=== PATIENT | male | born 1935 | race Caucasian/White ===

== ENCOUNTER → 2017-05-26 08:44 | Outpatient (CLI) | payer MEDICARE, SELFPAY ==
[2017-05-26 09:29] LABS: AST(SGOT) 32 U/L (15-37); Alanine Aminotransfer ALT/SGPT 23 U/L (16-61); Albumin, Serum 3.6 g/dL (3.2-5.0); Alkaline Phosphatase 82 U/L (45-117); Bilirubin, Direct 0.22 mg/dL (0.00-0.30); Cholesterol 148 mg/dL (200); Globulin 3.5 g/dL (2.2-4.2); High Density Lipoprotein 58 mg/dL; Protein, Total 7.1 g/dL (6.4-8.2); Triglycerides 100 mg/dL; Very Low Density Lipoprotein 20 mg/dL (5-40)
== END ==
PROVIDERS: Family Provider Internal Medicine; PCP Internal Medicine; Visit Provider Internal Medicine Cardiovascular Disease
DX: E78.5 Hyperlipidemia, unspecified (principal); Z79.899 Other long term (current) drug therapy
CPT/HCPCS: 36415; 80061; 80076

== ENCOUNTER 2017-05-31 08:30 | Outpatient (RCR) | payer MEDICARE, SELFPAY ==
--- NOTE | 2017-05-14 10:49 | HP.OTEVAL_ITS ---
Patient's Visit Information AILYN SEGOVIA is a 81 year old M, referred to Occupational Therapy by JADYN Gay.REYNA, with a diagnosis of other specific disorder of tendon R wrist, OA R hand and wrist. Date of Evaluation: 05/14/17 Occupational Therapist: Indu Forbes - Subjective Subjective: Pt., ailyn, arrived and noted that that R wrist hurting with intended movement for a couple months. He is R hand dominant. He notes that he has OA already in hands but new pain started more recently. 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 And has increased pain while working and completing most other daily tasks. - Pain Right Wrist 2 Pain Intensity Range: 4, 5 - Objective Objective/Observation: Potential of very minimal edema over back of CMC. Pt. increased pain with wrist flex/ext to 3/10. Pain indicated over ECU tendon and flexor pollicus longus tendon. Limited ROM noted and decreased retort or condenser press operator of R dominant hand at this time. Negative finkelsteins. Negative phalens. - ROM Wrist: flex R 0-61, L 0-70; ext R 0-35, L 0-60 ROM Comments: increased pain to 3/10 with movement of R wrist with flex and extension. - Strength Apartment Leasing Agent: R 68, L 82 Lateral Pinch: R 17, L 17 Tripod Pinch: R 16, L 13 Tip-to-Tip Pinch: R 10, L 10 - Edema Other: potential over base of CMC but very minimal - Sensation Sensation Comments: denies numbness and tingling. Notes he has CTS releas eand trigger finger release a few years ago and has had been pretty good since. - Special Tests Phalen's (Carpal Tunnel): negative at this time WHAT Test: negative at this time - DASH-Disabilities of Arm, Shoulder& Hand DASH Sum: 66 - Hand/Wrist Evaluation Total Score of Pain & Functional Sections: 36 - Goals Goal:: Ailyn to increase R retort or condenser press operator by 20 lbs to promote increase stability of wrist 4/5 trials 80% of the time to promote completion og ADl/IADls by d/c. Goal:: Ailyn to have no more than 1/10 pain with all ADl/IADls 4/5 trials 80% of the time to promote (I) in ADL/IADLs by d/c. Goal:: Ailyn to be mod I to complete jt protection and correct body mechanics for R wrist and hand 4/5 trials 80% of the time to decreased risk of further injury by d/c. Goal:: Ailyn to be (I) return to all ADL/IADls with minimal pain (0-1/10 pain) 4/ 5 trials 80% of the time to promote ability to complete meaningful tasks by d/c. - Rehabilitation General Assessment: Pt.Ailyn, arrived and noted that wrist pain started about a two months ago. He exhibits decreasedgrip strength and ROM of R dominant compared to L nonaffected hand. He has increased pain with resistive tasks. Rehabilitation Potential: Good - Anticipated Interventions Anticipated Interventions: A/AAROM/PROM, Strengthening, Edema Control, Triggerpoint Release, Modalities, Orthoses, Joint Protection/Energy Conservation , Ergonomic Education, Fine Motor Coord/Juan Carlos, ADL Training, Caregiver Training , Home Program - Visit Plan Frequency: 2x /Week Duration: 4-6 Weeks General Plan: Pt.Ailyn, to recieve OT services 2x for 4-6 weeks to address ROM , strength, stability and body mechanics to promote increased participation in ADLs/IADls. Modalities and potential for wrist splint to be used to help decreased pain if needed. TEXT: Thank you for the opportunity to evaluate your patient. For Medicare and Medicare HMO plans, please review the plan of care and approve it. It will need to be FAXED BACK to us at [phone] for Medicare purposes. Please let me know if there are questions or concerns regarding this plan of care. Physician Signature: Date:
--- NOTE | 2017-06-20 11:47 | HP.OT.NRP ---
HP - Discharge Summary - Patient Information JAROD SEGOVIA was seen in my office for initial evaluation on 05/14/17. The following Plan of Care was established for this patient: Initial Frequency: 2x /Week Initial Duration: 4-6 Weeks Plan: continue POC. Promote increasing ergonomics of R wrist. He is to schedule 2x more follow up appointments. Granddaughter coming next week so noted he may need to follow up in 2 weeks. - Anticipated Interventions Anticipated Interventions: A/AAROM/PROM, Strengthening, Edema Control, Triggerpoint Release, Modalities, Orthoses, Joint Protection/Energy Conservation, Ergonomic Education, Fine Motor Coord/Juan Carlos, ADL Training, Caregiver Training, Home Program This patient was last seen in our office . Pertinent comments regarding their Occupational therapy will appear below: At this point I will be discontinuing this patient from occupational therapy. called and determined he will no longer need OT services. Last seen 05/31/17 he was to return after granddaughter completed week visit. Paint Dipper measurements taken were following: R 70 lbs , some increased pain through wrist, L 79 lbs. HE was further educated on ergonomic gardening tools. I would be happy to see this patient again in the future if found appropriate by the physician. Thank you! Indu Forbes
== END 2017-05-31 19:00 | disposition home or self-care (01) ==
LOC: OT 08:30
PROVIDERS: Family Provider Internal Medicine; PCP Internal Medicine; Visit Provider Physician Assistant
DX: M67.833 Other specified disorders of tendon, right wrist (principal); M19.031 Primary osteoarthritis, right wrist
CPT/HCPCS: 97035; 97110; 97166; 97530

== ENCOUNTER → 2017-06-11 10:54 | Outpatient (CLI) | payer MEDICARE, SELFPAY ==
--- NOTE | 2017-06-11 11:06 | EKG12_ITS ---
Test Reason : PRE-OP Blood Pressure : / mmHG Vent. Rate : 059 BPM Atrial Rate : 059 BPM P-R Int : 144 ms QRS Dur : 096 ms QT Int : 418 ms P-R-T Axes : 016 -13 050 degrees QTc Int : 413 ms Sinus bradycardia Otherwise normal ECG Confirmed by DAHIANA ESCOBAR, KYLER ([id number]), editor managing director MARVIN AJ ([id number]) on 06/12/2017 3:34:45 PM Referred By: Jorge Matthew Confirmed By:KYLER TALBOT MD
[2017-06-11 11:56] LABS: Hematocrit 38.2 % (40-54); Hemoglobin 12.8 g/dl (13.0-16.5); Mean Corp Hgb Conc 33.5 g/gl (32-36); Mean Corpuscular Hgb 32.4 pg (27.0-32.0); Mean Corpuscular Volume 96.7 fL (80-94); Mean Platelet Vol. 10.4 fl (6.2-12.0); Platelet Count 179 K/mm3 (150-450); RBC Distribution Width CV 14.5 % (11.6-14.6); RBC Distribution Width SD 49.5 fl (35.1-43.9); Red Blood Count 3.95 M/mm3 (4.6-6.2); White Blood Count 6.4 K/mm3 (4.4-11.0)
[2017-06-11 11:58] LABS: Scan Indicated on CBC? Y/N NO
[2017-06-11 12:21] LABS: Anion Gap 3 (5-15); BUN 38 mg/dL (7-18); BUN/Creat Ratio 28.6 RATIO (10-20); Calcium,Total 9.3 mg/dL (8.5-10.1); Chloride 104 mmol/L (98-107); Creatinine, Serum 1.33 mg/dL (0.70-1.30); EST Glomerular Filtration Rate 55 mL/min (>60); Est Glom Filt Rate - Afr Amer 66 mL/min (>60); Glucose 79 mg/dL (74-106); Potassium 4.6 mmol/L (3.5-5.1); Sodium Level 137 mmol/L (136-145)
== END ==
PROVIDERS: Family Provider Internal Medicine; PCP Internal Medicine; Visit Provider Urology
DX: Z01.812 Encounter for preprocedural laboratory examination (principal); Z01.818 Encounter for other preprocedural examination
CPT/HCPCS: 36415; 80048; 85027; 93005

== ENCOUNTER → 2018-09-12 | Outpatient (CLI) | payer MEDICARE, SELFPAY ==
[2018-07-09 08:55] VITALS: BMI 25.8
[2018-09-12 07:39] LABS: Absolute Lymphocyte Count 1.04 X10^3/uL (0.83-4.51); Basophil# 0.02 X10^3/uL; Basophil% 0.5 % (0-1); Eosinophil# 0.27 X10^3/uL; Hemoglobin 13.1 g/dL (13.0-16.5); Lymphocyte # 1.04 X10^3/ul (4.0); Lymphocyte % 27.2 % (19-41); Mean Corp Hgb Conc 33.6 g/dL (32-36); Mean Corpuscular Hgb 32.3 pg (27.0-32.0); Mean Corpuscular Volume 96.3 fL (80-94); Mean Platelet Vol. 10.3 fl (6.2-12.0); Monocyte% 13.1 % (0-10); NRBC Flagged by Analyzer 0 % (0-5); Neutrophil # 1.99 X10^3/uL (2.7-7.7); Neutrophil % 51.9 % (47-70); Platelet Count 135 K/mm3 (150-450); RBC Distribution Width CV 14.6 % (11.6-14.6); RBC Distribution Width SD 51.3 fl (35.1-43.9); Red Blood Count 4.05 M/mm3 (4.6-6.2); White Blood Count 3.8 K/mm3 (4.4-11.0)
[2018-09-12 07:45] LABS: ALB/GLOB Ratio 1.1 RATIO (0.9-2.4); AST(SGOT) 31 U/L (15-37); Alanine Aminotransfer ALT/SGPT 24 U/L (16-61); Albumin, Serum 3.7 g/dL (3.2-5.0); Alkaline Phosphatase 89 U/L (45-117); Anion Gap 4 (5-15); BUN 23 mg/dL (7-18); BUN/Creat Ratio 22.1 RATIO (10-20); Calcium,Total 9.1 mg/dL (8.5-10.1); Chloride 104 mmol/L (98-107); Cholesterol 143 mg/dL (200); Creatinine, Serum 1.04 mg/dL (0.70-1.30); EST Glomerular Filtration Rate 72 mL/min (>60); Est Glom Filt Rate - Afr Amer 87 mL/min (>60); Globulin 3.3 g/dL (2.2-4.2); Glucose 89 mg/dL (74-106); High Density Lipoprotein 64 mg/dL; Sodium Level 136 mmol/L (136-145); Triglycerides 76 mg/dL; Very Low Density Lipoprotein 15 mg/dL (5-40)
== END | disposition home or self-care (01) ==
PROVIDERS: Family Provider Family Medicine; PCP Family Medicine; Referring Provider Family Medicine; Visit Provider Family Medicine
DX: I25.10 Atherosclerotic heart disease of native coronary artery without angina pectoris (principal); I10 Essential (primary) hypertension
CPT/HCPCS: 36415; 80053; 80061; 85025

== ENCOUNTER → 2018-12-03 07:24 | Outpatient (CLI) | payer MEDICARE, SELFPAY ==
[2018-11-28 09:12] VITALS: BMI 23.9
--- NOTE | 2018-12-03 10:17 | NEURO ---
NCS and/or EMG Patient Report Ordering Doctor: Makayla Wells DATE OF SERVICE: 12/03/18 This is a left upper extremity EMG and nerve conduction study performed on this 83-year-old male who approximately 6 months ago experienced a popping sensation in his left upper arm over the biceps area while performing heavy exertion. Since that time he has experienced pain underneath his left scapula radiating into his neck as well as abnormal sensations into digits 4 and 5. He is healthy otherwise. Left upper extremity sensory and motor nerve conduction studies are performed. The median motor and sensory distal latencies are prolonged with mild reduction of amplitude and conduction velocity. The ulnar motor distal latency is mildly prolonged across the elbow with mild reduction in amplitude across the elbow but conduction velocity across the elbow is preserved. The ulnar sensory response is intact and the radial sensory responses intact. The median F wave latency is prolonged compared to the ulnar F-wave latency. Left upper extremity needle electromyography is performed. Muscles evaluated included the first dorsal osseous, abductor pollicis brevis, brachioradialis, biceps, triceps and deltoid muscles. The muscles in the median nerve distribution including the abductor pollicis brevis muscle demonstrated large motor units with early recruitment and 1+ fibrillation potentials. All other muscles tested including other C8 muscles demonstrated normal insertional activity with absence of pathologic spontaneous activity, and normal motor unit recruitment pattern as well as amplitude. 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 Dictated using [employer] software, not proofread
== END ==
PROVIDERS: Family Provider Family Medicine; PCP Family Medicine; Referring Provider Orthopaedic Surgery; Visit Provider Orthopaedic Surgery
DX: M50.30 Other cervical disc degeneration, unspecified cervical region (principal); M54.2 Cervicalgia
CPT/HCPCS: 95886; 95910

== ENCOUNTER 2019-01-24 07:24 | Day surgery (SDC) | payer MEDICARE, SELFPAY ==
[2019-01-07 09:46] VITALS: BMI 23.9
--- NOTE | 2019-01-07 12:44 | HP_ITS ---
I have re-examined the patient. There are no clinical changes since date of exam. Intake Vital Signs 01/07/19 Body Mass Index (BMI) 23.9 Intake Visit Reasons: Left arm Chief Complaint: CP Allergies codeine Adverse Reaction (Verified 11/05/18 08:53) Nausea/Vom/Diarrhea PFSH Medical History (Updated 11/05/18 @ 09:00 by Jarod Ureña, QUALITY OFFICER-C) Pure hypercholesterolemia (Chronic) Essential hypertension (Chronic) Pericardial effusion (noninflammatory) (Resolved) Atherosclerotic heart disease of [place] coronary artery without angina pectoris (Chronic) Paroxysmal atrial fibrillation (Chronic) Hydrocele (Resolved) HTN (hypertension) (Inactive) Hyperlipidemia (Inactive) Surgical History (Updated 04/26/18 @ 13:14 by Nancie Max) Presence of aortocoronary bypass graft (Resolved ~01/31/16) History of arthroplasty of left knee (Resolved) History of arthroplasty of right shoulder (Resolved) History of arthroscopy of left knee (Resolved) History of carpal tunnel repair (Resolved) History of kyphoplasty (Resolved) History of repair of rotator cuff (Resolved) hx trigger finger release (Resolved) renal calculi excision (Resolved) Family History (Updated 05/28/17 @ 10:49 by Castillo Wilson) Father CVA (cerebral vascular accident) Mother Bright's disease Sister Diabetes Social History (Updated 01/07/19 @ 12:44 by Makayla Wells DO) Smoking Status: Former smoker how long ago did patient quit smokin alcohol intake: never substance use type: does not use caffeine: Yes Type: coffee what type of physical activity do you participate in: none seatbelt use: always do you feel safe at home: Yes HPI Left arm: Surgical H&P: Yes Details: Parts of this documentation were recorded by a scribe, this documentation accurately reflects the service provided and the decisions made by me, Makayla Wells DO 01/07/19 0991. JAROD SEGOVIA is a 83 year old M here today for F/U after EMG of left upper extremity. Patient denies any changes in medications or health history. Patient continues to have numbness of his 1rd through 5th digits. He also continues to have pain of his left posterior shoulder down his left arm but worst pain is 1-3 and weakness is getting worse and constantly shaking out hand. ROS Musc Reports joint pain, Denies joint swelling, Denies muscle weakness, Reports numbness, Reports radiating pain into limb, Reports stiffness, Reports tingling Skin/Breast Denies redness, Denies lesions, Denies itching, Denies rash Neuro Yes numbness, Yes tingling Ortho Exam Left Wrist/Hand Motor: EPL: 5, FDP-2: 4, 1st Dorsal Interosseous: 5, APB: 4 Sensation: Radial: I, Ulnar: D, Median: D No rales rhonchi wheezing, no abdominal pain, no audible bruits Office Procedures Kenalog 40 mg/mL suspension for injection (triamcinolone acetonide) 80 mg intra- articular ONCE Injections Yes Subacromial Injection Left Details: Obtained consent for injection. Under sterile conditions, injected the patients left subacromial injection with a 10cc cocktail of 8cc bupivacaine and 2cc kenalog. The patient tolerated the injection well without any noted complication. Patient should call our office if redness develops, pain worsens or if they have any concerns. Office Meds Kenjonas Performing Provider: Makayla Wells DO Administered by: Makayla Wells DO on 01/07/19 10:03 Dose Route Admin Location Lot Number Expiration Date NDC Rags Laborer 80 mg intra-articular left subacromial jt [id number] 04/20/19 4247-7843-44 [employer] [place] Assessment & Plan Problems 1. Left carpal tunnel syndrome G56.02 2. 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 Reviewed the goal of surgery is to stop the progression and that he longer he waits the less strength he may get back. Reviewed the surgical procedure and post op restrictions and patient elects to proceed We can also inject the shoulder today for the OA. Reviewed the risks and benefits of steroid injection and patient elects to proceed. Risks, benefits and alternatives of surgery reviewed including but no limited to risk of incisional hypersensitivity, pillar pain and continued symptomology, nerve or artery damage, finger and wrist stiffness. Post op restrictions reviewed. Follow up post op or sooner if pain, swelling, numbness or associated symptoms, or concerns develop. All questions answered. Patient in agreement of plan. 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
[2019-01-24 07:43] VITALS: BP 163/65; PULSE 66; RESP 12; TEMP 36.6; O2SAT 98; BMI 24.7
[2019-01-24] MEDS: Lactated Ringers 1,000 ML 100 ML IV (08:06)
[2019-01-24] MEDS: Cefazolin 2 GM in 0.9% Normal Saline 100 ML IV (09:12)
[2019-01-24] MEDS: Mupirocin Ointment 22gm Tube 1 APPLIC (09:45)
--- NOTE | 2019-01-24 09:55 | DCINST_ITS ---
Discharge Diet: No Restrictions - leave dressing in place, call with concerns, follow up in 10-14 days for removal of dressings and suture removal Discharge Activity: May Not Drive May shower in (days): 1 Ice area for (Minutes): 20 - Every hour while awake. Weight Bearing Status: Weight bearing as tolerated Keep extremity elevated above heart level: Operative Extremity Call your doctor if your incision/area has: Continuous Slow Oozing, Sudden Increased Bleeding, Increased Pain/ Swelling, Increased Redness, Foul Smelling Discharge Call your doctor if you observe: Fever of 101 or Higher, Coldness, Increased Pain, Numbness or Tingling, Change in Color, Calf discomfort Allergies/Adverse Reactions: Allergies codeine Adverse Reaction (Verified 01/24/19 07:39) Nausea/Vom/Diarrhea Medications to take at Discharge Amlodipine [Norvasc] 2.5 mg PO BID 03/13/14 Calcium Carb/Vitamin D [Caltrate-600 With Vit D Tab] 1 tab PO DAILY 03/13/14 Multivitamins,Therapeutic [Multivitamin] 1 tab PO DAILY 03/13/14 Aspirin [Adult Low Dose Aspirin EC] 81 mg PO DAILY 05/12/15 Fish Oil/Dha/Epa [Fish Oil 1,200 mg Fish Oil] 1 ea PO DAILY 10/22/16 acetaminophen 500 mg capsule 500 mg PO Q6H PRN 04/29/18 metoprolol tartrate 25 mg tablet 25 mg PO BID #180 tab 10/01/18 atorvastatin 10 mg tablet 10 mg PO QHS #90 tab 11/05/18 Ranitidine HCl [Zantac] 150 mg PO PRN PRN 01/23/19 Vit C/E/Zn/Coppr/Lutein/Zeaxan [Preservision Areds 2 Softgel] 2 ea PO DAILY 01/23/19 Primary Care Physician: Stacy Carson MD [Primary Care Provider] - Test Results: Test results from this visit will be discussed in further detail at your follow- up appointment, if applicable. Please Follow Up With: Makayla Wells, DO - [phone]
--- NOTE | 2019-01-24 09:56 | OP.PCM_ITS ---
Report of Operation Date of Procedure: 01/24/19 Pre-Operative Diagnosis: left carpal tunnel syndrome Post-Operative Diagnosis: same Surgery/Procedure Performed:: left carpal tunnel release customs compliance director: Dominick Banks Type of Anesthesia:: General Anesthesiologist: Marques Griggs Estimated Blood Loss (mL): min Description of Procedure: Preoperative note Patient is a { } patient with nerve conduction study confirming carpal tunnel syndrome. Patient failed conservative treatment for her carpal tunnel elected proceed with left carpal tunnel release. Risks benefits and alternatives surgery discussed with patient. Risks including but not limited to blood loss, blood clot, infection, neurovascular injury, failure procedure, loss of life and loss of limb. Patient is aware like proceed with left carpal tunnel release. Operative note Patient seen and examined preoperative holding area. Left hand was marked. History and physical and consent reviewed. Patient was brought to the operating room placed supine on the operating table. Sign in, anesthesia, antibiotics were administered. Left upper extremity was prepped and draped after [place] block was initiated. All bony prominences well-padded SCDs placed on bilateral lower extremities. We marked out our incisions for our carpal tunnel release at the intersection of Kenan's line in the fourth ray flexed. We extended about a centimeter and a half. Timeout was performed. We then checked ensure that the [place] block was working with pickups which it was. We then used a 15 blade to make a skin incision. We then dissected down tenotomy syllable of the transverse carpal ligament. We then used a new 15 blade cut through the transverse carpal ligament down to the level of the median nerve. We then further released the median nerve the combination of the 15 blade and tenotomies. The nerve was grayish in color and adherent to the transverse carpal ligament volarly. We released the transverse carpal ligament distally to the fat pad and then proximally under standard technique. We then palpated to ensure that we released all of the transverse carpal ligament which we did. We irrigated the incision with copious amounts of sterile saline. All bleeders were coagulated. The incision was closed with interrupted 4-0 nylon stitches. Tourniquet was deflated for total working time of 8 minutes. Patient tolerated procedure well there were no complications. Patient transferred to recovery room in stable condition. Postoperative note no pain medication per patient, will take otc ibuprofen and tylenol Leave dressing clean dry and intact Follow-up in 2 weeks Call with concerns This note was generated with [employer] dictation software. It may contain incorrect words, spelling, and punctuation that were not noted in checking the note before signing.
[2019-01-24 10:03] VITALS: BP 134/68; BP 163/65; PULSE 65; RESP 16; TEMP 37.1; O2SAT 95
[2019-01-24 10:10] VITALS: BP 131/70; BP 163/65; PULSE 62; RESP 16; O2SAT 94
[2019-01-24 10:15] VITALS: BP 141/69; BP 163/65; PULSE 62; RESP 16; O2SAT 96
[2019-01-24 10:20] VITALS: BP 136/67; BP 163/65; PULSE 62; RESP 16; TEMP 36.8; O2SAT 96
[2019-01-24 11:25] VITALS: BP 163/65
== END 2019-01-24 11:25 | disposition home or self-care (01) ==
LOC: SDC 07:24 → AC 07:25
PROVIDERS: Family Provider Family Medicine; PCP Family Medicine; Referring Provider Orthopaedic Surgery; Visit Provider Orthopaedic Surgery
PROC: (CPT 64721; principal; 2019-01-24 08:45)
DX: G56.02 Carpal tunnel syndrome, left upper limb (principal); M19.012 Primary osteoarthritis, left shoulder; E78.00 Pure hypercholesterolemia, unspecified; I10 Essential (primary) hypertension; I25.10 Atherosclerotic heart disease of native coronary artery without angina pectoris; I48.0 Paroxysmal atrial fibrillation; K21.9 Gastro-esophageal reflux disease without esophagitis; Z95.1 Presence of aortocoronary bypass graft; Z79.82 Long term (current) use of aspirin; Z79.899 Other long term (current) drug therapy; Z87.891 Personal history of nicotine dependence
CPT/HCPCS: 64721; J7120; A4216

== ENCOUNTER → 2019-03-11 10:55 | Outpatient (CLI) | payer MEDICARE, SELFPAY ==
[2019-03-04 09:41] VITALS: BMI 24.7
[2019-03-11 12:12] LABS: Absolute Lymphocyte Count 0.67 X10^3/uL (0.83-4.51); Absolute Neutrophil Count 3.4 X10^3/uL (2.0-7.7); Basophil# 0.03 X10^3/uL; Basophil% 0.6 % (0-1); Eosinophil# 0.06 X10^3/uL; Eosinophils% 1.3 % (0-5); Hematocrit 39.2 % (40-54); Hemoglobin 12.8 g/dL (13.0-16.5); Lymphocyte # 0.67 X10^3/ul (4.0); Lymphocyte % 14.3 % (19-41); Mean Corp Hgb Conc 32.7 g/dL (32-36); Mean Corpuscular Hgb 32.7 pg (27.0-32.0); Mean Corpuscular Volume 100.3 fL (80-94); Mean Platelet Vol. 10.1 fl (6.2-12.0); Monocyte# 0.46 X10^3/uL; Monocyte% 9.9 % (0-10); NRBC Flagged by Analyzer 0 % (0-5); Neutrophil # 3.43 X10^3/uL (2.7-7.7); Neutrophil % 73.5 % (47-70); Platelet Count 140 K/mm3 (150-450); RBC Distribution Width CV 14.4 % (11.6-14.6); RBC Distribution Width SD 53.2 fl (35.1-43.9); Red Blood Count 3.91 M/mm3 (4.6-6.2); White Blood Count 4.7 K/mm3 (4.4-11.0)
[2019-03-11 12:18] LABS: Color, Urine Yellow (Yellow); Glucose, Dipstick Normal (Normal); Ketone-Dipstick Negative (Negative); Leukocyte Esterase-Dipstick 25 /ul (Negative); Nitrite-Dipstick Negative (Negative); Occult Blood-Urine Negative /ul (Negative); Protein-Dipstick Negative (Negative); Urine Bilirubin Dipstick Negative (Negative); Urine Clarity Clear (Clear); Urine Urobilinogen Normal (Normal)
[2019-03-11 12:43] LABS: AST(SGOT) 32 U/L (15-37); Alanine Aminotransfer ALT/SGPT 30 U/L (16-61); Albumin, Serum 3.6 g/dL (3.2-5.0); Alkaline Phosphatase 87 U/L (45-117); Anion Gap 2 (5-15); BUN 31 mg/dL (7-18); BUN/Creat Ratio 23.8 RATIO (10-20); Calcium,Total 9.2 mg/dL (8.5-10.1); Chloride 102 mmol/L (98-107); EST Glomerular Filtration Rate 56 mL/min (>60); Est Glom Filt Rate - Afr Amer 67 mL/min (>60); Globulin 3.5 g/dL (2.2-4.2); Glucose 85 mg/dL (74-106); Potassium 4.4 mmol/L (3.5-5.1); Protein, Total 7.1 g/dL (6.4-8.2); Sodium Level 136 mmol/L (136-145)
== END ==
PROVIDERS: PCP Family Medicine; Visit Provider Family Medicine
DX: I10 Essential (primary) hypertension (principal)
CPT/HCPCS: 36415; 80053; 81002; 85025

== ENCOUNTER → 2019-03-18 09:57 | Outpatient (CLI) | payer MEDICARE, SELFPAY ==
[2019-03-18 09:52] VITALS: BMI 24.7
--- NOTE | 2019-03-18 09:58 | RAD_ITS ---
STUDY: X-RAY - RIGHT ELBOW REASON FOR EXAM: Male, 83 years old. Atraumatic anterior elbow pain for 2 weeks. TECHNIQUE: 3 view(s) of the elbow. COMPARISON: None. FINDINGS: Normal visualized humerus, radius and ulna. Osteoarthrosis of the elbow joint. Chondrocalcinosis. RAD/Elbow min 3 Views IMPRESSION: Osteoarthrosis with chondrocalcinosis. No acute finding. Electronically Signed: Govind Clark MD at 18:30 EST , Service support ,
== END ==
PROVIDERS: PCP Family Medicine; Referring Provider Orthopaedic Surgery; Visit Provider Orthopaedic Surgery
DX: M25.521 Pain in right elbow (principal)
CPT/HCPCS: 73080

== ENCOUNTER 2019-03-23 10:21 | Emergency (ER) | payer MEDICARE, SELFPAY ==
[2019-03-18 09:52] VITALS: BMI 24.7
[2019-03-23 10:22] VITALS: BP 155/93; PULSE 72; RESP 17; TEMP 36.9; O2SAT 95; BMI 24.1
--- NOTE | 2019-03-23 10:41 | ED.VISSUMM ---
- ER Visit Summary Date of Service: 03/23/19 Chief Complaint: Fall with midthoracic back pain History of Present Illness: The patient is a 83 M history of hypertension, spinal stenosis, A. fib not on any blood thinners, anemia. Patient had a prior kyphoplasty after a fall. Basically Sunday he was in his health and he fell landing on his buttock. No LOC. Did not hit his head. No neck pain. No weakness or numbness to his upper or lower extremities. States he is having basically midthoracic back pain. Physical Examination: Older male accompanied by his . Vital signs are stable and afebrile. H EENT exam atraumatic. C-spine nontender. Lungs clear to auscultation. Heart regular rhythm. Chest wall nontender. Abdomen soft nontender. Normal bowel sounds no peritoneal signs. Pelvic girdle intact. Remedies moves all 4. Neurovascular intact. 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 Normal sensation both upper and lower extremities. Back is cervical thoracic and lumbar spine are not reproducibly tender. There is no signs of trauma such as bruising or abrasions. He describes the pain in the midthoracic region but is not reproducible. Neurologically is awake and alert with no focal motor or sensory deficits. No cauda equina. Test Results: Thoracic spine x-rays 2 views read by myself shows compression fractures of the lowest lactic spine 1 week prior to kyphoplasty and to above that he has compression fractures which are worse from the most recent film I can find around 2015. I did go over the films with the patient. Emergency Department Course and Treatment: Patient given 1 [place] for pain. His exam is consistent with musculoskeletal pain. When he goes from a lying to a seated up position it makes the pain worse. Treatment Plan: Repeat exam he is feeling somewhat better after the [place]. Disposition: Discharge Impression: Fall Thoracic back pain secondary to thoracic compression fractures This note was generated with [employer] dictation software. It may contain incorrect words, spelling, and punctuation that were not noted in review of the chart prior to signing ED Disposition - Plan for ED Patient: Referrals: Stacy Carson MD [Primary Care Provider] -
[2019-03-23] MEDS: HYDROcodone Bitartrate/Apap 5/325 Tablet PO (10:57)
--- NOTE | 2019-03-23 11:00 | RAD_ITS ---
STUDY: X-RAY - THORACIC SPINE REASON FOR EXAM: Male, 83 years old. INCREASED BACK PAIN AFTER FALLING SUNDAY TECHNIQUE: 3 view(s) of the thoracic spine were obtained. COMPARISON: None. FINDINGS: Normal kyphosis of the thoracic spine. There is no substantial scoliosis. There is multilevel endplate spondylosis of the thoracic vertebrae. There is multilevel disc space narrowing of the thoracic spine. Lower thoracic spine vertebroplasty with cement. The soft tissue structures are unremarkable. RAD/Thoracic Spine 2 Views IMPRESSION: Degenerative changes without acute findings Electronically Signed: Sergey Nunez DO at 11:31 EST Tel , Service support ,
--- NOTE | 2019-03-23 11:41 | DCINST.ED_ITS ---
ED Disposition - Plan for ED Patient: Disposition: Home or Assisted Living Instructions: FRACTURE, Vertebral Compression Prescriptions: Hydrocodone/Acetaminophen [[place] 5-325 Tablet] 1 ea PO Q6H PRN PRN 5 Days #20 tab PRN Reason: Pain Or Fever Prescription Printed Referrals: Stacy Carson MD [Primary Care Provider] - As Needed Makayla Wells DO [STAFF PHYSICIAN] - As Needed Additional Instructions: Updated daughter as needed. [place] for pain. 1 every 4-6 he can take up to 2 if needed. Plenty of fluids and fiber and stool softener as needed to prevent constipation. No driving while using the pain medication.
== END 2019-03-23 11:53 | disposition home or self-care (01) ==
PROVIDERS: Emergency Provider Emergency Medicine; PCP Family Medicine; Referring Provider Family Medicine
DX: S22.009A Unspecified fracture of unspecified thoracic vertebra, initial encounter for closed fracture (principal); M54.6 Pain in thoracic spine; W19.XXXA Unspecified fall, initial encounter; Y93.9 Activity, unspecified; Y92.9 Unspecified place or not applicable; Y99.9 Unspecified external cause status; I10 Essential (primary) hypertension; I48.91 Unspecified atrial fibrillation; N40.0 Benign prostatic hyperplasia without lower urinary tract symptoms; K21.9 Gastro-esophageal reflux disease without esophagitis; Z79.82 Long term (current) use of aspirin; Z79.899 Other long term (current) drug therapy
CPT/HCPCS: 72070; 99283

== ENCOUNTER 2019-04-11 09:00 | Outpatient (RCR) | payer MEDICARE, SELFPAY ==
[2019-03-18 09:52] VITALS: BMI 24.7
--- NOTE | 2019-03-20 18:03 | HP.OTEVAL_ITS ---
Patient's Visit Information JAROD SEGOVIA is a 83 year old M, referred to Occupational Therapy by Dr. Makayla Wells DO, with a diagnosis of R Biceps Tendonitis. Date of Evaluation: 03/20/19 Occupational Therapist: Indu Forbes, OTR/L - Subjective Subjective: Arrived and noted that symptoms started a couple of weeks ago while driving in which he was getting some increased pain around right elbow. He went to see Dr. Wells due to pain and was referred to OT. He noted he has CTS release completed 6 weeks ago and was doing well but when returning to work additional pain was noted through biceps. He presents today with dark purple bruise around medial epicondyle which is new and occured at work yesterday. - ADLs Dressing: Button shirt, Pants, Socks, Shoes Fasteners: Snaps Eating: Use silverware, Cut food Bathing: Handle washcloth & soap, Squeeze shampoo bottle Toileting: Manage clothing Miscellaneous: Unlock front door, Start car, Open doors/Including car door, Operate spray bottle, Function in drive through window Comments: He noted that any resistance tasks often increase pain in right elbow. - Pain elbow/ biceps 5 Pain Intensity Range: 9 - Objective Objective/Observation: bruise and discoloration over medial epicondyle with increased tenderness with attempts to palpate biceps tendon. - ROM Elbow: WFL Forearm: WFL - Strength Quality Assurance Engineer: flexed R 61, L 66; ext R 58, L 70 Lateral Pinch: R 16, L 12 Tripod Pinch: R 15, L 7 - Special Tests Biceps Squeeze - Rupture Biceps: Able to palpate but concern noted. Drops Sign - IS Test: negative- tested due to Pt. noting rotator cuff tear RUE Empty Can - SS: negative- tested due to Pt. noting rotator cuff tear RUE Biceps Load Test: positive- winces in pain on RUE - Quick DASH-Disab of Arm,Shoulder& Hand Quick DASH Score: 43.3325 - Goals Goal:: Jarod to increased RUE by 15-20 lbs to promoite strength and enduranceof RUE with increased integrity of biceps and decreased symptoms of tendonitis 4/5 trials 80% of the time by d/c. Goal:: Jarod to complete active pain management provision through icing protocol with awarenss of skin integrity 4/5 trials 80% of the time to promote decreased pain and promote management of symptoms by d/c. Goal:: Jarod to be (I) to complete correct ergonomic and body positioning to decreased strain and stress on RUE with lifting tasks to decreased symptoms of tendonitis 4/5 trials 80% of the time by d/c. 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 Goal:: Jarod to be mod I to complete daily HEP for strength, stability, and pain management 4/5 trials 80% of the time by d/c. - Rehabilitation General Assessment: Jarod is 83 y/o male who was referred to OT due to increased biceps tendonitis. He is s/p carpal tunnel release 6 weeks ago and noted increased symptoms s/p CTS release. 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 He noted yesterday when helping unload a FWW he felt a 'pop' and has a bruise over medial epicondyle. He has significant pain with loaded tasks to RUE and increased tenderness over biceps. Skilled OT warranted to promote increased stability of RUE, pain management provisions, and ability to return to PLOF for all ADL/IADLs with R dominant UE by d/c. Rehabilitation Potential: Good - Anticipated Interventions Anticipated Interventions: A/AAROM/PROM, Strengthening, Edema Control, Massage, Modalities, Orthoses, Joint Protection/Energy Conservation, Ergonomic Education, Dynamic Sitting Balance, Fine Motor Coord/Juan Carlos, ADL Training, Education re assistive Equipment, Caregiver Training, Home Program - Visit Plan Frequency: 2x /Week Duration: 4 Weeks General Plan: Jarod to complete skilled OT to promote strength, stability, and return to all ADl/IADls with use of pain provision of RUE by d/c. TEXT: Thank you for the opportunity to evaluate your patient. For Medicare and Medicare HMO plans, please review the plan of care and approve it. It will need to be FAXED BACK to us at [phone] for Medicare purposes. Please let me know if there are questions or concerns regarding this plan of care. Physician Signature: Date:
--- NOTE | 2019-04-11 09:29 | HP.OTDCSUM_ITS ---
HP - OT D/C Summary It has been my pleasure to treat TRELL SEGOVIA under orders from Dr. Makayla Wells DO, for the diagnosis of R Biceps Tendonitis for a total of 2 visit(s). Please see the following information for a summary of their discharge status. 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 right staking engineer strength is 70# no pain. Left is 70#. pt demo MMT of bi/triceps 4+/5. based on pt report and objective measurments pt is appopriate for D/C - Goals Patient Goals: Regain Strength, Decrease Pain, Decrease Swelling/Stiffness, Improve Fine Motor Skills, Use Hand/Wrist/Arm Normally Again, Increase ROM, Be More Independent in ADLS, Resume Former Household Responsibilities (Cooking,Cleaning,Yard, etc.), Resume Hobbies Goal:: Trell to increased RUE by 15-20 lbs to promoite strength and enduranceof RUE with increased integrity of biceps and decreased symptoms of tendonitis 4/5 trials 80% of the time by d/c. Goal:: Trell to complete active pain management provision through icing protocol with awarenss of skin integrity 4/5 trials 80% of the time to promote decreased pain and promote management of symptoms by d/c. Goal:: Trell to be (I) to complete correct ergonomic and body positioning to decreased strain and stress on RUE with lifting tasks to decreased symptoms of tendonitis 4/5 trials 80% of the time by d/c. 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 Goal:: Trell to be mod I to complete daily HEP for strength, stability, and pain management 4/5 trials 80% of the time by d/c. - D/C Information Discharge Comments: This 83 year old male as seen for OT eval 3 weeks ago. He was unable attend his 2nd scheduled apt. due to fall and suffering fx vertebra. Pt stated since he was resting from this injury his elbow has recoved fully. pts demo right staking engineer strength elbow flex at 90*pt at 65# no pain, left is 66# with elbow ext. right staking engineer strength is 70# no pain. Left is 70#. pt demo MMT of bi/triceps 4+/5. based on pt report and objective measurments pt is appopriate for D/C If there are questions or concerns regarding this patient's occupational therapy, please fell free to call me at [phone]. Thank you for the referral of this patient. Sincerely, Nancie Marquez, OTR/L, CHT
== END 2019-04-11 10:50 | disposition home or self-care (01) ==
LOC: OT 09:00
PROVIDERS: PCP Family Medicine; Referring Provider Orthopaedic Surgery; Visit Provider Orthopaedic Surgery
DX: M75.21 Bicipital tendinitis, right shoulder (principal)
CPT/HCPCS: 97166; 97530

== ENCOUNTER 2019-04-22 09:01 | Outpatient (RCR) | payer MEDICARE, SELFPAY ==
--- NOTE | 2019-04-22 09:58 | HP.PTEVAL_ITS ---
Patient's Visit Information JAROD SEGOVIA is a 83 year old M referred to Physical Therapy by Dr. Jean-Pierre Lacey MD with a diagnosis of T/S pain. Date of Evaluation: 04/22/19 Physical Therapist: Deacon Sheppard, PT, ATC - Visit Plan Frequency: 2-3x /Week Duration: 4-6 Weeks Plan: Postural edu, scap stab ex's, UBE, and HEP. - Subjective Findings: Pt reports he fell about one month ago while going to the bathroom in the middle of the night. Pt reports when he woke the next morning, he had severe pain between his shoulder blades. Pt reports he has had an epidural which helped to take away his severe pain, however he still remains in pain. Pt reports he had xrays at the ER to rule out a fracture. Pt notes he is really sore today because something popped under his shoulder blade this morning. Pt denies ting ling or numbness in spine this date. Pt reports no sleep difficulty at this time. Pt reports he really only has pain when he stands for a long period of time, like when he is washing dishes. Pt also notes he cant walk very far secondary to pain. 8/10 pain this morning, 10/10 when he sneezed prior to injection - Pain Interscapular region Pain Intensity (Out of 10): 8 Pain Intensity Range: 10 - Objective flex= Neuro: B UE and LE sensation is WNL to light touch. B icepital reflex= 2/3. Palpation: Pt is very sore throughout the mid to lower thoracic spine. No obvious deformity. ROM: Pt is minimally limited with flex and SB activity. Extension is severely limited and causes pain. MMT: B UE's 4+/5 throughout - Goals Goal 1:: Decrease T/S pain x 50% to aid with increased tee for ambulation Goal Time Frame: 4-6 Weeks Goal 2:: Pt will be able to stand and ambulate long enough to perform IADL's with 50% greater ease Goal Time Frame: 4-6 Weeks Goal 3:: I with HEP Goal Time Frame: 4-6 Weeks - Rehabilitation Potential Physical Therapy Diagnosis: Pt has difficulty with IADL's and T/S pain secondary to deg changes in T/S Rehabilitation Potential: Good - Anticipated Interventions Patient/Client Instruction: Educate patient on: Condition, Plan of Care For the Purpose of:: To improve self management Therapeutic Exercise to Include: Strength training, Endurance training, Postural training, Scapular Strength/Stabilization For the Purpose of:: To decrease pain, To improve muscle performance and motor function Thank you for the opportunity to evaluate your patient. For Medicare and Medicare HMO plans, please review the plan of care and approve it. It will need to be FAXED BACK to us at [phone] for Medicare purposes. For Medicare only, by signing this I certify the plan of care. Please let me know if there are questions or concerns regarding this plan of care. Physician Signature:_ Date:
--- NOTE | 2019-10-22 14:00 | HP.PT.NRP ---
JAROD SEGOVIA was seen in my office for initial evaluation on 04/22/19. The following Plan of Care was established for this patient: Initial Frequency: 2-3x /Week Initial Duration: 4-6 Weeks Patient/Client Instruction: Educate patient on: Condition, Plan of Care For the Purpose of:: To improve self management Therapeutic Exercise to Include: Strength training, Endurance training, Postural training, Scapular Strength/Stabilization For the Purpose of:: To decrease pain, To improve muscle performance and motor function This patient was last seen in our office . Pertinent comments regarding their Physical therapy will appear below: Pt was evaluated on 04/22/19. Pt has not returned through todays date and is discontinued at this time. At this point I will be discontinuing this patient from physical therapy. I would be happy to see this patient again in the future if found appropriate by the physician. Thank you! Deacon Sheppard, PT, ATC
== END 2019-04-22 19:00 | disposition home or self-care (01) ==
LOC: PT 09:01
PROVIDERS: PCP Family Medicine; Referring Provider Anesthesiology Pain Medicine; Visit Provider Anesthesiology Pain Medicine
DX: M54.9 Dorsalgia, unspecified (principal)
CPT/HCPCS: 97161

== ENCOUNTER → 2019-08-05 10:45 | Outpatient (CLI) | payer MEDICARE, SELFPAY ==
[2019-03-04 09:41] VITALS: BMI 24.7
--- NOTE | 2019-08-05 10:58 | BD_ITS ---
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 COMPARISON: Comparison is made with prior examination dated June 23, 2015. FINDINGS: Lumbar Spine (L1-L4): g/cm2 (1.144) / T-score (-0.8) / Z-score (0.0) Findings are suggestive of normal bone density with a low fracture risk. Increased kyphosis. Loss of height of mid and lower dorsal vertebrae with prior vertebroplasty of a lower dorsal vertebrae. Left Femur Total: g/cm2 (0.841) / T-score (-1.8) / Z-score (-0.4) Left Femoral Neck: g/cm2 (0.821) / T-score (-1.9) / Z-score (-0.2) Right Femur Total: g/cm2 (0.837) / T-score (-1.8) / Z-score (-0.4) Right Femoral Neck: g/cm2 (0.836) / T-score (-1.8) / Z-score (-0.1) The T-Scores on the most recent prior examination were: Lumbar Spine (L1-L4): There has been worsening of bone density since the previous examination. Left Femur Total: which represents a worsening of 5.8%. Right Femur Total: which represents a worsening of 5.8%. BD/Dexa Bone Density Study IMPRESSION: The patient is considered osteopenic as outlined below according to World Raghav Organization (WHO) criteria with a moderate fracture risk. There has been worsening of bone density since the previous examination. Reference Information: The T-score is the number of standard deviations above or below the standard which is normal for young adults at their peak bone mineral density. The World Health Organization (WHO) interprets the T-scores as follows: Above -1 Normal bone density Between -1 and -2.5 Osteopenia Equal to / or below -2.5 Osteoporosis As a practical clinical guideline, osteopenia may be graded as follows: Mild -1 through -1.5 Moderate -1.6 through -2.0 Severe -2.1 through -2.4 The Z-score is the number of standard deviations above or below age-matched controls. A Z-score of less than -1.5 would be considered abnormal. References: 1. NIH Osteoporosis and Related Bone Diseases http://www.osteo.org 2. International Society for Clinical Densitometry http://www.iscd.org 3. National Osteoporosis Foundation http://www.nof.org Electronically Signed: Shon Lanza, at 14:53 EDT , Service support ,
== END ==
PROVIDERS: PCP Family Medicine; Referring Provider Family Medicine; Visit Provider Family Medicine
DX: M81.0 Age-related osteoporosis without current pathological fracture (principal); Z87.891 Personal history of nicotine dependence
CPT/HCPCS: 77080

== ENCOUNTER → 2019-08-11 09:12 | Outpatient (CLI) | payer MEDICARE, SELFPAY ==
[2019-08-11 10:49] LABS: AST(SGOT) 32 U/L (15-37); Alanine Aminotransfer ALT/SGPT 24 U/L (16-61); Albumin, Serum 3.6 g/dL (3.2-5.0); Alkaline Phosphatase 75 U/L (45-117); Bilirubin, Direct 0.27 mg/dL (0.00-0.30); Cholesterol 146 mg/dL (200); Globulin 3.4 g/dL (2.2-4.2); High Density Lipoprotein 63 mg/dL; Triglycerides 83 mg/dL; Very Low Density Lipoprotein 17 mg/dL (5-40)
== END ==
PROVIDERS: PCP Family Medicine; Referring Provider Nurse Practitioner Family; Visit Provider Nurse Practitioner Family
DX: E78.5 Hyperlipidemia, unspecified (principal)
CPT/HCPCS: 36415; 80061; 80076

== ENCOUNTER → 2019-09-12 14:03 | Outpatient (CLI) | payer MEDICARE, SELFPAY ==
[2019-08-18 09:32] VITALS: BMI 22.2
[2019-09-12 17:04] LABS: Absolute Lymphocyte Count 0.91 X10^3/uL (0.83-4.51); Absolute Neutrophil Count 3.5 X10^3/uL (2.0-7.7); Basophil# 0.02 X10^3/uL; Basophil% 0.4 % (0-1); Eosinophil# 0.14 X10^3/uL; Eosinophils% 2.7 % (0-5); Hematocrit 39.1 % (40-54); Hemoglobin 12.5 g/dL (13.0-16.5); Lymphocyte # 0.91 X10^3/ul (4.0); Lymphocyte % 17.8 % (19-41); Mean Corpuscular Hgb 31.9 pg (27.0-32.0); Mean Corpuscular Volume 99.7 fL (80-94); Mean Platelet Vol. 10.5 fl (6.2-12.0); Monocyte# 0.51 X10^3/uL; NRBC Flagged by Analyzer 0 % (0-5); Neutrophil # 3.51 X10^3/uL (2.7-7.7); Neutrophil % 68.9 % (47-70); Platelet Count 127 K/mm3 (150-450); RBC Distribution Width CV 14.7 % (11.6-14.6); RBC Distribution Width SD 53.9 fl (35.1-43.9); Red Blood Count 3.92 M/mm3 (4.6-6.2); White Blood Count 5.1 K/mm3 (4.4-11.0)
[2019-09-12 17:08] LABS: Vitamin B12 572 pg/mL (211-911)
[2019-09-12 17:16] LABS: PSA,Total- Diagnostic 0.89 ng/mL (0.0-4.0); Thyroid Stim Hormone (TSH) 2.21 uIU/mL (0.358-3.74)
== END ==
PROVIDERS: PCP Family Medicine; Visit Provider Family Medicine
DX: R63.4 Abnormal weight loss (principal); M89.8X9 Other specified disorders of bone, unspecified site
CPT/HCPCS: 36415; 82607; 84153; 84443; 85025

== ENCOUNTER → 2019-09-23 10:08 | Outpatient (CLI) | payer MEDICARE, SELFPAY ==
[2019-08-18 09:32] VITALS: BMI 22.2
--- NOTE | 2019-09-23 10:45 | MRI_ITS ---
STUDY: MRI THORACIC SPINE WITHOUT CONTRAST REASON FOR EXAM: Male, 83 years old. back pain, compression fx, abnormal xrays of thoracic spine. History of kyphoplasty TECHNIQUE: Standardized fat and water weighted pulse sequences were obtained in the sagittal and axial planes. COMPARISON: None. FINDINGS: Normal kyphosis of the thoracic spine. There is no substantial scoliosis. There is compression fracture of T8 with intramedullary bone marrow edema and approximately 50% loss of vertebral body height with mild retropulsion of the posterior inferior endplate mildly narrowing the central canal. There is no compression fracture of T11 status post kyphoplasty. The intervertebral disc space heights are well-maintained although there is mild multilevel endplate spurring.. There is diffuse desiccation of the discs consistent with degeneration but no evidence for focal disc protrusion spinal stenosis or cord compression. Normal visualized thoracic cord. Normal conus medullaris that terminates at T12 The soft tissue structures are unremarkable. Multiple bilateral renal cysts are present MRI/Spine Thoracic (Routine) IMPRESSION: Acute compression fracture of T8 with approximately 50% loss of vertebral body height and mild retropulsion of posterior inferior endplate creating mild spinal stenosis. Old compression fracture of T11 status post kyphoplasty Electronically Signed: Vince Pearson MD at 18:40 EDT , Service support ,
== END ==
PROVIDERS: PCP Family Medicine; Referring Provider Physician Assistant Surgical; Visit Provider Physician Assistant Surgical
DX: M54.6 Pain in thoracic spine (principal); S22.060A Wedge compression fracture of T7-T8 vertebra, initial encounter for closed fracture; X58.XXXA Exposure to other specified factors, initial encounter; Y93.9 Activity, unspecified; Y92.9 Unspecified place or not applicable; Y99.9 Unspecified external cause status
CPT/HCPCS: 72146

== ENCOUNTER 2022-12-07 14:30 | Outpatient (RCR) | payer MEDICARE, SELFPAY ==
--- NOTE | 2022-10-30 12:48 | HP.PTEVAL_ITS ---
Patient's Visit Information Visit Information Visit Information: JAROD SEGOVIA is a 86 year old M referred to Physical Therapy by Dr. Stacy Carson MD with a diagnosis of Pelvic fracture, general debility. Date of Evaluation: 10/25/22 Physical Therapist: Farooq Hemphill DPT Visit Plan Frequency: 2x /Week Duration: 6 Weeks Plan: Start with BLE and core strengthening. Add in gait, functional strengthening and balance re education. Progress as tolerated. Subjective Subjective: Pt. is here today for his initial evaluation with diagnosis of pe lvic fracture. Pt. reports falling off his steps at home and having a pelvic frature. Pain Lumbar spine: Pain Intensity (Out of 10): 1 Pain Intensity Range: 4 R hip: Pain Intensity (Out of 10): 0 Pain Intensity Range: 0 and 1 Objective Objective: POSTURE: Pt. has flexed posture, increased thoracic kyphosis, uses walker to stabilize, but is able to stand without AD. PALPATION: No pain throughout B hips. pt. has some mild pain throughout B upper lumbar and lower thoracic region. NEURO: normal sensation and normal DTR of BLEs. MMT: RLE: ankle 5-/5 throughout; knee: 4+/5 throughout; hip: 4/5 flexion and ext, 4-/5 hip abd. LLE: ankle 5-/5 throughout; knee: ext 4/5, flexion 4/5; hip: flexion 4/5, abd 4-/5, ext 4/5. Core strength poor. GAIT: Pt. ambulates well with FWW RUBÉN. [place] at times without AD. Guarded with out use of AD. Balance/Special Test Scores Lower Extremity Functional Score: 19 TUG Test Time Seconds: 29.1 30 Second Chair Rise Test Seconds: 8 6 Minute Walk Test: 1108 feet with FWW. Goals Goal 1:: LTG: Pt. to be I with HEP for LE strengthening and balance exercises. Goal Time Frame: 4-6 Weeks Goal 2:: STG: Pt. to have improved TUG time to less than 20seconds. Goal Time Frame: 2-4 Weeks Goal 3:: LTG: pt. to have increased BLE and core strength increased by 1/2 grade throughout. Goal Time Frame: 4-6 Weeks Goal 4:: LTG: Pt. to have increased 6 MWT distance to greater than 1300 feet. Goal Time Frame: 4-6 Weeks Goal 5:: LTG: Pt. to have increased sit to stand rep test total to above 14reps without use of UEs. Goal Time Frame: 4-6 Weeks Goal 6:: LTG: pt. to ambulate RUBÉN with use of cane. Goal Time Frame: 4-6 Weeks Rehabilitation Potential Physical Therapy Diagnosis: Pt. has signs and symptoms consistent with pelvic fracture and general debility. Pt. would benefit from PT to address his BLE weakness, difficulty with walking his general decrease in functional mobility and his back pain. Due to falling has his cause of his injury further balance training is warranted as well. Rehabilitation Potential: Good Anticipated Interventions Patient/Client Instruction: Educate patient on: Condition, Plan of Care, Risk Factors and Benefits of Fitness Program For the Purpose of:: To foster healthy habits, To improve decision making, To facilitate caregiver knowledge, To improve self management, To prevent re-injury and To improve ability to perform tasks related to life management Therapeutic Exercise to Include: Strength training, Power training, Endurance training, Balance training, Postural training and Dynamic Lumbar Stabilization For the Purpose of:: To decrease pain, To increase ROM, To improve nutrient delivery to tissue, To increase oxygenation perfusion, To improve muscle performance and motor function, To improve ability to perform ADL's, To increase tolerance to activity/condition/position and To improve gait and locomotor functions Text: Thank you for the opportunity to evaluate your patient. For Medicare and Medicare HMO plans, please review the plan of care and approve it. It will need to be FAXED BACK to us at [phone] for Medicare purposes. For Medicare only, by signing this I certify the plan of care. Please let me know if there are questions or concerns regarding this plan of ca re. Physician Signature: Date:
--- NOTE | 2022-11-23 14:19 | HP.PTREVAL ---
Re-Evaluation Intro: Dr. Stacy Carson MD, It has been my pleasure to treat AILYN SEGOVIA over the last 9 visits for Pelvic fracture, general debility. Please see the progress note below for an update on the physical therapy plan of care! Subjective Subjective: Pt. reports being 75% better overall. He did some vacuuming the other day and did have some L sided SI region. He is still having some pain with initially getting up in AMs. Still using walker outside, no AD in home. He has been using cane to get his mail. Objective Objective/Function: 6 MWT: 1006 with SPC LE fatigue 30 sec sit to stand rep test 15 without use of UEs. TU.36 without cane, 12.97sec with cane gait: Pt. is RUBÉN with FWW, CHASIDY close to RUBÉN with SPC. Pt. has increased lateral sway and decreased step length bilaterally with gait without AD. Pt. has pretty good gait pattern with SPC. MMT: ankle and knee 5/5 throughout; hip: R side: flexion 21#, abd 18#, ext 16#; L side: flexion 18# mild increase NW, abd 16#, ext 14#. Plan Plan Plan: I am recerting ailyn for another 3 weeks x2 per week. Focus on progressing to cane with all mobility, pt. would like to get to no AD if safe. Cont. to work on core strength to reduce strain on his lumbar spine. Add in stairs with SPC as he has stairs in community without HR. Balance/Gait/Functional tests Balance/Special Test Scores Lower Extremity Functional Score: 35 TUG Test Time Seconds: 12.97 Tug Test: <20 sec.=mostly independent 30 Second Chair Rise Test Seconds: 15 6 Minute Walk Test: 1006 with SPC Goals Goals Goal 1:: LTG: Pt. to be I with HEP for LE strengthening and balance exercises. Goal Time Frame: 4-6 Weeks Goal Progress: Progressing Goal 2:: STG: Pt. to have improved TUG time to less than 20seconds. Goal Time Frame: 2-4 Weeks Goal Progress: Goal Met Goal 3:: LTG: pt. to have increased BLE and core strength increased by 1/2 grade throughout. Goal Time Frame: 4-6 Weeks Goal Progress: Goal Met Goal 4:: LTG: Pt. to have increased 6 MWT distance to greater than 1300 feet. Goal Time Frame: 4-6 Weeks Goal Progress: Progressing Goal 5:: LTG: Pt. to have increased sit to stand rep test total to above 14reps without use of UEs. Goal Time Frame: 4-6 Weeks Goal Progress: Goal Met Goal 6:: LTG: pt. to ambulate RUBÉN with use of cane. Goal Time Frame: 4-6 Weeks Goal Progress: Progressing Anticipated Interventions Anticipated Interventions Patient/Client Instruction: Educate patient on: Condition, Plan of Care, Risk Factors and Benefits of Fitness Program For the Purpose of:: To foster healthy habits, To improve decision making, To facilitate caregiver knowledge, To improve self management, To prevent re-injury and To improve ability to perform tasks related to life management Therapeutic Exercise to Include: Strength training, Power training, Endurance training, Balance training, Postural training and Dynamic Lumbar Stabilization For the Purpose of:: To decrease pain, To increase ROM, To improve nutrient delivery to tissue, To increase oxygenation perfusion, To improve muscle performance and motor function, To improve ability to perform ADL's, To increase tolerance to activity/condition/position and To improve gait and locomotor functions Re-Evaluation Ending Re-evaluation ending: Please do not hesitate to contact me at [phone] by phone or if you have questions or concerns regarding this new plan of care! Sincerely, Farooq Hemphill DPT
== END 2022-12-07 19:00 | disposition home or self-care (01) ==
LOC: PT 14:30
PROVIDERS: PCP Family Medicine; Referring Provider Family Medicine; Visit Provider Family Medicine
DX: S32.509D Unspecified fracture of unspecified pubis, subsequent encounter for fracture with routine healing (principal)
CPT/HCPCS: 97110; 97161; 97164

== ENCOUNTER → 2023-04-04 | Outpatient (CLI) | payer MEDICARE, SELFPAY ==
--- OUTSIDE RECORDS SUMMARY | 2023-04-04 09:16 | XMS RPT_ITS | CCD ---
Author Name Unknown Address [id number] [place] [address] Organization [facility] Care Team Providers Care Mirror Framer Name Role Phone Denise Vizcaino Unavailable Unavailable Margret HUI, Jaz Dia Unavailable Unavailable Denise Vizcaino Unavailable Unavailable DR HAFSA LEE DO Attending Unavailable NAREN CARSON Primary Care Unavailable Allergies Allergy Classification Reported Allergen(s) Allergy Type Date of Onset Reaction(s) Facility (3 sources) codeine drug allergy 05-19-2015 [facility] Work Phone: Medications Completed/Discontinued Medications Medication Drug Class(es) Dates Sig (Normalized) Sig (Original) acetaminophen 500 mg oral tablet (3 sources) Start: 05-19-2015 ACETAMINOPHEN 500 MG TABS as needed ACETAMINOPHEN [id number] Isis Berkowitz RN amiodarone hydrochloride 200 mg oral tablet (9 sources) Antiarrhythmic Start: 05-19-2015 End: 10-18-2015 take 1 tablet by mouth once daily AMIODARONE HCL 200 MG TABS One tablet by mouth daily AMIODARONE HCL [id number] Isis Berkowitz RN amLODIPine 5 mg oral tablet (6 sources) Dihydropyridine Calcium Channel Maty Start: 05-24-2015 take 1 tablet by mouth twice daily AMLODIPINE BESYLATE 5 MG TABS One half tablet tablet by mouth twice daily AMLODIPINE BESYLATE [id number] Nancie Negron PA-C Problems Active Problems Problem Classification Problem Date Documented Da te Episodic/Chronic Cardiac dysrhythmias (3 sources) Paroxysmal atrial fibrillation; Translations: [Paroxysmal atrial fibrillation] Onset: 05-19-2015 05-19-2015 Chronic Coronary atherosclerosis and other heart disease (3 sources) Coronary atherosclerosis; Translations: [Atherosclerotic heart disease of [place] coronary artery without angina pectoris] Onset: 05-19-2015 05-19-2015 Chronic Disorders of lipid metabolism (3 sources) Hyperlipidemia; Translations: [Hyperlipidemia, unspecified] Onset: 05-19-2015 05-19-2015 Chronic Essential hypertension (5 sources) Hypertensive disorder; Translations: [Essential (primary) hypertension] Onset: 05-19-2015 Resolved: 09-14-2016 10-18-2015 Chronic Hypertension with complications and secondary hypertension (4 sources) Essential (primary) hypertension; Translations: [Essential (primary) hypertension] Onset: 05-19-2015 Resolved: 09-14-2016 09-14-2016 Chronic Unclassified (1 source) Long-term drug therapy; Translations: [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] Onset: 05-19-2015 05-19-2015 Unclassified (1 source) Saphenous vein graft replacement of two coronary arteries; Translations: [Presence of aortocoronary bypass graft] Onset: 05-19-2015 09-14-2016 Past or Other Problems Problem Classification Problem Date Documented Da te Episodic/Chronic Coronary atherosclerosis and other heart disease (5 sources) Presence of aortocoronary bypass graft; Translations: [History of coronary artery bypass grafting] Onset: 05-19-2015 09-14-2016 Episodic Other aftercare (2 sources) Other snf (current) drug therapy; Translations: [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] Onset: 05-19-2015 05-19-2015 Episodic Justina-; endo-; and myocarditis; cardiomyopathy (3 sources) Pericardial effusion; Translations: [Pericardial effusion (noninflammatory)] Onset: 05-26-2015 05-26-2015 Episodic Unclassified (3 sources) Family history of stroke; Translations: [Family history of stroke] 05-26-2015 Episodic Results Test Name Value Interpretation Reference Range Facil ity Vital Signs Date Time Vital Sign Value Performing Clinician Peyton giordano 09-18-2016 09:26-0400 BMI (Body Mass Index) 24.56 kg/m2 Denise Vizcaino [facility] Work Phone: 09-18-2016 09:26-0400 BP Diastolic 80 mm[Hg] Denise Vizcaino [facility] Work Phone: 09-18-2016 09:26-0400 BP Systolic 142 mm[Hg] Denise Vizcaino [facility] Work Phone: 09-18-2016 09:26-0400 Height 177.8 cm [facility] Work Phone: 09-18-2016 09:26-0400 Pulse (Heart Rate) 56 /min Denise Vizcaino [facility] Work Phone: 09-18-2016 09:26-0400 Respiratory Rate 20 /min [facility] Work Phone: 09-18-2016 09:26-0400 Weight 77.66 kg Denise [facility] Work Phone: 03-20-2016 11:10-0500 BMI (Body Mass Index) 25.54 kg/m2 [facility] Work Phone: 03-20-2016 11:10-0500 BP Diastolic 74 mm[Hg] Jaz Oswald RN [facility] Work Phone: 03-20-2016 11:10-0500 BP Systolic 154 mm[Hg] Jaz Oswald RN [facility] Work Phone: 03-20-2016 11:10-0500 BSA (Body Surface Area) 1.99 m2 Jaz Oswald RN [facility] Work Phone: 03-20-2016 11:10-0500 Pulse (Heart Rate) 60 /min Jaz Oswald RN [facility] Work Phone: 03-20-2016 11:10-0500 Respiratory Rate 16 /min Jaz Oswald RN [facility] Work Phone: 03-20-2016 11:10-0500 Weight 80.74 kg Jaz Oswald RN [facility] Work Phone: 07-08-2015 09:57-0400 BP Diastolic 80 mm[Hg] Jaz Oswald RN [facility] Work Phone: 07-08-2015 09:57-0400 BP Systolic 130 mm[Hg] Jaz Oswald RN [facility] Work Phone: 07-08-2015 09:57-0400 BP Systolic 150 mm[Hg] Jaz Oswald RN [facility] Work Phone: 05-26-2015 11:11-0400 Heart rate 55 /min [facility] Work Phone: 05-26-2015 10:33-0400 Body Temperature 97.3 [degF] Jaz Oswald RN [facility] Work Phone: 05-26-2015 10:33-0400 Height 177.8 cm Jaz Oswald RN [facility] Work Phone: Encounters Encounter Date Encounter Type Care Provider Facility Start: 08-22-2022 End: 08-22-2022 Emergency department patient visit DR HAFSA Loera ity:B Procedures Date Procedure Procedure Detail Performing Clinician Start: 09-18-2016 End: 09-18-2016 Follow Up Appt 6 months Nancie duenas PA-C Work Phone: Start: 09-18-2016 End: 09-18-2016 PFM Nancie Negron PA-C Work Phone: Start: 05-29-2016 End: 05-29-2016 *Hepatic Function Panel Raffi Pérez MD Start: 05-29-2016 End: 05-29-2016 Lipid panel [AGGREGATE] Raffi Pérez MD Start: 03-20-2016 End: 03-20-2016 Dietary management education, guidance, and counseling Denise Vizcaino Start: 03-20-2016 End: 03-20-2016 Follow Up Appt 6 months Raffi Pérez MD Start: 03-20-2016 End: 03-20-2016 MMM Raffi Pérez MD Start: 10-27-2015 End: 03-20-2016 Follow Up BP Check Nancie Negron PA-C Work Phone: Start: 10-18-2015 End: 10-18-2015 Follow Up Appt 6 months Nancie duenas PA-C Work Phone: Start: 10-18-2015 End: 10-18-2015 Follow Up BP Check Nancie Negron PA-C Work Phone: Start: 10-18-2015 End: 10-18-2015 PFM Nancie Negron PA-C Work Phone: Start: 07-08-2015 End: 07-08-2015 Follow Up Appt 3 months Nancie duenas PA-C Work Phone: Start: 07-08-2015 End: 07-08-2015 Follow Up Appt 6 months Nancie duenas PA-C Work Phone: Start: 07-08-2015 End: 07-08-2015 MMM Nancie Negron PA-C Work Phone: Start: 07-08-2015 End: 07-08-2015 PF Nancie Negron PA-C Work Phone: Start: 05-26-2015 End: 06-23-2015 Echocardiography Raffi Pérez MD Start: 05-26-2015 End: 05-26-2015 Electrocardiogram, complete Raffi oneill MD Start: 05-26-2015 End: 05-26-2015 Follow Up Appt 1 month Raffi Pérez MD Start: 05-26-2015 End: 05-26-2015 MMM Raffi Pérez MD Start: 05-19-2015 End: 05-20-2015 *BMP Raffi Pérez MD Start: 05-19-2015 End: 06-23-2015 24 hour holter monitor Raffi Pérez MD Start: 05-19-2015 End: 05-20-2015 CBC W Auto Differential panel - Blood Raffi Pérez MD Start: 05-19-2015 End: 05-19-2015 Electrocardiogram, complete Raffi oneill MD Start: 05-19-2015 End: 05-20-2015 Thyrotropin [Units/volume] in Serum or Plasma Raffi Pérez MD Start: 05-19-2015 End: 05-20-2015 Thyroxine (T4) Raffi Pérez MD Plan of Treatment Date Care Activity Detail Author Start: 05-28-2017 End: 05-28-2017 Appointment Appointment [facility] Work Phone: Start: 11-29-2016 End: 06-09-2016 *Hepatic Function Panel *Hepatic Function Panel [facility] Work Phone: Start: 11-29-2016 End: 06-09-2016 Lipid panel [AGGREGATE] *Lipid Profile CC PCP [facility] Work Phone: Start: 09-18-2016 End: 09-18-2016 Appointment Appointment [facility] Work Phone: Start: 09-18-2016 End: 09-18-2016 Follow Up Appt 6 months Follow Up Appt 6 months [facility] Work Phone: Start: 09-18-2016 End: 09-18-2016 PFM PFM [facility] Work Phone: Start: 05-31-2016 End: 05-29-2016 *Hepatic Function Panel *Hepatic Function Panel [facility] Work Phone: Start: 05-31-2016 End: 05-29-2016 Lipid panel [AGGREGATE] *Lipid Profile CC PCP [facility] Work Phone: Start: 03-20-2016 End: 03-20-2016 Follow Up Appt 6 months Follow Up Appt 6 months [facility] Work Phone: Start: 03-20-2016 End: 03-20-2016 MMM MMM [facility] Work Phone: Start: 10-27-2015 End: 03-20-2016 Follow Up BP Check Follow Up BP Check [facility] Work Phone: Start: 10-18-2015 End: 10-18-2015 Follow Up Appt 6 months Follow Up Appt 6 months [facility] Work Phone: Start: 10-18-2015 End: 10-18-2015 Follow Up BP Check Follow Up BP Check [facility] Work Phone: Start: 10-18-2015 End: 10-18-2015 PFM PFM [facility] Work Phone: Start: 07-08-2015 End: 07-08-2015 Follow Up Appt 3 months Follow Up Appt 3 months [facility] Work Phone: Start: 07-08-2015 End: 07-08-2015 Follow Up Appt 6 months Follow Up Appt 6 months [facility] Work Phone: Start: 07-08-2015 End: 07-08-2015 MMM MMM [facility] Work Phone: Start: 07-08-2015 End: 07-08-2015 PFM PFM [facility] Work Phone: Start: 05-26-2015 End: 05-26-2015 Echocardiography Echocardiogram (limited) [facility] Work Phone: Start: 05-26-2015 End: 05-26-2015 Electrocardiogram, complete EKG (In office) [facility] Work Phone: Start: 05-26-2015 End: 05-26-2015 Follow Up Appt 1 month Follow Up Appt 1 month [facility] Work Phone: Start: 05-26-2015 End: 05-26-2015 MMM MMM [facility] Work Phone: Start: 05-19-2015 End: 05-20-2015 *BMP *BMP [facility] Work Phone: Start: 05-19-2015 End: 05-19-2015 24 hour holter monitor 24 hour holter monitor [facility] Work Phone: Start: 05-19-2015 End: 05-20-2015 CBC W Auto Differential panel - Blood *CBC without Diff [facility] Work Phone: Start: 05-19-2015 End: 05-19-2015 Electrocardiogram, complete EKG (In office) [facility] Work Phone: Start: 05-19-2015 End: 05-20-2015 Thyroid stimulating hormone (TSH) *TSH [facility] Work Phone: Start: 05-19-2015 End: 05-20-2015 Thyroxine (T4) *T4 (Total) [facility] Work Phone: Patient Education HYPERLIPIDEMIA [facility] Work Phone: Payers Date Payer Category Payer Private Health Insurance [facility] [id number] 1935 Unknown [id number] Progress note 07-07-2020 Note Date & Type Note Facility 07-07-2020 Note HNO ID: [id number] Author: Karmen Vázquez LPN Service: ? Author Type: ? Type: Progress Notes Filed: 07/07/2020 12:50 PM Note Text: POPULATION HEALTH NAVIGATION OUTREACH Action/FYI Spoke to , Patient has changed PCP to Dr. [place] PCP updated in [facility] Contact made with patient or family member? YES Pt identified by name and : YES Outreach Outcome/Action Spoke to patient or caregiver: Patient declined navigation services Reason for Outreach Care Gap or Scheduling/Wellness visits Payer: Payor: [employer] MED[employer]ARE / Plan: [employer] MED[employer]ARE PPO / Product Type: PPO / Care Gap Reviewed:: Annual Wellness visit Follow-up appointment Reminder: Reminder note to check Health Maintenance for items below Karmen Vázquez LPN July 07, 2020 12:43 PM [facility] Clinical Note 07-07-2020 Note Date & Type Note Facility 07-07-2020 Note Patient Outreach ([facility]) LIAJAROD THOMPSON ([id number]) 1935 M Date Time Provider Department 07/07/20 KARMEN VÁZQUEZ (JULIO) [facility] During your visit today, we recorded the following information about you: Karmen Vázquez LPN 07/07/2020 12:50 PM Signed POPULATION HEALTH NAVIGATION OUTREACH Action/FYI Spoke to , Patient has changed PCP to Dr. Carson/[place]' PCP updated in [facility] Contact made with patient or family member? YES Pt identified by name and : YES Outreach Outcome/Action Spoke to patient or caregiver: Patient declined navigation services Reason for Outreach Care Gap or Scheduling/Wellness visits Payer: Payor: [employer] MEDICARE / Plan: [employer] MEDICARE PPO / Product Type: PPO / Care Gap Reviewed:: Annual Wellness visit Follow-up appointment Reminder: Reminder note to check Health Maintenance for items below Karmen Vázquez LPN July 07, 2020 12:43 PM Allergies As of Date: 07/07/2020 Noted Allergy Reaction CODEINE 11/18/2004 Comments: Nausea,Headache Date Reviewed: 03/04/2018 Reviewed by: Karmen Vázquez LPN - Fully Assessed Prescriptions as of 07/07/2020 Sig: ATORVASTATIN 10 MG TABLET TAKE ONE TABLET BY MOUTH YAZMIN* AMLODIPINE 2.5 MG TABLET Take 1 tablet by mouth twice * METOPROLOL TARTRATE 50 MG TAB* Take 1 tablet by mouth twice * ASPIRIN 81 MG TABLET,DELAYED * Take 1 tablet by mouth once d* * VIT C-VIT [id number]* Take 1 capsule by mouth once * * FISH [id number] C-VIT E 2* Take 1 capsule by mouth twice* * MULTIVITAMIN TABLET Take one(1) tablet daily. * CALCIUM+D 500 MG (1,250 MG)-2* Take one(1) tablet two(2) homar* Problem List As Of Date 07/07/2020 Noted Resolved Osteoporosis [M81.0] ESOPHAGEAL REFLUX [K21.9] Thrombocytopenia (HCC) [D69.6] 11/18/2004 Hyperlipidemia [E78.5] 03/28/2005 BPH w/o urinary obs/LUTS [N40.0] 03/28/2005 04/29/2010 Nocturia [R35.1] 01/01/2006 04/29/2010 PLANTAR FASCIITIS [M72.2] 01/30/2006 04/29/2010 Other decreased white blood cell count [D72.818]06/27/2006 01/11/2015 Hereditary and idiopathic peripheral neuropathy*06/27/2006 Unspecified disorder of prostate [N42.9] 01/09/2007 04/29/2010 Acute prostatitis [N41.0] 04/18/2007 04/29/2010 Calculus of kidney [N20.0] 04/18/2007 04/03/2011 CYST OF KIDNEY, ACQUIRED [N28.1] 04/18/2007 01/11/2015 Benign prostatic hyperplasia with urinary obstr*04/18/2007 Bladder neck obstruction [N32.0] 04/18/2007 04/29/2010 Hydrocele [N43.3] 04/18/2007 08/28/2017 Generalized osteoarthritis [M15.9] 01/08/2008 Essential hypertension [I10] 01/15/2008 Intervertebral lumbar disc disorder with myelop*11/02/2009 04/29/2010 Spinal stenosis, lumbar region, without neuroge*11/02/2009 07/12/2015 Bilateral hydrocele [N43.3] 02/08/2010 04/29/2010 Anemia [D64.9] 03/27/2012 Right knee meniscal tear [S83.206A] 02/26/2013 07/12/2015 CKD (chronic kidney disease) stage 2, GFR 60-89*09/26/2013 Actinic keratosis of right cheek [L57.0] 10/03/2013 H/O active rheumatic fever [Z86.79] 10/24/2013 07/12/2015 Paroxysmal atrial fibrillation (HCC) [I48.0] 03/22/2015 08/28/2017 Atherosclerosis of [place] coronary artery of na*07/12/2015 S/P CABG x 2 [Z95.1] 04/02/2015 Encounter Status:Closed by KARMEN VÁZQUEZ LPN on 07/07/20 [facility] Summary Purpose Family History No Family History Records FoundNo Family History Records Found Advance Directives No Advanced Directives Records FoundNo Advanced Directives Records Found Additional Source Comments (unrecognized sect ion and content) No Status Records FoundNo Status Records Found INFORMATION SOURCE (unrecogn ized section and content) DATE CREATED AUTHOR AUTHOR'S ORGANIZ ATION 09/01/2022 [facility] FOR RECORDS PERTAINING TO PATIENTS WHO ARE OR HAVE BEEN ENROLLED IN A CHEMICAL DEPENDENCY/SUBSTANCEABUSE PROGRAM, SOME INFORMATION MAY BE OMITTED. This clinical summary was aggregated from multiple sources. Caution should be exercised in using it in the provision of clinical care. This summary normalizes information from multiple sources, and as a consequence, information in this document may materially change the coding, format and clinical context of patient data. In addition, data may be omitted in some cases. CLINICAL DECISIONS SHOULD BE BASED ON THE PRIMARY CLINICAL RECORDS. [facility]. provides no warranty or guarantee of the accuracy or completeness of information in this document.
[2023-04-04 09:55] LABS: Absolute Lymphocyte Count 0.99 X10^3/uL (0.83-4.51); Absolute Neutrophil Count 3.6 X10^3/uL (2.0-7.7); Basophil# 0.02 X10^3/uL; Basophil% 0.4 % (0-1); Eosinophil# 0.17 X10^3/uL; Hematocrit 32.5 % (40-54); Hemoglobin 10.3 g/dL (13.0-16.5); Lymphocyte # 0.99 X10^3/ul (0.83-4.51); Lymphocyte % 17.5 % (19-41); Mean Corp Hgb Conc 31.7 g/dL (32-36); Mean Corpuscular Hgb 29.9 pg (27.0-32.0); Mean Corpuscular Volume 94.5 fL (80-94); Mean Platelet Vol. 10.7 fl (6.2-12.0); Monocyte# 0.84 X10^3/uL; Monocyte% 14.9 % (0-10); NRBC Flagged by Analyzer 0 % (0-5); Neutrophil # 3.61 X10^3/uL (2.7-7.7); Neutrophil % 63.8 % (47-70); Platelet Count 171 K/mm3 (150-450); RBC Distribution Width CV 17.7 % (11.6-14.6); RBC Distribution Width SD 61.3 fl (35.1-43.9); Red Blood Count 3.44 M/mm3 (4.6-6.2); White Blood Count 5.7 K/mm3 (4.4-11.0)
[2023-04-04 10:50] LABS: AST(SGOT) 27 U/L (15-37); Alanine Aminotransfer ALT/SGPT 22 U/L (16-61); Albumin, Serum 3.6 g/dL (3.2-5.0); Alkaline Phosphatase 110 U/L (45-117); Anion Gap 6 (5-15); BUN 50 mg/dL (7-18); BUN/Creat Ratio 33.3 RATIO (10-20); Calcium,Total 9.3 mg/dL (8.5-10.1); Chloride 109 mmol/L (98-107); Cholesterol 154 mg/dL (200); EST Glomerular Filtration Rate 47 mL/min (>60); Est Glom Filt Rate - Afr Amer 57 mL/min (>60); Globulin 3.6 g/dL (2.2-4.2); Glucose 87 mg/dL (74-106); High Density Lipoprotein 70 mg/dL; Protein, Total 7.2 g/dL (6.4-8.2); Sodium Level 139 mmol/L (136-145); T4 Free Direct 1.34 ng/dL (0.76-1.46); Triglycerides 68 mg/dL; Very Low Density Lipoprotein 14 mg/dL (5-40)
== END | disposition home or self-care (01) ==
LOC: LAB 08:54
PROVIDERS: PCP Family Medicine; Referring Provider Family Medicine; Visit Provider Family Medicine
DX: Z00.00 Encounter for general adult medical examination without abnormal findings (principal); I25.10 Atherosclerotic heart disease of native coronary artery without angina pectoris; E78.5 Hyperlipidemia, unspecified; I10 Essential (primary) hypertension; T46.2X1A Poisoning by other antidysrhythmic drugs, accidental (unintentional), initial encounter; E03.2 Hypothyroidism due to medicaments and other exogenous substances
CPT/HCPCS: 36415; 80053; 80061; 84439; 84443; 85025

== ENCOUNTER → 2023-04-12 | Outpatient (CLI) | payer MEDICARE, SELFPAY ==
[2023-04-12 18:22] LABS: Vitamin B12 491 pg/mL (211-911)
[2023-04-12 19:02] LABS: Anion Gap 6 (5-15); BUN 42 mg/dL (7-18); BUN/Creat Ratio 26.8 RATIO (10-20); Calcium,Total 9.2 mg/dL (8.5-10.1); Chloride 105 mmol/L (98-107); Creatinine, Serum 1.57 mg/dL (0.70-1.30); EST Glomerular Filtration Rate 44 mL/min (>60); Est Glom Filt Rate - Afr Amer 54 mL/min (>60); Ferritin 48 ng/mL (26-388); Glucose 143 mg/dL (74-106); Iron 47 ug/dL (65-175); Iron Binding Capacity,Total 374 ug/dL (250-450); PERCENT IRON SATURATION 12.6 % (15.0-55.0); Potassium 4.8 mmol/L (3.5-5.1); Sodium Level 136 mmol/L (136-145)
== END | disposition home or self-care (01) ==
LOC: BFHLAB 13:57
PROVIDERS: PCP Family Medicine; Visit Provider Family Medicine
DX: R53.83 Other fatigue (principal); N18.30 Chronic kidney disease, stage 3 unspecified; D64.9 Anemia, unspecified
CPT/HCPCS: 36415; 80048; 82607; 82728; 82746; 83540; 83550

== ENCOUNTER → 2023-04-17 | Outpatient (CLI) | payer MEDICARE, SELFPAY ==
[2023-04-17 10:48] LABS: AST(SGOT) 26 U/L (15-37); Alanine Aminotransfer ALT/SGPT 20 U/L (16-61); Albumin, Serum 3.6 g/dL (3.2-5.0); Alkaline Phosphatase 118 U/L (45-117); Bilirubin, Direct 0.25 mg/dL (0.00-0.30); Cholesterol 147 mg/dL (200); Globulin 3.6 g/dL (2.2-4.2); High Density Lipoprotein 68 mg/dL; Protein, Total 7.2 g/dL (6.4-8.2); Triglycerides 71 mg/dL; Very Low Density Lipoprotein 14 mg/dL (5-40)
== END | disposition home or self-care (01) ==
LOC: LAB 09:19
PROVIDERS: PCP Family Medicine; Referring Provider Nurse Practitioner Family; Visit Provider Nurse Practitioner Family
DX: E78.00 Pure hypercholesterolemia, unspecified (principal)
CPT/HCPCS: 36415; 80061; 80076

== ENCOUNTER 2023-05-14 14:38 | Inpatient (IN) | payer MEDICARE, SELFPAY ==
[2023-05-14 15:05] VITALS: BP 156/72; PULSE 78; PULSE 80; RESP 18; TEMP 36.6; O2SAT 91; O2SAT 93; BMI 24.2
[2023-05-14 15:34] VITALS: O2SAT 91
--- NOTE | 2023-05-14 19:47 | HP.PCM_ITS ---
HPI - General General Date of Admission: 05/14/23 Date of Service: 05/14/23 Chief Complaint: Here for rehabilitation. HPI Narrative JAROD SEGOVIA, is a 87 Male who presents with followin05/06/2023 Admit to [facility]. Generalized pain after fall, fell in garage. Does not remember fall or anything after fall. Right distal radius fracture, multiple left rib fractures. Chronic T8, T11, L1 compression fracture. Left sided groin pain, right hand wrist pain. Consult Orthopedics, Consult Neurosurgery for fractures. PT/OT for debility. 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 Chest X-ray negative, CT chest negative, CT abdomen later showed pleural fluid, left base infiltrate. ATB's IV for Klebsiella pneumonia. 05/11/2023 Ortho reduced right distal radius fracture, applied splint. Neurosurgery recommended TLSO brace for 4 months. MRI lumbar spine L1 acute to subacute fracture with mild stenosis L2-L3, and L4-L5, remove T8 compression fracture 05/11/2023 Wean oxygen as tolerated. Change Zosyn to Cefazolin IV, Stop date 05/14/2023. Pain control. 05/12/2023 High flow oxygen. Chest X-ray shows improved aeration. 05/13/2023 Oxygen per nasal cannula. 05/14/2023 Admit to TCU with debility, here for rehabilitation, strengthening, prior to discharge home with . [facility] Medical History (Updated 05/14/23 @ 20:[address] Bryson Garzon MD) Abnormal cardiac enzyme level Anemia Atherosclerotic heart disease of [place] coronary artery without angina pectoris Bilateral carpal tunnel syndrome BPH (benign prostatic hyperplasia) Chest pain CHF (congestive heart failure), NYHA class II Debility Essential hypertension GERD (gastroesophageal reflux disease) History of atrial fibrillation HTN (hypertension) Hydrocele Hypercoagulable state due to atrial fibrillation Hyperlipidemia Imbalance Inferior pubic ramus fracture Orthostatic hypotension Paroxysmal atrial fibrillation Patellar fracture Pericardial effusion (noninflammatory) Primary osteoarthritis, right wrist Pure hypercholesterolemia Right shoulder pain Home Medications calcium carbonate 600 mg-vitamin D3 20 mcg (800 unit) tablet 1 tab PO DAILY BONE HEALTH 03/13/14 [History Last Taken 09/11/22] multivitamin 1 ea PO DAILY GENERAL HEALTH 12/23/19 [History Last Taken 09/11/22] vit C 250 mg-vit E 90 mg-zinc 40 mg-copper 1 [id number] capsule 2 ea PO DAILY eye health 12/23/19 [History Last Taken 09/11/22] levothyroxine 75 mcg tablet 75 mcg PO DAILY thyroid 04/22/21 [History Last Taken 09/11/22] amiodarone 200 mg tablet 100 mg (1/2 x 200 mg) PO DAILY heart #90 tabs 08/08/22 [Rx Last Taken 09/11/22] atorvastatin 10 mg tablet 5 mg (1/2 x 10 mg) PO QHS cholesterol #45 tabs 08/08/22 [Rx Last Taken 09/10/22] losartan 100 mg tablet 100 mg PO DAILY blood pressure #90 tabs 10/04/22 [Rx Last Taken Unknown] amlodipine 5 mg tablet 5 mg PO DAILY this is a dose increase #90 tabs 12/11/22 [Rx Last Taken Unknown] apixaban 5 mg tablet (Eliquis) See Rx Instructions .Route .COMPLEX blood thinner #180 TABLETS 03/06/23 [Rx Last Taken Unknown] Depo-Medrol 40 mg/mL suspension for injection (methylprednisolone acetate) 40 mg intra-articular ONCE #1 mL 03/30/23 [Clinic Last Taken Unknown] acetaminophen 500 mg tablet 500 mg PO ONCE PRN 04/23/23 [History Last Taken Unknown] docusate sodium 100 mg capsule (Colace) 100 mg PO BID PRN constipation 05/14/23 [History Last Taken Unknown] lidocaine 4 % topical patch 1 patch topical DAILY pain 05/14/23 [History Last Taken Unknown] magnesium hydroxide 2,400 mg/10 mL oral suspension (Milk Of Magnesia Concentrated) 30 ml PO DAILY PRN constipation 05/14/23 [History Last Taken Unknown] metoprolol tartrate 25 mg tablet 25 mg PO BID blood pressure/pulse 05/14/23 [History Last Taken Unknown] nitroglycerin 0.4 mg sublingual tablet 0.4 mg sublingual Q5M chest pain 05/14/23 [History Last Taken Unknown] tramadol 50 mg tablet 50 mg PO Q6H PRN PRN pain 05/14/23 [History Last Taken Unknown] Allergy/AdvReac Type Severity Reaction Status Date / Time codeine AdvReac Nausea/Vom/ Verified 04/23/23 14:47 Diarrhea hydrocodone [From [place]] AdvReac hallucinati Verified 04/23/23 14:47 ons Family History Father CVA (cerebral vascular accident) Mother Bright's disease Sister Diabetes Surgical History History of arthroplasty of right shoulder History of arthroscopy of left knee History of carpal tunnel repair History of kyphoplasty History of repair of rotator cuff hx trigger finger release Presence of aortocoronary bypass graft (~01/31/16) renal calculi excision Social History household members: spouse Smoking Status: Former smoker alcohol intake: never substance use type: does not use caffeine: Yes Type: coffee what type of physical activity do you participate in: none seatbelt use: always do you feel safe at home: Yes ROS Constitutional Constitutional: Reports weakness; Denies chills, fever(s) or weight gain ENT HEENT: Denies headache(s), nasal congestion or nasal discharge Cardiovascular Cardiovascular: Denies chest pain or palpitations Respiratory/Chest Respiratory/Chest: Denies cough, excessive phlegm production or shortness of breath with exertion Gastrointestinal Gastrointestinal: Denies abdominal pain, nausea or vomiting Genitourinary Genitourinary: Denies dysuria Musculoskeletal Musculoskeletal: Denies joint pain or joint swelling Integumentary Integumentary: Denies rash or wounds Neurologic Neurologic: Denies focal weakness, numbness or tingling Psychiatric Psychiatric: Denies anxiety, auditory hallucinations, depression, homicidal ideation or suicidal ideation Vital Signs Vital Signs Vital Signs: 05/14/23 15:05 05/14/23 15:34 05/14/23 15:05 Temperature 97.8 F Temperature Source Temporal Pulse Rate 80 78 Pulse Rhythm Regular Pulse Strength Normal (2+) Respiratory Rate 18 18 Respiratory Effort Normal Non-Labored Respiratory Depth Normal Respiratory Pattern Normal Blood Pressure 156/72 H Blood Pressure Mean 100 Blood Pressure Source Monitor Blood Pressure Position Semi-Fowlers Blood Pressure Location Left Arm Pulse Ox 91 91 93 Oxygen Delivery Method Nasal Cannula Nasal Cannula Nasal Cannula Oxygen Flow Rate (L/min) 2 2 2 Weight Weight: 76.657 kg Body Mass Index (BMI) 24.2 Physical Exam Const alert General Appearance: cooperative HEENT normocephalic HEENT Narrative: Left forehead bump, sutures intact, purpura. Eyes PERRL and EOMs intact bilaterally Neck supple, no JVD and no carotid bruits Chest Chest Narrative: TLSO brace. Resp normal respiratory effort, normal air movement and clear to auscultation bilaterally Cardio regular rate and regular rhythm GI normal to inspection, nondistended, normoactive bowel sounds, non-tender and non-distended Extremity normal capillary refill General Extremity: Negative for edema Skin no rashes or lesions noted General Skin Exam: no breakdown Psych affect normal Appearance: appropriate Assessment & Plan Assessment/Plan (1) Fracture of right distal radius: (2) Multiple rib fractures: (3) Compression fracture of L1 lumbar vertebra: (4) Acute respiratory failure with hypoxia: (5) Klebsiella pneumonia: (6) Hypertension: (7) Coronary artery disease: (8) Hyperlipidemia: (9) Hypothyroidism: (10) Macular degeneration: PLAN: Plan 87 year old male with below past medical history hospitalized after fall, L1 compression fracture, right distal radius fracture splinted, complicated by acute respiratory failure with hypoxia 2/2 Klebsiella pneumonia, admitted to TCU with debility, here for rehabilitation, strengthening, prior to discharge home with . * Debility - PT/OT. * Pain - Tramadol 50mg q6 prn pain (1-10), Lidoderm patch 1 patch td daily. * Bowel - Senna/colace 1 tablet bid, Magnesium citrate 300ml daily prn. * Adult immunization - Administer pneumonia vaccine, covid vaccine, flu vaccine as appropriate. * DVT prophylaxis - on Eliquis. * Atrial fibrillation - Metoprolol 25mg bid, Amiodarone 100mg daily, Eliquis 5mg bid. * Hypertension - Metoprolol 25mg bid, Losartan 100mg daily, Amlodipine 5mg daily. * Coronary artery disease - Metoprolol 25mg bid, Losartan 100mg daily, Eliquis 5mg bid, NTG 0.4mg sl q5m prn. * Hyperlipidemia - Atorvastatin 5mg qhs. * Calcium deficiency - Calcium D 1 tablet daily. * Hypothyroidism - Levothyroxine 75mcg daily. * Macular degeneration - Healthy Eyes 2 capsules daily.
[2023-05-14] MEDS: traMADol 50 MG Tablet PO (21:52)
[2023-05-14 21:53] VITALS: BP 144/69; PULSE 75
[2023-05-14] MEDS: Metoprolol Tartrate 25 MG Tablet PO (21:53)
[2023-05-14] MEDS: APIXABAN 5 MG TABLET PO (21:53)
[2023-05-14] MEDS: Atorvastatin Calcium 10 MG Tablet 5 MG PO (21:54)
[2023-05-14] MEDS: Senna/Docusate Sodium 1 Tablet PO (21:57)
[2023-05-15] VITALS (7 sets, daily range): BP systolic 106–144; BP diastolic 53–73; PULSE 72–76; RESP 17–18; TEMP 36.4; O2SAT 93–96; BMI 24.2
[2023-05-15 05:49] LABS: Absolute Lymphocyte Count 0.63 X10^3/uL (0.83-4.51); Absolute Neutrophil Count 4.8 X10^3/uL (2.0-7.7); Basophil# 0.03 X10^3/uL; Basophil% 0.5 % (0-1); Eosinophil# 0.25 X10^3/uL; Eosinophils% 3.8 % (0-5); Hemoglobin 8.1 g/dL (13.0-16.5); Lymphocyte # 0.63 X10^3/ul (0.83-4.51); Lymphocyte % 9.5 % (19-41); Mean Corp Hgb Conc 31.2 g/dL (32-36); Mean Corpuscular Hgb 29.3 pg (27.0-32.0); Mean Corpuscular Volume 94.2 fL (80-94); Mean Platelet Vol. 9.6 fl (6.2-12.0); Monocyte# 0.81 X10^3/uL; Monocyte% 12.2 % (0-10); NRBC Flagged by Analyzer 0 % (0-5); Platelet Count 268 K/mm3 (150-450); RBC Distribution Width CV 17.8 % (11.6-14.6); RBC Distribution Width SD 60.4 fl (35.1-43.9); Red Blood Count 2.76 M/mm3 (4.6-6.2); White Blood Count 6.7 K/mm3 (4.4-11.0)
[2023-05-15 06:23] LABS: Anion Gap 3 (5-15); BUN 23 mg/dL (7-18); BUN/Creat Ratio 22.5 RATIO (10-20); Calcium,Total 8.6 mg/dL (8.5-10.1); Chloride 104 mmol/L (98-107); Creatinine, Serum 1.02 mg/dL (0.70-1.30); EST Glomerular Filtration Rate 73 mL/min (>60); Est Glom Filt Rate - Afr Amer 88 mL/min (>60); Estimated Creatinine Clearance 50.69 ml/min; Glucose 91 mg/dL (74-106); Potassium 4.2 mmol/L (3.5-5.1); Sodium Level 136 mmol/L (136-145)
[2023-05-15] MEDS: Levothyroxine 75 MCG Tablet PO (06:43)
[2023-05-15] MEDS: traMADol 50 MG Tablet PO ×2 (06:44→20:29)
[2023-05-15] MEDS: Senna/Docusate Sodium 1 Tablet PO ×2 (09:53→20:31)
[2023-05-15] MEDS: amLODIPine 5 MG Tablet PO (09:53)
[2023-05-15] MEDS: Metoprolol Tartrate 25 MG Tablet PO ×2 (09:53→20:31)
[2023-05-15] MEDS: Amiodarone 200 MG Tablet 100 MG PO (09:53)
[2023-05-15] MEDS: Losartan Potassium 100 MG Tablet PO (09:53)
[2023-05-15] MEDS: Iron Polysaccharide Complex 150 MG CAPSULE PO (09:55)
[2023-05-15] MEDS: Tuberculin,Purif.prot.deriv. 50 TU/ML Vial 0.1 ML ID (09:56)
[2023-05-15] MEDS: APIXABAN 5 MG TABLET PO ×2 (11:28→20:31)
--- NOTE | 2023-05-15 11:41 | CASEMGMT ---
Social Work Met with pt to complete initial assessment. Introduced self and role. Verified pt's contacts. Patient confirmed code status as full code. Pt stated he does have DPOAHC and that is POA. He stated he thought hospital should have these records. This worker encouraged him to have bring in copy. Educated to [facility] benefits and next review date of 05/24/23. Educated that continued stay is not guaranteed. Pt did express concern about going home if he is not able to use his arm yet. Encouraged patient to continue work in therapy and that adaptive equipment can be identified. Pt's goal is to return home with . SW will contine to follow for DC planning.
[2023-05-15] MEDS: Calcium Carb/Vitamin D 1 TABLET Tablet PO (13:13)
[2023-05-15] MEDS: Multivitamin (Healthy Eyes) Capsule 2 CAP PO (13:13)
--- NOTE | 2023-05-15 13:17 | NURSING ---
brought in fixed eye glasses.
--- NOTE | 2023-05-15 14:31 | PHA.CONS_ITS ---
Documented by User: Jennifer Agrawal 05/15/23 14:45 TCU RX Drug Regimen Review Subjective/Objective Subjective/Objective: Subjective: TCU Admission. 87 YOM presented to outside ER with a fall. Hospitalized after fall, L1 compression fracture, right distal radius fracture splinted, complicated by acute respiratory failure with hypoxia 2/2 Klebsiella pneumonia. Admitted to TCU with debility for strengthening and rehabilitation. Objective: Allergies codeine Adverse Reaction (Verified 04/23/23 14:47) Nausea/Vom/Diarrhea hydrocodone [From [place]] Adverse Reaction (Verified 04/23/23 14:47) hallucinations Current Medications Generic Name Dose Route Start Last Admin Trade Name Freq PRN Reason Stop Dose Admin Amiodarone HCl 100 mg 05/15/23 08:00 05/15/23 09:53 Amiodarone 200 Mg Tablet PO 100 mg BREAKFAST WILLIAM Administration Amlodipine Besylate 5 mg 05/15/23 10:00 05/15/23 09:53 Amlodipine 5 Mg Tablet PO 5 mg DAILY WILLIAM Administration Protocol Apixaban 5 mg 05/14/23 22:00 05/15/23 11:28 Apixaban 5 Mg Tablet PO 5 mg BID WILLIAM Administration Atorvastatin Calcium 5 mg 05/14/23 22:00 05/14/23 21:54 Atorvastatin Calcium 10 Mg Tablet PO 5 mg QHS WILLIAM Administration Calcium/Vitamin D 1 tablet 05/15/23 12:00 05/15/23 13:13 Calcium Carb/Vitamin D 1 Tablet Tablet PO 1 tablet LUNCH WILLIAM Administration Levothyroxine Sodium 75 mcg 05/15/23 06:00 05/15/23 06:43 Levothyroxine 75 Mcg Tablet PO 75 mcg DAILY@0600 WILLIAM Administration Lidocaine 1 patch 05/15/23 10:00 05/15/23 09:52 Lidocaine 5% Patch TOPICAL Not Given DAILY WILLIAM Losartan Potassium 100 mg 05/15/23 10:00 05/15/23 09:53 Losartan Potassium 100 Mg Tablet PO 100 mg DAILY WILLIAM Administration Protocol Magnesium Citrate 300 ml 05/14/23 20:17 Magnesium Citrate 300 Ml PO DAILY PRN Constipation Metoprolol Tartrate 25 mg 05/14/23 22:00 05/15/23 09:53 Metoprolol Tartrate 25 Mg Tablet PO 25 mg BID WILLIAM Administration Protocol Multivitamins/Minerals 2 cap 05/15/23 12:00 05/15/23 13:13 Multivitamin (Healthy Eyes) Capsule PO 2 cap LUNCH WILLIAM Administration Nitroglycerin 0.4 mg 05/14/23 15:50 Nitroglycerin (Inpatient Use) 0.4 Mg Tab.Subl SL Q5M PRN CARDIAC/CHEST PAIN Polysaccharide Iron Complex 150 mg 05/15/23 10:00 05/15/23 09:55 Iron Polysaccharide Complex 150 Mg Capsule PO 150 mg DAILY WILLIAM Administration Senna/Docusate Sodium 1 tablet 05/14/23 22:00 05/15/23 09:53 Senna/Docusate Sodium 1 Tablet PO 1 tablet BID WILLIAM Administration Tramadol HCl 50 mg 05/14/23 15:09 05/15/23 06:44 Tramadol 50 Mg Tablet PO 50 mg Q6H PRN PRN Administration Pain Score 1-10 Tuberculin PPD 0.1 ml 05/22/23 10:00 Tuberculin,Purif.Prot.Deriv. 50 Tu/Ml Vial ID 05/22/23 10:01 X1 ONE Problem List Macular degeneration (Acute) Coronary artery disease (Acute) Klebsiella pneumonia (Acute) Acute respiratory failure with hypoxia (Acute) Compression fracture of L1 lumbar vertebra (Acute) Multiple rib fractures (Acute) Fracture of right distal radius (Acute) Hyperlipidemia (Acute) Hypothyroidism (Acute) Hypertension (Chronic) Vital Signs Temp Pulse Resp BP Pulse Ox O2 Del Method O2 Flow Rate 97.5 F L 72 18 106/53 L 96 Nasal Cannula 2 05/15/23 09:47 05/15/23 09:53 05/15/23 09:47 05/15/23 09:47 05/15/23 09:56 05/15/23 09:56 05/15/23 13:20 Oxygen Flow Rate (L/min) 2 Oxygen Delivery Method Nasal Cannula Weight: 76.657 kg Body Mass Index (BMI) 24.2 Sodium 136 mmol/L (136-145) 05/15/23 05:11 Potassium 4.2 mmol/L (3.5-5.1) 05/15/23 05:11 Chloride 104 mmol/L (98-107) 05/15/23 05:11 Carbon Dioxide 29.0 mmol/L (21.0-32.0) 05/15/23 05:11 Anion Gap 3 (5-15) L 05/15/23 05:11 BUN 23 mg/dL (7-18) H 05/15/23 05:11 Creatinine 1.02 mg/dL (0.70-1.30) 05/15/23 05:11 Est GFR (MDRD) Af Amer 88 mL/min (>60) 05/15/23 05:11 Est GFR (MDRD) Non-Af 73 mL/min (>60) 05/15/23 05:11 BUN/Creatinine Ratio 22.5 RATIO (10-20) H 05/15/23 05:11 Glucose 91 mg/dL (74-106) 05/15/23 05:11 Assessment/Plan: 1. Pain: tramadol 50mg PO Q6H PRN pain 1-10 and lidocaine 5% patch topically daily. Resident has had 2 doses of tramadol for generalized pain scores of 6 and 7. Please continue to monitor for increased pain, PRN usage, renal function, rash, constipation and respiratory depression. 2. Bowel: senna/docusate 1T PO BID and magnesium citrate 300 mL PO daily PRN constipation. Resident has not used any PRN doses. Please continue to monitor for constipation, diarrhea and PRN usage. No documented bowel movements so far. 3. Atrial fibrillation/hypertension/CAD: metoprolol tartrate 25mg PO BID, amiodarone 100mg PO daily, losartan 100mg PO daily, apixaban 5mg PO BID, amlodipine 5mg PO daily and nitroglycerin 0.4mg SL Q5M PRN chest pain. Please continue to monitor BP (last 106/53), HR (last 72), respiratory distress, potassium (last 4.2mmol/L), sodium (last 136mmol/L), SCr (last 1.02mg/dL), swelling, S/S of bleeding, hemoglobin (last 8.1g/dL), chest pain and PRN usage. 4. Hyperlipidemia: atorvastatin 5mg PO QHS. Please continue to monitor lipid panel (last 04/17/23), LFTs (last 04/17/23) and muscle pain. 5. Hypothyroidism: levothyroxine 75mcg PO daily. Please continue to monitor TSH (last 04/04/23), free T4 (last 04/04/23) and S/S of hypo/hyperthyroidism. 6. Iron deficiency (based on hemoglobin of 8.1 g/dL): Ferrex 150mg PO daily. Please continue to monitor hemoglobin, constipation, dark stools and iron studies (last 04/12/23). 7. Calcium deficiency: calcium/vitamin D 1T PO daily. Please continue to monitor calcium (last 8.6mg/dL) and vitamin D (last 09/10/22). 8. Macular degeneration: healthy eyes 2C PO lunch. Please continue to monitor. Assessment/Plan for indications treated with psychotropic medications: None Medical chart and medication regimen reviewed. The following medication irregularities or issues were identified: None Date Date of Note:: 05/15/23 Documented by User: Dr. Bryson Garzon MD 05/15/23 15:31 TCU RX Drug Regimen Review Provider Comments Provider responsibility Provider Comments to Recommendations by Pharmacy: Agree
--- NOTE | 2023-05-15 15:17 | CHAPLAIN ---
Type of Pastoral Visit _x__ Initial Visit ___ Follow-up Visit ___ On-call Visit ___ General Patient Visit ___ Spiritual Assessment ___ Family Conference ___ Bereavement ___ Rapid Response ___ Code Blue ___ Other (describe below) Pastoral Care Referral From _x__ Patient ___ Family ___ Nurse ___ Physician ___ Recordist Chief ___ School Bus Monitor ___ Other (describe below) Sacrament/Intervention _x__ Active listening ___ Anointing ___ Mandaeism ___ Bereavement ___ Communion _x__ Juany exploration ___ _x__ Life review _x__ Prayer ___ Reconciliation ___ Sacrament of Sick ___ Supportive presence ___ Wedding ___ Other (describe below) Pastoral Comments 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
--- NOTE | 2023-05-15 18:00 | RAD_ITS ---
STUDY: X-RAY - LEFT SHOULDER REASON FOR EXAM: Male, 87 years old. Pain, decreased ROM. TECHNIQUE: 2 view(s) of the shoulder. COMPARISON: None. FINDINGS: Normal glenohumeral articulation. There is degenerative arthrosis of the acromioclavicular joint without inferior osseous spur formation. Normal acromion. Normal humeral head and visualized proximal humerus. There is periarticular soft tissue calcification consistent with a calcific tendinitis. Moderate left pleural effusion. RAD/Shoulder min 2 Views IMPRESSION: 1. No acute fracture or dislocation. 2. Mild acromioclavicular joint arthrosis. 3. Hydroxyapatite deposition disease (calcific tendinitis). 4. Moderate left pleural effusion. Electronically Signed: Amandeep Linares MD at 0:06 EDT ,
--- NOTE | 2023-05-15 19:54 | NURSING ---
pt c/o LT shoulder pain and decreased ROM. and pt concerned it may have a tear from fall. dr garzon updated, new order for xray.
[2023-05-15] MEDS: Atorvastatin Calcium 10 MG Tablet 5 MG PO (20:31)
[2023-05-16 05:52] LABS: Hematocrit 24.1 % (40-54); Hemoglobin 7.4 g/dL (13.0-16.5)
[2023-05-16] MEDS: Levothyroxine 75 MCG Tablet PO (05:52)
[2023-05-16] MEDS: Amiodarone 200 MG Tablet 100 MG PO (07:59)
[2023-05-16 08:00] VITALS: BP 153/80; PULSE 83
[2023-05-16] MEDS: Metoprolol Tartrate 25 MG Tablet PO ×2 (08:00→22:24)
[2023-05-16] MEDS: Iron Polysaccharide Complex 150 MG CAPSULE PO (08:00)
[2023-05-16] MEDS: Losartan Potassium 100 MG Tablet PO (08:00)
[2023-05-16] MEDS: amLODIPine 5 MG Tablet PO (08:01)
[2023-05-16] MEDS: Senna/Docusate Sodium 1 Tablet PO ×2 (08:02→22:23)
--- NOTE | 2023-05-16 09:23 | NURSING ---
Animal Cruelty Investigation Supervisor Note; Activity Asset: Ondina Cai is independent in his choice of daily activities. He has returned to TCU for more therapy. Prior to admission he was very active at home with gardening, mowing, cooking and spending time w/family friends and gnosticism. He will read, work on word search, watch tv, talk and visit w/family, friends, and his credit control clerk visits. 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 Trell welcomes visit from the director of program management and therapy dog when available. Staff will remind him of weekly activities and respect his right to say no.
[2023-05-16] MEDS: traMADol 50 MG Tablet PO (09:37)
[2023-05-16] MEDS: Multivitamin (Healthy Eyes) Capsule 2 CAP PO (12:18)
[2023-05-16] MEDS: Calcium Carb/Vitamin D 1 TABLET Tablet PO (12:18)
--- NOTE | 2023-05-16 14:37 | NURSING ---
HGB 7.4. To receive blood transfusion on 05/17/23 at 0815. To collect occult stool.
[2023-05-16 14:53] VITALS: BP 125/57; PULSE 73; RESP 16; TEMP 36.7; O2SAT 94
[2023-05-16 22:20] VITALS: PULSE 75; RESP 17; O2SAT 93
[2023-05-16] MEDS: Atorvastatin Calcium 10 MG Tablet 5 MG PO (22:23)
[2023-05-16 22:24] VITALS: BP 114/54; PULSE 75
[2023-05-17] MEDS: traMADol 50 MG Tablet PO (05:51)
[2023-05-17] MEDS: Levothyroxine 75 MCG Tablet PO (05:52)
[2023-05-17 06:00] VITALS: RESP 17
[2023-05-17 07:15] VITALS: O2SAT 94
--- NOTE | 2023-05-17 08:00 | NURSING ---
dr garzon aware of + occult stool, new order consult Dr Moran, pt going to transfusion center for 2 units blood
[2023-05-17] MEDS: Ondansetron ODT 4 MG Tablet 8 MG PO (08:08)
--- NOTE | 2023-05-17 08:08 | NURSING ---
pt dry heaving, lots of phlegm. PRN Zofran given per order this AM. pt going down via bed to transfusion unit at this time. unable to take meds at this time.
--- NOTE | 2023-05-17 08:12 | NURSING ---
report called to Rc @ transfusion center.
--- NOTE | 2023-05-17 10:22 | NURSING ---
infusion center[facility] called reporting pt still miserable, dry heaving, nauseaous still. dr garzon notified, IV zofran ordered. will administer.
[2023-05-17] MEDS: Ondansetron 4 MG/2 ML Vial IV (10:41)
--- NOTE | 2023-05-17 13:46 | NURSING ---
pt returned back from infusion, pt with loose stools, continues to vomit yellow liquid emesis after receiving zofran ODT & IV w/out effectiveness. Dr Duran summers, new order for labs, abdomen xray, cdiff. pt placed in precautions and her and updated on all orders. Echocardiography Tech here as well from his place of mormonism.
[2023-05-17 13:55] VITALS: BP 151/72; PULSE 91; RESP 18; TEMP 37.7; O2SAT 91
[2023-05-17] MEDS: 0.9% Normal Saline (1000mL) 1,000 ML 75 ML IV (14:07)
[2023-05-17 14:11] LABS: Absolute Lymphocyte Count 0.18 X10^3/uL (0.83-4.51); Absolute Neutrophil Count 10.3 X10^3/uL (2.0-7.7); Basophil# 0.03 X10^3/uL; Basophil% 0.3 % (0-1); Hematocrit 34.1 % (40-54); Lymphocyte # 0.18 X10^3/ul (0.83-4.51); Lymphocyte % 1.6 % (19-41); Mean Corp Hgb Conc 32.3 g/dL (32-36); Mean Corpuscular Hgb 29.3 pg (27.0-32.0); Mean Corpuscular Volume 90.9 fL (80-94); Mean Platelet Vol. 9.4 fl (6.2-12.0); Monocyte# 0.51 X10^3/uL; Monocyte% 4.6 % (0-10); NRBC Flagged by Analyzer 0 % (0-5); Neutrophil # 10.27 X10^3/uL (2.7-7.7); Neutrophil % 92.7 % (47-70); POSITIVE DIFFERENTIAL YES; Platelet Count 296 K/mm3 (150-450); RBC Distribution Width SD 55.3 fl (35.1-43.9); Red Blood Count 3.75 M/mm3 (4.6-6.2); White Blood Count 11.1 K/mm3 (4.4-11.0)
--- NOTE | 2023-05-17 14:15 | RAD_ITS ---
STUDY: X-RAY - ABDOMEN/PELVIS REASON FOR EXAM: Male, 87 years old. N/V, diarrhea TECHNIQUE: Single AP view of the abdomen / pelvis. COMPARISON: None. FINDINGS: There is a moderate amount of colonic fecal material. Large hiatal hernia. The visualized liver, spleen and kidneys are grossly normal in size and morphology. Normal soft tissue structures. There are diffuse degenerative changes of the visualized lumbar spine. Mild dextroscoliosis. Prior vertebral plasty of the T11 vertebrae. Findings suggestive of a calcified left intrarenal calculus. Calcification of the prostate gland. RAD/Abdomen Single View IMPRESSION: Moderate amount of fecal material is seen throughout the colon. Electronically Signed: Shon Lanza MD at 14:37 EDT ,
--- NOTE | 2023-05-17 14:19 | NURSING ---
dr Moran notified of pt symptoms today, will be up to see pt. remains at bedside. xray here in room
[2023-05-17 14:24] VITALS: PULSE 91
[2023-05-17 14:24] LABS: Anion Gap 6 (5-15); BUN 26 mg/dL (7-18); BUN/Creat Ratio 21.1 RATIO (10-20); Calcium,Total 9.3 mg/dL (8.5-10.1); Chloride 101 mmol/L (98-107); Creatinine, Serum 1.23 mg/dL (0.70-1.30); EST Glomerular Filtration Rate 59 mL/min (>60); Est Glom Filt Rate - Afr Amer 71 mL/min (>60); Estimated Creatinine Clearance 42.04 ml/min; Glucose 126 mg/dL (74-106); Potassium 4.3 mmol/L (3.5-5.1); Sodium Level 133 mmol/L (136-145)
--- NOTE | 2023-05-17 14:56 | NURSING ---
Addendum entered by Millie Perez 05/17/23 15:40: new order for CT scan of abdomen & pelvis with contrast- kidney stone Original Note: paged Dr Garzon via vacuum forming machine operator, awaiting return call. results from abd xray back.
--- NOTE | 2023-05-17 15:50 | NURSING ---
friend here at this time
--- NOTE | 2023-05-17 16:01 | NURSING ---
dr friend here and wants pt down to ER possible sepsis. vitals stable. Report called to EZ COWAN.
--- NOTE | 2023-05-17 16:08 | NURSING ---
pt off unit via bed at this time. at side
--- NOTE | 2023-05-18 07:54 | DS.PCM_ITS ---
Providers Date of Admission: 05/14/23 Primary Care Physician: Dr. Stacy Carson MD Consultations 05/17/23 07:22 Consult: Gastroenterology Routine Consulting Provider: [facility] Reason for Consult: Anemia, +stool guaiac. EMERGENT Consult: No MD Notified: Yes Date Notified: 05/17/23 Time Notified: 07:22 Method of Notification: Text Reason For Visit: GENERALIZED PAIN, POST FALL Diagnosis Discharge Diagnosis (1) Fracture of right distal radius: Status: Acute Code(s): S52.501A - Unspecified fracture of the lower end of right radius, initial encounter for closed fracture (2) Multiple rib fractures: Status: Acute Code(s): S22.49XA - Multiple fractures of ribs, unspecified side, initial encounter for closed fracture (3) Compression fracture of L1 lumbar vertebra: Status: Acute Code(s): S32.010A - Wedge compression fracture of first lumbar vertebra, initial encounter for closed fracture (4) Acute respiratory failure with hypoxia: Status: Acute Code(s): J96.01 - Acute respiratory failure with hypoxia (5) Klebsiella pneumonia: Status: Acute Code(s): J15.0 - Pneumonia due to Klebsiella pneumoniae (6) Hypertension: Status: Chronic Code(s): I10 - Essential (primary) hypertension (7) Coronary artery disease: Status: Acute Code(s): I25.10 - Atherosclerotic heart disease of [place] coronary artery without angina pectoris (8) Hyperlipidemia: Status: Acute Code(s): E78.5 - Hyperlipidemia, unspecified (9) Hypothyroidism: Status: Acute Code(s): E03.9 - Hypothyroidism, unspecified (10) Macular degeneration: Status: Acute Code(s): H35.30 - Unspecified macular degeneration Plan 87 year old male with below past medical history hospitalized after fall, L1 compression fracture, right distal radius fracture splinted, complicated by acute respiratory failure with hypoxia 2/2 Klebsiella pneumonia, admitted to TCU with debility, here for rehabilitation, strengthening, prior to discharge home with . * Debility - PT/OT. * Pain - Tramadol 50mg q6 prn pain (1-10), Lidoderm patch 1 patch td daily. * Bowel - Senna/colace 1 tablet bid, Magnesium citrate 300ml daily prn. * Adult immunization - Administer pneumonia vaccine, covid vaccine, flu vaccine as appropriate. * DVT prophylaxis - on Eliquis. * Atrial fibrillation - Metoprolol 25mg bid, Amiodarone 100mg daily, Eliquis 5mg bid. * Hypertension - Metoprolol 25mg bid, Losartan 100mg daily, Amlodipine 5mg daily. * Coronary artery disease - Metoprolol 25mg bid, Losartan 100mg daily, Eliquis 5mg bid, NTG 0.4mg sl q5m prn. * Hyperlipidemia - Atorvastatin 5mg qhs. * Calcium deficiency - Calcium D 1 tablet daily. * Hypothyroidism - Levothyroxine 75mcg daily. * Macular degeneration - Healthy Eyes 2 capsules daily. Medications at Discharge Home Medications calcium carbonate 600 mg-vitamin D3 20 mcg (800 unit) tablet 1 tab PO DAILY BONE HEALTH 03/13/14 multivitamin 1 ea PO DAILY GENERAL HEALTH 12/23/19 vit C 250 mg-vit E 90 mg-zinc 40 mg-copper 1 io-dhagcr-hoerbe capsule 2 ea PO DAILY eye health 12/23/19 levothyroxine 75 mcg tablet 75 mcg PO DAILY thyroid 04/22/21 amiodarone 200 mg tablet 100 mg (1/2 x 200 mg) PO DAILY heart #90 tabs 08/08/22 atorvastatin 10 mg tablet 5 mg (1/2 x 10 mg) PO QHS cholesterol #45 tabs 08/08/22 losartan 100 mg tablet 100 mg PO DAILY blood pressure #90 tabs 10/04/22 amlodipine 5 mg tablet 5 mg PO DAILY this is a dose increase #90 tabs 12/11/22 apixaban 5 mg tablet (Eliquis) See Rx Instructions .Route .COMPLEX blood thinner #180 TABLETS 03/06/23 Depo-Medrol 40 mg/mL suspension for injection (methylprednisolone acetate) 40 mg intra-articular ONCE #1 mL 03/30/23 docusate sodium 100 mg capsule (Colace) 100 mg PO BID PRN constipation 05/14/23 lidocaine 4 % topical patch 1 patch topical DAILY pain 05/14/23 magnesium hydroxide 2,400 mg/10 mL oral suspension (Milk Of Magnesia Concentrated) 30 ml PO DAILY PRN constipation 05/14/23 metoprolol tartrate 25 mg tablet 25 mg PO BID blood pressure 05/14/23 nitroglycerin 0.4 mg sublingual tablet 0.4 mg sublingual Q5M chest pain 05/14/23 tramadol 50 mg tablet 50 mg PO Q6H PRN pain 05/14/23 Hospital Course Operations None Procedures None Summary of Care Provided Minutes Spent on Discharge: 15 Hospital Course: 87 year old male with below past medical history hospitalized after fall, L1 compression fracture, right distal radius fracture splinted, complicated by acute respiratory failure with hypoxia 2/2 Klebsiella pneumonia, admitted to TCU with debility, here for rehabilitation, strengthening, prior to discharge home with . 05/17/2023 Resident with nausea/vomiting. Transfused 2 units PRBC, stool guaiac positive, CT A/P done. Dr. Moran saw resident, concern for sepsis. Discharge to [facility] ED 05/17/23 for evaluation, possible admission to [facility]. Weight / BMI Weight Weight: 76.657 kg Body Mass Index (BMI) 24.2 ABG / Lab / Microbiology Data 05/17/23 14:03 05/17/23 14:03 Laboratory: Laboratory Results - last 24 hr 05/16/23 08:10: Blood Type Cancelled, Antibody Screen Cancelled, Crossmatch See Detail 05/17/23 14:03: WBC 11.1 H, RBC 3.75 L, Hgb 11.0 L, Hct 34.1 L, MCV 90.9, MCH 29.3, MCHC 32.3, RDW Std Deviation 55.3 H, RDW Coeff of Azael 17.0 H, Plt Count 296, MPV 9.4, Immature Gran % (Auto) 0.800, Neut % (Auto) 92.7 H, Lymph % (Auto) 1.6 L, [place] % (Auto) 4.6, Eos % (Auto) 0.0, Baso % (Auto) 0.3, Absolute Neuts (auto) 10.3 H, Absolute Lymphs (auto) 0.18 L, Nucleated RBC % 0, Sodium 133 L, Potassium 4.3, Chloride 101, Carbon Dioxide 26.0, Anion Gap 6, BUN 26 H, Creatinine 1.23, Estim Creat Clear Calc 42.04, Est GFR (MDRD) Af Amer 71, Est GFR (MDRD) Non-Af 59 L, BUN/Creatinine Ratio 21.1 H, Glucose 126 H, Calcium 9.3 Microbiology: Microbiology 05/16/23 15:21 Stool Stool Occult Blood (JULIA) - Final Occult Blood Positive Radiography Diagnostic Testing: Radiology Impression KUB X-Ray 05/17/23 14:15 IMPRESSION: Moderate amount of fecal material is seen throughout the colon. Electronically Signed: Shon Lanza MD at 14:37 EDT , D/C Instructions Discharge Diet: No restrictions Discharge Activity: Return to Normal Activity, May Shower and Use Walker Weight Bearing Status: Weight bearing as tolerated Call your doctor if you observe: Fever of 101 or Higher, Inability to urinate, Inability to have a bowel movement, Shortness of breath, Dizziness, Fainting spells, Swelling in the ankles, Chest pain and Uncontrolled pain Additional Instructions: Discharge to [facility] 05/17/23 for evaluation, possible admission to [facility]. Please Follow Up With: Desirae Olvera Meaningful Use Info Meaningful Use Diagnoses (Choose all that apply): None applicable Discharge Plan Admission Admit Date/Time: 05/14/23 14:38 Primary Reason for Your Visit: Debility. Attending Provider: Bryson Garzon Chi Primary Care Provider: Stacy Carson Instructions Additional Instructions / Restrictions: Discharge to [facility] 05/17/23 for evaluation, possible admission to [facility]. Discharge Orders/Prescriptions Prescriptions: No Action levothyroxine 75 mcg tablet 75 mcg PO DAILY Patient Comments: TAKE 1 TABLET BY MOUTH EVERY DAY IN THE MORNING ON AN EMPTY STOMACH amiodarone 200 mg tablet 100 mg PO DAILY Qty: 90 4RF atorvastatin 10 mg tablet 5 mg PO QHS Qty: 45 3RF methylprednisolone acetate [Depo-Medrol] 40 mg/mL suspension 40 mg intra-articular ONCE Qty: 1 0RF calcium carbonate-vitamin D3 1 TAB tablet 1 tab PO DAILY multivitamin 1 EACH tablet 1 ea PO DAILY vit C,R-Lk-yoscx-lutein-zeaxan 1 EACH capsule 2 ea PO DAILY tramadol 50 mg tablet 50 mg PO Q6H PRN (Reason: pain) magnesium hydroxide [Milk Of Magnesia Concentrated] 2,400 mg/10 mL suspension 30 ml PO DAILY PRN (Reason: constipation) docusate sodium [Colace] 100 mg capsule 100 mg PO BID PRN (Reason: constipation) lidocaine 4 % adhesive patch,medicated 1 patch topical DAILY Rx Instructions: may leave on for up to 12 hrs nitroglycerin 0.4 mg tablet, sublingual 0.4 mg sublingual Q5M Rx Instructions: do not exceed 3 doses per episode metoprolol tartrate 25 mg tablet 25 mg PO BID losartan 100 mg tablet 100 mg PO DAILY Qty: 90 3RF amlodipine 5 mg tablet 5 mg PO DAILY Qty: 90 3RF Eliquis 5 mg tablet See Rx Instructions .ROUTE .COMPLEX Qty: 180 3RF Dose Instruction: TAKE 1 TABLET TWICE A DAY Rx Instructions: TAKE 1 TABLET TWICE A DAY Referrals / Follow Up: Stacy Carson MD [Primary Care Provider] - Disposition Disposition (needs filled in before D/C Order can be placed): Acute Care Hospital [facility]
--- NOTE | 2023-05-24 10:58 | MDS.RN ---
Information for the mds was obtained from review of the clinical record, interview of resident, staff, and direct observation of resident's care.
== END 2023-05-17 16:15 | disposition short-term general hospital (02) | DRG 559 ==
PROVIDERS: Admitting Provider Family Medicine Geriatric Medicine; PCP Family Medicine; Visit Provider Family Medicine Geriatric Medicine
DX: S22.42XD Multiple fractures of ribs, left side, subsequent encounter for fracture with routine healing (principal); J15.0 Pneumonia due to Klebsiella pneumoniae; I11.0 Hypertensive heart disease with heart failure; I50.9 Heart failure, unspecified; I48.0 Paroxysmal atrial fibrillation; E03.9 Hypothyroidism, unspecified; E78.00 Pure hypercholesterolemia, unspecified; I25.10 Atherosclerotic heart disease of native coronary artery without angina pectoris; H35.30 Unspecified macular degeneration; W19.XXXD Unspecified fall, subsequent encounter; M19.019 Primary osteoarthritis, unspecified shoulder; R11.2 Nausea with vomiting, unspecified; S52.501D Unspecified fracture of the lower end of right radius, subsequent encounter for closed fracture with routine healing; Z87.891 Personal history of nicotine dependence; S22.069D Unspecified fracture of T7-T8 vertebra, subsequent encounter for fracture with routine healing; S22.089D Unspecified fracture of T11-T12 vertebra, subsequent encounter for fracture with routine healing; S32.019D Unspecified fracture of first lumbar vertebra, subsequent encounter for fracture with routine healing; N40.0 Benign prostatic hyperplasia without lower urinary tract symptoms; Z79.899 Other long term (current) drug therapy; Z79.890 Hormone replacement therapy; Z79.01 Long term (current) use of anticoagulants
CPT/HCPCS: 36415; 73030; 74018; 80048; 82274; 85014; 85018; 85025; 86850; 86900; 86901; 86920; 86922; 97110; 97162; 97166; 97530; 97535; 97802; J7030; J2405

== ENCOUNTER 2023-05-17 08:18 | Outpatient (CLI) | payer MEDICARE, SELFPAY ==
[2023-05-17 08:27] VITALS: BP 132/68; PULSE 79; RESP 16; TEMP 36.8; O2SAT 93; BMI 24.2
[2023-05-17 08:58] VITALS: BP 122/57; PULSE 76; RESP 16; TEMP 36.4
[2023-05-17 10:00] VITALS: BP 128/69; PULSE 80; RESP 18; TEMP 37.2
[2023-05-17] MEDS: 0.9% NaCl Peripheral Flush Adult/Peds IV (10:15)
[2023-05-17] MEDS: 0.9% Normal Saline (500mL Bag) 500 ML 15 ML IV (10:15)
[2023-05-17] MEDS: Furosemide 20 MG/2 ML VIAL IV (10:43)
[2023-05-17 11:14] VITALS: BP 157/72; PULSE 88; RESP 18; TEMP 36.6; O2SAT 88
[2023-05-17 12:14] VITALS: BP 151/70; PULSE 87; RESP 16; TEMP 37.2; O2SAT 93
[2023-05-17 13:00] VITALS: BP 145/69; PULSE 84; RESP 16; TEMP 37.2
== END 2023-05-17 08:19 | disposition home or self-care (01) ==
PROVIDERS: PCP Family Medicine; Referring Provider Family Medicine Geriatric Medicine; Visit Provider Family Medicine Geriatric Medicine
DX: D64.9 Anemia, unspecified (principal)
CPT/HCPCS: 36430; 86850; 86900; 86901; 86920; 86922; J7040; P9016; A4216; J1940

== ENCOUNTER 2023-05-17 16:17 | Inpatient (IN) | payer MEDICARE, SELFPAY ==
[2023-05-17] VITALS (14 sets, daily range): BP systolic 117–168; BP diastolic 53–92; PULSE 64–103; RESP 16–20; TEMP 36–36.9; O2SAT 92–98; BMI 25.2; BMI 23.1
--- NOTE | 2023-05-17 16:28 | EKG12_ITS ---
Test Reason : Blood Pressure : / mmHG Vent. Rate : 099 BPM Atrial Rate : 099 BPM P-R Int : 160 ms QRS Dur : 134 ms QT Int : 392 ms P-R-T Axes : 045 -39 079 degrees QTc Int : 503 ms Normal sinus rhythm Left axis deviation Left ventricular hypertrophy with QRS widening ( [place] product , Romhilt-Leary ) Abnormal ECG Confirmed by DAHIANA ESCOBAR, KYLER ([id number]), senior technical editor ARIELLE CONDE ([id number]) on 05/21/2023 11:00:24 AM Referred By: Mumtaz Mason Confirmed By:KYLER TALBOT MD
--- NOTE | 2023-05-17 16:36 | EDS_ITS ---
HPI History of Present Illness Chief Complaint: Nausea/Vomiting/Diarrhea Detail of Chief Complaint: Nausea, vomiting and diarrhea starting at 06 100 Informant: patient, spouse/S.O., SNF and other (Patient was seen by Dr. Moran who recommended transfer to ER for evaluation for sepsis) Limited: other (Patient is awake but not alert. supplemented some of his answers.) Onset/Context/Timing Onset: Today Context: Sudden Onset Timing: Intermittent Quality: Nausea, vomiting diarrhea Location: Transfer from TCU Current Severity: Moderate Maximum Severity: Moderate Worsened by: Nothing Relieved by: Nothing Associated Symptoms Associated Symptoms: Hypoxia, recent admission for pneumonia Narrative Narrative: Patient is a 87-year-old male. He was seen at [facility]. He had a wrist fracture. He also had pneumonia. When he was discharged according to he was discharged on oxygen. Uncertain how much oxygen. Attempt to assess Hospital course and discharge summary from [facility] were unsuccessful through [facility]. There is no documentation at this point. There is no documentation by the hospitalist available for admission to TCU. I was told by his nurse that Dr. Moran saw him. Because of the amount of nausea vomit diarrhea he was sent to the emergency room and concern for sepsis and specifically Pseudomonas under colitis. He is presently on 5 L of oxygen by nasal cannula and is hypoxic. According to patient and he has no history of lung disease. He was recent diagnosed with pneumonia. He was discharged from [facility] to the TCU on oxygen. He does have a history of atrial fibrillation. He is on apixaban. He has had no recent trauma. He denies headache, visual, ocular auditory symptoms. He denies rhinorrhea, congestion postnasal drainage. He denies sore throat. He does endorse shortness of breath. He denies cough. He denies abdominal pain. He states he had significant mount of vomiting diarrhea that started at 0600. There is a history of rib fractures. Uncertain if the rib fractures occurred at the same time he had a wrist fracture. states at the time of discharge he was on 1 L and at times was off oxygen. Patient states he was placed on oxygen after he arrived at the TCU. He says he was on 3 L at most. He is presently on 8 L. Prior similar symptoms: No Recent Illness/Hospitalization: Yes [facility] Medical History Abnormal cardiac enzyme level Anemia Atherosclerotic heart disease of [place] coronary artery without angina pectoris Bilateral carpal tunnel syndrome BPH (benign prostatic hyperplasia) Chest pain CHF (congestive heart failure), NYHA class II Debility Essential hypertension GERD (gastroesophageal reflux disease) History of atrial fibrillation HTN (hypertension) Hydrocele Hypercoagulable state due to atrial fibrillation Hyperlipidemia Imbalance Inferior pubic ramus fracture Orthostatic hypotension Paroxysmal atrial fibrillation Patellar fracture Pericardial effusion (noninflammatory) Primary osteoarthritis, right wrist Pure hypercholesterolemia Right shoulder pain Home Medications calcium carbonate 600 mg-vitamin D3 20 mcg (800 unit) tablet 1 tab PO DAILY BONE HEALTH 03/13/14 [History Last Taken 09/11/22] multivitamin 1 ea PO DAILY GENERAL HEALTH 12/23/19 [History Last Taken 09/11/22] vit C 250 mg-vit E 90 mg-zinc 40 mg-copper 1 [id number] capsule 2 ea PO DAILY eye health 12/23/19 [History Last Taken 09/11/22] levothyroxine 75 mcg tablet 75 mcg PO DAILY thyroid 04/22/21 [History Last Taken 09/11/22] amiodarone 200 mg tablet 100 mg (1/2 x 200 mg) PO DAILY heart #90 tabs 08/08/22 [Rx Last Taken 09/11/22] atorvastatin 10 mg tablet 5 mg (1/2 x 10 mg) PO QHS cholesterol #45 tabs 08/08/22 [Rx Last Taken 09/10/22] losartan 100 mg tablet 100 mg PO DAILY blood pressure #90 tabs 10/04/22 [Rx Last Taken Unknown] amlodipine 5 mg tablet 5 mg PO DAILY this is a dose increase #90 tabs 12/11/22 [Rx Last Taken Unknown] apixaban 5 mg tablet (Eliquis) See Rx Instructions .Route .COMPLEX blood thinner #180 TABLETS 03/06/23 [Rx Last Taken Unknown] Depo-Medrol 40 mg/mL suspension for injection (methylprednisolone acetate) 40 mg intra-articular ONCE #1 mL 03/30/23 [Clinic Last Taken Unknown] docusate sodium 100 mg capsule (Colace) 100 mg PO BID PRN constipation 05/14/23 [History Last Taken Unknown] lidocaine 4 % topical patch 1 patch topical DAILY pain 05/14/23 [History Last Taken Unknown] magnesium hydroxide 2,400 mg/10 mL oral suspension (Milk Of Magnesia Concentrated) 30 ml PO DAILY PRN constipation 05/14/23 [History Last Taken Unknown] metoprolol tartrate 25 mg tablet 25 mg PO BID blood pressure 05/14/23 [History Last Taken Unknown] nitroglycerin 0.4 mg sublingual tablet 0.4 mg sublingual Q5M chest pain 05/14/23 [History Last Taken Unknown] tramadol 50 mg tablet 50 mg PO Q6H PRN pain 05/14/23 [History Last Taken Unknown] Allergy/AdvReac Type Severity Reaction Status Date / Time codeine AdvReac Nausea/Vom/ Verified 05/17/23 16:19 Diarrhea hydrocodone [From [place]] AdvReac hallucinati Verified 05/17/23 16:19 ons Family History Father CVA (cerebral vascular accident) Mother Bright's disease Sister Diabetes Surgical History History of arthroplasty of right shoulder History of arthroscopy of left knee History of carpal tunnel repair History of kyphoplasty History of repair of rotator cuff hx trigger finger release Presence of aortocoronary bypass graft (~01/31/16) renal calculi excision Social History household members: spouse Smoking Status: Former smoker alcohol intake: never substance use type: does not use caffeine: Yes Type: coffee what type of physical activity do you participate in: none seatbelt use: always do you feel safe at home: Yes ROS ROS ED Review of Systems ROS Unobtainable: due to mental status Constitutional Constitutional ED: Reports chills; Denies fever(s) or sweats Eyes Eyes: Denies blurry vision, change in vision or diplopia ENT ENT ED: Denies ear pain, rhinorrhea or sore throat Cardiovascular Cardiovascular: Denies chest pain, orthopnea, palpitations, paroxysmal nocturnal dyspnea or racing heartbeat Respiratory/Chest Respiratory/Chest: Reports dyspnea; Denies cough, orthopnea, paroxysmal nocturnal dyspnea or sputum Gastrointestinal Gastrointestinal: Reports abdominal pain, diarrhea, nausea and vomiting; Denies constipation or melena Genitourinary Genitourinary ED: Denies dysuria, hematuria or urinary frequency Musculoskeletal Musculoskeletal: Denies arthralgias or myalgias Integumentary Denies rash Neurologic Neurologic: Reports weakness; Denies headache(s) or paresthesias Hematologic/Lymphatic Hematologic/Lymphatic: Reports easy bruising Allergic/Immunologic Allergic/Immunologic ED: Denies mouth swelling or tongue swelling EXAM Physical Exam Const Vital Signs: 05/17/23 16:20 05/17/23 16:23 05/17/23 16:28 Temperature 97.6 F L 97.6 F L Temperature Source Temporal Temporal Pulse Rate 103 H 102 H Respiratory Rate 20 H 18 Blood Pressure 159/92 H Blood Pressure Mean 114 Pulse Ox 92 92 Oxygen Delivery Method Nasal Cannula Nasal Cannula Nasal Cannula Oxygen Flow Rate (L/min) 5 5 5 05/17/23 17:23 05/17/23 16:55 05/17/23 17:53 Temperature 97.8 F Temperature Source Temporal Pulse Rate 94 Respiratory Rate 18 Blood Pressure 168/84 H Blood Pressure Mean 112 Pulse Ox 94 92 94 Oxygen Delivery Method Nasal Cannula High Flow High Flow Oxygen Flow Rate (L/min) 10 8 8 05/17/23 18:00 Temperature 98.4 F Temperature Source Oral Pulse Rate 93 Respiratory Rate 16 Blood Pressure 163/72 H Blood Pressure Mean 102 Pulse Ox 95 Oxygen Delivery Method Nasal Cannula Oxygen Flow Rate (L/min) Positive well nourished and well developed General Appearance ED: well developed and NAD; Negative for cyanotic, diaphoretic or pallor HEENT Reports dry mucous membranes HEENT Narrative: Patient has what appears to be old bruises face. There is no septal deviation hematoma. There is no hemotympanum. Posterior pharynx is normal. Mouth ED: Yes dry mucous membranes Mouth: dry mucous membranes Eyes PERRL and EOMs intact bilaterally General Eye ED: Negative for pale conjunctiva or scleral icterus Neck no lymphadenopathy, supple and no JVD Chest Wall inspection of chest normal and palpation of chest normal Resp normal respiratory effort and No clear to auscultation bilaterally Auscultation: rales bilateral base Cardio regular rate, regular rhythm, S1 normal heart sound, S2 normal heart sound and no murmurs GI non-tender, non-distended and no masses; Negative for normal to inspection, nondistended, normoactive bowel sounds or hepatosplenomegaly Auscultation: hyperactive bowel sounds Palpation: soft Back/Spine no CVA tenderness Extremity Negative for normal to inspection Extremity Narrative: Patient is in a sugar-tong splint right upper extremity. Median radial ulnar function intact. Capillary refill is intact. He does have slight edema of his fingers. There is no edema of his lower extremities. Neuro No oriented x3, CN's II-XII intact bilaterally and no sensory deficits noted Sensorium / Orientation: Negative for alert Motor Exam: strength 5/5 throughout Psych Mood & Affect: depressed Skin no rashes or lesions noted, no wounds and No skin turgor normal General Skin Exam: Negative for elasticity normal, jaundice or pallor MDM MDM MDM Narrative Medical decision making narrative: Since patient is hypoxic on oxygen with rales at the bases will obtain x-ray to determine if he has new infiltrate. Sepsis workup was not undertaken. Need to rule out anemia. Nurse informing that he received 2 units of blood because he was anemic. His most recent hemoglobin is 11. Stool was sent for C. difficile since he was recently hospitalized on antibiotics. Patient will receive a fluid bolus since clinically is dehydrated. He is tachycardic and tachypneic. Because he is hypoxic on 5 L ABG was obtained to assess acid-base status and specifically CO2. According to his nurse he received a report from the TCU nurse. He has not had any diarrhea in the past hour. History & Record Review Discussion w/independent historian: Patient and Family Additional record(s) reviewed:: Prior inpatient record and Prior labs Lab Data Attestation: I reviewed the patient's lab results. Lab results narrative: White count is elevated at 12.1. H&H is 10.7 and 32.8. Indices are normal. There is a shift with 92% segs. PT and PTT are slightly elevated. Patient is on apixaban which is probably the cause for this. BUN is 26 with a creatinine of 1.17 with an estimated GFR 62. BUN/creatinine ratio is 22:1. Total bili slightly elevated. Urinalysis macro is positive for protein, ketones, occult blood and leukoesterase. Negative for nitrites. Microscopic reveals 0-5 RBCs and WC BCs without evidence of bacteria. Labs: Laboratory Results - last 24 hr 05/17/23 05/17/23 16:40 16:50 WBC 12.1 H RBC 3.62 L Hgb 10.7 L Hct 32.8 L MCV 90.6 MCH 29.6 MCHC 32.6 RDW Std Deviation 55.5 H RDW Coeff of Azael 16.9 H Plt Count 335 MPV 10.1 Immature Gran % (Auto) 1.200 H Neut % (Auto) 92.4 H Lymph % (Auto) 1.9 L [place] % (Auto) 4.3 Eos % (Auto) 0.0 Baso % (Auto) 0.2 Absolute Neuts (auto) 11.2 H Absolute Lymphs (auto) 0.23 L Nucleated RBC % 0 Differential Comment SEE COMMENT Platelet Estimate ADEQUATE RBC Morphology N CHROM Anisocytosis RARE Macrocytosis RARE Ovalocytes RARE PT 17.1 H INR 1.4 APTT 40.1 H Sodium 134 L Potassium 4.2 Chloride 101 Carbon Dioxide 26.0 Anion Gap 7 BUN 26 H Creatinine 1.17 Estim Creat Clear Calc 44.20 Est GFR (MDRD) Af Amer 75 Est GFR (MDRD) Non-Af 62 BUN/Creatinine Ratio 22.2 H Glucose 121 H Lactic Acid 1.0 Calcium 8.8 Total Bilirubin 1.10 H AST 38 H ALT 8 L Alkaline Phosphatase 89 Total Protein 6.7 Albumin 2.9 L Globulin 3.8 Albumin/Globulin Ratio 0.8 L Urine Color Yellow Urine Clarity Clear Urine pH 6.0 Ur Specific [place] 1.015 Urine Protein 15 H Urine Glucose (UA) Normal Urine Ketones 5 H Urine Occult Blood 50 H Urine Nitrite Negative Urine Bilirubin Negative Urine Urobilinogen Normal Ur Leukocyte Esterase 100 H Urine RBC 0-5 SEEN Urine WBC 0-5 SEEN Ur Squamous Epith Cells 0 SEEN Urine Bacteria 0 SEEN Urine Mucus 0 SEEN ABG Data ABG results: ABG 05/17/23 16:51 Specimen Type ART Sample Site L Radial pH 7.44 Bicarbonate Actual 24.9 Total CO2 26 Base Excess 1 O2 Saturation 90 L O2 % 6.0 ABG pCO2 36.5 ABG pO2 56 L O2 Delivery Device Cannula Vent Mode Not entered Radiography Chest X-Ray - ED: 1 View and Read by ED Physician (Independently reviewed interpreted by me at 1745 for large left-sided pneumonia. Patient was sent to the ER because of concern for C. difficile. Because he was hypoxic on 5 L ABG was obtained.) Diagnostic Testing: Clinical Impression(s) from Imaging Studies Chest X-Ray 05/17/23 17:18 IMPRESSION: Bilateral infiltrates, left more than right. Mild left effusion. Electronically Signed: Jason Shoemaker DO at 18:03 EDT , Rhythm Strip Rhythm Strip: Sinus Tach Rate: 101 Ectopy: None EKG Initial EKG: Attestation: I personally reviewed and interpreted this EKG as follows: Interpretation: Sinus Rhythm (Rate is 99. There is a left axis deviation. Parables 160 ms. Cures duration 134 ms. QT duration 292 ms. There is evidence of LVH.) Management Discussion w/another healthcare provider: Hospitalist (Case was discussed with Dr. Mumtaz Castaneda. He believes x-ray reveals heart failure. Patient does have history of congestive heart failure class II.) Treatment and Re-Evaluation :: Patient is had no vomiting or diarrhea during his ER stay. Since he has a significant pneumonia requiring 8 L of oxygen via nasal cannula will contact hospitalist for admission. He will receive antibiotics for pneumonia. Patient was started on Zosyn. Vancomycin was not given since there is no prior history of MRSA. Discharge Plan Dx/Rx/DC Orders Clinical Impression: Acute and chronic respiratory failure with hypoxia, Essential hypertension, Pure hypercholesterolemia, CHF (congestive heart failure), NYHA class II, jail current use of amiodarone, Pneumonia involving left lung, Acute dehydration, Sinus tachycardia seen on teletypesetter monitor, SIRS (systemic inflammatory response syndrome), History of coronary artery disease Disposition Disposition: Acute Care Hospital [facility]
[2023-05-17] MEDS: 0.9% Normal Saline (1000mL) 1,000 ML 999 ML IV (16:50)
[2023-05-17] MEDS: Ondansetron 4 MG/2 ML Vial IV (16:50)
[2023-05-17 16:55] LABS: Base Excess 1 mmol/L (-2 to +2); Bicarbonate 24.9 mmol/L (22-26); Blood Gas Specimen Type ART; Mode Not entered; O2 Delivery Device Cannula; PO2 56 mmHG (75-100); SITE L Radial; SO2 90 % (95-99); Total Carbon Dioxide 26 mmol/L; pCO2 36.5 mmHg (35-45); pH 7.44 (7.35-7.45)
[2023-05-17 17:04] LABS: Bacteria 0 SEEN /hpf (None Seen); Mucous, Urine 0 SEEN /hpf (<or=2+); Squamous Epithelial Cells - UA 0 SEEN /hpf (0-5)
[2023-05-17 17:06] LABS: Color, Urine Yellow (Yellow); Glucose, Dipstick Normal (Normal); Ketone-Dipstick 5 mg/dl (Negative); Leukocyte Esterase-Dipstick 100 /ul (Negative); Nitrite-Dipstick Negative (Negative); Occult Blood-Urine 50 /ul (Negative); Protein-Dipstick 15 mg/dl (Negative); Specific Gravity, Urine 1.015 (1.002-1.030); Urine Bilirubin Dipstick Negative (Negative); Urine Clarity Clear (Clear); Urine Urobilinogen Normal (Normal)
[2023-05-17 17:09] LABS: Absolute Lymphocyte Count 0.23 X10^3/uL (0.83-4.51); Absolute Neutrophil Count 11.2 X10^3/uL (2.0-7.7); Basophil# 0.02 X10^3/uL; Basophil% 0.2 % (0-1); Hematocrit 32.8 % (40-54); Hemoglobin 10.7 g/dL (13.0-16.5); Lymphocyte # 0.23 X10^3/ul (0.83-4.51); Lymphocyte % 1.9 % (19-41); Mean Corp Hgb Conc 32.6 g/dL (32-36); Mean Corpuscular Hgb 29.6 pg (27.0-32.0); Mean Corpuscular Volume 90.6 fL (80-94); Mean Platelet Vol. 10.1 fl (6.2-12.0); Monocyte# 0.52 X10^3/uL; Monocyte% 4.3 % (0-10); NRBC Flagged by Analyzer 0 % (0-5); Neutrophil % 92.4 % (47-70); POSITIVE DIFFERENTIAL YES; Platelet Count 335 K/mm3 (150-450); RBC Distribution Width CV 16.9 % (11.6-14.6); RBC Distribution Width SD 55.5 fl (35.1-43.9); Red Blood Count 3.62 M/mm3 (4.6-6.2); White Blood Count 12.1 K/mm3 (4.4-11.0)
[2023-05-17 17:13] LABS: Red Blood Cells-Urine 0-5 SEEN /hpf (0-5); White Blood Cells 0-5 SEEN /hpf (0-5)
--- NOTE | 2023-05-17 17:18 | RAD_ITS ---
INDICATION: Hypoxia EXAMINATION/TECHNIQUE: X-RAY - XR Chest 1 View COMPARISON: November 28, 2020 FINDINGS: LINES/DEVICES: Sternotomy wires are noted.. LUNGS: Bilateral infiltrates, left more than right. Mild left effusion. No pneumothorax. MEDIASTINUM AND CARDIOVASCULAR STRUCTURES: Cardiac silhouette not enlarged. Calcified aortic arch. Central airways and mediastinal contour are unremarkable. BONES AND SOFT TISSUES: Degenerative vertebral changes. Compression and vertebroplasty of the lower thoracic segment. RAD/Chest 1 View (Portable) IMPRESSION: Bilateral infiltrates, left more than right. Mild left effusion. Electronically Signed: Jason Shoemaker DO at 18:03 EDT Reading Location ID and State: [facility] / [place] Tel [phone], Service support ,
[2023-05-17 17:20] LABS: International Normalized Ratio 1.4; Prothrombin Time (Protime)PT. 17.1 SECONDS (11.7-14.9)
[2023-05-17 17:21] LABS: Partial Thromboplast Time 40.1 Seconds (24.1-36.2)
[2023-05-17 17:30] LABS: ALB/GLOB Ratio 0.8 RATIO (0.9-2.4); AST(SGOT) 38 U/L (15-37); Alanine Aminotransfer ALT/SGPT 8 U/L (16-61); Albumin, Serum 2.9 g/dL (3.2-5.0); Alkaline Phosphatase 89 U/L (45-117); Anion Gap 7 (5-15); BUN 26 mg/dL (7-18); BUN/Creat Ratio 22.2 RATIO (10-20); Calcium,Total 8.8 mg/dL (8.5-10.1); Chloride 101 mmol/L (98-107); Creatinine, Serum 1.17 mg/dL (0.70-1.30); EST Glomerular Filtration Rate 62 mL/min (>60); Est Glom Filt Rate - Afr Amer 75 mL/min (>60); Globulin 3.8 g/dL (2.2-4.2); Glucose 121 mg/dL (74-106); Potassium 4.2 mmol/L (3.5-5.1); Protein, Total 6.7 g/dL (6.4-8.2); Sodium Level 134 mmol/L (136-145)
[2023-05-17 17:36] LABS: Differential Indicated SCAN CRITERIA MET
[2023-05-17 17:37] LABS: Anisocytosis RARE; Macrocytosis RARE; Ovalocyte RARE; Platelet Estimate ADEQUATE (ADEQ); Red Cell Morphology N CHROM NORMAL (NORM C&C)
[2023-05-17] MEDS: Piperacil/Tazobactam 4.5 GM in 0.9% Normal Saline (100mL MB+) 100 ML IV (18:32)
--- NOTE | 2023-05-17 18:53 | HP.PCM.HOS_ITS ---
HPI - General General Date of Admission: 05/17/23 Date of Service: 05/17/23 Chief Complaint: rigors. increased oxygen demands. HPI Narrative JAROD SEGOVIA, is a 87 M who presents from TCU with rigors and shortness of breath. Patient had a prolonged hospitalization from 2 days ago up until this past Sunday where he had fallen, broke his right wrist, injured his left shoulder and had a hematoma to his scalp that required a suture. His course was complicated by pneumonia and may be CHF. He was on antibiotics for period of time and at 1 point received Lasix. Patient was transferred over to the transitional care unit and was noted that his blood was going down and on the of 7.4. Patient went to the infusion center to receive 2 units of packed red blood cells. Patient had been seen by gastroenterology and was concern for sepsis and sent the patient to the emergency room. Patient had a chest x-ray that showed bilateral infiltrates. Patient received pip-tazo in the emergency room and the hospital service was contacted for admission. The oxygen requirements did go up and patient required 8 L at some point. It is unclear as to when the patient started feeling ill if it was before the transfusions or during and after. There is conflicting information. Currently, the patient does feel better. [facility] Medical History Abnormal cardiac enzyme level Anemia Atherosclerotic heart disease of [place] coronary artery without angina pectoris Bilateral carpal tunnel syndrome BPH (benign prostatic hyperplasia) Chest pain CHF (congestive heart failure), NYHA class II Debility Essential hypertension GERD (gastroesophageal reflux disease) History of atrial fibrillation HTN (hypertension) Hydrocele Hypercoagulable state due to atrial fibrillation Hyperlipidemia Imbalance Inferior pubic ramus fracture Orthostatic hypotension Paroxysmal atrial fibrillation Patellar fracture Pericardial effusion (noninflammatory) Primary osteoarthritis, right wrist Pure hypercholesterolemia Right shoulder pain Home Medications calcium carbonate 600 mg-vitamin D3 20 mcg (800 unit) tablet 1 tab PO DAILY BONE HEALTH 03/13/14 [History Last Taken 09/11/22] multivitamin 1 ea PO DAILY GENERAL HEALTH 12/23/19 [History Last Taken 09/11/22] vit C 250 mg-vit E 90 mg-zinc 40 mg-copper 1 qp-gibnam-sgfawu capsule 2 ea PO DAILY eye health 12/23/19 [History Last Taken 09/11/22] levothyroxine 75 mcg tablet 75 mcg PO DAILY thyroid 04/22/21 [History Last Taken 09/11/22] amiodarone 200 mg tablet 100 mg (1/2 x 200 mg) PO DAILY heart #90 tabs 08/08/22 [Rx Last Taken 09/11/22] atorvastatin 10 mg tablet 5 mg (1/2 x 10 mg) PO QHS cholesterol #45 tabs 08/08/22 [Rx Last Taken 09/10/22] losartan 100 mg tablet 100 mg PO DAILY blood pressure #90 tabs 10/04/22 [Rx Last Taken Unknown] amlodipine 5 mg tablet 5 mg PO DAILY this is a dose increase #90 tabs 12/11/22 [Rx Last Taken Unknown] apixaban 5 mg tablet (Eliquis) See Rx Instructions .Route .COMPLEX blood thinner #180 TABLETS 03/06/23 [Rx Last Taken Unknown] Depo-Medrol 40 mg/mL suspension for injection (methylprednisolone acetate) 40 mg intra-articular ONCE #1 mL 03/30/23 [Clinic Last Taken Unknown] docusate sodium 100 mg capsule (Colace) 100 mg PO BID PRN constipation 05/14/23 [History Last Taken Unknown] lidocaine 4 % topical patch 1 patch topical DAILY pain 05/14/23 [History Last Taken Unknown] magnesium hydroxide 2,400 mg/10 mL oral suspension (Milk Of Magnesia Concentrated) 30 ml PO DAILY PRN constipation 05/14/23 [History Last Taken Unknown] metoprolol tartrate 25 mg tablet 25 mg PO BID blood pressure 05/14/23 [History Last Taken Unknown] nitroglycerin 0.4 mg sublingual tablet 0.4 mg sublingual Q5M chest pain 05/14/23 [History Last Taken Unknown] tramadol 50 mg tablet 50 mg PO Q6H PRN pain 05/14/23 [History Last Taken Unknown] Allergy/AdvReac Type Severity Reaction Status Date / Time codeine AdvReac Nausea/Vom/ Verified 05/17/23 16:19 Diarrhea hydrocodone [From [place]] AdvReac hallucinati Verified 05/17/23 16:19 ons Family History Father CVA (cerebral vascular accident) Mother Bright's disease Sister Diabetes Surgical History History of arthroplasty of right shoulder History of arthroscopy of left knee History of carpal tunnel repair History of kyphoplasty History of repair of rotator cuff hx trigger finger release Presence of aortocoronary bypass graft (~01/31/16) renal calculi excision Social History household members: spouse Smoking Status: Former smoker alcohol intake: never substance use type: does not use caffeine: Yes Type: coffee what type of physical activity do you participate in: none seatbelt use: always do you feel safe at home: Yes ROS ROS Narrative States he has lower extremity edema. Has been constipated but has been receiving battery medications which has likely led to some diarrhea. All review of systems were negative except as mentioned above in the history of present illness and the other review of systems. Vital Signs Vital Signs Vital Signs: 05/17/23 16:20 05/17/23 16:23 05/17/23 16:28 Temperature 36.4 C L 36.4 C L Temperature Source Temporal Temporal Pulse Rate 103 H 102 H Respiratory Rate 20 H 18 Blood Pressure 159/92 H Blood Pressure Mean 114 Pulse Ox 92 92 Oxygen Delivery Method Nasal Cannula Nasal Cannula Nasal Cannula Oxygen Flow Rate (L/min) 5 5 5 05/17/23 17:23 05/17/23 16:55 05/17/23 17:53 Temperature 36.6 C Temperature Source Temporal Pulse Rate 94 Respiratory Rate 18 Blood Pressure 168/84 H Blood Pressure Mean 112 Pulse Ox 94 92 94 Oxygen Delivery Method Nasal Cannula High Flow High Flow Oxygen Flow Rate (L/min) 10 8 8 05/17/23 18:00 Temperature 36.9 C Temperature Source Oral Pulse Rate 93 Respiratory Rate 16 Blood Pressure 163/72 H Blood Pressure Mean 102 Pulse Ox 95 Oxygen Delivery Method Nasal Cannula Oxygen Flow Rate (L/min) Weight Weight: 79.651 kg Body Mass Index (BMI) 25.2 Physical Exam Const alert and no apparent distress Constitutional Narrative: Listless. Afebrile. Cooperative. Weak. HEENT normocephalic, hearing grossly normal bilaterally and moist oral mucous membranes HEENT Narrative: Patient had a hematoma on his left scalp with several sutures in place. Eyes EOMs intact bilaterally Neck no lymphadenopathy and supple Resp Resp Narrative: Coarse breath sounds bilaterally. Cardio regular rate, regular rhythm, S1 normal heart sound and S2 normal heart sound GI normal to inspection, nondistended, normoactive bowel sounds, soft to palpation, non-tender and non-distended Extremity normal to inspection and no clubbing, cyanosis or edema Extremity Narrative: No appreciable lower extremity edema. No calf tenderness. No palpable cords. Right arm is in a cast. Ecchymosis around the left shoulder that is old and feeding. Skin Skin Narrative: Hematoma on left scalp. Neuro moves all extremities Sensorium / Orientation: awake and alert Psych Psych Narrative: Flat affect Results Lab / Micro Data 05/17/23 16:40 05/17/23 16:40 Labs: Laboratory Results - last 24 hr 05/17/23 16:40: WBC 12.1 H, RBC 3.62 L, Hgb 10.7 L, Hct 32.8 L, MCV 90.6, MCH 29 .6, MCHC 32.6, RDW Std Deviation 55.5 H, RDW Coeff of Azael 16.9 H, Plt Count 335, MPV 10.1, Immature Gran % (Auto) 1.200 H, Neut % (Auto) 92.4 H, Lymph % (Auto) 1.9 L, Lee % (Auto) 4.3, Eos % (Auto) 0.0, Baso % (Auto) 0.2, Absolute Neuts (auto) 11.2 H, Absolute Lymphs (auto) 0.23 L, Nucleated RBC % 0, Differential Comment SEE COMMENT, Platelet Estimate ADEQUATE, RBC Morphology N CHROM, Anisocytosis RARE, Macrocytosis RARE, Ovalocytes RARE, PT 17.1 H, INR 1.4, APTT 40.1 H, Sodium 134 L, Potassium 4.2, Chloride 101, Carbon Dioxide 26.0, Anion Gap 7, BUN 26 H, Creatinine 1.17, Estim Creat Clear Calc 44.20, Est GFR (MDRD) Af Amer 75, Est GFR (MDRD) Non-Af 62, BUN/Creatinine Ratio 22.2 H, Glucose 121 H , Lactic Acid 1.0, Calcium 8.8, Total Bilirubin 1.10 H, AST 38 H, ALT 8 L, Alkaline Phosphatase 89, Total Protein 6.7, Albumin 2.9 L, Globulin 3.8, Albumin/Globulin Ratio 0.8 L 05/17/23 16:50: Urine Color Yellow, Urine Clarity Clear, Urine pH 6.0, Ur Specif ic [place] 1.015, Urine Protein 15 H, Urine Glucose (UA) Normal, Urine Ketones 5 H, Urine Occult Blood 50 H, Urine Nitrite Negative, Urine Bilirubin Negative, Urine Urobilinogen Normal, Ur Leukocyte Esterase 100 H, Urine RBC 0-5 SEEN, Urine WBC 0-5 SEEN, Ur Squamous Epith Cells 0 SEEN, Urine Bacteria 0 SEEN, Urine Mucus 0 SEEN ABG Data ABG results: ABG 05/17/23 16:51 Specimen Type ART Sample Site L Radial pH 7.44 Bicarbonate Actual 24.9 Total CO2 26 Base Excess 1 O2 Saturation 90 L O2 % 6.0 ABG pCO2 36.5 ABG pO2 56 L O2 Delivery Device Cannula Vent Mode Not entered Rhythm Strip Rhythm Strip: Sinus Tach Rate: 101 Ectopy: None Imaging Radiology Impression Chest X-Ray 05/17/23 17:18 IMPRESSION: Bilateral infiltrates, left more than right. Mild left effusion. Electronically Signed: Jason Shoemaker DO at 18:03 EDT Reading Location ID and State: [facility] / [place] Tel [phone], Service support , Assessment & Plan Assessment/Plan (1) Pneumonia: PLAN: Plan Suspected pneumonia, gram-negative * Chest x-ray shows bilateral infiltrates. Is unclear if this is a bacterial pneumonia. Timing of his breathing difficulties are unclear as if it was occurring before during or after his transfusions. Therefore concern for TRALI (transfusion associated lung injury).. Clinically not in CHF but will check an echocardiogram. * Antibiotics with vancomycin and pip-tazo * Check sputum culture, urinary antigens for Streptococcus and Legionella. Check CTA of the chest * qSOFA was 1 therefore patient was not septic. * Bronchodilators * Pulmonary toilet Anemia * Patient was transfused 2 units of packed blood cells. And hemoglobin is currently stable. Monitor. * Hold apixaban Heme positive stools * On * Patient was seen by Dr. Moran over the TCU sent the patient to the emergency room. I discussed with Dr. Torres and plan is for the patient to have an EGD on the depending on his respiratory status. He does not any plans for do ing any colonoscopy at this point time given his advanced age. * Hold apixaban Recent trauma * Patient broke his right wrist, injured his left shoulder and had a hematoma on his scalp. * Patient had sutures placed in his scalp and that was replaced approximately 12 days ago. The wound appeared to be intact and I removed for sutures from scalp today. * Will request records from [place]. Chronic conditions * Hypothyroidism * Atrial fibrillation: Apixaban on hold. Continue with amiodarone and metopro lol titrate * Hypertension: Stable. Continue with losartan and amlodipine * Hyperlipidemia: Continue atorvastatin * CAD: Status post bypass VTE prophylaxis: Holding off on chemical prophylaxis given the anemia. SCDs CODE STATUS: Addressed with the patient and family. Patient is to be full code. Charges/Coding Visit Charges Inpatient E&M: 90060 Init Hosp L3
--- NOTE | 2023-05-17 19:59 | ECHOD_ITS ---
Reason For Study: CHF Procedure This was a 2D Doppler, Color Flow transthoracic echocardiogram. Exam performed portable in patient room. Left Ventricle Normal LV size. Severe concentric left ventricular hypertrophy. The estimated ejection fraction is 65 %. Left ventricular systolic function is normal. No regional wall motion abnormalities noted. Right Ventricle Normal RV size. Normal systolic function. Atria The left atrium is moderately enlarged. Normal right atrium. Prominent eustachian valve. Mitral Valve There is Mild focal posterior mitral annular calcification. Mild-Moderate (1-2+) mitral valve insufficiency. Tricuspid Valve Normal tricuspid valve. Mild (1+) tricuspid valve insufficiency. Unable to estimate RV systolic pressure due to insufficient tricuspid regurgitant envelope. Aortic Valve Trisinus/trileaflet aortic valve. Mild focal aortic valve calcification. Mild (1+) aortic valve insufficiency. Pulmonic Valve Normal pulmonic valve. Mild (1+) pulmonic valve insufficiency. Great Vessels Normal aortic root. Pericardium/Pleural No pericardial effusion. MMode/2D Measurements & Calculations LVIDd: 3.9 cm IVSd: 2.1 cm Ao root diam: 3.3 cm LVIDs: 2.9 cm LVPWd: 1.9 cm RVDd: 3.6 cm FS: 25.5 % LAV(MOD-bp): 135.1 ml LVAd ap4: 35.4 cm2 SV(MOD-sp4): 74.1 ml LAV(MOD-bp) Indexed: 71.0 ml/m2 LVLd ap4: 8.1 cm LAV(MOD-sp2): 115.0 ml EDV(MOD-sp4): 129.1 ml LAV(MOD-sp4): 141.7 ml EDV(sp4-el): 131.7 ml LVAs ap4: 20.6 cm2 LVLs ap4: 7.3 cm ESV(MOD-sp4): 55.0 ml ESV(sp4-el): 49.5 ml EF(MOD-sp4): 57.4 % EF(sp4-el): 62.4 % SV(sp4-el): 82.2 ml LA A4 area: 35.5 cm2 LA dimension(2D): 4.5 cm RA A4 area: 14.2 cm2 TAPSE: 1.3 cm Time Measurements MV dec time: 0.21 sec Doppler Measurements & Calculations MV E max moise: 89.2 cm/sec Lat Peak E' Moise: 12.1 cm/sec Med Peak E' Moise: 6.1 cm/sec MV A max moise: 63.1 cm/sec E/E' lat: 7.3 E/E' med: 14.6 MV E/A: 1.4 MV V2 max: 87.9 cm/sec Ao V2 max: 177.4 cm/sec MV max P.1 mmHg MV dec slope: 434.4 cm/sec2 Ao max P.6 mmHg MV V2 mean: 50.8 cm/sec Ao V2 mean: 116.6 cm/sec MV mean P.2 mmHg Ao mean P.4 mmHg MV V2 VTI: 23.8 cm Ao V2 VTI: 39.6 cm AV (velocity ratio): 0.83 LV V1 max: 162.5 cm/sec PA V2 max: 81.8 cm/sec LV V1 max P.6 mmHg PA V2 mean: 61.1 cm/sec LV V1 mean P.6 mmHg LV V1 mean: 108.9 cm/sec LV V1 VTI: 33.0 cm ECHO/Echo Complete Interpretation Summary The estimated ejection fraction is 65 %. Severe concentric left ventricular hypertrophy. The left atrium is moderately enlarged. Mild-Moderate (1-2+) mitral valve insufficiency. There is Mild focal posterior mitral annular calcification. Mild (1+) tricuspid valve insufficiency. Mild focal aortic valve calcification. Mild (1+) aortic valve insufficiency. Ordering Physician: Mumtaz Mason Referring Physician: Mumtaz Mason Performed By: Tiara Renteria RCS
--- NOTE | 2023-05-17 20:20 | CT_ITS ---
STUDY: CTA CHEST REASON FOR EXAM: Male, 87 years old. Respiratory failure RADIATION DOSAGE (If Supplied By Facility): CTDIvol = ( 16.22 ) mGy, DLP = ( 468.61 ) mGycm TECHNIQUE: The examination was performed with the intravenous administration of IV 100mL Isovue-370. Post-processing of the angiographic images was performed, with multiplanar reformation and 3D reconstruction. Individualized dose optimization techniques were used for this CT. COMPARISON: FINDINGS: Normal enhancement of the main pulmonary artery and right and left pulmonary arteries. Normal enhancement of the bilateral peripheral pulmonary arteries. There is no demonstrated pulmonary embolism. Normal thoracic aorta and visualized great vessels. There is no demonstrated aortic dissection. Normal heart and pericardium. Normal mediastinum. Right hilar granulomatous calcifications. Normal visualized trachea and bronchi. Bilateral pleural effusions with basilar consolidations, left more than right. Right upper lobe infiltrate. Normal chest wall structures. Generalized osteopenia. Exaggerated thoracic kyphosis. Old compression of mid and lower thoracic segments and previous vertebroplasty. Bilateral renal cysts. CT/CTA Chest W/WO Contrast IMPRESSION: No demonstrated pulmonary embolism or arterial dissection. Bilateral pleural effusions with basilar consolidations, left more than right. Right upper lobe infiltrate. Bilateral renal cysts. Electronically Signed: Jason Shoemaker DO at 20:59 EDT ,
[2023-05-17 20:44] LABS: Troponin-I HS 37 pg/mL (3.0-78.0)
[2023-05-17 20:45] LABS: Vitamin D,25 Hydroxy 32.4 ng/mL
[2023-05-17] MEDS: Atorvastatin Calcium 10 MG Tablet 5 MG PO (21:14)
[2023-05-17] MEDS: guaiFENesin 1,200 MG Tablet 1200 MG PO (21:14)
[2023-05-17] MEDS: Metoprolol Tartrate 25 MG Tablet PO (21:14)
[2023-05-17] MEDS: Vancomycin IV 1,000 MG/200 ML BAG 200 MG IV (21:14)
[2023-05-17] MEDS: 0.9% Saline Lock 10 ML Syringe IV (21:14)
[2023-05-17] MEDS: Acetaminophen 500 MG Tablet 1000 MG PO (21:15)
[2023-05-17] MEDS: Piperacil/Tazobactam 3.375 GM in 0.9% Normal Saline (50mL MB+) 50 ML IV (22:31)
--- NOTE | 2023-05-17 22:40 | PCM.RX.CS ---
Consult Antibiotic Management Pharmacy has been consulted to manage selected antibiotic: Vancomycin Type of Intervention Type of Consult: New start Suspected Infection Suspected Infection: Sepsis and Pneumonia Labs Labs: Sodium 134 mmol/L (136-145) L 05/17/23 16:40 Potassium 4.2 mmol/L (3.5-5.1) 05/17/23 16:40 Chloride 101 mmol/L (98-107) 05/17/23 16:40 Carbon Dioxide 26.0 mmol/L (21.0-32.0) 05/17/23 16:40 Anion Gap 7 (5-15) 05/17/23 16:40 BUN 26 mg/dL (7-18) H 05/17/23 16:40 Creatinine 1.17 mg/dL (0.70-1.30) 05/17/23 16:40 Est GFR (MDRD) Af Amer 75 mL/min (>60) 05/17/23 16:40 Est GFR (MDRD) Non-Af 62 mL/min (>60) 05/17/23 16:40 BUN/Creatinine Ratio 22.2 RATIO (10-20) H 05/17/23 16:40 Glucose 121 mg/dL (74-106) H 05/17/23 16:40 Microbiology Microbiology: Microbiology 05/17/23 18:34 Mucosa - Nose SARS-CoV-2, Influenza & RSV (PCR) - Final Dosing Weight Weight used for dosin kg Estimated Creatinine Clearance Estimated Creatinine Clearance: 44 Goal Trough Goal Trough: 15-20 mcg/mL Pharmacy Plan for Drug Dosing Pharmacy Plan for Drug Dosing: Pharmacy Service will continue to monitor and adjust dosing as required. Follow-Up Labs Follow-Up Labs: Trough: Vancomycin Date/Time Labs Ordered Labs to be done on [date and time ordered]: 05/19/23 @[id number]
[2023-05-17] MEDS: Ipratropium/Albuterol Sulfate 3 ML AMPUL.NEB INHALATION (23:30)
[2023-05-18] VITALS (14 sets, daily range): BP systolic 91–131; BP diastolic 44–60; PULSE 60–80; RESP 14–20; TEMP 36–36.9; O2SAT 92–98
[2023-05-18] MEDS: Ipratropium/Albuterol Sulfate 3 ML AMPUL.NEB INHALATION ×4 (03:38→20:23)
[2023-05-18 05:09] LABS: Absolute Lymphocyte Count 0.38 X10^3/uL (0.83-4.51); Absolute Neutrophil Count 10.5 X10^3/uL (2.0-7.7); Basophil# 0.04 X10^3/uL; Basophil% 0.3 % (0-1); Hematocrit 29.7 % (40-54); Hemoglobin 9.5 g/dL (13.0-16.5); Lymphocyte # 0.38 X10^3/ul (0.83-4.51); Lymphocyte % 3.1 % (19-41); Mean Corpuscular Hgb 29.4 pg (27.0-32.0); Mean Platelet Vol. 9.3 fl (6.2-12.0); Monocyte# 1.06 X10^3/uL; Monocyte% 8.7 % (0-10); NRBC Flagged by Analyzer 0 % (0-5); Neutrophil # 10.54 X10^3/uL (2.7-7.7); Neutrophil % 86.9 % (47-70); POSITIVE DIFFERENTIAL YES; Platelet Count 284 K/mm3 (150-450); RBC Distribution Width CV 16.9 % (11.6-14.6); RBC Distribution Width SD 56.1 fl (35.1-43.9); Red Blood Count 3.23 M/mm3 (4.6-6.2); White Blood Count 12.1 K/mm3 (4.4-11.0)
[2023-05-18 05:20] LABS: International Normalized Ratio 1.6; Prothrombin Time (Protime)PT. 18.9 SECONDS (11.7-14.9)
[2023-05-18] MEDS: Piperacil/Tazobactam 3.375 GM in 0.9% Normal Saline (50mL MB+) 50 ML IV ×3 (05:28→22:34)
[2023-05-18 05:31] LABS: Anion Gap 5 (5-15); BUN 28 mg/dL (7-18); BUN/Creat Ratio 21.4 RATIO (10-20); Calcium,Total 8.2 mg/dL (8.5-10.1); Chloride 105 mmol/L (98-107); Creatinine, Serum 1.31 mg/dL (0.70-1.30); EST Glomerular Filtration Rate 55 mL/min (>60); Est Glom Filt Rate - Afr Amer 66 mL/min (>60); Estimated Creatinine Clearance 39.47 ml/min; Glucose 112 mg/dL (74-106); Potassium 3.8 mmol/L (3.5-5.1); Sodium Level 135 mmol/L (136-145)
--- NOTE | 2023-05-18 05:55 | EKG12_ITS ---
Test Reason : am ekg Blood Pressure : / mmHG Vent. Rate : 070 BPM Atrial Rate : 070 BPM P-R Int : 188 ms QRS Dur : 132 ms QT Int : 476 ms P-R-T Axes : 069 -34 033 degrees QTc Int : 514 ms Normal sinus rhythm Left axis deviation Non-specific intra-ventricular conduction block Minimal voltage criteria for LVH, may be normal variant ( [place] product ) Abnormal ECG When compared with ECG of 17-MAY-2023 16:41, MANUAL COMPARISON REQUIRED, DATA IS UNCONFIRMED Confirmed by DAHIANA ESCOBAR, KYLER ([id number]), subeditor ARIELLE CONDE ([id number]) on 05/18/2023 8:17:29 AM Referred By: Mumtaz Mason Confirmed By:KYLER TALBOT MD
[2023-05-18 07:12] LABS: Partial Thromboplast Time 46.5 Seconds (24.1-36.2)
[2023-05-18] MEDS: Vancomycin IV 500 MG/100 ML BAG 100 MG IV ×2 (09:35→20:57)
--- NOTE | 2023-05-18 13:28 | CASEMGMT ---
Patient came from [facility] TCU. SW spoke with patient and he plans on returning to TCU at discharge. Patient will need a pre-cert prior to return. Plan: d/c back to TCU pending patient being medically ready and insurance approval. Malika JACKSON
--- NOTE | 2023-05-18 13:44 | PCM.PN.HOSP ---
Subjective Subjective Feels better than he did on admission, no issues overnight Objective Data Objective Data Vital Signs: Vital Signs Temp Pulse Resp BP Pulse Ox O2 Del Method O2 Flow Rate 97.0 F L 71 16 131/60 H 95 High Flow 2 05/18/23 11:30 05/18/23 11:30 05/18/23 11:30 05/18/23 11:30 05/18/23 11:30 05/18/23 11:30 05/18/23 11:30 Oxygen Flow Rate (L/min) 2 Oxygen Delivery Method High Flow Weight: 161 lb 9.581 oz Body Mass Index (BMI) 23.1 Intake & Output: Intake and Output for Last 24 Hours 05/17/23 05/18/23 05/19/23 03:59 03:59 03:59 Intake Total 1530 / 1530 150 / 150 Output Total 200 / 200 410 / 410 Balance 1330 / 1330 -260 / -260 Lab / Micro Data 05/18/23 04:45 05/18/23 04:45 Labs: Laboratory Results - last 24 hr 05/17/23 16:40: WBC 12.1 H, RBC 3.62 L, Hgb 10.7 L, Hct 32.8 L, MCV 90.6, MCH 29.6, MCHC 32.6, RDW Std Deviation 55.5 H, RDW Coeff of Azael 16.9 H, Plt Count 335, MPV 10.1, Immature Gran % (Auto) 1.200 H, Neut % (Auto) 92.4 H, Lymph % (Auto) 1.9 L, [place] % (Auto) 4.3, Eos % (Auto) 0.0, Baso % (Auto) 0.2, Absolute Neuts (auto) 11.2 H, Absolute Lymphs (auto) 0.23 L, Nucleated RBC % 0, Differential Comment SEE COMMENT, Platelet Estimate ADEQUATE, RBC Morphology N CHROM, Anisocytosis RARE, Macrocytosis RARE, Ovalocytes RARE, PT 17.1 H, INR 1.4, APTT 40.1 H, Sodium 134 L, Potassium 4.2, Chloride 101, Carbon Dioxide 26.0, Anion Gap 7, BUN 26 H, Creatinine 1.17, Estim Creat Clear Calc 44.20, Est GFR (MDRD) Af Amer 75, Est GFR (MDRD) Non-Af 62, BUN/Creatinine Ratio 22.2 H, Glucose 121 H, Lactic Acid 1.0, Calcium 8.8, Total Bilirubin 1.10 H, AST 38 H, ALT 8 L, Alkaline Phosphatase 89, Troponin I High Sens 37, Total Protein 6.7, Albumin 2.9 L, Globulin 3.8, Albumin/Globulin Ratio 0.8 L, Vitamin D 25-Hydroxy 32.4 05/17/23 16:50: Urine Color Yellow, Urine Clarity Clear, Urine pH 6.0, Ur Specific [place] 1.015, Urine Protein 15 H, Urine Glucose (UA) Normal, Urine Ketones 5 H, Urine Occult Blood 50 H, Urine Nitrite Negative, Urine Bilirubin Negative, Urine Urobilinogen Normal, Ur Leukocyte Esterase 100 H, Urine RBC 0-5 SEEN, Urine WBC 0-5 SEEN, Ur Squamous Epith Cells 0 SEEN, Urine Bacteria 0 SEEN, Urine Mucus 0 SEEN 05/18/23 04:45: WBC 12.1 H, RBC 3.23 L, Hgb 9.5 L, Hct 29.7 L, MCV 92.0, MCH 29.4, MCHC 32.0, RDW Std Deviation 56.1 H, RDW Coeff of Azael 16.9 H, Plt Count 284, MPV 9.3, Immature Gran % (Auto) 1.000 H, Neut % (Auto) 86.9 H, Lymph % (Auto) 3.1 L, [place] % (Auto) 8.7, Eos % (Auto) 0.0, Baso % (Auto) 0.3, Absolute Neuts (auto) 10.5 H, Absolute Lymphs (auto) 0.38 L, Nucleated RBC % 0, PT 18.9 H, INR 1.6, APTT 46.5 H, Sodium 135 L, Potassium 3.8, Chloride 105, Carbon Dioxide 25.0, Anion Gap 5, BUN 28 H, Creatinine 1.31 H, Estim Creat Clear Calc 39.47, Est GFR (MDRD) Af Amer 66, Est GFR (MDRD) Non-Af 55 L, BUN/Creatinine Ratio 21.4 H, Glucose 112 H, Calcium 8.2 L Micro: Microbiology 05/17/23 16:50 Urine, Clean Catch 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 Mild left effusion. Electronically Signed: Jason DO Navid at 18:03 EDT , Chest CTA 05/17/23 20:20 IMPRESSION: No demonstrated pulmonary embolism or arterial dissection. Bilateral pleural effusions with basilar consolidations, left more than right. Right upper lobe infiltrate. Bilateral renal cysts. Electronically Signed: Jason Shoemaker DO at 20:59 EDT , Rhythm Strip Rhythm Strip: Sinus Tach Rate: 101 Ectopy: None Physical Exam Narrative General: Alert, Oriented x3, Cooperative, No apparent distress HEENT: Atraumatic, PERRLA, EOMI, Normocephalic, hematoma on his left forehead Oral: Moist Mucosa Neck: Supple, No JVD Lungs: Diminished, Normal air movement, No rhonchi, No wheeze, No rales Cardiovascular: Regular rate, Regular Rhythm, Normal S1, Normal S2, No murmurs Abdomen: Soft, Non Tender, Non-Distended, No Hepato-splenomegaly Extremities: No edema, Capillary Refill Less than 3 Seconds, left upper extremity with significant ecchymosis right upper extremity currently dressed Skin: No rashes, No breakdown Musculoskeletal: No Tenderness to Palpation of Joints or Extremities Neurological: No focal neurological deficits, Motor Exam 5/5 strength throughout, Sensory exam intact to light touch and pain Psych/Mental Status: Normal Affect, Appropriate Assessment & Plan Assessment/Plan (1) Pneumonia: PLAN: Plan 1. Pneumonia with UTI ? Urine culture growing gram-negative jared ? Sputum cultures pending ? Continue with broad-spectrum antibiotics pending finalization of cultures ? Echo was obtained secondary to concern for trolley as well as possible CHF after blood transfusions 2. Anemia in the setting of heme positive stools ? Appreciate gastroenterology assistance ? Plan for an EGD, if normal may need to proceed with colonoscopy ? Continue to hold Eliquis 3. Recent trauma ? Fell in his garage and broke his right wrist as well as injuring his left shoulder ? Awaiting records from all. ? Well otherwise 4. Essential HTN/HLD/CAD status post CABG/A-fib ? Continue with blood pressure medications ? We will monitor make adjustments as necessary ? Continue to hold Eliquis 5. Hypothyroidism ? Stable ? Continue with thyroid DVT: SCDs Charges/Coding Visit Charges Inpatient E&M: 00300 Subs Hosp L2
--- NOTE | 2023-05-18 13:52 | WOUNDNOTE ---
wound photo: left forehead
--- NOTE | 2023-05-18 13:53 | WOUNDNOTE ---
wound photo: left shoulder
[2023-05-18] MEDS: 0.9% Normal Saline (1000mL) 1,000 ML 15 ML IV (14:18)
--- NOTE | 2023-05-18 14:30 | EGD_PTH ---
PATIENT: JAROD SEGOVIA LOC: PCU U#:[id number] AGE/SX: 87/M ROOM: [facility] RE05/17/[address]: Dr. Stefano López MD : 1935 BED: 1 DIS: 05/24/2023 SPEC #: [id number] RECD: 05/18/23 19:13 STATUS: GONZÁLEZ REJimi #: [id number] EDWIGE: 05/18/23 14:[address]: Joss Moran DEPT: SURGICAL PATHOLOGY RECD BY: Maisha Henderson ENTERED: 05/21/23 08:03 SP TYPE: EGD BIOPSY OTHR DR: MD Dr. Mumtaz Toney DO Dr. Hannah Miedel, MD Dr. Nicholas F Kotsonis, MD Tissues: Gastric mucous membrane Procedures: Surgery Specimen Level IV Comments: @ Ordering doctor for SUIV edited from to @ by JAZMINE at 05/21/23 1350 @ Submitting doctor edited from to @ by JAZMINE at 05/21/23 1350 HEADER OPERATION: EGD PRE-OP DIAGNOSIS: Enema TISSUE SUBMITTED: Antral ulcer biopsy MICROSCOPIC DIAGNOSIS Antral ulcer, biopsy: Fragments of gastric mucosa with focal ulceration, fibrinous exudation, mild chronic inflammation and minimal acute inflammation. / 05/22/23 COMMENT The results of immunohistochemistry for Helicobacter pylori will be reported separately ([id number]). MICROSCOPIC DESCRIPTION Slides are reviewed. GROSS DESCRIPTION Received in fixative is one container labeled with the patient's name and designated Antral ulcer biopsy. The specimen consists of two irregular fragments of light montano soft tissue that in aggregate measure 0.8 x 0.5 x 0.1 cm. The specimen is totally submitted in one cassette. / 05/21/23 TC:2 CPT: 52312
--- NOTE | 2023-05-18 14:30 | IMM_PTH ---
PATIENT: JAROD SEGOVIA LOC: PCU U#:[id number] AGE/SX: 87/M ROOM: [facility] RE05/17/[address]: Dr. Stefano López MD : 1935 BED: 1 DIS: 05/24/2023 SPEC #: [id number] RECD: 05/21/23 12:54 STATUS: SOUT REQ #: [id number] EDWIGE: 05/18/23 14:[address]: Joss oMran DEPT: IMMUNOHISTOCHEMISTRY RECD BY: Cyril Watkins ENTERED: 05/21/23 12:54 SP TYPE: IMMUNO OTHR DR: MD Dr. Mumtaz Toney DO Dr. Hannah Miedel, MD Dr. Nicholas F Kotsonis, MD Tissues: Stomach, NOS Procedures: H Pylori (initial) Comments: @ Ordering doctor for H.PYLORI edited from to @ by JAZMINE at 05/22/231610 @ Submitting doctor edited from to @ by JAZMINE at 05/22/231610 PHYSICIAN & INSTITUTION [place] [address] SPECIMEN INFORMATION: Tissue Source: Antrum ulcer biopsy Clinical Info: [place] Specimen Number: [id number] CPT code: 59623 METHODOLOGY: Deparaffinized sections of prefer/formalin-fixed tissue or PAP/DQ stained slides are incubated with monoclonal/polyclonal antibodies/oligonucleotide probes. Localization is made via biotin free immunoperoxidase method. Appropriate controls are performed and reacted as expected. Results on target cell population are indicated in the following table: RESULTS: ANTIBODY / CLONE RESULT H Pylori (polyclonal) negative These tests were developed and their performance characteristics determined by [facility]. They may not have been cleared or approved by the U.S. Food and Drug Administration. The FDA has determined that such clearance or approval is not necessary. The above immunohistochemical/dualISH markers are ordered and reviewed by the Pathologist. INTERPRETATION: Antrum, biopsy: Negative for Helicobacter pylori organisms. SHAW/ 05/22/23
--- NOTE | 2023-05-18 15:32 | OP.CCLET_ITS ---
05/18/2023 Stacy Carson [address] [address] Re : Upper GI endoscopy procedure for Trell Robinsoctaviano Dear Dr. Carson This procedure was performed on Thursday, May 18, 2023. My impressions and recommendations are as follows: Impressions : - Normal esophagus. - Non-bleeding gastric ulcers with no stigmata of bleeding. Biopsied. Treated with a heater probe. - Bile gastritis. Biopsied. - No gross lesions in the first portion of the duodenum. Recommendations : - [facility]. - Use Protonix (pantoprazole) 40 mg PO BID for 8 weeks. - Use sucralfate tablets 1 gram PO BID for 2 weeks. - Continue present medications. My findings are described in the full procedure note, which is enclosed. If I can be of further assistance, please feel free to contact me at . Sincerely, Joss Moran, 05/18/2023 3:31:46 PM This report has been signed electronically.
--- NOTE | 2023-05-18 15:32 | OP.EGD_ITS ---
Patient Name: Trell Ghosh Procedure Date: 05/18/2023 2:18 PM Date of : 1935 Age: 87 Procedure: Upper GI endoscopy Indications: Iron deficiency anemia, Heme positive stool Providers: Joss Moran DO Referring MD: Mumtaz Mason DO Medicines: Monitored Anesthesia Care Patient Profile: This is an 87 year old male. Refer to note in patient chart for documentation of history and physical. Patient has symptoms of acute epigastric abdominal pain. Complications: No immediate complications. Procedure: Pre-Anesthesia Assessment: - Prior to the procedure, a History and Physical was performed, and patient medications and allergies were reviewed. The risks and benefits of the procedure and the sedation options and risks were discussed with the patient. All questions were answered and informed consent was obtained. Patient identification and proposed procedure were verified by the physician in the pre-procedure area. Mental Status Examination: alert and oriented. Airway Examination: normal oropharyngeal airway and neck mobility. Respiratory Examination: clear to auscultation. CV Examination: normal. Prophylactic Antibiotics: The patient does not require prophylactic antibiotics. Prior Anticoagulants: The patient has taken no anticoagulant or antiplatelet agents. After reviewing the risks and benefits, the patient was deemed in satisfactory condition to undergo the procedure. The anesthesia plan was to use monitored anesthesia care (MAC). Immediately prior to administration of medications, the patient was re-assessed for adequacy to receive sedatives. The heart rate, respiratory rate, oxygen saturations, blood pressure, adequacy of pulmonary ventilation, and response to care were monitored throughout the procedure. The physical status of the patient was re-assessed after the procedure. After obtaining informed consent, the endoscope was passed under direct vision. Throughout the procedure, the patient's blood pressure, pulse, and oxygen saturations were monitored continuously. The gastroscope was introduced through the mouth, and advanced to the second part of duodenum. The upper GI endoscopy was accomplished without difficulty. The patient tolerated the procedure well. Scope In: 3:20:21 PM Scope Out: 3:23:40 PM Total Procedure Duration Time 0 hours 3 minutes 19 seconds Findings: The examined esophagus was normal. Two non-bleeding cratered gastric ulcers with no stigmata of bleeding were found in the gastric antrum. The largest lesion was 6 mm in largest dimension. Biopsies were taken with a cold forceps for histology. Verification of patient identification for the specimen was done. Estimated blood loss was minimal. Coagulation for bleeding prevention using heater probe was successful. Estimated blood loss was minimal. Localized severe inflammation characterized by erosions, erythema and friability was found in the gastric body and in the gastric antrum. Biopsies were taken with a cold forceps for histology. Verification of patient identification for the specimen was done. Estimated blood loss was minimal. Biopsies were taken with a cold forceps for Helicobacter pylori testing. Verification of patient identification for the specimen was done. Estimated blood loss was minimal. No gross lesions were noted in the first portion of the duodenum. Impression: - Normal esophagus. - Non-bleeding gastric ulcers with no stigmata of bleeding. Biopsied. Treated with a heater probe. - Bile gastritis. Biopsied. - No gross lesions in the first portion of the duodenum. Recommendation: - [facility]. - Use Protonix (pantoprazole) 40 mg PO BID for 8 weeks. - Use sucralfate tablets 1 gram PO BID for 2 weeks. - Continue present medications. Procedure Code(s): --- Professional --- 00014, 59, Esophagogastroduodenoscopy, flexible, transoral; with control of bleeding, any method 75870, 51, Esophagogastroduodenoscopy, flexible, transoral; with biopsy, single or multiple CPT copyright 2021 [employer]. All rights reserved. The codes documented in this report are preliminary and upon tobacco warehouse agent review may be revised to meet current compliance requirements. Joss Moran DO 05/18/2023 3:31:46 PM This report has been signed electronically. Number of Addenda: 0 Note Initiated On: 05/18/2023 2:18 PM
[2023-05-18] MEDS: Calcium Carb/Vitamin D 1 TABLET Tablet PO (16:10)
[2023-05-18] MEDS: Losartan Potassium 100 MG Tablet PO (16:10)
[2023-05-18] MEDS: Amiodarone 200 MG Tablet 100 MG PO (16:10)
[2023-05-18] MEDS: amLODIPine 5 MG Tablet PO (16:10)
[2023-05-18] MEDS: guaiFENesin 1,200 MG Tablet 1200 MG PO ×2 (16:11→20:59)
[2023-05-18] MEDS: Acetaminophen 500 MG Tablet 1000 MG PO ×2 (16:11→20:59)
[2023-05-18] MEDS: Multivitamin (Healthy Eyes) Capsule 1 CAP PO (16:12)
[2023-05-18] MEDS: Metoprolol Tartrate 25 MG Tablet PO ×2 (16:12→21:00)
[2023-05-18] MEDS: Atorvastatin Calcium 10 MG Tablet 5 MG PO (21:00)
[2023-05-19] VITALS (10 sets, daily range): BP systolic 136–139; BP diastolic 62–63; PULSE 70–80; RESP 16–18; TEMP 36.6–36.9; O2SAT 92–96
[2023-05-19] MEDS: Acetaminophen 500 MG Tablet 1000 MG PO ×3 (05:50→21:46)
[2023-05-19] MEDS: Piperacil/Tazobactam 3.375 GM in 0.9% Normal Saline (50mL MB+) 50 ML IV ×3 (05:50→21:46)
[2023-05-19] MEDS: Levothyroxine 75 MCG Tablet PO (05:50)
[2023-05-19 06:28] LABS: Absolute Lymphocyte Count 0.42 X10^3/uL (0.83-4.51); Basophil# 0.03 X10^3/uL; Basophil% 0.3 % (0-1); Eosinophil# 0.13 X10^3/uL; Eosinophils% 1.5 % (0-5); Hematocrit 30.4 % (40-54); Hemoglobin 9.7 g/dL (13.0-16.5); Lymphocyte # 0.42 X10^3/ul (0.83-4.51); Lymphocyte % 4.8 % (19-41); Mean Corp Hgb Conc 31.9 g/dL (32-36); Mean Corpuscular Hgb 29.5 pg (27.0-32.0); Mean Corpuscular Volume 92.4 fL (80-94); Mean Platelet Vol. 9.2 fl (6.2-12.0); Monocyte# 1.01 X10^3/uL; Monocyte% 11.6 % (0-10); NRBC Flagged by Analyzer 0 % (0-5); Neutrophil # 7.04 X10^3/uL (2.7-7.7); Neutrophil % 81.1 % (47-70); POSITIVE DIFFERENTIAL YES; Platelet Count 329 K/mm3 (150-450); RBC Distribution Width SD 57.2 fl (35.1-43.9); Red Blood Count 3.29 M/mm3 (4.6-6.2); White Blood Count 8.7 K/mm3 (4.4-11.0)
[2023-05-19] MEDS: Ipratropium/Albuterol Sulfate 3 ML AMPUL.NEB INHALATION ×5 (06:45→23:01)
[2023-05-19 07:29] LABS: Anion Gap 5 (5-15); BUN 24 mg/dL (7-18); Calcium,Total 8.2 mg/dL (8.5-10.1); Chloride 106 mmol/L (98-107); EST Glomerular Filtration Rate 61 mL/min (>60); Est Glom Filt Rate - Afr Amer 73 mL/min (>60); Estimated Creatinine Clearance 43.09 ml/min; Glucose 86 mg/dL (74-106); Potassium 3.6 mmol/L (3.5-5.1); Sodium Level 137 mmol/L (136-145)
[2023-05-19 08:32] LABS: Vancomycin, Trough Level 13.9 ug/mL (5.0-15.0)
--- NOTE | 2023-05-19 09:01 | PHA.PHARE_ITS ---
Consult Antibiotic Management Pharmacy has been consulted to manage selected antibiotic: Vancomycin Type of Intervention Type of Consult: Follow-up Labs Labs: Sodium 137 mmol/L (136-145) 05/19/23 06:00 Potassium 3.6 mmol/L (3.5-5.1) 05/19/23 06:00 Chloride 106 mmol/L (98-107) 05/19/23 06:00 Carbon Dioxide 26.0 mmol/L (21.0-32.0) 05/19/23 06:00 Anion Gap 5 (5-15) 05/19/23 06:00 BUN 24 mg/dL (7-18) H 05/19/23 06:00 Creatinine 1.20 mg/dL (0.70-1.30) 05/19/23 06:00 Est GFR (MDRD) Af Amer 73 mL/min (>60) 05/19/23 06:00 Est GFR (MDRD) Non-Af 61 mL/min (>60) 05/19/23 06:00 BUN/Creatinine Ratio 20.0 RATIO (10-20) 05/19/23 06:00 Glucose 86 mg/dL (74-106) 05/19/23 06:00 Vancomycin Trough 13.9 ug/mL (5.0-15.0) 05/19/23 08:07 Microbiology Microbiology: Microbiology 05/18/23 04:45 Sputum, Expectorated/Coughed Gram Stain - Final 05/18/23 04:45 Sputum, Expectorated/Coughed Respiratory Culture - Preliminary Streptococcus group G 05/17/23 16:50 Urine, Clean Catch Urine Culture - Final GNR lactose preschool head teacher 05/17/23 16:50 Urine, Clean Catch Legionella Antigen - Final 05/17/23 16:50 Urine, Clean Catch Streptococcus pneumoniae Antigen (M - Final 05/17/23 18:34 Mucosa - Nose SARS-CoV-2, Influenza & RSV (PCR) - Final Pharmacy Plan for Drug Dosing Pharmacy Plan for Drug Dosing: VANCOMYCIN LEVEL RECEIVED Current Vancomycin Dose: 500mg IV Q12hr Number of Doses Received: 3 (initial dose + 2 scheduled doses) Vancomycin Level: 13.9 Hours Since Last Dose: 11hr Renal Function: 1.2 Renal Function Trend: stable Vancomycin Plan/Comments: Patient had a trough drawn which resulted in a value of 13.9 (goal 15-20). Will increase vancomycin dose slightly to 750mg IV Q12hr to start 05/18 @0900 Pending Level: 05/20/23 @2029, prior to 4th dose of new regimen per protocol Pharmacy Service will continue to monitor and adjust dosing as required.
[2023-05-19] MEDS: Vancomycin Trough/Random Due 1 LAB MC (09:34)
[2023-05-19] MEDS: Vancomycin HCl 750 MG in 0.9% Normal Saline (250mL Bag) 250 ML 250 MG IV (09:40)
[2023-05-19] MEDS: Multivitamins,Therapeutic Tablet 1 TABLET PO (09:48)
[2023-05-19] MEDS: Lidocaine 5% Patch 1 PATCH TOPICAL (09:49)
[2023-05-19] MEDS: Amiodarone 200 MG Tablet 100 MG PO (10:02)
[2023-05-19] MEDS: Metoprolol Tartrate 25 MG Tablet PO ×2 (10:03→21:47)
[2023-05-19] MEDS: Losartan Potassium 100 MG Tablet PO (10:03)
[2023-05-19] MEDS: Multivitamin (Healthy Eyes) Capsule 1 CAP PO (10:03)
[2023-05-19] MEDS: amLODIPine 5 MG Tablet PO (10:04)
[2023-05-19] MEDS: Calcium Carb/Vitamin D 1 TABLET Tablet PO (10:04)
[2023-05-19] MEDS: guaiFENesin 1,200 MG Tablet 1200 MG PO ×2 (10:04→21:46)
--- NOTE | 2023-05-19 13:48 | PCM.PN.HOSP ---
Subjective Subjective Doing well but had several choking episodes during my evaluation this morning. Obtain speech therapy consult Objective Data Objective Data Vital Signs: Vital Signs Temp Pulse Resp BP Pulse Ox O2 Del Method O2 Flow Rate 97.8 F 79 18 139/63 H 92 Nasal Cannula 2 05/19/23 06:00 05/19/23 11:26 05/19/23 11:26 05/19/23 06:00 05/19/23 11:26 05/19/23 11:26 05/19/23 11:26 Oxygen Flow Rate (L/min) 2 Oxygen Delivery Method Nasal Cannula Weight: 161 lb 9.581 oz Body Mass Index (BMI) 23.1 Intake & Output: Intake and Output for Last 24 Hours 05/18/23 05/19/23 05/20/23 03:59 03:59 03:59 Intake Total 1530 / 1530 684.75 / 684.75 1280.25 / 1280.25 Output Total 200 / 200 785 / 785 700 / 700 Balance 1330 / 1330 -100.25 / -100.25 580.25 / 580.25 Lab / Micro Data 05/19/23 06:00 05/19/23 06:00 Labs: Laboratory Results - last 24 hr 05/19/23 06:00: WBC 8.7, RBC 3.29 L, Hgb 9.7 L, Hct 30.4 L, MCV 92.4, MCH 29.5, MCHC 31.9 L, RDW Std Deviation 57.2 H, RDW Coeff of Azael 17.0 H, Plt Count 329, MPV 9.2, Immature Gran % (Auto) 0.700, Neut % (Auto) 81.1 H, Lymph % (Auto) 4.8 L, [place] % (Auto) 11.6 H, Eos % (Auto) 1.5, Baso % (Auto) 0.3, Absolute Neuts (auto) 7.0, Absolute Lymphs (auto) 0.42 L, Nucleated RBC % 0, Sodium 137, Potassium 3.6, Chloride 106, Carbon Dioxide 26.0, Anion Gap 5, BUN 24 H, Creatinine 1.20, Estim Creat Clear Calc 43.09, Est GFR (MDRD) Af Amer 73, Est GFR (MDRD) Non-Af 61, BUN/Creatinine Ratio 20.0, Glucose 86, Calcium 8.2 L 03/30/24 08:07: Vancomycin Trough 13.9 Micro: Microbiology 05/18/23 04:45 Sputum, Expectorated/Coughed Gram Stain - Final 05/18/23 04:45 Sputum, Expectorated/Coughed Respiratory Culture - Preliminary Streptococcus group G 05/17/23 16:50 Urine, Clean Catch Urine Culture - Final GNR lactose infant room teacher 05/17/23 16:50 Urine, Clean Catch Legionella Antigen - Final 05/17/23 16:50 Urine, Clean Catch Streptococcus pneumoniae Antigen (M - Final 05/17/23 18:34 Mucosa - Nose SARS-CoV-2, Influenza & RSV (PCR) - Final Radiography Diagnostic Testing: Radiology Impression Echocardiogram 05/17/23 19:59 Interpretation Summary The estimated ejection fraction is 65 %. Severe concentric left ventricular hypertrophy. The left atrium is moderately enlarged. Mild-Moderate (1-2+) mitral valve insufficiency. There is Mild focal posterior mitral annular calcification. Mild (1+) tricuspid valve insufficiency. Mild focal aortic valve calcification. Mild (1+) aortic valve insufficiency. Ordering Physician: Mumtaz Mason Referring Physician: Mumtaz Mason Performed By: Tiara Renteria RCS Rhythm Strip Rhythm Strip: Sinus Tach Rate: 101 Ectopy: None Physical Exam Narrative General: Alert, Oriented x3, Cooperative, No apparent distress HEENT: Atraumatic, PERRLA, EOMI, Normocephalic, hematoma on his left forehead Oral: Moist Mucosa Neck: Supple, No JVD Lungs: Diminished, Normal air movement, No rhonchi, No wheeze, No rales Cardiovascular: Regular rate, Regular Rhythm, Normal S1, Normal S2, No murmurs Abdomen: Soft, Non Tender, Non-Distended, No Hepato-splenomegaly Extremities: No edema, Capillary Refill Less than 3 Seconds, left upper extremity with significant ecchymosis right upper extremity currently dressed Skin: No rashes, No breakdown Musculoskeletal: No Tenderness to Palpation of Joints or Extremities Neurological: No focal neurological deficits, Motor Exam 5/5 strength throughout, Sensory exam intact to light touch and pain Psych/Mental Status: Normal Affect, Appropriate Assessment & Plan Assessment/Plan (1) Pneumonia: PLAN: Plan 1. Pneumonia with UTI ? Urine culture growing gram-negative jared ? Sputum cultures with group G strep ? Continue with broad-spectrum antibiotics pending finalization of cultures, can discontinue vancomycin ? Echo was obtained secondary to concern for TRALI as well as possible CHF after blood transfusions 2. Anemia in the setting of heme positive stools ? Appreciate gastroenterology assistance ?EGD with normal esophagus and nonbleeding gastric ulcers and gastritis ? Continue with Carafate as well as Protonix ? Continue to hold Eliquis 3. Recent trauma ? Fell in his garage and broke his right wrist as well as injuring his left shoulder ? Awaiting records from all. ? Well otherwise 4. Essential HTN/HLD/CAD status post CABG/A-fib ? Continue with blood pressure medications ? We will monitor make adjustments as necessary ? Continue to hold Eliquis 5. Hypothyroidism ? Stable ? Continue with thyroid DVT: SCDs Charges/Coding Visit Charges Inpatient E&M: 35872 Subs Hosp L2
[2023-05-19] MEDS: Pantoprazole Sodium 40 MG Tablet PO ×2 (14:41→21:45)
[2023-05-19] MEDS: Sucralfate 1 GM Tablet PO ×2 (16:59→23:35)
[2023-05-19] MEDS: Atorvastatin Calcium 10 MG Tablet 5 MG PO (21:47)
[2023-05-20] VITALS (16 sets, daily range): BP systolic 131–144; BP diastolic 65–71; PULSE 62–72; RESP 16–18; TEMP 36.2–37; O2SAT 87–95
[2023-05-20] MEDS: Piperacil/Tazobactam 3.375 GM in 0.9% Normal Saline (50mL MB+) 50 ML IV ×3 (06:06→21:21)
[2023-05-20] MEDS: Acetaminophen 500 MG Tablet 1000 MG PO ×3 (06:06→21:33)
[2023-05-20] MEDS: Levothyroxine 75 MCG Tablet PO (06:06)
[2023-05-20 06:26] LABS: Absolute Lymphocyte Count 0.48 X10^3/uL (0.83-4.51); Absolute Neutrophil Count 4.4 X10^3/uL (2.0-7.7); Basophil# 0.04 X10^3/uL; Basophil% 0.7 % (0-1); Eosinophils% 3.3 % (0-5); Hematocrit 31.3 % (40-54); Hemoglobin 9.7 g/dL (13.0-16.5); Lymphocyte # 0.48 X10^3/ul (0.83-4.51); Mean Corpuscular Volume 93.4 fL (80-94); Mean Platelet Vol. 9.2 fl (6.2-12.0); Monocyte# 0.84 X10^3/uL; NRBC Flagged by Analyzer 0 % (0-5); Neutrophil # 4.39 X10^3/uL (2.7-7.7); POSITIVE DIFFERENTIAL YES; Platelet Count 347 K/mm3 (150-450); RBC Distribution Width CV 16.9 % (11.6-14.6); RBC Distribution Width SD 57.6 fl (35.1-43.9); Red Blood Count 3.35 M/mm3 (4.6-6.2)
[2023-05-20 06:51] LABS: Anion Gap 6 (5-15); BUN 22 mg/dL (7-18); BUN/Creat Ratio 19.5 RATIO (10-20); Calcium,Total 8.3 mg/dL (8.5-10.1); Chloride 106 mmol/L (98-107); Creatinine, Serum 1.13 mg/dL (0.70-1.30); EST Glomerular Filtration Rate 65 mL/min (>60); Est Glom Filt Rate - Afr Amer 79 mL/min (>60); Estimated Creatinine Clearance 45.76 ml/min; Glucose 86 mg/dL (74-106); Potassium 3.5 mmol/L (3.5-5.1); Sodium Level 138 mmol/L (136-145)
[2023-05-20] MEDS: Ipratropium/Albuterol Sulfate 3 ML AMPUL.NEB INHALATION ×5 (07:36→23:11)
[2023-05-20] MEDS: Sucralfate 1 GM Tablet PO ×4 (08:00→22:20)
[2023-05-20] MEDS: Multivitamin (Healthy Eyes) Capsule 1 CAP PO (08:40)
[2023-05-20] MEDS: Multivitamins,Therapeutic Tablet 1 TABLET PO (08:41)
[2023-05-20] MEDS: guaiFENesin 1,200 MG Tablet 1200 MG PO ×2 (08:41→21:33)
[2023-05-20] MEDS: Lidocaine 5% Patch 1 PATCH TOPICAL (08:41)
[2023-05-20] MEDS: Calcium Carb/Vitamin D 1 TABLET Tablet PO (08:41)
[2023-05-20] MEDS: Metoprolol Tartrate 25 MG Tablet PO ×2 (08:58→21:33)
[2023-05-20] MEDS: Amiodarone 200 MG Tablet 100 MG PO (08:58)
[2023-05-20] MEDS: Losartan Potassium 100 MG Tablet PO (08:59)
[2023-05-20] MEDS: amLODIPine 5 MG Tablet PO (08:59)
[2023-05-20] MEDS: 0.9% Saline Lock 10 ML Syringe IV (09:04)
[2023-05-20] MEDS: Pantoprazole Sodium 40 MG Tablet PO ×2 (09:04→17:50)
--- NOTE | 2023-05-20 11:51 | PN.HOSP_ITS ---
Subjective Subjective Doing well today, no issues overnight. Feeling better today than he did yesterday Objective Data Objective Data Vital Signs: Vital Signs Temp Pulse Resp BP Pulse Ox O2 Del Method O2 Flow Rate 97.2 F L 72 16 134/71 H 93 Nasal Cannula 1.5 05/20/23 08:00 05/20/23 08:58 05/20/23 08:00 05/20/23 08:58 05/20/23 09:01 05/20/23 10:00 05/20/23 10:00 Oxygen Flow Rate (L/min) 1.5 Oxygen Delivery Method Nasal Cannula Weight: 161 lb 9.581 oz Body Mass Index (BMI) 23.1 Intake & Output: Intake and Output for Last 24 Hours 05/19/23 05/20/23 05/21/23 03:59 03:59 03:59 Intake Total 684.75 / 684.75 1380.25 / 1380.25 150 / 150 Output Total 785 / 785 1700 / 1700 900 / 900 Balance -100.25 / -100.25 -319.75 / -319.75 -750 / -750 Lab / Micro Data 05/20/23 05:06 05/20/23 05:06 Labs: Laboratory Results - last 24 hr 05/20/23 05:06: WBC 6.0, RBC 3.35 L, Hgb 9.7 L, Hct 31.3 L, MCV 93.4, MCH 29.0, MCHC 31.0 L, RDW Std Deviation 57.6 H, RDW Coeff of Azael 16.9 H, Plt Count 347, MPV 9.2, Immature Gran % (Auto) 1.000 H, Neut % (Auto) 73.0 H, Lymph % (Auto) 8.0 L, [place] % (Auto) 14.0 H, Eos % (Auto) 3.3, Baso % (Auto) 0.7, Absolute Neuts (auto) 4.4, Absolute Lymphs (auto) 0.48 L, Nucleated RBC % 0, Sodium 138, Potassium 3.5, Chloride 106, Carbon Dioxide 26.0, Anion Gap 6, BUN 22 H, Creatinine 1.13, Estim Creat Clear Calc 45.76, Est GFR (MDRD) Af Amer 79, Est GFR (MDRD) Non-Af 65, BUN/Creatinine Ratio 19.5, Glucose 86, Calcium 8.3 L Micro: Microbiology 05/17/23 16:42 Blood Culture (Wb) - Left Forearm Blood Culture - Preliminary No growth in 48 hours. 05/17/23 16:40 Blood Culture (Wb) - Left Wrist Blood Culture - Preliminary No growth in 48 hours. 05/18/23 04:45 Sputum, Expectorated/Coughed Gram Stain - Final 05/18/23 04:45 Sputum, Expectorated/Coughed Respiratory Culture - Preliminary Streptococcus group G 05/17/23 16:50 Urine, Clean Catch Urine Culture - Final GNR lactose stake driver 05/17/23 16:50 Urine, Clean Catch Legionella Antigen - Final 05/17/23 16:50 Urine, Clean Catch Streptococcus pneumoniae Antigen (M - Fi nal 05/17/23 18:34 Mucosa - Nose SARS-CoV-2, Influenza & RSV (PCR) - Final Rhythm Strip Rhythm Strip: Sinus Tach Rate: 101 Ectopy: None Physical Exam Narrative General: Alert, Oriented x3, Cooperative, No apparent distress HEENT: Atraumatic, PERRLA, EOMI, Normocephalic, hematoma on his left forehead Oral: Moist Mucosa Neck: Supple, No JVD Lungs: Diminished, Normal air movement, No rhonchi, No wheeze, No rales Cardiovascular: Regular rate, Regular Rhythm, Normal S1, Normal S2, No murmurs Abdomen: Soft, Non Tender, Non-Distended, No Hepato-splenomegaly Extremities: No edema, Capillary Refill Less than 3 Seconds, left upper extremity with significant ecchymosis right upper extremity currently dressed Skin: No rashes, No breakdown Musculoskeletal: No Tenderness to Palpation of Joints or Extremities Neurological: No focal neurological deficits, Motor Exam 5/5 strength throughout, Sensory exam intact to light touch and pain Psych/Mental Status: Normal Affect, Appropriate Assessment & Plan Assessment/Plan (1) Pneumonia: PLAN: Plan 1. Pneumonia with UTI/mild dysphagia ? Urine culture growing gram-negative jared, finalization is still pending ? Sputum cultures with group G strep ? Continue with broad-spectrum antibiotics pending finalization of cultures, can discontinue vancomycin ? Echo was obtained secondary to concern for TRALI as well as possible CHF after blood transfusions, EF of 65% with severe concentric left ventricular hypertrophy ? He did have multiple coughing episodes yesterday, speech therapy was consulted and they recommend regular textures with thin liquids and distant supervision 2. Anemia in the setting of heme positive stools ? Appreciate gastroenterology assistance ?EGD with normal esophagus and nonbleeding gastric ulcers and gastritis ? Continue with Carafate as well as Protonix ? Continue to hold Eliquis, can likely be restarted on discharge 3. Recent trauma ? Fell in his garage and broke his right wrist as well as injuring his left shoulder ? Well otherwise 4. Essential HTN/HLD/CAD status post CABG/A-fib ? Continue with blood pressure medications ? We will monitor make adjustments as necessary ? Continue to hold Eliquis 5. Hypothyroidism ? Stable ? Continue with thyroid DVT: SCDs Charges/Coding Visit Charges Inpatient E&M: 49177 Subs Hosp L2
[2023-05-20] MEDS: Atorvastatin Calcium 10 MG Tablet 5 MG PO (21:34)
[2023-05-20] MEDS: Docusate Sodium 100 MG Capsule PO (21:44)
[2023-05-21] VITALS (10 sets, daily range): BP systolic 132–152; BP diastolic 59–75; PULSE 67–85; RESP 16–20; TEMP 36.3–37.1; O2SAT 94–96
[2023-05-21] MEDS: Piperacil/Tazobactam 3.375 GM in 0.9% Normal Saline (50mL MB+) 50 ML IV ×3 (05:49→22:34)
[2023-05-21] MEDS: Sucralfate 1 GM Tablet PO ×4 (06:18→22:34)
[2023-05-21] MEDS: Acetaminophen 500 MG Tablet 1000 MG PO ×3 (06:18→22:35)
[2023-05-21] MEDS: Levothyroxine 75 MCG Tablet PO (06:18)
[2023-05-21 06:48] LABS: Absolute Lymphocyte Count 0.47 X10^3/uL (0.83-4.51); Absolute Neutrophil Count 3.2 X10^3/uL (2.0-7.7); Basophil# 0.02 X10^3/uL; Basophil% 0.5 % (0-1); Eosinophil# 0.19 X10^3/uL; Eosinophils% 4.4 % (0-5); Hematocrit 31.6 % (40-54); Lymphocyte # 0.47 X10^3/ul (0.83-4.51); Lymphocyte % 10.9 % (19-41); Mean Corp Hgb Conc 31.6 g/dL (32-36); Mean Corpuscular Hgb 29.4 pg (27.0-32.0); Mean Corpuscular Volume 92.9 fL (80-94); Mean Platelet Vol. 9.2 fl (6.2-12.0); Monocyte# 0.45 X10^3/uL; Monocyte% 10.4 % (0-10); NRBC Flagged by Analyzer 0 % (0-5); Neutrophil # 3.16 X10^3/uL (2.7-7.7); Neutrophil % 72.9 % (47-70); POSITIVE DIFFERENTIAL YES; Platelet Count 350 K/mm3 (150-450); RBC Distribution Width CV 16.8 % (11.6-14.6); RBC Distribution Width SD 57.8 fl (35.1-43.9); White Blood Count 4.3 K/mm3 (4.4-11.0)
[2023-05-21 07:12] LABS: Anion Gap 5 (5-15); BUN 17 mg/dL (7-18); BUN/Creat Ratio 17.5 RATIO (10-20); Calcium,Total 8.3 mg/dL (8.5-10.1); Chloride 110 mmol/L (98-107); Creatinine, Serum 0.97 mg/dL (0.70-1.30); EST Glomerular Filtration Rate 77 mL/min (>60); Est Glom Filt Rate - Afr Amer 93 mL/min (>60); Estimated Creatinine Clearance 53.31 ml/min; Glucose 86 mg/dL (74-106); Potassium 3.7 mmol/L (3.5-5.1); Sodium Level 139 mmol/L (136-145)
[2023-05-21] MEDS: Ipratropium/Albuterol Sulfate 3 ML AMPUL.NEB INHALATION ×4 (07:16→19:20)
[2023-05-21] MEDS: Multivitamin (Healthy Eyes) Capsule 1 CAP PO (08:02)
[2023-05-21] MEDS: Amiodarone 200 MG Tablet 100 MG PO (08:02)
[2023-05-21] MEDS: Multivitamins,Therapeutic Tablet 1 TABLET PO (08:04)
[2023-05-21] MEDS: Calcium Carb/Vitamin D 1 TABLET Tablet PO (08:05)
[2023-05-21] MEDS: Metoprolol Tartrate 25 MG Tablet PO ×2 (10:16→22:34)
[2023-05-21] MEDS: Losartan Potassium 100 MG Tablet PO (10:16)
[2023-05-21] MEDS: Lidocaine 5% Patch 1 PATCH TOPICAL (10:17)
[2023-05-21] MEDS: Pantoprazole Sodium 40 MG Tablet PO ×2 (10:17→17:30)
[2023-05-21] MEDS: guaiFENesin 1,200 MG Tablet 1200 MG PO ×2 (10:17→22:35)
[2023-05-21] MEDS: amLODIPine 5 MG Tablet PO (10:17)
--- NOTE | 2023-05-21 10:59 | PN.HOSP_ITS ---
Reason for Visit Reason for Visit: Diagnoses Pneumonia, unspecified organism (05/17/23) Subjective Subjective Patient with recent fall with right wrist fracture who has been managed at the transitional care unit, admitted with nausea vomiting as well as hypoxia and diagnosed with pneumonia Objective Data Objective Data Vital Signs: Vital Signs Temp Pulse Resp BP Pulse Ox O2 Del Method O2 Flow Rate 97.3 F L 85 16 132/72 H 96 Nasal Cannula 2 05/21/23 03:21 05/21/23 10:16 05/21/23 07:16 05/21/23 10:16 05/21/23 07:16 05/21/23 08:00 05/21/23 08:00 Oxygen Flow Rate (L/min) 2 Oxygen Delivery Method Nasal Cannula Weight: 73.3 kg Body Mass Index (BMI) 23.1 Intake & Output: Intake and Output for Last 24 Hours 05/19/23 05/20/23 05/21/23 23:59 23:59 23:59 Intake Total 1380.25 / 1380.25 1450 / 1570 410 / 410 Output Total 1700 / 1700 1900 / 2100 1100 / 1100 Balance -319.75 / -319.75 -450 / -530 -690 / -690 Lab / Micro Data 05/21/23 06:00 05/21/23 06:00 Labs: Laboratory Results - last 24 hr 05/21/23 06:00: WBC 4.3 L, RBC 3.40 L, Hgb 10.0 L, Hct 31.6 L, MCV 92.9, MCH 29.4, MCHC 31.6 L, RDW Std Deviation 57.8 H, RDW Coeff of Azael 16.8 H, Plt Count 350, MPV 9.2, Immature Gran % (Auto) 0.900, Neut % (Auto) 72.9 H, Lymph % (Auto) 10.9 L, [place] % (Auto) 10.4 H, Eos % (Auto) 4.4, Baso % (Auto) 0.5, Absolute Neut s (auto) 3.2, Absolute Lymphs (auto) 0.47 L, Nucleated RBC % 0, Sodium 139, P otassium 3.7, Chloride 110 H, Carbon Dioxide 24.0, Anion Gap 5, BUN 17, Creat inine 0.97, Estim Creat Clear Calc 53.31, Est GFR (MDRD) Af Amer 93, Est GFR (MDRD) Non-Af 77, BUN/Creatinine Ratio 17.5, Glucose 86, Calcium 8.3 L Micro: Microbiology 05/18/23 04:45 Sputum, Expectorated/Coughed Gram Stain - Final 05/18/23 04:45 Sputum, Expectorated/Coughed Respiratory Culture - Final Streptococcus group G Haemophilus influenzae 05/17/23 16:42 Blood Culture (Wb) - Left Forearm Blood Culture - Preliminary No growth in 48 hours. 05/17/23 16:40 Blood Culture (Wb) - Left Wrist Blood Culture - Preliminary No growth in 48 hours. 05/17/23 16:50 Urine, Clean Catch Urine Culture - Final GNR lactose field services analyst 05/17/23 16:50 Urine, Clean Catch Legionella Antigen - Final 05/17/23 16:50 Urine, Clean Catch Streptococcus pneumoniae Antigen (M - Final 05/17/23 18:34 Mucosa - Nose SARS-CoV-2, Influenza & RSV (PCR) - Final Rhythm Strip Rhythm Strip: Sinus Tach Rate: 101 Ectopy: None Physical Exam Narrative GENERAL: cooperative HEENT: Left forehead hematoma EYES; Anicteric, Normal Conjunctiva NECK; supple, normal thyroid, RESPIRATORY: Diminished to auscultation CARDIOVASCULAR: Irregular S1-S2 GI: soft, normoactive bowel sounds, : No Renal angle tenderness; EXTREMITIES: No edema, no clubbing, MUSCULOSKELETAL: Right wrist in a splint NEURO: Awake; no lateralizing signs. SKIN: No Rash PSYCH; Flat affect Assessment & Plan Assessment/Plan (1) Pneumonia: PLAN: Plan Patient with recent fall with right wrist fracture who has been managed at the transitional care unit, admitted with nausea vomiting as well as hypoxia and diagnosed with pneumonia 1. Pneumonia - Suspected to be secondary to group G pneumonia,. Sputum cultures came back positive for group G Strep patient managed with Zosyn de-escalated to cefdinir. Placed on oxygen titrated to keep Pulse Ox greater than 90 2. Suspected transfusion associated lung injury ? Echo ordered patient treated with pulmonary toileting 3. Anemia ? Secondary to chronic blood loss anemia recent EGD on 05/18/[address] Moran demonstrated gastritis as well as gastric ulcers managed with Carafate as well as Protonix patient is on apixaban held. Monitoring H&H with plans to transfuse if hemoglobin falls below 7 or patient is deemed to be symptomatic 4. Paroxysmal atrial fibrillation Rate controlled on amiodarone, on systemic anticoagulation with apixaban held given the finding of gastritis on recent EGD 5. Gastric ulcer and gastritis ? Patient is on PPI 6. Dyslipidemia -Patient is on statin therapy, continued at home dose 7. Hypothyroidism - Patient is on levothyroxine home dose continued 8. Hypertension - Blood pressure controlled, home medications continued with dose adjustment as needed 9.Recent falls with right distal radius fracture ? Patient is in a splint. 10. Physical deconditioning - Requested for PT OT eval and social service agency director to assist with discharge planning 11. DVT prophylaxis ? Patient was on apixaban held given the diagnosis of gastritis and gastric ulcers Time spent in the patient's overall evaluation,decision-making process, review of diagnostic data, adjustment of management, discussion with other providers, nursing nursing and ancillary staff involved in patient's care documentation, 40 Minutes Charges/Coding Visit Charges Inpatient E&M: 41277 Subs Hosp L2
--- NOTE | 2023-05-21 13:52 | CASEMGMT ---
Social Work Spoke with Dr. López today regarding patient's discharge plan to return to [facility]. Per physician, the patient is ready to have precert started for return to SNF LOC. Spoke with Ghazala in admissions at TCU who will start precert. Plan: [facility], skilled level of care, pending insurance precert. -HALIE Pittman
[2023-05-21] MEDS: Atorvastatin Calcium 10 MG Tablet 5 MG PO (22:34)
[2023-05-22] VITALS (12 sets, daily range): BP systolic 128–151; BP diastolic 63–76; PULSE 73–82; RESP 16–20; TEMP 36.4–36.8; O2SAT 89–96
[2023-05-22] MEDS: Acetaminophen 500 MG Tablet 1000 MG PO ×3 (05:03→21:27)
[2023-05-22] MEDS: Levothyroxine 75 MCG Tablet PO (05:03)
[2023-05-22] MEDS: Piperacil/Tazobactam 3.375 GM in 0.9% Normal Saline (50mL MB+) 50 ML IV (05:03)
[2023-05-22] MEDS: Sucralfate 1 GM Tablet PO ×4 (05:04→21:26)
[2023-05-22] MEDS: Ipratropium/Albuterol Sulfate 3 ML AMPUL.NEB INHALATION ×4 (06:54→20:04)
[2023-05-22 07:29] LABS: Absolute Lymphocyte Count 0.51 X10^3/uL (0.83-4.51); Absolute Neutrophil Count 2.3 X10^3/uL (2.0-7.7); Basophil# 0.03 X10^3/uL; Basophil% 0.9 % (0-1); Eosinophil# 0.17 X10^3/uL; Hemoglobin 10.4 g/dL (13.0-16.5); Lymphocyte # 0.51 X10^3/ul (0.83-4.51); Lymphocyte % 14.9 % (19-41); Mean Corp Hgb Conc 31.5 g/dL (32-36); Mean Corpuscular Hgb 29.4 pg (27.0-32.0); Mean Corpuscular Volume 93.2 fL (80-94); Mean Platelet Vol. 8.8 fl (6.2-12.0); Monocyte# 0.43 X10^3/uL; Monocyte% 12.6 % (0-10); NRBC Flagged by Analyzer 0 % (0-5); Neutrophil # 2.26 X10^3/uL (2.7-7.7); POSITIVE DIFFERENTIAL YES; Platelet Count 341 K/mm3 (150-450); RBC Distribution Width CV 16.7 % (11.6-14.6); RBC Distribution Width SD 57.6 fl (35.1-43.9); Red Blood Count 3.54 M/mm3 (4.6-6.2); White Blood Count 3.4 K/mm3 (4.4-11.0)
[2023-05-22 08:07] LABS: Anion Gap 6 (5-15); BUN 19 mg/dL (7-18); BUN/Creat Ratio 20.6 RATIO (10-20); Calcium,Total 8.6 mg/dL (8.5-10.1); Chloride 108 mmol/L (98-107); Creatinine, Serum 0.92 mg/dL (0.70-1.30); EST Glomerular Filtration Rate 82 mL/min (>60); Est Glom Filt Rate - Afr Amer 99 mL/min (>60); Glucose 87 mg/dL (74-106); Magnesium 2.1 mg/dL (1.6-2.6); Phosphorus 2.2 mg/dL (2.5-4.9); Potassium 3.6 mmol/L (3.5-5.1); Sodium Level 138 mmol/L (136-145)
[2023-05-22] MEDS: Amiodarone 200 MG Tablet 100 MG PO (09:01)
[2023-05-22] MEDS: Multivitamins,Therapeutic Tablet 1 TABLET PO (09:01)
[2023-05-22] MEDS: Losartan Potassium 100 MG Tablet PO (09:01)
[2023-05-22] MEDS: Multivitamin (Healthy Eyes) Capsule 1 CAP PO (09:02)
[2023-05-22] MEDS: Lidocaine 5% Patch 1 PATCH TOPICAL (09:02)
[2023-05-22] MEDS: Pantoprazole Sodium 40 MG Tablet PO ×2 (09:03→17:19)
[2023-05-22] MEDS: Calcium Carb/Vitamin D 1 TABLET Tablet PO (09:03)
[2023-05-22] MEDS: amLODIPine 5 MG Tablet PO (09:03)
[2023-05-22] MEDS: guaiFENesin 1,200 MG Tablet 1200 MG PO ×2 (09:03→21:27)
[2023-05-22] MEDS: Metoprolol Tartrate 25 MG Tablet PO ×2 (09:04→21:26)
[2023-05-22] MEDS: Docusate Sodium 100 MG Capsule PO (09:11)
--- NOTE | 2023-05-22 09:43 | PCM.PN.HOSP ---
Reason for Visit Reason for Visit: Diagnoses Pneumonia, unspecified organism (05/17/23) Subjective Subjective Patient scheduled to undergo modified barium swallow Objective Data Objective Data Vital Signs: Vital Signs Temp Pulse Resp BP Pulse Ox O2 Del Method O2 Flow Rate 97.9 F 82 20 H 151/76 H 95 Nasal Cannula 1 05/22/23 04:30 05/22/23 09:04 05/22/23 06:54 05/22/23 04:30 05/22/23 06:54 05/22/23 06:54 05/22/23 06:54 Oxygen Flow Rate (L/min) 1 Oxygen Delivery Method Nasal Cannula Weight: 73.3 kg Body Mass Index (BMI) 23.1 Intake & Output: Intake and Output for Last 24 Hours 05/20/23 05/21/23 05/22/23 23:59 23:59 23:59 Intake Total 1450 / 1570 1590 / 1590 100 / 100 Output Total 1900 / 2100 1700 / 1900 1000 / 1000 Balance -450 / -530 -110 / -310 -900 / -900 Lab / Micro Data 05/22/23 06:40 05/22/23 06:40 Labs: Laboratory Results - last 24 hr 05/22/23 06:40: WBC 3.4 L, RBC 3.54 L, Hgb 10.4 L, Hct 33.0 L, MCV 93.2, MCH 29.4, MCHC 31.5 L, RDW Std Deviation 57.6 H, RDW Coeff of Azael 16.7 H, Plt Count 341, MPV 8.8, Immature Gran % (Auto) 0.600, Neut % (Auto) 66.0, Lymph % (Auto) 14.9 L, [place] % (Auto) 12.6 H, Eos % (Auto) 5.0, Baso % (Auto) 0.9, Absolute Neuts (auto) 2.3, Absolute Lymphs (auto) 0.51 L, Nucleated RBC % 0, Sodium 138, Potassium 3.6, Chloride 108 H, Carbon Dioxide 24.0, Anion Gap 6, BUN 19 H, Creatinine 0.92, Estim Creat Clear Calc 56.20, Est GFR (MDRD) Af Amer 99, Est GFR (MDRD) Non-Af 82, BUN/Creatinine Ratio 20.6 H, Glucose 87, Calcium 8.6, Phosphorus 2.2 L, Magnesium 2.1 Micro: Microbiology 05/18/23 04:45 Sputum, Expectorated/Coughed Gram Stain - Final 05/18/23 04:45 Sputum, Expectorated/Coughed Respiratory Culture - Final Streptococcus group G Haemophilus influenzae 05/17/23 16:42 Blood Culture (Wb) - Left Forearm Blood Culture - Preliminary No growth in 48 hours. 05/17/23 16:40 Blood Culture (Wb) - Left Wrist Blood Culture - Preliminary No growth in 48 hours. 05/17/23 16:50 Urine, Clean Catch Urine Culture - Final GNR lactose leaf fat scraper 05/17/23 16:50 Urine, Clean Catch Legionella Antigen - Final 05/17/23 16:50 Urine, Clean Catch Streptococcus pneumoniae Antigen (M - Final 05/17/23 18:34 Mucosa - Nose SARS-CoV-2, Influenza & RSV (PCR) - Final Rhythm Strip Rhythm Strip: Sinus Tach Rate: 101 Ectopy: None Physical Exam Narrative GENERAL: cooperative HEENT: Left forehead hematoma EYES; Anicteric, Normal Conjunctiva NECK; supple, normal thyroid, RESPIRATORY: Diminished to auscultation CARDIOVASCULAR: Irregular S1-S2 GI: soft, normoactive bowel sounds, : No Renal angle tenderness; EXTREMITIES: No edema, no clubbing, MUSCULOSKELETAL: Right wrist in a splint NEURO: Awake; no lateralizing signs. SKIN: No Rash PSYCH; Flat affect Assessment & Plan Assessment/Plan (1) Pneumonia: PLAN: Plan Patient with recent fall with right wrist fracture who has been managed at the transitional care unit, admitted with nausea vomiting as well as hypoxia and diagnosed with pneumonia 1. Pneumonia - Suspected to be secondary to group G pneumonia,. Sputum cultures came back positive for group G Strep patient managed with Zosyn de-escalated to cefdinir. Placed on oxygen titrated to keep Pulse Ox greater than 90 ? 05/22/2023 patient scheduled to undergo modified barium swallow 2. Suspected transfusion associated lung injury ? Echo ordered patient treated with pulmonary toileting 3. Anemia ? Secondary to chronic blood loss anemia recent EGD on 05/18/[address] Moran demonstrated gastritis as well as gastric ulcers managed with Carafate as well as Protonix patient is on apixaban held. Monitoring H&H with plans to transfuse if hemoglobin falls below 7 or patient is deemed to be symptomatic 4. Paroxysmal atrial fibrillation Rate controlled on amiodarone, on systemic anticoagulation with apixaban held given the finding of gastritis on recent EGD 5. Gastric ulcer and gastritis ? Patient is on PPI 6. Dyslipidemia -Patient is on statin therapy, continued at home dose 7. Hypothyroidism - Patient is on levothyroxine home dose continued 8. Hypertension - Blood pressure controlled, home medications continued with dose adjustment as needed 9.Recent falls with right distal radius fracture ? Patient is in a splint. 10. Physical deconditioning - Requested for PT OT eval and geriatric social work professor to assist with discharge planning 11. DVT prophylaxis ? Patient was on apixaban held given the diagnosis of gastritis and gastric ulcers Time spent in the patient's overall evaluation,decision-making process, review of diagnostic data, adjustment of management, discussion with other providers, nursing nursing and ancillary staff involved in patient's care documentation, 35 Minutes Charges/Coding Visit Charges Inpatient E&M: 65760 Subs Hosp L2
--- NOTE | 2023-05-22 10:04 | CASEMGMT ---
Addendum entered by Nanda Ramos 05/22/23 15:02: Social Work Precert is still not attained. SW called pt's , let her know we are waiting for insurance authorization still, and it's likely not to happen today. Should we get precert, SW explained will call her to let her know. SW also did let pt know that we do not yet have precert, will let him know once precert is attained. VINCENT Guerra Original Note: Social Work TCU did start precert yesterday, as per physician pt is ready for discharge. SW will let physician and pt know once precert is attained. VINCENT Guerra
--- NOTE | 2023-05-22 10:25 | ST.MBS ---
Modified Barium Swallow Patient Information Study Date: 05/22/23 Study Time: 09:30 Direct Billable Minutes: 180 Total Minutes procedure & reportin Diagnosis: J18.9 - Pneumonia Referring Physician: Stefano López Reason for Referral: Objectively assess swallow function, assess risk for aspiration, and determine recommendations for least restrictive diet textures and compensatory strategies to improve safety of swallow. Medical History: Trell Ghosh is an 87yo M who presented to [facility] ED from [facility] TCU w/ rigors and SOB. Patient had a prolonged hospitalization where he had fallen, broke his right wrist, injured his left shoulder and had a hematoma to his scalp that required a suture. His course was complicated by pneumonia and may be CHF. Patient was transferred over to the TCU. Patient went to the infusion center to receive 2 units of packed red blood cells. Patient had been seen by gastroenterology and was concern for sepsis and sent the patient to [facility] ED. Patient had a chest x-ray that showed bilateral infiltrates. Patient currently on [facility] for medical treatment, likely will transfer back to TCU for rehabilitation. Speech therapy consulted d/t swallowing difficulty. After Bedside Swallow Evaluation - [employer] recommended instrumental swallow assessment to determine the safest PO diet. Current Diet Ordered: Regular; Thin Liquids Dentition: WNL and Natural Teeth Mental Status: WNL Respiratory Status: Oxygenating on 2L/M nasal cannula Penetration-Aspiration Scale Penetration-Aspiration Scale: OBJECTIVE ASSESSMENT OF SWALLOW FUNCTION (QUANTITATIVE ? PER TRIAL): PENETRATION / ASPIRATION SCALE (JOSEPH): 1 = does not enter airway 2 = enters airway/above vocal folds/ejected 3 = enters airway/above vocal folds/not ejected 4 = enters airway/contacts vocal folds/ejected 5 = enters airway/contacts vocal folds/not ejected 6 = enters airway/below vocal folds/ejected 7 = enters airway/below vocal folds/not ejected despite effort 8 = enters airway/below vocal folds/no effort VIDEOFLOROSCOPIC SCALE SCORE (JOSEPH): Grade I = aspiration of material that has penetrated into the laryngeal vestibule, intact cough reflex Grade II = aspiration < 10 % of the bolus, intact cough reflex Grade III = aspiration of < 10 % of the bolus, reduced cough reflex or aspiration of > 10 % of the bolus, intact cough reflex Grade IV = aspiration of > 10 % of the bolus, reduced cough reflex Penetration-Aspiration Scale Score Thin Liquid via teaspoon: Result: 5= enters airways/contacts vocal folds/not ejected Thin Liquid via small single sip: cup: Result: 8= enters airway/below vocal folds/no effort [place] Thick Liquid via small single sip: cup: Result: 1= does not enter airway [place] Thick Liquid via small single sip: cup Trial 2: Result: 1= does not enter airway Honey Thick Liquid via small single sip: cup: Result: 1= does not enter airway Pudding via teaspoon: Result: 1= does not enter airway Thin Liquid via small single sip: cup Effortful swallow: Result: 1= does not enter airway Comment: [employer] prompted the pt. to hold the bolus, then use a hard swallow. Thin Liquid via small single sip: cup Effortful swallow Trial 2: Result: 2= enter airway/above vocal folds/ejected Comment: FR[employer] LOCKSTITCH prompted the pt. to hold the bolus, then use a hard swallow. Thin Liquid via small single sip: cup Effortful swallow Trial 3: Result: 1= does not enter airway Comment: FR[employer] LOCKSTITCH prompted the pt. to hold the bolus, then use a hard swallow. Cookie: Result: 1= does not enter airway Oral Phase Labial Seal: No Labial Escape Tongue Control During Bolus Hold: Posterior escape of greater than half of bolus Bolus Preparation/Mastication: Slow prolonged chewing/mashing with complete recollection Bolus Transport/Lingual Motion: Slowed tongue motion Oral Residue: Residue collection on oral structures Pharyngeal Phase Initiation of Pharyngeal Swallow: Bolus head at posterior laryngeal surgace of epiglottis Soft Palate Elevation: No bolus between soft palate and pharyngeal wall Laryngeal Elevation: Partial superior movement thyroid cart/partial apprx aryt-epig petiole Anterior Hyoid Excursion: Partial anterior movement Epiglottic Movement: Partial inversion Laryngeal Vestibule Closure at Height of Swallow: Incomplete; narrow column of air/contrast in laryngeal vestibule Pharyngeal Stripping Wave: Present - diminished Pharyngoesophageal Segment Opening: Parital distension and partial duration; parital obstruction of flow Tongue Base Retraction: Narrow column of contrast between tongue base & post. pharyngeal wall Pharyngeal Residue: Collection of residue within or on pharyngeal structures Treatment Strategies Effects of treatment strategies attemped:: bolus hold w/ effortful swallow = effective intermittent cough and re-swallow = effective alternate bite/sip = effective Diagnosis/Impression Diagnosis: moderate oropharyngeal dysphagia R13.12 Impression: Oral phase primarily marked by... - poor bolus control w/ premature spillage to the vallecula observed w/ all consistencies (thin, NTL, HTL, pudding & cookie). Pre-prandial penetration to the vocal cords that was NOT ejected observed w/ thin liquids via tsp and SILENT aspiration w/ thin liquids via cup d/t to this. - mild mastication insufficiency w/ poor AP transit of bolus. Pt. stated the cookie was very dry and required liquid wash to fully clear oral residue. - piecemeal deglutition observed w/ the cookie and pudding trial. Pharyngeal phase primarily marked by... - delayed pharyngeal swallow onset timing contributing to suboptimal bolus location upon swallow onset. - decreased airway closure attributed to decreased laryngeal elevation. - [employer] MAKER LOCKSTITCH provided pt. w/ compensatory swallowing strategies to decrease pre-prandial aspiration. FR[employer] L[employer]STITCH prompted pt. to hold thin liquid in mouth, then use an effortful swallow which decreased amount of premature spillage and improved airway closure. 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 Pharyngeal residues minimally decreased w/ use of extra dry swallow and/or liquid washes. Pt. is likely penetrating / aspirating pharyngeal residues as barium was observed on the vocal cords in-between NTL trials. Recommendations Diet: Regular Textures and Thin Liquids Compensatory Strategies: Small Bites, Small Sips (Bolus hold w/ effortful swallow and intermittent cough and re-swallow), No Straws, Slow Rate, Multiple Swallows, Alternate bites/solids and sips/liquids and Remain sitting upright for 30 minutes after PO intake Supervision: Distant Supervision Recommend Repeat Modified Barium Swallow: TBD Need for Skilled Speech Therapy Services: Yes Comment: Patient requires intensive skilled speech-language intervention targeting continued diet texture management, training and implementation of recommended compensatory strategies and training and implementation of recommended oropharyngeal strengthening exercises. Recommended Referrals: GI Consult Education Completed: 1. Described result of evaluation. and 2. Pt understands evaluation & agrees with goals and treatment plan. Status Active ST Patient: Active Contact Information [facility] Speech Therapy:: Naz Cisneros M.A. [facility] Speech-Language Pathologist [facility] [address] [place] [address] [email or web address] [phone]
--- NOTE | 2023-05-22 16:50 | CASEMGMT ---
Social Work As per admitting RN, pt does not have LW/POA and declined further information. VINCENT Guerra
--- NOTE | 2023-05-22 18:21 | PN.GI_ITS ---
Subjective Subjective Patient underwent modified barium swallow today. It revealed a prominent CP bar with minimal retention of contrast in the pharynx. The esophageal mucosa was normal with no evidence of esophageal stricture or mass. There was a small hiatal hernia. 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 Objective Data Objective Data Vital Signs: Vital Signs Temp Pulse Resp BP Pulse Ox O2 Del Method O2 Flow Rate 97.6 F L 73 16 128/70 H 96 Room Air 1 05/22/23 16:00 05/22/23 16:00 05/22/23 16:00 05/22/23 16:00 05/22/23 16:05/22/23 16:00 05/22/23 12:06 Oxygen Flow Rate (L/min) 1 Oxygen Delivery Method Room Air Weight: 161 lb 9.581 oz Body Mass Index (BMI) 23.1 Intake & Output: Intake and Output for Last 24 Hours 05/20/23 05/21/23 05/22/23 23:59 23:59 23:59 Intake Total 1450 / 1570 1590 / 1590 100 / 100 Output Total 1900 / 2100 1700 / 1900 1700 / 1700 Balance -450 / -530 -110 / -310 -1600 / -1600 Lab / Micro Data 05/22/23 06:40 05/22/23 06:40 Labs: Laboratory Results - last 24 hr 05/22/23 06:40: WBC 3.4 L, RBC 3.54 L, Hgb 10.4 L, Hct 33.0 L, MCV 93.2, MCH 29.4, MCHC 31.5 L, RDW Std Deviation 57.6 H, RDW Coeff of Azael 16.7 H, Plt Count 341, MPV 8.8, Immature Gran % (Auto) 0.600, Neut % (Auto) 66.0, Lymph % (Auto) 14.9 L, [place] % (Auto) 12.6 H, Eos % (Auto) 5.0, Baso % (Auto) 0.9, Absolute Neuts (auto) 2.3, Absolute Lymphs (auto) 0.51 L, Nucleated RBC % 0, Sodium 138, Potassium 3.6, Chloride 108 H, Carbon Dioxide 24.0, Anion Gap 6, BUN 19 H, Creatinine 0.92, Estim Creat Clear Calc 56.20, Est GFR (MDRD) Af Amer 99, Est GFR (MDRD) Non-Af 82, BUN/Creatinine Ratio 20.6 H, Glucose 87, Calcium 8.6, Phosphorus 2.2 L, Magnesium 2.1 Micro: Microbiology 05/18/23 04:45 Sputum, Expectorated/Coughed Gram Stain - Final 05/18/23 04:45 Sputum, Expectorated/Coughed Respiratory Culture - Final Streptococcus group G Haemophilus influenzae 05/17/23 16:42 Blood Culture (Wb) - Left Forearm Blood Culture - Preliminary No growth in 48 hours. 05/17/23 16:40 Blood Culture (Wb) - Left Wrist Blood Culture - Preliminary No growth in 48 hours. 05/17/23 16:50 Urine, Clean Catch Urine Culture - Final GNR lactose crystal machining coordinator 05/17/23 16:50 Urine, Clean Catch Legionella Antigen - Final 05/17/23 16:50 Urine, Clean Catch Streptococcus pneumoniae Antigen (M - Final 05/17/23 18:34 Mucosa - Nose SARS-CoV-2, Influenza & RSV (PCR) - Final Rhythm Strip Rhythm Strip: Sinus Tach Rate: 101 Ectopy: None Physical Exam Narrative GENERAL: cooperative HEENT: Left forehead hematoma EYES; Anicteric, Normal Conjunctiva NECK; supple, normal thyroid, RESPIRATORY: Diminished to auscultation CARDIOVASCULAR: Irregular S1-S2 GI: soft, normoactive bowel sounds, : No Renal angle tenderness; EXTREMITIES: No edema, no clubbing, MUSCULOSKELETAL: Right wrist in a splint NEURO: Awake; no lateralizing signs. SKIN: No Rash PSYCH; Flat affect Assessment & Plan Assessment/Plan (1) Pneumonia: PLAN: Plan 1. Pneumonia with UTI/mild dysphagia ? 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 The diagnosis is typically by videoflouroscopy and barium swallow examination. Endoscopic treatment options include dilation or botox injection. - I think he would benefit from some dilation of the upper esophagus with possible Botox as he is not a candidate for myotomy due to his age and other comorbidities 2. Anemia in the setting of heme positive stools ? Appreciate gastroenterology assistance ?EGD with normal esophagus and nonbleeding gastric ulcers and gastritis ? Continue with Carafate as well as Protonix ? Continue to hold Eliquis, can likely be restarted on discharge 3. Recent trauma ? Fell in his garage and broke his right wrist as well as injuring his left shoulder ? Well otherwise 4. Essential HTN/HLD/CAD status post CABG/A-fib ? Continue with blood pressure medications ? We will monitor make adjustments as necessary ? Continue to hold Eliquis 5. Hypothyroidism ? Stable ? Continue with thyroid DVT: SCDs Charges/Coding Visit Charges Inpatient E&M: 14519 Subs Hosp L3
[2023-05-22] MEDS: Atorvastatin Calcium 10 MG Tablet 5 MG PO (21:26)
[2023-05-22] MEDS: Cefdinir 300 MG Capsule PO (21:28)
[2023-05-23] VITALS (10 sets, daily range): BP systolic 134–157; BP diastolic 59–70; PULSE 65–100; RESP 16–18; TEMP 36.3–36.6; O2SAT 93–96
[2023-05-23] MEDS: Acetaminophen 500 MG Tablet 1000 MG PO ×3 (05:09→21:07)
[2023-05-23] MEDS: Docusate Sodium 100 MG Capsule PO (05:09)
[2023-05-23] MEDS: Levothyroxine 75 MCG Tablet PO (05:09)
[2023-05-23] MEDS: Sucralfate 1 GM Tablet PO ×4 (05:10→21:07)
[2023-05-23] MEDS: Ipratropium/Albuterol Sulfate 3 ML AMPUL.NEB INHALATION ×4 (06:54→22:09)
[2023-05-23 07:23] LABS: Absolute Lymphocyte Count 0.81 X10^3/uL (0.83-4.51); Absolute Neutrophil Count 2.3 X10^3/uL (2.0-7.7); Basophil# 0.03 X10^3/uL; Basophil% 0.8 % (0-1); Eosinophil# 0.21 X10^3/uL; Eosinophils% 5.6 % (0-5); Hematocrit 33.9 % (40-54); Hemoglobin 10.8 g/dL (13.0-16.5); Lymphocyte # 0.81 X10^3/ul (0.83-4.51); Lymphocyte % 21.5 % (19-41); Mean Corp Hgb Conc 31.9 g/dL (32-36); Mean Corpuscular Hgb 29.3 pg (27.0-32.0); Mean Corpuscular Volume 92.1 fL (80-94); Mean Platelet Vol. 8.5 fl (6.2-12.0); Monocyte# 0.35 X10^3/uL; Monocyte% 9.3 % (0-10); NRBC Flagged by Analyzer 0 % (0-5); Neutrophil # 2.32 X10^3/uL (2.7-7.7); Neutrophil % 61.5 % (47-70); Platelet Count 348 K/mm3 (150-450); RBC Distribution Width CV 16.7 % (11.6-14.6); RBC Distribution Width SD 56.6 fl (35.1-43.9); Red Blood Count 3.68 M/mm3 (4.6-6.2); White Blood Count 3.8 K/mm3 (4.4-11.0)
[2023-05-23 07:48] LABS: Anion Gap 6 (5-15); BUN 18 mg/dL (7-18); BUN/Creat Ratio 21.9 RATIO (10-20); Calcium,Total 8.7 mg/dL (8.5-10.1); Chloride 108 mmol/L (98-107); Creatinine, Serum 0.82 mg/dL (0.70-1.30); EST Glomerular Filtration Rate 94 mL/min (>60); Est Glom Filt Rate - Afr Amer 113 mL/min (>60); Estimated Creatinine Clearance 63.06 ml/min; Glucose 94 mg/dL (74-106); Potassium 3.7 mmol/L (3.5-5.1); Sodium Level 139 mmol/L (136-145)
[2023-05-23] MEDS: Amiodarone 200 MG Tablet 100 MG PO (09:38)
[2023-05-23] MEDS: Lidocaine 5% Patch 1 PATCH TOPICAL (09:38)
[2023-05-23] MEDS: Multivitamin (Healthy Eyes) Capsule 1 CAP PO (09:39)
[2023-05-23] MEDS: Calcium Carb/Vitamin D 1 TABLET Tablet PO (09:39)
[2023-05-23] MEDS: amLODIPine 5 MG Tablet PO (09:39)
[2023-05-23] MEDS: Losartan Potassium 100 MG Tablet PO (09:39)
[2023-05-23] MEDS: Metoprolol Tartrate 25 MG Tablet PO ×2 (09:39→21:09)
[2023-05-23] MEDS: guaiFENesin 1,200 MG Tablet 1200 MG PO ×2 (09:39→21:09)
[2023-05-23] MEDS: Cefdinir 300 MG Capsule PO ×2 (09:39→21:08)
[2023-05-23] MEDS: Multivitamins,Therapeutic Tablet 1 TABLET PO (09:40)
[2023-05-23] MEDS: Pantoprazole Sodium 40 MG Tablet PO ×2 (09:40→17:02)
--- NOTE | 2023-05-23 10:37 | PCM.PN.HOSP ---
Reason for Visit Reason for Visit: Diagnoses Pneumonia, unspecified organism (05/17/23) Subjective Subjective Patient seen awaiting insurance preauthorization prior to transfer to long-term facility. Seen this a.m. patient complains of being constipated Objective Data Objective Data Vital Signs: Vital Signs Temp Pulse Resp BP Pulse Ox O2 Del Method O2 Flow Rate 97.8 F 77 18 144/68 H 94 Room Air 1 05/23/23 09:25 05/23/23 09:39 05/23/23 09:25 05/23/23 09:25 05/23/23 09:25 05/23/23 09:25 05/23/23 06:54 Oxygen Flow Rate (L/min) 1 Oxygen Delivery Method Room Air Weight: 73.3 kg Body Mass Index (BMI) 23.1 Intake & Output: Intake and Output for Last 24 Hours 05/21/23 05/22/23 05/23/23 23:59 23:59 23:59 Intake Total 1590 / 1590 100 / 100 Output Total 1700 / 1900 1950 / 1950 1300 / 1300 Balance -110 / -310 -1850 / -1850 -1300 / -1300 Lab / Micro Data 05/23/23 07:15 05/23/23 07:15 Labs: Laboratory Results - last 24 hr 05/23/23 07:15: WBC 3.8 L, RBC 3.68 L, Hgb 10.8 L, Hct 33.9 L, MCV 92.1, MCH 29.3, MCHC 31.9 L, RDW Std Deviation 56.6 H, RDW Coeff of Azael 16.7 H, Plt Count 348, MPV 8.5, Immature Gran % (Auto) 1.300 H, Neut % (Auto) 61.5, Lymph % (Auto) 21.5, [place] % (Auto) 9.3, Eos % (Auto) 5.6 H, Baso % (Auto) 0.8, Absolute Neuts (auto) 2.3, Absolute Lymphs (auto) 0.81 L, Nucleated RBC % 0, Sodium 139, Potassium 3.7, Chloride 108 H, Carbon Dioxide 25.0, Anion Gap 6, BUN 18, Creatinine 0.82, Estim Creat Clear Calc 63.06, Est GFR (MDRD) Af Amer 113, Est GFR (MDRD) Non-Af 94, BUN/Creatinine Ratio 21.9 H, Glucose 94, Calcium 8.7 Micro: Microbiology 05/17/23 16:42 Blood Culture (Wb) - Left Forearm Blood Culture - Final No growth in 5 days. 05/17/23 16:40 Blood Culture (Wb) - Left Wrist Blood Culture - Final No growth in 5 days. 05/18/23 04:45 Sputum, Expectorated/Coughed Gram Stain - Final 05/18/23 04:45 Sputum, Expectorated/Coughed Respiratory Culture - Final Streptococcus group G Haemophilus influenzae 05/17/23 16:50 Urine, Clean Catch Urine Culture - Final GNR lactose foam rubber curer 05/17/23 16:50 Urine, Clean Catch Legionella Antigen - Final 05/17/23 16:50 Urine, Clean Catch Streptococcus pneumoniae Antigen (M - Final 05/17/23 18:34 Mucosa - Nose SARS-CoV-2, Influenza & RSV (PCR) - Final Rhythm Strip Rhythm Strip: Sinus Tach Rate: 101 Ectopy: None Physical Exam Narrative GENERAL: cooperative HEENT: Left forehead hematoma with facial bruising EYES; Anicteric, Normal Conjunctiva NECK; supple, normal thyroid, RESPIRATORY: Diminished to auscultation CARDIOVASCULAR: Irregular S1-S2 GI: soft, normoactive bowel sounds, : No Renal angle tenderness; EXTREMITIES: No edema, no clubbing, MUSCULOSKELETAL: Right wrist in a splint NEURO: Awake; no lateralizing signs. SKIN: No Rash PSYCH; Flat affect Assessment & Plan Assessment/Plan (1) Pneumonia: PLAN: Plan Patient with recent fall with right wrist fracture who has been managed at the transitional care unit, admitted with nausea vomiting as well as hypoxia and diagnosed with pneumonia 1. Pneumonia - Suspected to be secondary to group G pneumonia,. Sputum cultures came back positive for group G Strep patient managed with Zosyn de-escalated to cefdinir. Placed on oxygen titrated to keep Pulse Ox greater than 90 ? 05/22/2023 patient scheduled to undergo modified barium swallow ? 05/23/2023 results from patient verified barium swallow and recommendations from speech therapist reviewed patient placed on diet as recommended by speech therapist 2. Suspected transfusion associated lung injury ? Echo ordered patient treated with pulmonary toileting 3. Anemia ? Secondary to chronic blood loss anemia recent EGD on 05/18/[address] Moran demonstrated gastritis as well as gastric ulcers managed with Carafate as well as Protonix patient is on apixaban held. Monitoring H&H with plans to transfuse if hemoglobin falls below 7 or patient is deemed to be symptomatic 4. Paroxysmal atrial fibrillation Rate controlled on amiodarone, on systemic anticoagulation with apixaban held given the finding of gastritis on recent EGD 5. Gastric ulcer and gastritis ? Patient is on PPI 6. Dyslipidemia -Patient is on statin therapy, continued at home dose 7. Hypothyroidism - Patient is on levothyroxine home dose continued 8. Hypertension - Blood pressure controlled, home medications continued with dose adjustment as needed 9.Recent falls with right distal radius fracture ? Patient is in a splint. 10. Physical deconditioning - Requested for PT OT eval and 7th grade social studies teacher to assist with discharge planning 11. DVT prophylaxis ? Patient was on apixaban held given the diagnosis of gastritis and gastric ulcers 12. Constipation ? Symptomatic treatment initiated Time spent in the patient's overall evaluation,decision-making process, review of diagnostic data, adjustment of management, discussion with other providers, nursing nursing and ancillary staff involved in patient's care documentation, 35 Minutes Charges/Coding Visit Charges Inpatient E&M: 48780 Subs Hosp L2
[2023-05-23] MEDS: Polyethylene Glycol 3350 17 GM PACKET PO (11:19)
--- NOTE | 2023-05-23 16:53 | PN.GI_ITS ---
Subjective Subjective Patient complains of some mild constipation. He is eating a modified diet as recommended by speech therapy. Objective Data Objective Data Vital Signs: Vital Signs Temp Pulse Resp BP Pulse Ox O2 Del Method O2 Flow Rate 97.8 F 65 18 157/70 H 96 Room Air 1 05/23/23 15:25 05/23/23 15:25 05/23/23 15:25 05/23/23 15:25 05/23/23 15:25 05/23/23 15:25 05/23/23 06:54 Oxygen Flow Rate (L/min) 1 Oxygen Delivery Method Room Air Weight: 161 lb 9.581 oz Body Mass Index (BMI) 23.1 Intake & Output: Intake and Output for Last 24 Hours 05/21/23 05/22/23 05/23/23 23:59 23:59 23:59 Intake Total 1590 / 1590 100 / 100 400 / 400 Output Total 1700 / 1900 1950 / 1950 1600 / 1600 Balance -110 / -310 -1850 / -1850 -1200 / -1200 Lab / Micro Data 05/23/23 07:15 05/23/23 07:15 Labs: Laboratory Results - last 24 hr 05/23/23 07:15: WBC 3.8 L, RBC 3.68 L, Hgb 10.8 L, Hct 33.9 L, MCV 92.1, MCH 29.3, MCHC 31.9 L, RDW Std Deviation 56.6 H, RDW Coeff of [place]ale 16.7 H, Plt Count 348, MPV 8.5, Immature Gran % (Auto) 1.300 H, Neut % (Auto) 61.5, Lymph % (Auto) 21.5, [place] % (Auto) 9.3, Eos % (Auto) 5.6 H, Baso % (Auto) 0.8, Absolute Neuts (auto) 2.3, Absolute Lymphs (auto) 0.81 L, Nucleated RBC % 0, Sodium 139, Potassium 3.7, Chloride 108 H, Carbon Dioxide 25.0, Anion Gap 6, BUN 18, Creatinine 0.82, Estim Creat Clear Calc 63.06, Est GFR (MDRD) Af Amer 113, Est GFR (MDRD) Non-Af 94, BUN/Creatinine Ratio 21.9 H, Glucose 94, Calcium 8.7 Micro: Microbiology 05/17/23 16:42 Blood Culture (Wb) - Left Forearm Blood Culture - Final No growth in 5 days. 05/17/23 16:40 Blood Culture (Wb) - Left Wrist Blood Culture - Final No growth in 5 days. 05/18/23 04:45 Sputum, Expectorated/Coughed Gram Stain - Final 05/18/23 04:45 Sputum, Expectorated/Coughed Respiratory Culture - Final Streptococcus group G Haemophilus influenzae 05/17/23 16:50 Urine, Clean Catch Urine Culture - Final GNR lactose networking engineer 05/17/23 16:50 Urine, Clean Catch Legionella Antigen - Final 05/17/23 16:50 Urine, Clean Catch Streptococcus pneumoniae Antigen (M - Final 05/17/23 18:34 Mucosa - Nose SARS-CoV-2, Influenza & RSV (PCR) - Final Rhythm Strip Rhythm Strip: Sinus Tach Rate: 101 Ectopy: None Physical Exam Narrative GENERAL: cooperative HEENT: Left forehead hematoma with facial bruising EYES; Anicteric, Normal Conjunctiva NECK; supple, normal thyroid, RESPIRATORY: Diminished to auscultation CARDIOVASCULAR: Irregular S1-S2 GI: soft, normoactive bowel sounds, : No Renal angle tenderness; EXTREMITIES: No edema, no clubbing, MUSCULOSKELETAL: Right wrist in a splint NEURO: Awake; no lateralizing signs. SKIN: No Rash PSYCH; Flat affect Assessment & Plan Assessment/Plan (1) Pneumonia: PLAN: Plan 1. Pneumonia with UTI/mild dysphagia ? 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 The diagnosis is typically by videoflouroscopy and barium swallow examination. Endoscopic treatment options include dilation or botox injection. - I think he would benefit from some dilation of the upper esophagus with possible Botox as he is not a candidate for myotomy due to his age and other comorbidities 2. Anemia in the setting of heme positive stools ? Appreciate gastroenterology assistance ?EGD with normal esophagus and nonbleeding gastric ulcers and gastritis ? Continue with Carafate as well as Protonix ? Continue to hold Eliquis, can likely be restarted on discharge 3. Recent trauma ? Fell in his garage and broke his right wrist as well as injuring his left shoulder ? Well otherwise 4. Essential HTN/HLD/CAD status post CABG/A-fib ? Continue with blood pressure medications ? We will monitor make adjustments as necessary ? Continue to hold Eliquis 5. Hypothyroidism ? Stable ? Continue with thyroid DVT: SCDs Charges/Coding Visit Charges Inpatient E&M: 28865 Subs Hosp L3
[2023-05-23] MEDS: Atorvastatin Calcium 10 MG Tablet 5 MG PO (21:09)
[2023-05-24 03:07] VITALS: BP 151/60; PULSE 69; RESP 18; TEMP 36.6; O2SAT 94
[2023-05-24] MEDS: Levothyroxine 75 MCG Tablet PO (05:09)
[2023-05-24] MEDS: Sucralfate 1 GM Tablet PO ×2 (05:09→11:24)
[2023-05-24] MEDS: Acetaminophen 500 MG Tablet 1000 MG PO ×2 (05:10→14:41)
[2023-05-24 07:08] VITALS: PULSE 70; RESP 20; O2SAT 94
[2023-05-24] MEDS: Ipratropium/Albuterol Sulfate 3 ML AMPUL.NEB INHALATION (07:10)
[2023-05-24 07:26] LABS: Absolute Lymphocyte Count 0.57 X10^3/uL (0.83-4.51); Absolute Neutrophil Count 2.9 X10^3/uL (2.0-7.7); Basophil# 0.03 X10^3/uL; Basophil% 0.7 % (0-1); Eosinophil# 0.18 X10^3/uL; Eosinophils% 4.4 % (0-5); Hematocrit 30.8 % (40-54); Hemoglobin 9.7 g/dL (13.0-16.5); Lymphocyte # 0.57 X10^3/ul (0.83-4.51); Lymphocyte % 13.9 % (19-41); Mean Corp Hgb Conc 31.5 g/dL (32-36); Mean Corpuscular Hgb 28.9 pg (27.0-32.0); Mean Corpuscular Volume 91.7 fL (80-94); Mean Platelet Vol. 9.1 fl (6.2-12.0); Monocyte# 0.39 X10^3/uL; Monocyte% 9.5 % (0-10); NRBC Flagged by Analyzer 0 % (0-5); Neutrophil # 2.87 X10^3/uL (2.7-7.7); POSITIVE DIFFERENTIAL YES; Platelet Count 330 K/mm3 (150-450); RBC Distribution Width SD 56.5 fl (35.1-43.9); Red Blood Count 3.36 M/mm3 (4.6-6.2); White Blood Count 4.1 K/mm3 (4.4-11.0)
[2023-05-24 08:04] LABS: Anion Gap 5 (5-15); BUN 18 mg/dL (7-18); BUN/Creat Ratio 20.3 RATIO (10-20); Calcium,Total 8.8 mg/dL (8.5-10.1); Chloride 109 mmol/L (98-107); Creatinine, Serum 0.89 mg/dL (0.70-1.30); EST Glomerular Filtration Rate 86 mL/min (>60); Est Glom Filt Rate - Afr Amer 104 mL/min (>60); Glucose 89 mg/dL (74-106); Potassium 3.9 mmol/L (3.5-5.1); Sodium Level 138 mmol/L (136-145)
[2023-05-24 08:36] VITALS: BP 142/76; PULSE 87; RESP 16; TEMP 36.2; O2SAT 96
[2023-05-24] MEDS: Amiodarone 200 MG Tablet 100 MG PO (08:47)
[2023-05-24] MEDS: Multivitamin (Healthy Eyes) Capsule 1 CAP PO (08:47)
[2023-05-24] MEDS: Multivitamins,Therapeutic Tablet 1 TABLET PO (08:47)
[2023-05-24] MEDS: Losartan Potassium 100 MG Tablet PO (08:47)
[2023-05-24 08:48] VITALS: BP 142/76; PULSE 87
[2023-05-24] MEDS: Metoprolol Tartrate 25 MG Tablet PO (08:48)
[2023-05-24] MEDS: Lidocaine 5% Patch 1 PATCH TOPICAL (08:48)
[2023-05-24] MEDS: Polyethylene Glycol 3350 17 GM PACKET PO (08:49)
[2023-05-24] MEDS: Pantoprazole Sodium 40 MG Tablet PO (08:50)
[2023-05-24] MEDS: amLODIPine 5 MG Tablet PO (08:50)
[2023-05-24] MEDS: Calcium Carb/Vitamin D 1 TABLET Tablet PO (08:50)
[2023-05-24] MEDS: Cefdinir 300 MG Capsule PO (08:50)
--- NOTE | 2023-05-24 09:46 | PN.HOSP_ITS ---
Reason for Visit Reason for Visit: Diagnoses Pneumonia, unspecified organism (05/17/23) Subjective Subjective Patient seen still complains of being constipated patient to be started on MiraLAX today prior. Awaiting insurance preauthorization prior to transfer to the transitional care unit Objective Data Objective Data Vital Signs: Vital Signs Temp Pulse Resp BP Pulse Ox O2 Del Method O2 Flow Rate 97.1 F L 87 16 142/76 H 96 Room Air 1 05/24/23 08:36 05/24/23 08:48 05/24/23 08:36 05/24/23 08:48 05/24/23 08:36 05/24/23 08:36 05/23/23 06:54 Oxygen Flow Rate (L/min) 1 Oxygen Delivery Method Room Air Weight: 73.3 kg Body Mass Index (BMI) 23.1 Intake & Output: Intake and Output for Last 24 Hours 05/22/23 05/23/23 05/24/23 23:59 23:59 23:59 Intake Total 100 / 100 800 / 800 200 / 200 Output Total 1950 / 1950 2150 / 2150 1050 / 1050 Balance -1850 / -1850 -1350 / -1350 -850 / -850 Lab / Micro Data 05/24/23 06:35 05/24/23 06:35 Labs: Laboratory Results - last 24 hr 05/24/23 06:35: WBC 4.1 L, RBC 3.36 L, Hgb 9.7 L, Hct 30.8 L, MCV 91.7, MCH 28.9, MCHC 31.5 L, RDW Std Deviation 56.5 H, RDW Coeff of Azael 17.0 H, Plt Count 330, MPV 9.1, Immature Gran % (Auto) 1.500 H, Neut % (Auto) 70.0, Lymph % (Auto) 13.9 L, [place] % (Auto) 9.5, Eos % (Auto) 4.4, Baso % (Auto) 0.7, Absolute Neuts (auto) 2.9, Absolute Lymphs (auto) 0.57 L, Nucleated RBC % 0, Sodium 138, Potassium 3.9, Chloride 109 H, Carbon Dioxide 24.0, Anion Gap 5, BUN 18, Creatinine 0.89, Estim Creat Clear Calc 58.10, Est GFR (MDRD) Af Amer 104, Est GFR (MDRD) Non-Af 86, BUN/Creatinine Ratio 20.3 H, Glucose 89, Calcium 8.8 Micro: Microbiology 05/17/23 16:42 Blood Culture (Wb) - Left Forearm Blood Culture - Final No growth in 5 days. 05/17/23 16:40 Blood Culture (Wb) - Left Wrist Blood Culture - Final No growth in 5 days. 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 division sergeant 05/17/23 16:50 Urine, Clean Catch Legionella Antigen - Final 05/17/23 16:50 Urine, Clean Catch Streptococcus pneumoniae Antigen (M - Final 05/17/23 18:34 Mucosa - Nose SARS-CoV-2, Influenza & RSV (PCR) - Final Rhythm Strip Rhythm Strip: Sinus Tach Rate: 101 Ectopy: None Physical Exam Narrative GENERAL: cooperative HEENT: Left forehead hematoma with facial bruising EYES; Anicteric, Normal Conjunctiva NECK; supple, normal thyroid, RESPIRATORY: Diminished to auscultation CARDIOVASCULAR: Irregular S1-S2 GI: soft, normoactive bowel sounds, : No Renal angle tenderness; EXTREMITIES: No edema, no clubbing, MUSCULOSKELETAL: Right wrist in a splint NEURO: Awake; no lateralizing signs. SKIN: No Rash PSYCH; Flat affect Assessment & Plan Assessment/Plan (1) Pneumonia: PLAN: Plan Patient with recent fall with right wrist fracture who has been managed at the transitional care unit, admitted with nausea vomiting as well as hypoxia and diagnosed with pneumonia 1. Recent pneumonia secondary to group G strep as well as haemophilus influenza - Suspected to be secondary to group G pneumonia,. Sputum cultures came back positive for group G Strep and haemophilus influenza patient managed with Zosyn de-escalated to cefdinir. Placed on oxygen titrated to keep Pulse Ox greater than 90 ? 05/22/2023 patient scheduled to undergo modified barium swallow ? 05/23/2023 results from patient verified barium swallow and recommendations from speech therapist reviewed patient placed on diet as recommended by speech therapist ? 05/24/1906/09/2023 did continue with pulmonary toileting 2. Suspected transfusion associated lung injury ? Echo ordered patient treated with pulmonary toileting 3. Anemia ? Secondary to chronic blood loss anemia recent EGD on 05/18/[address] Moran demonstrated gastritis as well as gastric ulcers managed with Carafate as well as Protonix patient is on apixaban held. Monitoring H&H with plans to transfuse if hemoglobin falls below 7 or patient is deemed to be symptomatic 4. Paroxysmal atrial fibrillation Rate controlled on amiodarone, on systemic anticoagulation with apixaban held given the finding of gastritis on recent EGD 5. Gastric ulcer and gastritis ? Patient is on PPI 6. Dyslipidemia -Patient is on statin therapy, continued at home dose 7. Hypothyroidism - Patient is on levothyroxine home dose continued 8. Hypertension - Blood pressure controlled, home medications continued with dose adjustment as needed 9.Recent falls with right distal radius fracture ? Patient is in a splint. 10. Physical deconditioning - Requested for PT OT eval and social services assistant to assist with discharge planning 11. DVT prophylaxis ? Patient was on apixaban held given the diagnosis of gastritis and gastric ulcers 12. Constipation ? Symptomatic treatment initiated ? 05/24/2023 patient had to experience response Time spent in the patient's overall evaluation,decision-making process, review of diagnostic data, adjustment of management, discussion with other providers, nursing nursing and ancillary staff involved in patient's care documentation, 35 Minutes Charges/Coding Visit Charges Inpatient E&M: 71662 Subs Hosp L2
[2023-05-24] MEDS: guaiFENesin 1,200 MG Tablet 1200 MG PO (11:23)
--- NOTE | 2023-05-24 12:42 | PCM.TXEXTCAR ---
Diet Diet Order/Speech Therapy: 05/23/23 15:26 Diet: Sodium Restricted (MOD) Type of Dietary Supplement:: Ensure Plus High Protein Is pt able to select menu?: Yes Diet Comments: bolus hold & hard swallow, meds in , no straws, chocolate ensure TID Wound(s) Left Scalp Hematoma: Wound Type: Hematoma left shoulder: Wound Type: Abrasion Dressing Change: adaptic/foam dressing Therapies Physical Therapy: Eval and Treat Occupational Therapy: Eval and Treat Speech Therapy: Eval and Treat Problem/Diagnosis (1) Pneumonia: Status: Acute Code(s): J18.9 - Pneumonia, unspecified organism Plan Patient with recent fall with right wrist fracture who has been managed at the transitional care unit, admitted with nausea vomiting as well as hypoxia and diagnosed with pneumonia 1. Recent pneumonia secondary to group G strep as well as haemophilus influenza - Suspected to be secondary to group G pneumonia,. Sputum cultures came back positive for group G Strep and haemophilus influenza patient managed with Zosyn de-escalated to cefdinir. Placed on oxygen titrated to keep Pulse Ox greater than 90 ? 05/22/2023 patient scheduled to undergo modified barium swallow ? 05/23/2023 results from patient verified barium swallow and recommendations from speech therapist reviewed patient placed on diet as recommended by speech therapist ? 05/24/1906/09/2023 did continue with pulmonary toileting 2. Suspected transfusion associated lung injury ? Echo ordered patient treated with pulmonary toileting 3. Anemia ? Secondary to chronic blood loss anemia recent EGD on 05/18/[address] Moran demonstrated gastritis as well as gastric ulcers managed with Carafate as well as Protonix patient is on apixaban held. Monitoring H&H with plans to transfuse if hemoglobin falls below 7 or patient is deemed to be symptomatic 4. Paroxysmal atrial fibrillation Rate controlled on amiodarone, on systemic anticoagulation with apixaban held given the finding of gastritis on recent EGD 5. Gastric ulcer and gastritis ? Patient is on PPI 6. Dyslipidemia -Patient is on statin therapy, continued at home dose 7. Hypothyroidism - Patient is on levothyroxine home dose continued 8. Hypertension - Blood pressure controlled, home medications continued with dose adjustment as needed 9.Recent falls with right distal radius fracture ? Patient is in a splint. 10. Physical deconditioning - Requested for PT OT eval and secondary social studies teacher to assist with discharge planning 11. DVT prophylaxis ? Patient was on apixaban held given the diagnosis of gastritis and gastric ulcers 12. Constipation ? Symptomatic treatment initiated ? 05/24/2023 patient had to experience response Time spent in the patient's overall evaluation,decision-making process, review of diagnostic data, adjustment of management, discussion with other providers, nursing nursing and ancillary staff involved in patient's care documentation, 35 Minutes Allergies/Procedures Done in Hospital Allergies codeine Adverse Reaction (Verified 05/17/23 16:19) Nausea/Vom/Diarrhea hydrocodone [From [place]] Adverse Reaction (Verified 05/17/23 16:19) hallucinations Type of Care/Length of Stay Estimated LOS: Convalescent Care Less Than 30 days Type of Care Needed: Skilled Rehab Potential: Good Prognosis: Good Additional Orders/Day of Discharge Day of Discharge: 05/24/23 Dietary and Speech Recommendations Dietitian Recommendations/Changes: will adjust diet to regular/sodium restricted, continue Ensure Plus High Protein w/ meals. Liquids in cups w/ handles per pt preference Discharge Plan Admission Admit Date/Time: 05/17/23 18:36 Attending Provider: Stefano López Primary Care Provider: Stacy Carson Consulting Providers: Mumtaz Mason; Henok Verdin Discharge Orders/Prescriptions Prescriptions: New albuterol sulfate 2.5 mg /3 mL (0.083 %) Solution For Nebulization 2.5 mg inhalation Q2H PRN PRN (Reason: Shortness Of Breath) Qty: 0 0RF sucralfate 1 gram Tablet 1 g PO 1HR_ACHS Qty: 0 0RF acetaminophen 500 mg Tablet 1,000 mg PO Q8 Qty: 0 0RF pantoprazole 40 mg Tablet,Delayed Release (Dr/Ec) 40 mg PO BIDLX Qty: 0 0RF cefdinir 300 mg Capsule 300 mg PO BID Qty: 10 0RF guaifenesin [Mucus Relief ER] 1,200 mg Tablet Extended Release 12hr 1,200 mg PO BID Qty: 0 0RF docusate sodium 100 mg Capsule 200 mg PO BID Qty: 0 0RF polyethylene glycol 3350 [Miralax] 17 gram/dose powder 17 g PO DAILY Qty: 119 0RF Continued levothyroxine 75 mcg tablet 75 mcg PO DAILY Patient Comments: TAKE 1 TABLET BY MOUTH EVERY DAY IN THE MORNING ON AN EMPTY STOMACH amiodarone 200 mg tablet 100 mg PO DAILY Qty: 90 4RF atorvastatin 10 mg tablet 5 mg PO QHS Qty: 45 3RF calcium carbonate-vitamin D3 1 TAB tablet 1 tab PO DAILY multivitamin 1 EACH tablet 1 ea PO DAILY vit C,Y-Vk-mzjfu-lutein-zeaxan 1 EACH capsule 2 ea PO DAILY tramadol 50 mg tablet 50 mg PO Q6H PRN (Reason: pain) magnesium hydroxide [Milk Of Magnesia Concentrated] 2,400 mg/10 mL suspension 30 ml PO DAILY PRN (Reason: constipation) lidocaine 4 % adhesive patch,medicated 1 patch topical DAILY Rx Instructions: may leave on for up to 12 hrs nitroglycerin 0.4 mg tablet, sublingual 0.4 mg sublingual Q5M Rx Instructions: do not exceed 3 doses per episode metoprolol tartrate 25 mg tablet 25 mg PO BID losartan 100 mg tablet 100 mg PO DAILY Qty: 90 3RF amlodipine 5 mg tablet 5 mg PO DAILY Qty: 90 3RF Eliquis 5 mg tablet See Rx Instructions .ROUTE .COMPLEX Qty: 180 3RF Dose Instruction: TAKE 1 TABLET TWICE A DAY Rx Instructions: TAKE 1 TABLET TWICE A DAY Discontinued methylprednisolone acetate [Depo-Medrol] 40 mg/mL suspension 40 mg intra-articular ONCE Qty: 1 0RF docusate sodium [Colace] 100 mg capsule 100 mg PO BID PRN (Reason: constipation) Referrals / Follow Up: Stacy Carson MD [Primary Care Provider] - Within 2 Weeks Disposition Disposition (needs filled in before D/C Order can be placed): Group Home Facility
--- NOTE | 2023-05-24 12:44 | PCM.DC.SUM ---
Providers Date of Admission: 05/17/23 Date of Discharge: 05/24/23 Primary Care Physician: Dr. 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 Recent pneumonia secondary to group G strep as well as haemophilus influenza - Suspected to be secondary to group G pneumonia,. Sputum cultures came back positive for group G Strep and haemophilus influenza patient managed with Zosyn de-escalated to cefdinir. Placed on oxygen titrated to keep Pulse Ox greater than 90 ? 05/22/2023 patient scheduled to undergo modified barium swallow ? 05/23/2023 results from patient verified barium swallow and recommendations from speech therapist reviewed patient placed on diet as recommended by speech therapist ? /06/09/2023 did continue with pulmonary toileting 2. Suspected transfusion associated lung injury ? Echo ordered patient treated with pulmonary toileting 3. Anemia ? Secondary to chronic blood loss anemia recent EGD on 05/18/[address] Moran demonstrated gastritis as well as gastric ulcers managed with Carafate as well as Protonix patient is on apixaban held. Monitoring H&H with plans to transfuse if hemoglobin falls below 7 or patient is deemed to be symptomatic 4. Paroxysmal atrial fibrillation Rate controlled on amiodarone, on systemic anticoagulation with apixaban held given the finding of gastritis on recent EGD 5. Gastric ulcer and gastritis ? Patient is on PPI 6. Dyslipidemia -Patient is on statin therapy, continued at home dose 7. Hypothyroidism - Patient is on levothyroxine home dose continued 8. Hypertension - Blood pressure controlled, home medications continued with dose adjustment as needed 9.Recent falls with right distal radius fracture ? Patient is in a splint. 10. Physical deconditioning - Requested for PT OT eval and social media community manager to assist with discharge planning 11. DVT prophylaxis ? Patient was on apixaban held given the diagnosis of gastritis and gastric ulcers 12. Constipation ? Symptomatic treatment initiated ? 05/24/2023 patient had to experience response Time spent in the patient's overall evaluation,decision-making process, review of diagnostic data, adjustment of management, discussion with other providers, nursing nursing and ancillary staff involved in patient's care documentation, 35 Minutes Medications at Discharge Home Medications calcium carbonate 600 mg-vitamin D3 20 mcg (800 unit) tablet 1 tab PO DAILY BONE HEALTH 03/13/14 multivitamin 1 ea PO DAILY GENERAL HEALTH 12/23/19 vit C 250 mg-vit E 90 mg-zinc 40 mg-copper 1 au-lpfycb-locmxl capsule 2 ea PO DAILY eye health 12/23/19 levothyroxine 75 mcg tablet 75 mcg PO DAILY thyroid 04/22/21 amiodarone 200 mg tablet 100 mg (1/2 x 200 mg) PO DAILY heart #90 tabs 08/08/22 atorvastatin 10 mg tablet 5 mg (1/2 x 10 mg) PO QHS cholesterol #45 tabs 08/08/22 losartan 100 mg tablet 100 mg PO DAILY blood pressure #90 tabs 10/04/22 amlodipine 5 mg tablet 5 mg PO DAILY this is a dose increase #90 tabs 12/11/22 apixaban 5 mg tablet (Eliquis) See Rx Instructions .Route .COMPLEX blood thinner #180 TABLETS 03/06/23 lidocaine 4 % topical patch 1 patch topical DAILY pain 05/14/23 magnesium hydroxide 2,400 mg/10 mL oral suspension (Milk Of Magnesia Concentrated) 30 ml PO DAILY PRN constipation 05/14/23 metoprolol tartrate 25 mg tablet 25 mg PO BID blood pressure 05/14/23 nitroglycerin 0.4 mg sublingual tablet 0.4 mg sublingual Q5M chest pain 05/14/23 tramadol 50 mg tablet 50 mg PO Q6H PRN pain 05/14/23 acetaminophen 500 mg tablet 1,000 mg (2 x 500 mg) PO Q8 #0 tabs 05/24/23 albuterol sulfate 2.5 mg/3 mL (0.083 %) solution for nebulization 2.5 mg (3 mL) inhalation Q2H PRN PRN Shortness Of Breath #0 mL 05/24/23 cefdinir 300 mg capsule 300 mg PO BID #10 caps 05/24/23 docusate sodium 100 mg capsule 200 mg (2 x 100 mg) PO BID #0 caps 05/24/23 guaifenesin 1,200 mg tablet, extended release 12 hr (Mucus Relief ER) 1,200 mg PO BID #0 tabs 05/24/23 pantoprazole 40 mg tablet,delayed release 40 mg PO BIDLX #0 tabs 05/24/23 polyethylene glycol 3350 17 gram/dose oral powder (Miralax) 17 g PO DAILY #119 grams 05/24/23 sucralfate 1 gram tablet 1 g PO 1HR_ACHS #0 tabs 05/24/23 Physical Exam Narrative GENERAL: cooperative HEENT: Left forehead hematoma with facial bruising EYES; Anicteric, Normal Conjunctiva NECK; supple, normal thyroid, RESPIRATORY: Diminished to auscultation CARDIOVASCULAR: Irregular S1-S2 GI: soft, normoactive bowel sounds, : No Renal angle tenderness; EXTREMITIES: No edema, no clubbing, MUSCULOSKELETAL: Right wrist in a splint NEURO: Awake; no lateralizing signs. SKIN: No Rash PSYCH; Flat affect Weight / BMI Weight Weight: 73.3 kg Body Mass Index (BMI) 23.1 ABG / Lab / Microbiology Data 05/24/23 06:35 05/24/23 06:35 Laboratory: Laboratory Results - last 24 hr 05/24/23 06:35: WBC 4.1 L, RBC 3.36 L, Hgb 9.7 L, Hct 30.8 L, MCV 91.7, MCH 28.9, MCHC 31.5 L, RDW Std Deviation 56.5 H, RDW Coeff of Azael 17.0 H, Plt Count 330, MPV 9.1, Immature Gran % (Auto) 1.500 H, Neut % (Auto) 70.0, Lymph % (Auto) 13.9 L, [place] % (Auto) 9.5, Eos % (Auto) 4.4, Baso % (Auto) 0.7, Absolute Neuts (auto) 2.9, Absolute Lymphs (auto) 0.57 L, Nucleated RBC % 0, Sodium 138, Potassium 3.9, Chloride 109 H, Carbon Dioxide 24.0, Anion Gap 5, BUN 18, Creatinine 0.89, Estim Creat Clear Calc 58.10, Est GFR (MDRD) Af Amer 104, Est GFR (MDRD) Non-Af 86, BUN/Creatinine Ratio 20.3 H, Glucose 89, Calcium 8.8 Microbiology: Microbiology 05/17/23 16:42 Blood Culture (Wb) - Left Forearm Blood Culture - Final No growth in 5 days. 05/17/23 16:40 Blood Culture (Wb) - Left Wrist Blood Culture - Final No growth in 5 days. 05/18/23 04:45 Sputum, Expectorated/Coughed Gram Stain - Final 05/18/23 04:45 Sputum, Expectorated/Coughed Respiratory Culture - Final Streptococcus group G Haemophilus influenzae 05/17/23 16:50 Urine, Clean Catch Urine Culture - Final GNR lactose advertising sales executive 05/17/23 16:50 Urine, Clean Catch Legionella Antigen - Final 05/17/23 16:50 Urine, Clean Catch Streptococcus pneumoniae Antigen (M - Final 05/17/23 18:34 Mucosa - Nose SARS-CoV-2, Influenza & RSV (PCR) - Final D/C Instructions Discharge Diet: No restrictions Discharge Activity: Return to Normal Activity Call your doctor if you observe: Fever of 101 or Higher, Shortness of breath, Fainting spells and Chest pain Meaningful Use Info Meaningful Use Diagnoses (Choose all that apply): None applicable Discharge Plan Admission Admit Date/Time: 05/17/23 18:36 Attending Provider: Stefano López Primary Care Provider: Stacy Carson Consulting Providers: Mumtaz Mason; Henok Verdin Discharge Orders/Prescriptions Prescriptions: New albuterol sulfate 2.5 mg /3 mL (0.083 %) Solution For Nebulization 2.5 mg inhalation Q2H PRN PRN (Reason: Shortness Of Breath) Qty: 0 0RF sucralfate 1 gram Tablet 1 g PO 1HR_ACHS Qty: 0 0RF acetaminophen 500 mg Tablet 1,000 mg PO Q8 Qty: 0 0RF pantoprazole 40 mg Tablet,Delayed Release (Dr/Ec) 40 mg PO BIDLX Qty: 0 0RF cefdinir 300 mg Capsule 300 mg PO BID Qty: 10 0RF guaifenesin [Mucus Relief ER] 1,200 mg Tablet Extended Release 12hr 1,200 mg PO BID Qty: 0 0RF docusate sodium 100 mg Capsule 200 mg PO BID Qty: 0 0RF polyethylene glycol 3350 [Miralax] 17 gram/dose powder 17 g PO DAILY Qty: 119 0RF Continued levothyroxine 75 mcg tablet 75 mcg PO DAILY Patient Comments: TAKE 1 TABLET BY MOUTH EVERY DAY IN THE MORNING ON AN EMPTY STOMACH amiodarone 200 mg tablet 100 mg PO DAILY Qty: 90 4RF atorvastatin 10 mg tablet 5 mg PO QHS Qty: 45 3RF calcium carbonate-vitamin D3 1 TAB tablet 1 tab PO DAILY multivitamin 1 EACH tablet 1 ea PO DAILY vit C,M-Vd-zbqde-lutein-zeaxan 1 EACH capsule 2 ea PO DAILY tramadol 50 mg tablet 50 mg PO Q6H PRN (Reason: pain) magnesium hydroxide [Milk Of Magnesia Concentrated] 2,400 mg/10 mL suspension 30 ml PO DAILY PRN (Reason: constipation) lidocaine 4 % adhesive patch,medicated 1 patch topical DAILY Rx Instructions: may leave on for up to 12 hrs nitroglycerin 0.4 mg tablet, sublingual 0.4 mg sublingual Q5M Rx Instructions: do not exceed 3 doses per episode metoprolol tartrate 25 mg tablet 25 mg PO BID losartan 100 mg tablet 100 mg PO DAILY Qty: 90 3RF amlodipine 5 mg tablet 5 mg PO DAILY Qty: 90 3RF Eliquis 5 mg tablet See Rx Instructions .ROUTE .COMPLEX Qty: 180 3RF Dose Instruction: TAKE 1 TABLET TWICE A DAY Rx Instructions: TAKE 1 TABLET TWICE A DAY Discontinued methylprednisolone acetate [Depo-Medrol] 40 mg/mL suspension 40 mg intra-articular ONCE Qty: 1 0RF docusate sodium [Colace] 100 mg capsule 100 mg PO BID PRN (Reason: constipation) Referrals / Follow Up: Stacy Carson MD [Primary Care Provider] - Within 2 Weeks Disposition Disposition (needs filled in before D/C Order can be placed): [facility] Charges/Coding Visit Charges Inpatient E&M: 04010 Disch Hosp >30min
[2023-05-24 14:36] VITALS: BP 131/61; PULSE 72; RESP 16; TEMP 36.6; O2SAT 97
[2023-05-24] MEDS: Docusate Sodium 100 MG Capsule 200 MG PO (14:41)
--- NOTE | 2023-05-24 15:33 | NURSING ---
1533 Report called to Nurse Larry on TCU. Pt will be in [facility]
== END 2023-05-24 15:47 | disposition skilled nursing facility (03) | DRG 205 ==
LOC: ED 18:12 → PCU 20:16
PROVIDERS: Anesthesiology; Family Medicine; Internal Medicine Gastroenterology; Emergency Provider Emergency Medicine; PCP Family Medicine; Visit Provider Internal Medicine
PROC: 0DJ08ZZ Inspection of Upper Intestinal Tract, Via Natural or Artificial Opening Endoscopic (ICD-10-PCS; CPT 43235; principal; 2023-05-18 14:25)
DX: J95.84 Transfusion-related acute lung injury (TRALI) (principal); J15.4 Pneumonia due to other streptococci; J69.0 Pneumonitis due to inhalation of food and vomit; J14 Pneumonia due to Hemophilus influenzae; I11.0 Hypertensive heart disease with heart failure; I50.9 Heart failure, unspecified; I48.0 Paroxysmal atrial fibrillation; D50.0 Iron deficiency anemia secondary to blood loss (chronic); E03.9 Hypothyroidism, unspecified; E86.0 Dehydration; E78.00 Pure hypercholesterolemia, unspecified; I25.10 Atherosclerotic heart disease of native coronary artery without angina pectoris; K29.70 Gastritis, unspecified, without bleeding; K44.9 Diaphragmatic hernia without obstruction or gangrene; W18.30XD Fall on same level, unspecified, subsequent encounter; K59.00 Constipation, unspecified; K25.9 Gastric ulcer, unspecified as acute or chronic, without hemorrhage or perforation; Y84.8 Other medical procedures as the cause of abnormal reaction of the patient, or of later complication, without mention of misadventure at the time of the procedure; T45.8X5A Adverse effect of other primarily systemic and hematological agents, initial encounter; R13.10 Dysphagia, unspecified; S62.101D Fracture of unspecified carpal bone, right wrist, subsequent encounter for fracture with routine healing; R09.02 Hypoxemia; Z79.01 Long term (current) use of anticoagulants; Z79.890 Hormone replacement therapy; Z79.899 Other long term (current) drug therapy; Z87.891 Personal history of nicotine dependence; Z95.1 Presence of aortocoronary bypass graft
CPT/HCPCS: 36415; 36430; 36600; 71045; 71275; 74230; 80048; 80053; 80202; 81001; 82306; 82803; 83605; 83735; 84100; 84484; 85025; 85610; 85730; 86850; 86900; 86901; 86920; 86922; 87040; 87070; 87077; 87086; 87088; 87205; 87449; 87631; 88305; 88342; 92526; 92610; 92611; 93005; 93306; 94640; 97110; 97116; 97162; 97166; 97530; 97535; 97802; 97803; 99284; J7030; J7040; J7050; P9016; Q9967; A4216; J1940; J2405

== ENCOUNTER 2023-05-24 15:57 | Inpatient (IN) | payer MEDICARE, SELFPAY ==
--- NOTE | 2023-05-24 16:49 | HP.PCM_ITS ---
HPI - General General Date of Admission: 05/24/23 Date of Service: 05/24/23 Chief Complaint: Here for rehabilitation. HPI Narrative 05/17/2023 JAROD SEGOVIA, is a 87 Male TCU resident who presents to [facility] ED with nausea, vomiting, diarrhea. Hypoxia requiring 8 liters oxygen. IV fluids for dehydration. WBC 12.1, Hemoglobin 10.7 after 2 units PRBC transfusion. UA +/- Zosyn IV for pneumonia, also concern for CHF. 05/17/2023 Admit to [facility]. Zosyn, Vancomycin for bilateral pneumonia. Concern for transfusion related acute lung injury (TRALI), recent blood transfusion. Hold Dr. Luisa Panda planning EGD for anemia. 05/17/2023 Echo EF 65%. Severe concentric LVH. 05/18/2023 Feeling better. Urine culture growing gram negative jared. Zosyn, Vancomycin for pneumonia/UTI. 05/18/2023 Dr. Moran EGD non-bleeding gastric ulcers, heater probe. Bile gastritis. Recommend Pantoprazole 40mg bid x 8 week (07/13/2023), Sucralfate 1gm bid x 2 weeks (06/01/2023) 05/19/2023 ST for choking. Sputum growing group G strep. Zosyn, Stop Vancomycin for pneumonia/UTI. 05/20/2023 Doing well, feeling better. ST recommended regular textures, thin liquids, distant supervision. Hold Eliquis. 05/21/2023 Zosyn to Cefdinir for group G strep pneumonia. Transfuse if hemoglobin < 7.0. 05/22/2023 MBS regular textures, thin liquids. 05/22/2023 Dr. 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 05/23/2023 Await [facility]. Constipated. 05/24/2023 Admit to TCU with debility, here for rehabilitation, strengthening, prior to discharge home with . Resident would like to follow up with Dr. Vaughan for right distal radial fracture. Resident would like to follow up with Dr. 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 Resident unable to abduct left upper extremity, order MRI left shoulder, no contrast, schedule appointment with Dr. Vaughan. [facility] Medical History Abnormal cardiac enzyme level Anemia Atherosclerotic heart disease of [place] coronary artery without angina pectoris Bilateral carpal tunnel syndrome BPH (benign prostatic hyperplasia) Chest pain CHF (congestive heart failure), NYHA class II Debility Essential hypertension Former smoker GERD (gastroesophageal reflux disease) History of atrial fibrillation HTN (hypertension) Hydrocele Hypercoagulable state due to atrial fibrillation Hyperlipidemia Imbalance Inferior pubic ramus fracture Kidney disease Kidney stones Orthostatic hypotension Osteopenia Paroxysmal atrial fibrillation Patellar fracture Pericardial effusion (noninflammatory) Primary osteoarthritis, right wrist Pure hypercholesterolemia Right shoulder pain Home Medications calcium carbonate 600 mg-vitamin D3 20 mcg (800 unit) tablet 1 tab PO DAILY BONE HEALTH 03/13/14 [History Last Taken 09/11/22] multivitamin 1 ea PO DAILY GENERAL HEALTH 12/23/19 [History Last Taken 09/11/22] vit C 250 mg-vit E 90 mg-zinc 40 mg-copper 1 af-mtyplj-rajism capsule 2 ea PO DAILY eye health 12/23/19 [History Last Taken 09/11/22] levothyroxine 75 mcg tablet 75 mcg PO DAILY thyroid 04/22/21 [History Last Taken 09/11/22] amiodarone 200 mg tablet 100 mg (1/2 x 200 mg) PO DAILY heart #90 tabs 08/08/22 [Rx Last Taken 09/11/22] atorvastatin 10 mg tablet 5 mg (1/2 x 10 mg) PO QHS cholesterol #45 tabs 08/08/22 [Rx Last Taken 09/10/22] losartan 100 mg tablet 100 mg PO DAILY blood pressure #90 tabs 10/04/22 [Rx Last Taken Unknown] amlodipine 5 mg tablet 5 mg PO DAILY this is a dose increase #90 tabs 12/11/22 [Rx Last Taken Unknown] apixaban 5 mg tablet (Eliquis) See Rx Instructions .Route .COMPLEX blood thinner #180 TABLETS 03/06/23 [Rx Last Taken Unknown] lidocaine 4 % topical patch 1 patch topical DAILY pain 05/14/23 [History Last Taken Unknown] magnesium hydroxide 2,400 mg/10 mL oral suspension (Milk Of Magnesia Concentrated) 30 ml PO DAILY PRN constipation 05/14/23 [History Last Taken Unknown] metoprolol tartrate 25 mg tablet 25 mg PO BID blood pressure 05/14/23 [History Last Taken Unknown] nitroglycerin 0.4 mg sublingual tablet 0.4 mg sublingual Q5M chest pain 05/14/23 [History Last Taken Unknown] tramadol 50 mg tablet 50 mg PO Q6H PRN pain 05/14/23 [History Last Taken Unknown] acetaminophen 500 mg tablet 1,000 mg (2 x 500 mg) PO Q8 pain #0 tabs 05/24/23 [Rx Last Taken Unknown] albuterol sulfate 2.5 mg/3 mL (0.083 %) solution for nebulization 2.5 mg (3 mL) inhalation Q2H PRN PRN Shortness Of Breath #0 mL 05/24/23 [Rx Last Taken Unknown] cefdinir 300 mg capsule 300 mg PO BID Antibiotic #10 caps 05/24/23 [Rx Last Taken 05/24/23] docusate sodium 100 mg capsule 200 mg (2 x 100 mg) PO BID Constipation #0 caps 05/24/23 [Rx Last Taken Unknown] pantoprazole 40 mg tablet,delayed release 40 mg PO BIDLX GERD #0 tabs 05/24/23 [Rx Last Taken 05/24/23] polyethylene glycol 3350 17 gram/dose oral powder (Miralax) 17 g PO DAILY Constipation #119 grams 05/24/23 [Rx Last Taken Unknown] sucralfate 1 gram tablet 1 g PO 1HR_ACHS Stomach #0 tabs 05/24/23 [Rx Last Taken 05/24/23] Allergy/AdvReac Type Severity Reaction Status Date / Time codeine AdvReac Nausea/Vom/ Verified 05/17/23 16:19 Diarrhea hydrocodone [From [place]] AdvReac hallucinati Verified 05/17/23 16:19 ons Family History Father CVA (cerebral vascular accident) Mother Bright's disease Sister Diabetes Surgical History History of arthroplasty of right shoulder History of arthroscopy of left knee History of carpal tunnel repair History of kyphoplasty History of repair of rotator cuff Hx of CABG hx trigger finger release Presence of aortocoronary bypass graft (~01/31/16) renal calculi excision Social History household members: spouse Smoking Status: Former smoker alcohol intake: never substance use type: does not use caffeine: Yes Type: coffee what type of physical activity do you participate in: none seatbelt use: always do you feel safe at home: Yes ROS Constitutional Constitutional: Reports fatigue and weakness; Denies chills, fever(s) or weight gain ENT HEENT: Denies headache(s), nasal congestion or nasal discharge Cardiovascular Cardiovascular: Denies chest pain or palpitations Respiratory/Chest Respiratory/Chest: Denies cough, excessive phlegm production or shortness of breath with exertion Gastrointestinal Gastrointestinal: Denies abdominal pain, nausea or vomiting Genitourinary Genitourinary: Denies dysuria Musculoskeletal Musculoskeletal: Reports other Details: Left shoulder pain. ; Denies joint pain or joint swelling Integumentary Integumentary: Denies rash or wounds Neurologic Neurologic: Denies focal weakness, numbness or tingling Psychiatric Psychiatric: Denies anxiety, auditory hallucinations, depression, homicidal ideation or suicidal ideation Physical Exam Const alert General Appearance: cooperative HEENT normocephalic Eyes PERRL and EOMs intact bilaterally Neck supple, no JVD and no carotid bruits Resp normal respiratory effort, normal air movement and clear to auscultation bilaterally Cardio regular rate and regular rhythm GI normal to inspection, nondistended, normoactive bowel sounds, non-tender and non -distended Extremity normal capillary refill Extremity Narrative: Rigtht forearm splint. General Extremity: Negative for edema Skin no rashes or lesions noted General Skin Exam: no breakdown Psych affect normal Appearance: appropriate Assessment & Plan Assessment/Plan (1) Debility: (2) Acute respiratory failure with hypoxia: (3) Pneumonia: (4) Gastric ulcer: (5) Dysphagia: (6) Closed right radial fracture: (7) Left rotator cuff tear: (8) Left carpal tunnel syndrome: (9) Compression fracture of L1 lumbar vertebra: (10) Atrial fibrillation: (11) Hypertension: (12) Coronary artery disease: (13) Hyperlipidemia: (14) Hypothyroidism: (15) Macular degeneration: PLAN: Plan 87 year old male with below past medical history hospitalized for acute respiratory failure with hypoxia 2/2 aspiration pneumonia (Group G strep, H. Flu), complicated by gastric ulcers, dysphagia, admitted to TCU with debility, here for rehabilitation, strengthening, prior to discharge home with . * Debility - PT/OT. * Dysphagia - ST. * Pain - Tylenol 1000mg q8, Tramadol 50mg q6 prn pain (1-10), Lidoderm 1 patch td daily. * Bowel - Miralax 17gm daily, senna/colace 2 tablets bid, Magnesium citrate 300ml daily prn * Adult immunization - Administer pneumonia vaccine, covid vaccine, flu vaccine. * DVT prophylaxis - on Eliquis. * Aspiration pneumonia (Group g strep, H. Flu), Cefdinir 300mg bid thru 05/29/2023, Albuterol 2.5mg neb q2 prn. * Atrial fibrillation - Metoprolol 25mg bid, Amiodarone 100mg daily, Eliquis 5mg bid. * Hypertension - Metoprolol 25mg bid, Losartan 100mg daily, Amlodipine 5mg daily. * Hyperlipidemia - Atorvastatin 5mg qhs. * Calcium deficiency - Calcium D 1 tablet daily. * Congestion - Mucinex 1200mg bid. * Hypothyroidism - Levothyroxine 75mcg daily. * Macular degeneration - Healthy eyes 1 tablet daily. * Nutrition - MVI 1 tablet daily. * Coronary artery disease - Metoprolol 25mg bid, Losartan 100mg daily, Eliquis 5mg bid, NTG 0.4mg q5m prn. * Gastric ulcer - Pantoprazole 40mg bid thru 07/13/2023, then 40mg daily, Sucralfate 1gm bid thru 06/01/2023. * Right distal radius fracture - splint, schedule Dr. Vaughan appointment. * Left carpal tunnel syndrome - Schedule Dr. Vaughan appointment. * Left rotator cuff - order MRI left shoulder, no contrast, schedule Dr. Vaughan appointment.
[2023-05-24 17:08] VITALS: BP 164/75; PULSE 79; PULSE 83; RESP 16; TEMP 36.7; O2SAT 90; O2SAT 91; BMI 23.2
[2023-05-24] MEDS: Magnesium Citrate 300 ML PO (17:42)
[2023-05-24] MEDS: Cefdinir 300 MG Capsule PO (22:04)
[2023-05-24] MEDS: Senna/Docusate Sodium 1 Tablet 2 TABLET PO (22:04)
[2023-05-24] MEDS: APIXABAN 5 MG TABLET PO (22:04)
[2023-05-24] MEDS: Atorvastatin Calcium 10 MG Tablet 5 MG PO (22:04)
[2023-05-24 22:05] VITALS: BP 151/73; PULSE 75
[2023-05-24] MEDS: Metoprolol Tartrate 25 MG Tablet PO (22:05)
[2023-05-24] MEDS: Acetaminophen 500 MG Tablet 1000 MG PO (22:05)
--- NOTE | 2023-05-24 23:26 | NURSING ---
Patient having difficult time swallowing medications. Refused Mucinex, stating it was too big for him to attempt to swallow. N.O. received for Liquid Guafenesin.
--- NOTE | 2023-05-24 23:45 | NURSING ---
notified via phone call. Pt unable to swallow Mucinex 1,200mg, unable to crush med. N.O. Robitussin liquid 10ml po bid. Order repeated back and verified.
[2023-05-25] MEDS: Acetaminophen 500 MG Tablet 1000 MG PO ×3 (05:22→22:27)
[2023-05-25] MEDS: Pantoprazole Sodium 40 MG Tablet PO ×2 (05:22→14:59)
[2023-05-25] MEDS: Levothyroxine 75 MCG Tablet PO (05:22)
[2023-05-25 05:58] LABS: Absolute Lymphocyte Count 0.68 X10^3/uL (0.83-4.51); Absolute Neutrophil Count 6.9 X10^3/uL (2.0-7.7); Basophil# 0.05 X10^3/uL; Basophil% 0.6 % (0-1); Eosinophils% 2.3 % (0-5); Hematocrit 34.3 % (40-54); Hemoglobin 10.7 g/dL (13.0-16.5); Lymphocyte # 0.68 X10^3/ul (0.83-4.51); Lymphocyte % 7.9 % (19-41); Mean Corp Hgb Conc 31.2 g/dL (32-36); Mean Corpuscular Hgb 28.4 pg (27.0-32.0); Mean Platelet Vol. 8.8 fl (6.2-12.0); Monocyte% 8.2 % (0-10); NRBC Flagged by Analyzer 0 % (0-5); Neutrophil # 6.87 X10^3/uL (2.7-7.7); Neutrophil % 80.3 % (47-70); Platelet Count 365 K/mm3 (150-450); RBC Distribution Width CV 16.9 % (11.6-14.6); RBC Distribution Width SD 56.5 fl (35.1-43.9); Red Blood Count 3.77 M/mm3 (4.6-6.2); White Blood Count 8.6 K/mm3 (4.4-11.0)
[2023-05-25] MEDS: Sucralfate 1 GM Tablet PO ×2 (06:42→14:58)
[2023-05-25 06:48] LABS: Anion Gap 5 (5-15); BUN 20 mg/dL (7-18); BUN/Creat Ratio 21.1 RATIO (10-20); Calcium,Total 9.4 mg/dL (8.5-10.1); Chloride 106 mmol/L (98-107); Creatinine, Serum 0.95 mg/dL (0.70-1.30); EST Glomerular Filtration Rate 79 mL/min (>60); Est Glom Filt Rate - Afr Amer 96 mL/min (>60); Estimated Creatinine Clearance 54.43 ml/min; Glucose 86 mg/dL (74-106); Potassium 4.4 mmol/L (3.5-5.1); Sodium Level 137 mmol/L (136-145)
--- NOTE | 2023-05-25 09:31 | NURSING ---
Called about auth for L shoulder MRI, they requested supporting documentation. Clinical info faxed to [facility] #[phone]. Reference #[id number].
[2023-05-25] MEDS: Polyethylene Glycol 3350 17 GM PACKET PO (10:00)
[2023-05-25] MEDS: Senna/Docusate Sodium 1 Tablet 2 TABLET PO ×2 (10:01→22:26)
[2023-05-25] MEDS: Calcium Carb/Vitamin D 1 TABLET Tablet PO (10:01)
[2023-05-25] MEDS: Losartan Potassium 100 MG Tablet PO (10:01)
[2023-05-25] MEDS: Amiodarone 200 MG Tablet 100 MG PO (10:01)
[2023-05-25] MEDS: Cefdinir 300 MG Capsule PO ×2 (10:01→22:27)
[2023-05-25] MEDS: Multivitamin (Healthy Eyes) Capsule 1 CAP PO (10:01)
[2023-05-25] MEDS: guaiFENesin 10 ML UDC (200MG/10ML) PO ×2 (10:02→22:33)
[2023-05-25] MEDS: APIXABAN 5 MG TABLET PO ×2 (10:02→22:28)
[2023-05-25] MEDS: Lidocaine 5% Patch 1 PATCH TOPICAL (10:02)
[2023-05-25] MEDS: amLODIPine 5 MG Tablet PO (10:02)
[2023-05-25] MEDS: Multivitamins,Therapeutic Tablet 1 TABLET PO (10:03)
[2023-05-25 10:05] VITALS: BP 110/66; PULSE 81
[2023-05-25] MEDS: Metoprolol Tartrate 25 MG Tablet PO ×2 (10:05→22:26)
[2023-05-25] MEDS: 0.9% Saline Lock 10 ML Syringe IV ×2 (10:18→22:24)
--- NOTE | 2023-05-25 10:23 | NURSING ---
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 He has returned to TCU for more therapy. Prior to admission he was very active at home with gardening, mowing, cooking and spending time w/family friends and holiness. He will read, work on word search, watch tv, talk and visit w/family, friends, and his extender visits. 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 Trell welcomes visit from the blank driller and therapy dog when available. Staff will remind him of weekly activities and respect his right to say no.
--- NOTE | 2023-05-25 13:00 | NURSING ---
Spoke with patient, , and family about setting up appt with Dr. Vaughan. Discussed transportation options with them. They would like to know about MRI before appt scheduled. Will follow-up with family/patient next week about appt and MRI.
--- NOTE | 2023-05-25 14:22 | CASEMGMT ---
Social Work SW met with pt to complete initial assessment. Pt. known to this worker due to previous stay last week. Pt. and daughter were present in room and pt gave permission to continue with interview with them present. Verified updates. Patient confirmed code status as full code. Educated to [facility] benefits with NRD 06/04/23 and continued stay is not guaranteed with each review. Pt and expressed concern that patient will need longer than 06/04/23. Pt is aware of appeal options if insurance issues [employer] before he feels ready. Pt goal is to return home but both pt and family are concerned about returning home with at current level as he needs extensive assistance right now and not able to walk or transfer to level he needs to to return home. SW will continue to follow for DC planning. Fiorella BROWN
[2023-05-25] MEDS: Tuberculin,Purif.prot.deriv. 50 TU/ML Vial 0.1 ML ID (14:59)
[2023-05-25 16:00] VITALS: BP 123/65; PULSE 71; RESP 16; TEMP 36.6; O2SAT 92
--- NOTE | 2023-05-25 19:35 | RAD_ITS ---
STUDY: X-RAY XR Forearm 2 Views REASON FOR EXAM: Male, 87 years old. PAIN TECHNIQUE: XR Forearm 2 Views RIGHT COMPARISON: None. FINDINGS: There is no demonstrated soft tissue swelling. Fiberglass splint in place. Degenerative findings of the radial carpal joint. Comminuted and impacted distal radial fracture. Normal visualized ulna. RAD/Forearm 2 Views IMPRESSION: Comminuted and impacted distal radial fracture. Electronically Signed: Deacon Quintero MD at 19:56 EDT ,
--- NOTE | 2023-05-25 21:02 | NURSING ---
notified of Right FA XRay result via phone, no new orders at this time.
[2023-05-25 21:10] VITALS: PULSE 90; RESP 18; O2SAT 94
[2023-05-25 22:26] VITALS: BP 136/68; PULSE 73
[2023-05-25] MEDS: Atorvastatin Calcium 10 MG Tablet 5 MG PO (22:27)
[2023-05-26] MEDS: Acetaminophen 500 MG Tablet 1000 MG PO ×3 (05:55→22:06)
[2023-05-26] MEDS: Pantoprazole Sodium 40 MG Tablet PO ×2 (05:55→13:43)
[2023-05-26] MEDS: Levothyroxine 75 MCG Tablet PO (05:57)
[2023-05-26] MEDS: Sucralfate 1 GM Tablet PO ×2 (06:02→16:21)
[2023-05-26 09:57] VITALS: BP 116/59; PULSE 79; RESP 18; O2SAT 91
[2023-05-26] MEDS: Lidocaine 5% Patch 1 PATCH TOPICAL (09:58)
[2023-05-26 09:59] VITALS: PULSE 79
[2023-05-26] MEDS: APIXABAN 5 MG TABLET PO ×2 (09:59→22:06)
[2023-05-26] MEDS: Cefdinir 300 MG Capsule PO ×2 (09:59→22:06)
[2023-05-26] MEDS: Metoprolol Tartrate 25 MG Tablet PO ×2 (09:59→22:07)
[2023-05-26] MEDS: Multivitamin (Healthy Eyes) Capsule 1 CAP PO (10:00)
[2023-05-26] MEDS: Senna/Docusate Sodium 1 Tablet 2 TABLET PO (10:00)
[2023-05-26] MEDS: Polyethylene Glycol 3350 17 GM PACKET PO (10:00)
[2023-05-26] MEDS: Amiodarone 200 MG Tablet 100 MG PO (10:00)
[2023-05-26] MEDS: Multivitamins,Therapeutic Tablet 1 TABLET PO (10:01)
[2023-05-26] MEDS: amLODIPine 5 MG Tablet PO (10:01)
[2023-05-26] MEDS: Calcium Carb/Vitamin D 1 TABLET Tablet PO (10:01)
[2023-05-26] MEDS: Losartan Potassium 100 MG Tablet PO (10:01)
[2023-05-26] MEDS: guaiFENesin 10 ML UDC (200MG/10ML) PO ×2 (10:13→22:06)
[2023-05-26] MEDS: traMADol 50 MG Tablet PO (13:44)
[2023-05-26 16:11] VITALS: TEMP 36.7
[2023-05-26] MEDS: Atorvastatin Calcium 10 MG Tablet 5 MG PO (22:06)
[2023-05-26 22:07] VITALS: BP 141/69; PULSE 74
[2023-05-27] MEDS: Acetaminophen 500 MG Tablet 1000 MG PO ×3 (06:10→20:18)
[2023-05-27] MEDS: Pantoprazole Sodium 40 MG Tablet PO ×2 (06:10→12:36)
[2023-05-27] MEDS: Levothyroxine 75 MCG Tablet PO (06:10)
[2023-05-27] MEDS: Sucralfate 1 GM Tablet PO ×2 (06:10→17:07)
[2023-05-27 08:32] VITALS: BP 140/67; PULSE 75; RESP 18; TEMP 36.9; O2SAT 94
[2023-05-27 08:36] VITALS: PULSE 75
[2023-05-27] MEDS: Cefdinir 300 MG Capsule PO ×2 (08:36→20:18)
[2023-05-27] MEDS: Metoprolol Tartrate 25 MG Tablet PO ×2 (08:36→20:19)
[2023-05-27] MEDS: Senna/Docusate Sodium 1 Tablet 2 TABLET PO (08:36)
[2023-05-27] MEDS: Amiodarone 200 MG Tablet 100 MG PO (08:36)
[2023-05-27] MEDS: Calcium Carb/Vitamin D 1 TABLET Tablet PO (08:37)
[2023-05-27] MEDS: amLODIPine 5 MG Tablet PO (08:37)
[2023-05-27] MEDS: Losartan Potassium 100 MG Tablet PO (08:37)
[2023-05-27] MEDS: APIXABAN 5 MG TABLET PO ×2 (08:37→20:18)
[2023-05-27] MEDS: Lidocaine 5% Patch 1 PATCH TOPICAL (08:38)
[2023-05-27] MEDS: Multivitamin (Healthy Eyes) Capsule 1 CAP PO (08:38)
[2023-05-27] MEDS: Multivitamins,Therapeutic Tablet 1 TABLET PO (08:40)
[2023-05-27] MEDS: 0.9% Saline Lock 10 ML Syringe IV (08:46)
--- NOTE | 2023-05-27 08:48 | NURSING ---
Addendum entered by Faby Cowart 05/27/23 14:43: Pt reports no difficulty with eating lunch with no [prolonged coughing episodes noted. Lung sounds clear to auscultation bilateral anterior and posterior. Pt continues with occasional cough, receiving scheduled Robitussin. Discontinued IV from left wrist per pt request. Addendum entered by Faby Cowart 05/27/23 08:57: addition: pt currently receiving Cefdinir 300mg BID for cough, received dose 07/29 this morning. Pt also receiving scheduled Robitussin. 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 Pt sitting up, high-fowlers in bed, states that he had issue swallowing eggs due to phlegm in throat. Continues occasional coughing and mucous production. Vitals: bp-140/67, p-75, r-18, t-98.9, sp02-94% on room air. Lungs clear to auscultation anteriorly, expiratory wheezes noted to posterior bilateral upper lobes. Pt denies dyspnea, none noted. Pt swallowed morning medications and swallowing liquids with no difficulty at this time.
[2023-05-27] MEDS: guaiFENesin 10 ML UDC (200MG/10ML) PO ×2 (08:53→20:28)
--- NOTE | 2023-05-27 10:39 | PHA.CONS_ITS ---
Documented by User: Jennifer Agrawal 05/27/23 11:07 TCU RX Drug Regimen Review Subjective/Objective Subjective/Objective: Subjective: TCU Admission. 87 YOM presented to the ER from TCU with nausea, vomiting, diarrhea. Hospitalized for acute respiratory failure with hypoxia 2/2 aspiration pneumonia (Group G strep, H. Flu), complicated by gastric ulcers, dysphagia. Admitted to TCU with debility for strengthening and rehabilitation. Objective: Allergies codeine Adverse Reaction (Verified 05/17/23 16:19) Nausea/Vom/Diarrhea hydrocodone [From [place]] Adverse Reaction (Verified 05/17/23 16:19) hallucinations Current Medications Generic Name Dose Route Start Last Admin Trade Name Freq PRN Reason Stop Dose Admin Acetaminophen 1,000 mg 05/24/23 22:00 05/27/23 06:10 Acetaminophen 500 Mg Tablet PO 1,000 mg Q8 WILLIAM Administration Albuterol Sulfate 2.5 mg 05/24/23 16:51 Albuterol 2.5 Mg/3 Ml Vial.Neb. INHALATION Q2H PRN PRN Shortness Of Breath Amiodarone HCl 100 mg 05/25/23 10:00 05/27/23 08:36 Amiodarone 200 Mg Tablet PO 100 mg DAILY WILLIAM Administration Amlodipine Besylate 5 mg 05/25/23 10:00 05/27/23 08:37 Amlodipine 5 Mg Tablet PO 5 mg DAILY WILLIAM Administration Protocol Apixaban 5 mg 05/24/23 22:00 05/27/23 08:37 Apixaban 5 Mg Tablet PO 5 mg BID WILLIAM Administration Atorvastatin Calcium 5 mg 05/24/23 22:00 05/26/23 22:06 Atorvastatin Calcium 10 Mg Tablet PO 5 mg QHS WILLIAM Administration Calcium/Vitamin D 1 tablet 05/25/23 10:00 05/27/23 08:37 Calcium Carb/Vitamin D 1 Tablet Tablet PO 1 tablet DAILY WILLIAM Administration Cefdinir 300 mg 05/24/23 22:00 05/27/23 08:36 Cefdinir 300 Mg Capsule PO 05/29/23 10:01 300 mg BID WILLIAM Administration Guaifenesin 10 ml 05/25/23 10:00 05/27/23 08:53 Guaifenesin 10 Ml Udc (200mg/10ml) PO 10 ml BID WILLIAM Administration Levothyroxine Sodium 75 mcg 05/25/23 06:00 05/27/23 06:10 Levothyroxine 75 Mcg Tablet PO 75 mcg DAILY@0600 WILLIAM Administration Lidocaine 1 patch 05/25/23 10:00 05/27/23 08:38 Lidocaine 5% Patch TOPICAL 1 patch DAILY WILLIAM Administration Losartan Potassium 100 mg 05/25/23 10:00 05/27/23 08:37 Losartan Potassium 100 Mg Tablet PO 100 mg DAILY WILLIAM Administration Protocol Magnesium Citrate 300 ml 05/24/23 16:51 05/24/23 17:42 Magnesium Citrate 300 Ml PO 300 ml DAILY PRN Administration Constipation Metoprolol Tartrate 25 mg 05/24/23 22:00 05/27/23 08:36 Metoprolol Tartrate 25 Mg Tablet PO 25 mg BID WILLIAM Administration Protocol Multivitamins 1 tablet 05/25/23 08:00 05/27/23 08:40 Multivitamins,Therapeutic Tablet PO 1 tablet DAILYCM WILLIAM Administration Multivitamins/Minerals 1 cap 05/25/23 10:00 05/27/23 08:38 Multivitamin (Healthy Eyes) Capsule PO 1 cap DAILY WILLIAM Administration Nitroglycerin 0.4 mg 05/24/23 17:09 Nitroglycerin (Inpatient Use) 0.4 Mg Tab.Subl SL Q5M PRN chest pain Pantoprazole Sodium 40 mg 05/25/23 06:00 05/27/23 06:10 Pantoprazole Sodium 40 Mg Tablet PO 07/13/23 23:59 40 mg BIDLX WILLIAM Administration Pantoprazole Sodium 40 mg 07/14/23 10:00 Pantoprazole Sodium 40 Mg Tablet PO DAILY WILLIAM Polyethylene Glycol 17 gm 05/25/23 10:00 05/27/23 08:39 Polyethylene Glycol 3350 17 Gm Packet PO Not Given DAILY WILLIAM Senna/Docusate Sodium 2 tablet 05/24/23 22:00 05/27/23 08:36 Senna/Docusate Sodium 1 Tablet PO 2 tablet BID WILLIAM Administration Sodium Chloride 10 - 40 ml 05/24/23 17:35 05/27/23 08:46 0.9% Saline Lock 10 Ml Syringe IV 10 ml UD PRN Administration SALINE FLUSH Sucralfate 1 gm 05/25/23 07:00 05/27/23 06:10 Sucralfate 1 Gm Tablet PO 1 gm BID@0700,1600 WILLIAM Administration Tramadol HCl 50 mg 05/24/23 17:23 05/26/23 13:44 Tramadol 50 Mg Tablet PO 50 mg Q6H PRN Administration Pain Score 1-10 or Pre PT/OT Problem List (Updated 05/25/23 @ 00:02 by Background Almas) Left carpal tunnel syndrome (Acute) Left rotator cuff tear (Acute) Closed right radial fracture (Acute) Dysphagia (Acute) Gastric ulcer (Acute) Macular degeneration (Acute) Coronary artery disease (Acute) Compression fracture of L1 lumbar vertebra (Acute) Hyperlipidemia (Acute) Hypothyroidism (Acute) Atrial fibrillation (Acute) Hypertension (Chronic) Debility (Acute) Vital Signs Temp Pulse Resp BP Pulse Ox O2 Del Method 98.4 F 75 18 140/67 H 94 Room Air 05/27/23 08:32 05/27/23 08:36 05/27/23 08:32 05/27/23 08:32 05/27/23 08:32 05/27/23 08:32 Oxygen Delivery Method Room Air Weight: 73.437 kg Body Mass Index (BMI) 23.2 Sodium 137 mmol/L (136-145) 05/25/23 05:32 Potassium 4.4 mmol/L (3.5-5.1) 05/25/23 05:32 Chloride 106 mmol/L (98-107) 05/25/23 05:32 Carbon Dioxide 26.0 mmol/L (21.0-32.0) 05/25/23 05:32 Anion Gap 5 (5-15) 05/25/23 05:32 BUN 20 mg/dL (7-18) H 05/25/23 05:32 Creatinine 0.95 mg/dL (0.70-1.30) 05/25/23 05:32 Est GFR (MDRD) Af Amer 96 mL/min (>60) 05/25/23 05:32 Est GFR (MDRD) Non-Af 79 mL/min (>60) 05/25/23 05:32 BUN/Creatinine Ratio 21.1 RATIO (10-20) H 05/25/23 05:32 Glucose 86 mg/dL (74-106) 05/25/23 05:32 Assessment/Plan: 1. Pain: acetaminophen 1000mg PO Q8, tramadol 50mg PO Q6H PRN pain 1-10 or pre OP/PT and lidocaine 5% patch topically daily. Resident has had 1 doses of tramadol for pain scores of 6 in the arm. Please continue to monitor for increased pain, PRN usage, renal function, rash, constipation and respiratory depression. 2. Bowel: Miralax 17gm PO daily, senna/docusate 2T PO BID and magnesium citrate 300 mL PO daily PRN constipation. Resident has had 1 dose of magnesium citrate, given 05/24/23. Please continue to monitor for constipation, diarrhea and PRN usage. Last documented bowel movement 05/17/23. Please give another dose of magnesium citrate if still no BM today. 3. Atrial fibrillation/hypertension/CAD: metoprolol tartrate 25mg PO BID, amiodarone 100mg PO daily, losartan 100mg PO daily, apixaban 5mg PO BID, amlodipine 5mg PO daily and nitroglycerin 0.4mg SL Q5M PRN chest pain. Please continue to monitor BP (last 140/67), HR (last 75), respiratory distress, potassium (last 4.4mmol/L), sodium (last 137mmol/L), SCr (last 0.95mg/dL), swelling, S/S of bleeding, hemoglobin (last 10.7g/dL), chest pain and PRN usage. No doses of nitroglycerin given. 4. Aspiration pneumonia (group G strep, H. flu)/congestion: cefdinir 300mg PO BID thru 05/29/23, albuterol 2.5mg inhalation Q2H PRN shortness of breath and guaifenesin 200mg/10mL PO BID. Please continue to monitor for S/S SOB, PRN usage, diarrhea, stool discoloration and renal function. 5. Hyperlipidemia: atorvastatin 5mg PO QHS. Please continue to monitor lipid panel (last 04/17/23), LFTs (last 04/17/23) and muscle pain. 6. Hypothyroidism: levothyroxine 75mcg PO daily. Please continue to monitor TSH (last 04/04/23), free T4 (last 04/04/23) and S/S of hypo/hyperthyroidism. 7. Calcium deficiency: calcium/vitamin D 1T PO daily. Please continue to monitor calcium (last 9.4g/dL) and vitamin D (last 05/17/23). 8. Macular degeneration: healthy eyes 2C PO lunch. Please continue to monitor. 9. Gastric ulcer: pantoprazole 40mg PO BID thru 07/13/23 then 40mg daily thereafter (starting 07/14/23) and sucralfate 1gm PO BID thru 06/01/23. Please continue to monitor for S/S of bleeding, constipation, diarrhea (BEERs medication) and magnesium (last 2.1mg/dL). Assessment/Plan for indications treated with psychotropic medications: None Medical chart and medication regimen reviewed. The following medication irregularities or issues were identified: None Date Date of Note:: 05/27/23 Documented by User: Dr. Bryson Garzon MD 05/27/23 12:33 TCU RX Drug Regimen Review Provider Comments Provider responsibility Provider Comments to Recommendations by Pharmacy: Agree
[2023-05-27] MEDS: Atorvastatin Calcium 10 MG Tablet 5 MG PO (20:18)
[2023-05-27 20:19] VITALS: BP 138/69; PULSE 67
[2023-05-28] MEDS: Levothyroxine 75 MCG Tablet PO (05:36)
[2023-05-28] MEDS: Sucralfate 1 GM Tablet PO ×2 (05:36→17:48)
[2023-05-28] MEDS: Pantoprazole Sodium 40 MG Tablet PO ×2 (05:36→15:51)
[2023-05-28] MEDS: Acetaminophen 500 MG Tablet 1000 MG PO ×3 (05:36→22:28)
--- NOTE | 2023-05-28 09:04 | NURSING ---
Offered covid vaccine, VIS provided. Patient refuses at this time.
[2023-05-28 09:51] VITALS: BP 109/53; PULSE 74
[2023-05-28] MEDS: Lidocaine 5% Patch 1 PATCH TOPICAL (09:51)
[2023-05-28] MEDS: amLODIPine 5 MG Tablet PO (09:51)
[2023-05-28] MEDS: Calcium Carb/Vitamin D 1 TABLET Tablet PO (09:51)
[2023-05-28] MEDS: Metoprolol Tartrate 25 MG Tablet PO ×2 (09:51→22:28)
[2023-05-28] MEDS: Amiodarone 200 MG Tablet 100 MG PO (09:51)
[2023-05-28] MEDS: Senna/Docusate Sodium 1 Tablet 2 TABLET PO ×2 (09:51→22:28)
[2023-05-28] MEDS: APIXABAN 5 MG TABLET PO ×2 (09:52→22:30)
[2023-05-28] MEDS: Multivitamins,Therapeutic Tablet 1 TABLET PO (09:52)
[2023-05-28] MEDS: Multivitamin (Healthy Eyes) Capsule 1 CAP PO (09:52)
[2023-05-28] MEDS: Cefdinir 300 MG Capsule PO ×2 (09:52→22:29)
[2023-05-28] MEDS: Losartan Potassium 100 MG Tablet PO (09:52)
[2023-05-28] MEDS: guaiFENesin 10 ML UDC (200MG/10ML) PO ×2 (10:03→22:40)
[2023-05-28 10:04] VITALS: BP 109/53; PULSE 74
--- NOTE | 2023-05-28 15:55 | CASEMGMT ---
Social Work SW met with patient's , Shira and daughter, Anisa per family request to discuss transition of care plans. Patient's inquired about insurance coverage. SW notified both and daughter that the patient's next review date for insurance will be 06/04/2023. Patient's inquired about further insurance coverage and private pay options. SW informed patient's that insurance coverage for skilled stay is not guaranteed. Patient's would like to private pay, if insurance is unable to cover for skilled care. SW discussed and provided resources regarding private pay/day information. In addition, SW discussed home health care and private duty resources for personal fitness trainer. Patient has care plan meeting on 05/29/2023. SW will continue to follow to support patient care and discharge planning. RENETTA Torres
[2023-05-28 22:15] VITALS: BP 133/59; PULSE 68; RESP 17; TEMP 36.5; O2SAT 93
[2023-05-28 22:28] VITALS: BP 133/59; PULSE 68
[2023-05-28] MEDS: Atorvastatin Calcium 10 MG Tablet 5 MG PO (22:28)
[2023-05-29] MEDS: Pantoprazole Sodium 40 MG Tablet PO ×2 (05:29→12:41)
[2023-05-29] MEDS: Levothyroxine 75 MCG Tablet PO (05:29)
[2023-05-29] MEDS: Acetaminophen 500 MG Tablet 1000 MG PO ×3 (05:29→22:41)
[2023-05-29 08:12] VITALS: BP 156/73; PULSE 73
[2023-05-29] MEDS: Sucralfate 1 GM Tablet PO ×2 (08:13→16:46)
[2023-05-29 08:14] VITALS: PULSE 73
[2023-05-29] MEDS: Metoprolol Tartrate 25 MG Tablet PO ×2 (08:14→22:41)
[2023-05-29] MEDS: Cefdinir 300 MG Capsule PO (08:14)
[2023-05-29] MEDS: Amiodarone 200 MG Tablet 100 MG PO (08:14)
[2023-05-29] MEDS: Losartan Potassium 100 MG Tablet PO (08:15)
[2023-05-29] MEDS: Multivitamin (Healthy Eyes) Capsule 1 CAP PO (08:15)
[2023-05-29] MEDS: APIXABAN 5 MG TABLET PO ×2 (08:15→22:41)
[2023-05-29] MEDS: amLODIPine 5 MG Tablet PO (08:16)
[2023-05-29] MEDS: Calcium Carb/Vitamin D 1 TABLET Tablet PO (08:16)
[2023-05-29] MEDS: Multivitamins,Therapeutic Tablet 1 TABLET PO (08:17)
[2023-05-29] MEDS: Senna/Docusate Sodium 1 Tablet 2 TABLET PO (08:17)
[2023-05-29] MEDS: Polyethylene Glycol 3350 17 GM PACKET PO (08:17)
[2023-05-29] MEDS: guaiFENesin 10 ML UDC (200MG/10ML) PO ×2 (08:19→22:44)
[2023-05-29] MEDS: Lidocaine 5% Patch 1 PATCH TOPICAL (08:28)
[2023-05-29 16:51] VITALS: BP 136/68; PULSE 66; RESP 16; TEMP 36.4; O2SAT 96
[2023-05-29 16:59] VITALS: BMI 22.1
--- NOTE | 2023-05-29 17:13 | CASEMGMT ---
Social Work IDT met with patient, daughter, and at bedside to complete care plan meeting. Discussed patient progress with therapy PT/OT services. SW educated of [employer] insurance next review date 06/03. Patient is progressing well with therapy services. Patient and family goal are for patient to become self sufficient prior to discharge home. Patient's informed care team that if patient is not self sufficient upon cut date; private pay to remain on TCU is an option. SW will continue to follow to determine transition of care plans with patient and . RENETTA Torres
[2023-05-29 22:41] VITALS: BP 139/66; PULSE 70
[2023-05-29] MEDS: Atorvastatin Calcium 10 MG Tablet 5 MG PO (22:41)
[2023-05-29 23:07] VITALS: PULSE 70; RESP 14; O2SAT 97
[2023-05-30] MEDS: Pantoprazole Sodium 40 MG Tablet PO ×2 (05:21→14:05)
[2023-05-30] MEDS: Acetaminophen 500 MG Tablet 1000 MG PO ×3 (05:21→21:18)
[2023-05-30] MEDS: Levothyroxine 75 MCG Tablet PO (05:21)
[2023-05-30] MEDS: Sucralfate 1 GM Tablet PO ×2 (06:05→17:26)
[2023-05-30 08:56] VITALS: BP 105/53; PULSE 72; RESP 16; TEMP 36.6; O2SAT 93
[2023-05-30] MEDS: Lidocaine 5% Patch 1 PATCH TOPICAL (08:59)
[2023-05-30 09:00] VITALS: PULSE 72
[2023-05-30] MEDS: Calcium Carb/Vitamin D 1 TABLET Tablet PO (09:00)
[2023-05-30] MEDS: Metoprolol Tartrate 25 MG Tablet PO ×2 (09:00→21:19)
[2023-05-30] MEDS: amLODIPine 5 MG Tablet PO (09:00)
[2023-05-30] MEDS: APIXABAN 5 MG TABLET PO ×2 (09:00→21:19)
--- NOTE | 2023-05-30 09:00 | NURSING ---
pt continues to c/o LT shoulder/arm pain. pt cannot even feed himself d/t unable to lift LT arm w/out excruciating pain. When pt attempts to use it he jerks his arm d/t pain. and staff assist pt with eating all meals. RT arm is fractured with a soft splint in place.
[2023-05-30] MEDS: Multivitamins,Therapeutic Tablet 1 TABLET PO (09:01)
[2023-05-30] MEDS: Amiodarone 200 MG Tablet 100 MG PO (09:01)
[2023-05-30] MEDS: Losartan Potassium 100 MG Tablet PO (09:01)
[2023-05-30] MEDS: Multivitamin (Healthy Eyes) Capsule 1 CAP PO (09:01)
[2023-05-30] MEDS: Senna/Docusate Sodium 1 Tablet 2 TABLET PO ×2 (09:02→21:18)
[2023-05-30] MEDS: guaiFENesin 10 ML UDC (200MG/10ML) PO ×2 (09:07→21:22)
--- NOTE | 2023-05-30 13:58 | NURSING ---
Received fax that L shoulder MRI was not approved. Dr. Garzon aware. Patient updated by patient's RN and appt made for him to see Dr. Vaughan. More clinical info sent to see if MRI would be approved.
[2023-05-30 21:19] VITALS: BP 123/59; PULSE 66
[2023-05-30] MEDS: Atorvastatin Calcium 10 MG Tablet 5 MG PO (21:19)
[2023-05-31] MEDS: Acetaminophen 500 MG Tablet 1000 MG PO ×3 (05:03→21:36)
[2023-05-31] MEDS: Levothyroxine 75 MCG Tablet PO (05:03)
[2023-05-31] MEDS: Pantoprazole Sodium 40 MG Tablet PO ×2 (05:03→14:45)
[2023-05-31 09:28] VITALS: BP 105/53; PULSE 74; RESP 18; TEMP 37; O2SAT 94
[2023-05-31 09:31] VITALS: PULSE 74
[2023-05-31] MEDS: Senna/Docusate Sodium 1 Tablet 2 TABLET PO ×2 (09:31→21:36)
[2023-05-31] MEDS: Metoprolol Tartrate 25 MG Tablet PO ×2 (09:31→21:35)
[2023-05-31] MEDS: Losartan Potassium 100 MG Tablet PO (09:31)
[2023-05-31] MEDS: Amiodarone 200 MG Tablet 100 MG PO (09:31)
[2023-05-31] MEDS: Calcium Carb/Vitamin D 1 TABLET Tablet PO (09:32)
[2023-05-31] MEDS: APIXABAN 5 MG TABLET PO ×2 (09:32→21:35)
[2023-05-31] MEDS: Sucralfate 1 GM Tablet PO ×2 (09:32→16:15)
[2023-05-31] MEDS: Multivitamins,Therapeutic Tablet 1 TABLET PO (09:32)
[2023-05-31] MEDS: amLODIPine 5 MG Tablet PO (09:32)
[2023-05-31] MEDS: Multivitamin (Healthy Eyes) Capsule 1 CAP PO (09:32)
[2023-05-31] MEDS: Lidocaine 5% Patch 1 PATCH TOPICAL (09:32)
[2023-05-31] MEDS: guaiFENesin 10 ML UDC (200MG/10ML) PO ×2 (09:44→21:35)
[2023-05-31 21:28] VITALS: BP 135/64; PULSE 70; RESP 16; TEMP 36.6; O2SAT 95
[2023-05-31 21:35] VITALS: BP 135/64; PULSE 70
[2023-05-31] MEDS: Atorvastatin Calcium 10 MG Tablet 5 MG PO (21:35)
[2023-06-01 06:01] LABS: Absolute Lymphocyte Count 0.68 X10^3/uL (0.83-4.51); Absolute Neutrophil Count 2.3 X10^3/uL (2.0-7.7); Basophil# 0.02 X10^3/uL; Basophil% 0.5 % (0-1); Eosinophil# 0.14 X10^3/uL; Eosinophils% 3.7 % (0-5); Hematocrit 31.9 % (40-54); Lymphocyte # 0.68 X10^3/ul (0.83-4.51); Lymphocyte % 18.1 % (19-41); Mean Corp Hgb Conc 31.3 g/dL (32-36); Mean Corpuscular Hgb 29.4 pg (27.0-32.0); Mean Corpuscular Volume 93.8 fL (80-94); Mean Platelet Vol. 9.6 fl (6.2-12.0); Monocyte# 0.59 X10^3/uL; Monocyte% 15.7 % (0-10); NRBC Flagged by Analyzer 0 % (0-5); Neutrophil # 2.31 X10^3/uL (2.7-7.7); Neutrophil % 61.7 % (47-70); Platelet Count 224 K/mm3 (150-450); RBC Distribution Width CV 17.4 % (11.6-14.6); RBC Distribution Width SD 59.7 fl (35.1-43.9); White Blood Count 3.8 K/mm3 (4.4-11.0)
[2023-06-01 06:28] LABS: Anion Gap 5 (5-15); BUN 31 mg/dL (7-18); BUN/Creat Ratio 22.1 RATIO (10-20); Calcium,Total 8.8 mg/dL (8.5-10.1); Chloride 107 mmol/L (98-107); EST Glomerular Filtration Rate 51 mL/min (>60); Est Glom Filt Rate - Afr Amer 61 mL/min (>60); Estimated Creatinine Clearance 35.53 ml/min; Glucose 87 mg/dL (74-106); Potassium 3.8 mmol/L (3.5-5.1); Sodium Level 138 mmol/L (136-145)
[2023-06-01] MEDS: Levothyroxine 75 MCG Tablet PO (06:33)
[2023-06-01] MEDS: Pantoprazole Sodium 40 MG Tablet PO ×2 (06:33→14:08)
[2023-06-01] MEDS: Acetaminophen 500 MG Tablet 1000 MG PO ×3 (06:33→23:03)
[2023-06-01] MEDS: Sucralfate 1 GM Tablet PO ×2 (06:34→17:08)
[2023-06-01 08:43] VITALS: BP 135/71; PULSE 70
[2023-06-01] MEDS: Senna/Docusate Sodium 1 Tablet 2 TABLET PO ×2 (08:43→23:03)
[2023-06-01] MEDS: Amiodarone 200 MG Tablet 100 MG PO (08:43)
[2023-06-01] MEDS: Metoprolol Tartrate 25 MG Tablet PO ×2 (08:43→23:02)
[2023-06-01] MEDS: APIXABAN 5 MG TABLET PO ×2 (08:43→23:02)
[2023-06-01] MEDS: Calcium Carb/Vitamin D 1 TABLET Tablet PO (08:44)
[2023-06-01] MEDS: Losartan Potassium 100 MG Tablet PO (08:44)
[2023-06-01] MEDS: Multivitamin (Healthy Eyes) Capsule 1 CAP PO (08:44)
[2023-06-01] MEDS: amLODIPine 5 MG Tablet PO (08:44)
[2023-06-01] MEDS: Multivitamins,Therapeutic Tablet 1 TABLET PO (08:44)
[2023-06-01] MEDS: guaiFENesin 10 ML UDC (200MG/10ML) PO ×2 (08:45→23:03)
[2023-06-01] MEDS: Polyethylene Glycol 3350 17 GM PACKET PO (08:45)
[2023-06-01] MEDS: Lidocaine 5% Patch 1 PATCH TOPICAL (08:45)
--- NOTE | 2023-06-01 09:18 | NURSING ---
Shovel Logger Note; MDS for 05/31/2023 Complete
[2023-06-01 15:20] VITALS: BP 119/59; PULSE 68; RESP 16; TEMP 36.4; O2SAT 94
[2023-06-01 23:02] VITALS: BP 116/64; PULSE 64
[2023-06-01] MEDS: Atorvastatin Calcium 10 MG Tablet 5 MG PO (23:02)
[2023-06-01 23:50] VITALS: O2SAT 95
[2023-06-02] MEDS: Acetaminophen 500 MG Tablet 1000 MG PO ×3 (05:44→21:30)
[2023-06-02] MEDS: Sucralfate 1 GM Tablet PO ×2 (05:44→16:14)
[2023-06-02] MEDS: Levothyroxine 75 MCG Tablet PO (05:44)
[2023-06-02] MEDS: Pantoprazole Sodium 40 MG Tablet PO ×2 (05:45→08:02)
[2023-06-02 07:08] LABS: Anion Gap 2 (5-15); BUN 29 mg/dL (7-18); BUN/Creat Ratio 23.4 RATIO (10-20); Calcium,Total 8.8 mg/dL (8.5-10.1); Chloride 108 mmol/L (98-107); Creatinine, Serum 1.24 mg/dL (0.70-1.30); EST Glomerular Filtration Rate 58 mL/min (>60); Est Glom Filt Rate - Afr Amer 71 mL/min (>60); Estimated Creatinine Clearance 40.11 ml/min; Glucose 90 mg/dL (74-106); Potassium 3.8 mmol/L (3.5-5.1); Sodium Level 137 mmol/L (136-145)
[2023-06-02 07:51] VITALS: BP 140/62; PULSE 64; RESP 16; TEMP 36.5; O2SAT 94
[2023-06-02] MEDS: Amiodarone 200 MG Tablet 100 MG PO (08:00)
[2023-06-02] MEDS: Losartan Potassium 100 MG Tablet PO (08:00)
[2023-06-02] MEDS: Multivitamins,Therapeutic Tablet 1 TABLET PO (08:00)
[2023-06-02 08:01] VITALS: PULSE 64
[2023-06-02] MEDS: Multivitamin (Healthy Eyes) Capsule 1 CAP PO (08:01)
[2023-06-02] MEDS: Metoprolol Tartrate 25 MG Tablet PO ×2 (08:01→21:29)
[2023-06-02] MEDS: Senna/Docusate Sodium 1 Tablet 2 TABLET PO ×2 (08:01→21:29)
[2023-06-02] MEDS: amLODIPine 5 MG Tablet PO (08:01)
[2023-06-02] MEDS: APIXABAN 5 MG TABLET PO ×2 (08:02→21:30)
[2023-06-02] MEDS: Lidocaine 5% Patch 1 PATCH TOPICAL (08:02)
[2023-06-02] MEDS: Calcium Carb/Vitamin D 1 TABLET Tablet PO (08:02)
[2023-06-02] MEDS: guaiFENesin 10 ML UDC (200MG/10ML) PO ×2 (08:03→21:36)
--- NOTE | 2023-06-02 08:14 | NURSING ---
pt continues to need assistance with his meals d/t ROM issues with RT and LT arms. RT arm remains in splint from distal radius fx and LT arm d/t possible rotator cuff injury/MRI denied by insurance. pt up in recliner chair, call light in reach. assisted pt with using urinal, pt was unable to pull pants down or hold urinal. this nurse provided all care except pt able to stand up with use platform walker, slightly unsteady on feet.
--- NOTE | 2023-06-02 10:52 | NURSING ---
pt noted to have edema to RT upper arm above hard splint, removed STEPHANE wrap and readjusted wrap, applied wrap x2 from wrist to upper bicep to reduce edema, elevated on pillow. will continue to monitor.
[2023-06-02 16:27] VITALS: PULSE 63; RESP 16; O2SAT 96
[2023-06-02] MEDS: Atorvastatin Calcium 10 MG Tablet 5 MG PO (21:28)
[2023-06-02 21:29] VITALS: BP 138/66; PULSE 61
[2023-06-03] MEDS: Acetaminophen 500 MG Tablet 1000 MG PO ×3 (06:58→21:48)
[2023-06-03] MEDS: Levothyroxine 75 MCG Tablet PO (06:58)
[2023-06-03] MEDS: Multivitamins,Therapeutic Tablet 1 TABLET PO (06:58)
[2023-06-03] MEDS: Sucralfate 1 GM Tablet PO ×2 (06:58→15:21)
[2023-06-03] MEDS: Pantoprazole Sodium 40 MG Tablet PO ×2 (06:58→15:21)
[2023-06-03 08:48] VITALS: BP 98/54; PULSE 71; RESP 16; TEMP 36.3; O2SAT 96
[2023-06-03] MEDS: Calcium Carb/Vitamin D 1 TABLET Tablet PO (08:52)
[2023-06-03] MEDS: Lidocaine 5% Patch 1 PATCH TOPICAL (08:52)
[2023-06-03] MEDS: Senna/Docusate Sodium 1 Tablet 2 TABLET PO ×2 (08:52→21:48)
[2023-06-03] MEDS: Multivitamin (Healthy Eyes) Capsule 1 CAP PO (08:53)
[2023-06-03] MEDS: APIXABAN 5 MG TABLET PO ×2 (08:53→21:49)
[2023-06-03] MEDS: Amiodarone 200 MG Tablet 100 MG PO (08:55)
[2023-06-03] MEDS: guaiFENesin 10 ML UDC (200MG/10ML) PO ×2 (08:57→21:48)
[2023-06-03 10:17] VITALS: BP 152/71; PULSE 69
[2023-06-03] MEDS: amLODIPine 5 MG Tablet PO (10:21)
[2023-06-03 10:22] VITALS: PULSE 69
[2023-06-03] MEDS: Losartan Potassium 100 MG Tablet PO (10:22)
[2023-06-03] MEDS: Metoprolol Tartrate 25 MG Tablet PO ×2 (10:22→21:49)
[2023-06-03 21:49] VITALS: BP 136/67; PULSE 62
[2023-06-03] MEDS: Atorvastatin Calcium 10 MG Tablet 5 MG PO (21:49)
[2023-06-03 22:00] VITALS: PULSE 68; RESP 14; O2SAT 97
[2023-06-04] MEDS: Acetaminophen 500 MG Tablet 1000 MG PO ×3 (06:26→21:37)
[2023-06-04] MEDS: Pantoprazole Sodium 40 MG Tablet PO ×2 (06:26→08:40)
[2023-06-04] MEDS: Sucralfate 1 GM Tablet PO ×2 (06:27→16:28)
[2023-06-04] MEDS: Levothyroxine 75 MCG Tablet PO (06:27)
[2023-06-04] MEDS: Senna/Docusate Sodium 1 Tablet 2 TABLET PO ×2 (08:39→21:37)
[2023-06-04 08:40] VITALS: BP 127/62; PULSE 68
[2023-06-04] MEDS: Calcium Carb/Vitamin D 1 TABLET Tablet PO (08:40)
[2023-06-04] MEDS: APIXABAN 5 MG TABLET PO ×2 (08:40→21:38)
[2023-06-04] MEDS: Multivitamins,Therapeutic Tablet 1 TABLET PO (08:40)
[2023-06-04] MEDS: Losartan Potassium 100 MG Tablet PO (08:40)
[2023-06-04] MEDS: Amiodarone 200 MG Tablet 100 MG PO (08:40)
[2023-06-04] MEDS: Metoprolol Tartrate 25 MG Tablet PO ×2 (08:40→21:38)
[2023-06-04] MEDS: Multivitamin (Healthy Eyes) Capsule 1 CAP PO (08:41)
[2023-06-04] MEDS: amLODIPine 5 MG Tablet PO (08:41)
[2023-06-04] MEDS: Lidocaine 5% Patch 1 PATCH TOPICAL (08:41)
[2023-06-04] MEDS: guaiFENesin 10 ML UDC (200MG/10ML) PO ×2 (08:41→21:38)
[2023-06-04 13:55] VITALS: BP 102/52; PULSE 67; RESP 16; TEMP 36.4; O2SAT 97
--- NOTE | 2023-06-04 14:15 | NURSING ---
Pt off unit went to appt @ Dr. Vaughan's went by cot with [facility].
--- NOTE | 2023-06-04 15:48 | NURSING ---
Addendum entered by Anisa Sullivan 06/04/23 15:50: Entered in error Original Note: Pt returned from appt with Dr. Vaughan Pt to wear brace to right wrist for 2 weeks and f/u with Dr. Vaughan.
--- NOTE | 2023-06-04 15:51 | NURSING ---
Addendum entered by Rachel Varner 06/05/23 10:05: Call back from Ana, patient to remain NWB through right upper extremity for 2 weeks. Able to be weight bearing as tolerated after 2 weeks. Addendum entered by Rachel Varner 06/05/23 09:42: Called to clarify if patient able to bear weight on arm/wrist. Staff will check with Dr. Vaughan and call back. Original Note: Pt returned from appt with Dr. Vaughan. N.O.for wrist brace for 2 weeks then start ROM and PT for the hand and wrist. Okay to remove brace for self care activities. F/U with Dr. Vaughan in 6 weeks.
[2023-06-04 21:38] VITALS: BP 129/60; PULSE 61
[2023-06-04] MEDS: Atorvastatin Calcium 10 MG Tablet 5 MG PO (21:38)
[2023-06-05] MEDS: Levothyroxine 75 MCG Tablet PO (06:08)
[2023-06-05] MEDS: Acetaminophen 500 MG Tablet 1000 MG PO ×3 (06:08→20:44)
[2023-06-05] MEDS: Pantoprazole Sodium 40 MG Tablet PO ×2 (06:08→12:32)
[2023-06-05] MEDS: Sucralfate 1 GM Tablet PO ×2 (06:08→15:58)
[2023-06-05 08:46] VITALS: BP 114/59; PULSE 69
[2023-06-05 08:48] VITALS: PULSE 69
[2023-06-05] MEDS: APIXABAN 5 MG TABLET PO ×2 (08:48→20:45)
[2023-06-05] MEDS: Metoprolol Tartrate 25 MG Tablet PO ×2 (08:48→20:45)
[2023-06-05] MEDS: Lidocaine 5% Patch 1 PATCH TOPICAL (08:48)
[2023-06-05] MEDS: Calcium Carb/Vitamin D 1 TABLET Tablet PO (08:49)
[2023-06-05] MEDS: amLODIPine 5 MG Tablet PO (08:49)
[2023-06-05] MEDS: Amiodarone 200 MG Tablet 100 MG PO (08:49)
[2023-06-05] MEDS: Senna/Docusate Sodium 1 Tablet 2 TABLET PO ×2 (08:49→20:44)
[2023-06-05] MEDS: Multivitamins,Therapeutic Tablet 1 TABLET PO (08:50)
[2023-06-05] MEDS: Multivitamin (Healthy Eyes) Capsule 1 CAP PO (08:50)
[2023-06-05] MEDS: Losartan Potassium 100 MG Tablet PO (08:50)
[2023-06-05 11:21] VITALS: BMI 21.7
[2023-06-05 13:29] VITALS: BP 100/48; PULSE 66; RESP 18; TEMP 36.6; O2SAT 97
--- NOTE | 2023-06-05 15:42 | CHAPLAIN ---
Type of Pastoral Visit ___ Initial Visit _x__ Follow-up Visit ___ On-call Visit ___ General Patient Visit ___ Spiritual Assessment ___ Family Conference ___ Bereavement ___ Rapid Response ___ Code Blue ___ Other (describe below) Pastoral Care Referral From _x__ Patient _x__ Family ___ Nurse ___ Physician ___ Metal Window Screen Assembler ___ Annual Campaign Manager ___ Other (describe below) Sacrament/Intervention _x__ Active listening ___ Anointing ___ Anglican ___ Bereavement ___ Communion ___ Juany exploration ___ ___ Life review _x__ Prayer ___ Reconciliation ___ Sacrament of Sick ___ Supportive presence ___ Wedding ___ Other (describe below) Pastoral Comments patient and spouse are in the room; discussion about the length and depth of the recovery and about the hopes for the future; spouse indicates worries about banking issues; discussion and prayer for support; both reaffirm their juany in God and how that gets them through these trials
[2023-06-05 20:40] VITALS: PULSE 66; RESP 15
[2023-06-05] MEDS: guaiFENesin 10 ML UDC (200MG/10ML) PO (20:44)
[2023-06-05 20:45] VITALS: BP 140/53; PULSE 66
[2023-06-05] MEDS: Atorvastatin Calcium 10 MG Tablet 5 MG PO (20:46)
[2023-06-05 20:58] VITALS: BP 140/53; PULSE 66
[2023-06-06] MEDS: Acetaminophen 500 MG Tablet 1000 MG PO ×3 (06:06→21:36)
[2023-06-06] MEDS: Sucralfate 1 GM Tablet PO ×2 (06:07→16:58)
[2023-06-06] MEDS: Pantoprazole Sodium 40 MG Tablet PO ×2 (06:07→14:45)
[2023-06-06] MEDS: Levothyroxine 75 MCG Tablet PO (06:07)
--- NOTE | 2023-06-06 08:53 | MDS.RN ---
Information for the MDS was obtained from review of the clinical record, interview of resident, staff, and direct observation of resident?s care.
[2023-06-06 08:56] VITALS: BP 106/55; PULSE 63
[2023-06-06] MEDS: Metoprolol Tartrate 25 MG Tablet PO ×2 (08:56→21:38)
[2023-06-06] MEDS: Multivitamin (Healthy Eyes) Capsule 1 CAP PO (08:56)
[2023-06-06] MEDS: APIXABAN 5 MG TABLET PO ×2 (08:57→21:36)
[2023-06-06] MEDS: Multivitamins,Therapeutic Tablet 1 TABLET PO (08:57)
[2023-06-06] MEDS: Amiodarone 200 MG Tablet 100 MG PO (08:57)
[2023-06-06] MEDS: Calcium Carb/Vitamin D 1 TABLET Tablet PO (08:58)
[2023-06-06] MEDS: Senna/Docusate Sodium 1 Tablet 2 TABLET PO ×2 (08:58→21:37)
[2023-06-06] MEDS: Lidocaine 5% Patch 1 PATCH TOPICAL (08:59)
[2023-06-06] MEDS: amLODIPine 5 MG Tablet PO (10:15)
[2023-06-06] MEDS: Losartan Potassium 100 MG Tablet PO (10:15)
[2023-06-06 13:38] VITALS: BP 116/66; PULSE 69; RESP 16; TEMP 36.1; O2SAT 96
[2023-06-06] MEDS: Atorvastatin Calcium 10 MG Tablet 5 MG PO (21:37)
[2023-06-06] MEDS: guaiFENesin 10 ML UDC (200MG/10ML) PO (21:37)
[2023-06-06 21:38] VITALS: BP 132/71; PULSE 73
[2023-06-06 21:44] VITALS: BP 132/71; PULSE 73
[2023-06-07] MEDS: Sucralfate 1 GM Tablet PO ×2 (06:20→16:22)
[2023-06-07] MEDS: Acetaminophen 500 MG Tablet 1000 MG PO ×3 (06:20→21:07)
[2023-06-07] MEDS: Levothyroxine 75 MCG Tablet PO (06:20)
[2023-06-07] MEDS: Pantoprazole Sodium 40 MG Tablet PO ×2 (06:20→13:07)
[2023-06-07 08:03] VITALS: BP 120/63; PULSE 69; RESP 16; TEMP 36.3; O2SAT 95
[2023-06-07] MEDS: Multivitamins,Therapeutic Tablet 1 TABLET PO (08:08)
[2023-06-07] MEDS: Amiodarone 200 MG Tablet 100 MG PO (08:08)
[2023-06-07] MEDS: Multivitamin (Healthy Eyes) Capsule 1 CAP PO (08:09)
[2023-06-07] MEDS: Lidocaine 5% Patch 1 PATCH TOPICAL (08:09)
[2023-06-07] MEDS: Losartan Potassium 100 MG Tablet PO (08:09)
[2023-06-07] MEDS: APIXABAN 5 MG TABLET PO ×2 (08:09→21:07)
[2023-06-07 08:10] VITALS: PULSE 69
[2023-06-07] MEDS: Senna/Docusate Sodium 1 Tablet 2 TABLET PO ×2 (08:10→21:07)
[2023-06-07] MEDS: Metoprolol Tartrate 25 MG Tablet PO ×2 (08:10→21:07)
[2023-06-07] MEDS: amLODIPine 5 MG Tablet PO (08:10)
[2023-06-07] MEDS: Calcium Carb/Vitamin D 1 TABLET Tablet PO (08:10)
[2023-06-07] MEDS: Atorvastatin Calcium 10 MG Tablet 5 MG PO (21:06)
[2023-06-07 21:07] VITALS: BP 104/57; PULSE 70
[2023-06-08] MEDS: Pantoprazole Sodium 40 MG Tablet PO ×2 (05:35→13:12)
[2023-06-08] MEDS: Acetaminophen 500 MG Tablet 1000 MG PO ×3 (05:35→23:06)
[2023-06-08] MEDS: Levothyroxine 75 MCG Tablet PO (05:35)
[2023-06-08 05:55] LABS: Absolute Lymphocyte Count 0.74 X10^3/uL (0.83-4.51); Absolute Neutrophil Count 2.7 X10^3/uL (2.0-7.7); Basophil# 0.03 X10^3/uL; Basophil% 0.7 % (0-1); Eosinophil# 0.12 X10^3/uL; Eosinophils% 2.9 % (0-5); Hematocrit 31.3 % (40-54); Hemoglobin 9.8 g/dL (13.0-16.5); Lymphocyte # 0.74 X10^3/ul (0.83-4.51); Lymphocyte % 18.1 % (19-41); Mean Corp Hgb Conc 31.3 g/dL (32-36); Mean Corpuscular Hgb 29.3 pg (27.0-32.0); Mean Corpuscular Volume 93.7 fL (80-94); Mean Platelet Vol. 10.1 fl (6.2-12.0); Monocyte# 0.52 X10^3/uL; Monocyte% 12.7 % (0-10); NRBC Flagged by Analyzer 0 % (0-5); Neutrophil # 2.66 X10^3/uL (2.7-7.7); Neutrophil % 65.1 % (47-70); Platelet Count 151 K/mm3 (150-450); RBC Distribution Width CV 18.1 % (11.6-14.6); RBC Distribution Width SD 62.4 fl (35.1-43.9); Red Blood Count 3.34 M/mm3 (4.6-6.2); White Blood Count 4.1 K/mm3 (4.4-11.0)
[2023-06-08 06:13] LABS: Anion Gap 5 (5-15); BUN 27 mg/dL (7-18); BUN/Creat Ratio 21.3 RATIO (10-20); Chloride 111 mmol/L (98-107); Creatinine, Serum 1.27 mg/dL (0.70-1.30); EST Glomerular Filtration Rate 57 mL/min (>60); Est Glom Filt Rate - Afr Amer 69 mL/min (>60); Estimated Creatinine Clearance 38.33 ml/min; Glucose 86 mg/dL (74-106); Potassium 3.7 mmol/L (3.5-5.1); Sodium Level 140 mmol/L (136-145)
[2023-06-08] MEDS: Sucralfate 1 GM Tablet PO ×2 (06:17→16:42)
[2023-06-08 07:41] VITALS: BP 143/69; PULSE 64; RESP 16; TEMP 36.2; O2SAT 96
[2023-06-08] MEDS: Multivitamins,Therapeutic Tablet 1 TABLET PO (07:45)
[2023-06-08] MEDS: APIXABAN 5 MG TABLET PO ×2 (07:45→23:07)
[2023-06-08] MEDS: Amiodarone 200 MG Tablet 100 MG PO (07:45)
[2023-06-08] MEDS: Senna/Docusate Sodium 1 Tablet 2 TABLET PO (07:45)
[2023-06-08 07:46] VITALS: PULSE 64
[2023-06-08] MEDS: amLODIPine 5 MG Tablet PO (07:46)
[2023-06-08] MEDS: Metoprolol Tartrate 25 MG Tablet PO ×2 (07:46→23:07)
[2023-06-08] MEDS: Losartan Potassium 100 MG Tablet PO (07:46)
[2023-06-08] MEDS: Calcium Carb/Vitamin D 1 TABLET Tablet PO (07:46)
[2023-06-08] MEDS: Multivitamin (Healthy Eyes) Capsule 1 CAP PO (07:46)
[2023-06-08] MEDS: Lidocaine 5% Patch 1 PATCH TOPICAL (10:40)
[2023-06-08 23:07] VITALS: BP 156/70; PULSE 63
[2023-06-08] MEDS: Atorvastatin Calcium 10 MG Tablet 5 MG PO (23:08)
[2023-06-09] MEDS: Levothyroxine 75 MCG Tablet PO (06:22)
[2023-06-09] MEDS: Sucralfate 1 GM Tablet PO ×2 (06:22→17:23)
[2023-06-09] MEDS: Acetaminophen 500 MG Tablet 1000 MG PO ×3 (06:22→21:16)
[2023-06-09] MEDS: Pantoprazole Sodium 40 MG Tablet PO ×2 (06:22→13:34)
[2023-06-09 09:22] VITALS: BP 102/57; PULSE 67
[2023-06-09] MEDS: Multivitamins,Therapeutic Tablet 1 TABLET PO (09:22)
[2023-06-09] MEDS: Metoprolol Tartrate 25 MG Tablet PO ×2 (09:22→21:15)
[2023-06-09] MEDS: Amiodarone 200 MG Tablet 100 MG PO (09:22)
[2023-06-09] MEDS: Calcium Carb/Vitamin D 1 TABLET Tablet PO (09:22)
[2023-06-09] MEDS: APIXABAN 5 MG TABLET PO ×2 (09:23→21:15)
[2023-06-09] MEDS: Multivitamin (Healthy Eyes) Capsule 1 CAP PO (09:23)
[2023-06-09] MEDS: Lidocaine 5% Patch 1 PATCH TOPICAL (09:23)
[2023-06-09] MEDS: amLODIPine 5 MG Tablet PO (09:23)
[2023-06-09 10:00] VITALS: PULSE 62
[2023-06-09] MEDS: Losartan Potassium 100 MG Tablet PO (10:43)
[2023-06-09 16:00] VITALS: BP 101/55; PULSE 65; RESP 16; TEMP 36.3; O2SAT 98
[2023-06-09 21:15] VITALS: BP 135/63; PULSE 62
[2023-06-09] MEDS: Atorvastatin Calcium 10 MG Tablet 5 MG PO (21:15)
[2023-06-10] MEDS: Acetaminophen 500 MG Tablet 1000 MG PO ×3 (05:27→20:58)
[2023-06-10] MEDS: Pantoprazole Sodium 40 MG Tablet PO ×2 (05:27→13:15)
[2023-06-10] MEDS: Levothyroxine 75 MCG Tablet PO (05:27)
[2023-06-10] MEDS: Sucralfate 1 GM Tablet PO ×2 (06:21→16:59)
[2023-06-10] MEDS: Multivitamin (Healthy Eyes) Capsule 1 CAP PO (09:23)
[2023-06-10] MEDS: APIXABAN 5 MG TABLET PO ×2 (09:23→20:53)
[2023-06-10] MEDS: Losartan Potassium 100 MG Tablet PO (09:23)
[2023-06-10] MEDS: Calcium Carb/Vitamin D 1 TABLET Tablet PO (09:23)
[2023-06-10] MEDS: amLODIPine 5 MG Tablet PO (09:23)
[2023-06-10] MEDS: Lidocaine 5% Patch 1 PATCH TOPICAL (09:23)
[2023-06-10] MEDS: Multivitamins,Therapeutic Tablet 1 TABLET PO (09:24)
[2023-06-10] MEDS: Amiodarone 200 MG Tablet 100 MG PO (09:24)
[2023-06-10] MEDS: Senna/Docusate Sodium 1 Tablet 2 TABLET PO (09:25)
[2023-06-10 09:32] VITALS: BP 108/49; PULSE 67
[2023-06-10 10:56] VITALS: BP 128/60; PULSE 65
[2023-06-10] MEDS: Metoprolol Tartrate 25 MG Tablet PO ×2 (10:56→20:54)
[2023-06-10 14:23] VITALS: BP 105/55; PULSE 64; RESP 16; TEMP 36.3; O2SAT 97
[2023-06-10] MEDS: Atorvastatin Calcium 10 MG Tablet 5 MG PO (20:53)
[2023-06-10 20:54] VITALS: BP 138/64; PULSE 60
[2023-06-10] MEDS: Nystatin Powder 15gm Bottle 1 APPLIC TOPICAL (21:08)
[2023-06-10 21:10] VITALS: BP 138/64; PULSE 60
[2023-06-11] MEDS: Pantoprazole Sodium 40 MG Tablet PO ×2 (05:42→14:13)
[2023-06-11] MEDS: Levothyroxine 75 MCG Tablet PO (05:42)
[2023-06-11] MEDS: Acetaminophen 500 MG Tablet 1000 MG PO ×3 (05:42→20:41)
[2023-06-11] MEDS: Sucralfate 1 GM Tablet PO ×2 (06:21→16:18)
[2023-06-11 07:37] VITALS: BP 115/60; PULSE 60; RESP 16; TEMP 36.3; O2SAT 95
[2023-06-11] MEDS: Multivitamins,Therapeutic Tablet 1 TABLET PO (07:38)
[2023-06-11] MEDS: Amiodarone 200 MG Tablet 100 MG PO (07:39)
[2023-06-11] MEDS: APIXABAN 5 MG TABLET PO ×2 (07:39→20:40)
[2023-06-11] MEDS: Losartan Potassium 100 MG Tablet PO (07:39)
[2023-06-11] MEDS: Multivitamin (Healthy Eyes) Capsule 1 CAP PO (07:39)
[2023-06-11 07:40] VITALS: PULSE 60
[2023-06-11] MEDS: Calcium Carb/Vitamin D 1 TABLET Tablet PO (07:40)
[2023-06-11] MEDS: Metoprolol Tartrate 25 MG Tablet PO ×2 (07:40→20:41)
[2023-06-11] MEDS: amLODIPine 5 MG Tablet PO (07:40)
[2023-06-11] MEDS: Lidocaine 5% Patch 1 PATCH TOPICAL (07:41)
[2023-06-11] MEDS: Nystatin Powder 15gm Bottle 1 APPLIC TOPICAL ×2 (07:41→20:42)
[2023-06-11] MEDS: Senna/Docusate Sodium 1 Tablet 2 TABLET PO (14:21)
[2023-06-11 20:40] VITALS: RESP 15
[2023-06-11] MEDS: Atorvastatin Calcium 10 MG Tablet 5 MG PO (20:40)
[2023-06-11 20:41] VITALS: BP 150/73; PULSE 66
[2023-06-11 20:50] VITALS: BP 150/73; PULSE 66
[2023-06-12] MEDS: Senna/Docusate Sodium 1 Tablet 2 TABLET PO (06:09)
[2023-06-12] MEDS: Sucralfate 1 GM Tablet PO ×2 (06:09→15:26)
[2023-06-12] MEDS: Levothyroxine 75 MCG Tablet PO (06:09)
[2023-06-12] MEDS: Pantoprazole Sodium 40 MG Tablet PO ×2 (06:10→13:45)
[2023-06-12] MEDS: Acetaminophen 500 MG Tablet 1000 MG PO ×3 (06:10→20:12)
[2023-06-12] MEDS: Amiodarone 200 MG Tablet 100 MG PO (10:04)
[2023-06-12 10:05] VITALS: BP 115/59; PULSE 68
[2023-06-12] MEDS: APIXABAN 5 MG TABLET PO ×2 (10:05→20:11)
[2023-06-12] MEDS: Losartan Potassium 100 MG Tablet PO (10:05)
[2023-06-12] MEDS: Calcium Carb/Vitamin D 1 TABLET Tablet PO (10:05)
[2023-06-12] MEDS: Metoprolol Tartrate 25 MG Tablet PO ×2 (10:05→20:12)
[2023-06-12] MEDS: amLODIPine 5 MG Tablet PO (10:06)
[2023-06-12] MEDS: Multivitamins,Therapeutic Tablet 1 TABLET PO (10:06)
[2023-06-12] MEDS: Multivitamin (Healthy Eyes) Capsule 1 CAP PO (10:06)
[2023-06-12] MEDS: Lidocaine 5% Patch 1 PATCH TOPICAL (10:12)
[2023-06-12] MEDS: Nystatin Powder 15gm Bottle 1 APPLIC TOPICAL ×2 (10:13→20:16)
[2023-06-12 10:14] VITALS: BMI 21.6
[2023-06-12] MEDS: Polyethylene Glycol 3350 17 GM PACKET PO (13:45)
[2023-06-12 13:57] VITALS: BP 100/51; PULSE 66; RESP 16; TEMP 36.3; O2SAT 97
[2023-06-12] MEDS: Atorvastatin Calcium 10 MG Tablet 5 MG PO (20:11)
[2023-06-12 20:12] VITALS: BP 112/55; PULSE 63
[2023-06-13] MEDS: Pantoprazole Sodium 40 MG Tablet PO ×2 (06:40→13:59)
[2023-06-13] MEDS: Sucralfate 1 GM Tablet PO ×2 (06:40→16:02)
[2023-06-13] MEDS: Acetaminophen 500 MG Tablet 1000 MG PO ×3 (06:40→20:32)
[2023-06-13] MEDS: Levothyroxine 75 MCG Tablet PO (06:40)
[2023-06-13 08:58] VITALS: BP 116/62; PULSE 69; RESP 16; TEMP 36.2; O2SAT 97
[2023-06-13] MEDS: Nystatin Powder 15gm Bottle 1 APPLIC TOPICAL ×2 (09:01→20:29)
[2023-06-13] MEDS: Amiodarone 200 MG Tablet 100 MG PO (09:02)
[2023-06-13] MEDS: Multivitamins,Therapeutic Tablet 1 TABLET PO (09:02)
[2023-06-13] MEDS: Lidocaine 5% Patch 1 PATCH TOPICAL (09:02)
[2023-06-13 09:03] VITALS: PULSE 69
[2023-06-13] MEDS: Multivitamin (Healthy Eyes) Capsule 1 CAP PO (09:03)
[2023-06-13] MEDS: APIXABAN 5 MG TABLET PO ×2 (09:03→20:32)
[2023-06-13] MEDS: amLODIPine 5 MG Tablet PO (09:03)
[2023-06-13] MEDS: Metoprolol Tartrate 25 MG Tablet PO ×2 (09:03→20:32)
[2023-06-13] MEDS: Losartan Potassium 100 MG Tablet PO (09:03)
[2023-06-13] MEDS: Calcium Carb/Vitamin D 1 TABLET Tablet PO (09:03)
[2023-06-13 13:00] VITALS: TEMP 38.5
[2023-06-13 14:53] VITALS: TEMP 37.7
[2023-06-13 20:19] VITALS: PULSE 61; RESP 16; O2SAT 95
[2023-06-13 20:32] VITALS: BP 121/61; PULSE 61
[2023-06-13] MEDS: Atorvastatin Calcium 10 MG Tablet 5 MG PO (20:32)
[2023-06-14] MEDS: Sucralfate 1 GM Tablet PO ×2 (06:47→16:34)
[2023-06-14] MEDS: Levothyroxine 75 MCG Tablet PO (06:47)
[2023-06-14] MEDS: Pantoprazole Sodium 40 MG Tablet PO ×2 (06:47→14:04)
[2023-06-14] MEDS: Acetaminophen 500 MG Tablet 1000 MG PO ×3 (06:47→21:21)
[2023-06-14 10:54] VITALS: BP 106/51; PULSE 65
[2023-06-14] MEDS: Calcium Carb/Vitamin D 1 TABLET Tablet PO (10:54)
[2023-06-14] MEDS: Metoprolol Tartrate 25 MG Tablet PO ×2 (10:54→21:17)
[2023-06-14] MEDS: Nystatin Powder 15gm Bottle 1 APPLIC TOPICAL ×2 (10:54→21:18)
[2023-06-14] MEDS: Amiodarone 200 MG Tablet 100 MG PO (10:55)
[2023-06-14] MEDS: amLODIPine 5 MG Tablet PO (10:55)
[2023-06-14] MEDS: Losartan Potassium 100 MG Tablet PO (10:55)
[2023-06-14] MEDS: Multivitamin (Healthy Eyes) Capsule 1 CAP PO (10:55)
[2023-06-14] MEDS: Multivitamins,Therapeutic Tablet 1 TABLET PO ×2 (10:56)
[2023-06-14] MEDS: APIXABAN 5 MG TABLET PO ×2 (10:57→21:15)
[2023-06-14 11:06] VITALS: BP 106/51; PULSE 65
--- NOTE | 2023-06-14 14:04 | CASEMGMT ---
Social Work SW received notification that [employer] has provided Notice of Medicare Non-Coverage effective 06/16/2023. SW met with patient and , Shira at bedside to notify of [employer] discontinuation of services. Patient informed SW that he does not feel comfortable to discharge home at this time. Patient anticipate removal of cast on 06/18/2023. Patient informed that he would like to see what I can do without the cast. SW informed patient of his Medicare Right to appeal [employer] decision to end service via [employer] [phone]. Patient declined appeal at this time. The patient informed SW that he would like to transition to Private Pay. SW informed patient that Medicare covered correction ends on 06/16/2023; non-covered day starts on 06/17/2023. The patient and was informed that private pay amount is $660/day with 21 days up front. The patient informed SW that he will have his assist with paying for private pay. Patient and agreed to transition of care plan to remain in TCU under private pay. Patient informed SW that when it is appropriate to transition home, he would like to obtain home health care services via [facility]. Plan of Care: Patient will transition to Private Pay on 06/17/2023 RENETTA Torres
[2023-06-14 16:00] VITALS: BP 116/64; PULSE 61; RESP 16; TEMP 36.2; O2SAT 96
[2023-06-14 21:17] VITALS: BP 121/58; PULSE 60
[2023-06-14] MEDS: Atorvastatin Calcium 10 MG Tablet 5 MG PO (21:17)
[2023-06-14 22:00] VITALS: BP 121/58; PULSE 60
[2023-06-15] MEDS: Pantoprazole Sodium 40 MG Tablet PO ×2 (05:23→13:53)
[2023-06-15] MEDS: Acetaminophen 500 MG Tablet 1000 MG PO ×3 (05:24→20:47)
[2023-06-15] MEDS: Levothyroxine 75 MCG Tablet PO (05:24)
[2023-06-15 05:52] LABS: Absolute Lymphocyte Count 0.72 X10^3/uL (0.83-4.51); Absolute Neutrophil Count 1.9 X10^3/uL (2.0-7.7); Basophil# 0.02 X10^3/uL; Basophil% 0.6 % (0-1); Eosinophil# 0.13 X10^3/uL; Eosinophils% 3.8 % (0-5); Hematocrit 32.4 % (40-54); Hemoglobin 10.2 g/dL (13.0-16.5); Lymphocyte # 0.72 X10^3/ul (0.83-4.51); Lymphocyte % 21.2 % (19-41); Mean Corp Hgb Conc 31.5 g/dL (32-36); Mean Corpuscular Hgb 29.4 pg (27.0-32.0); Mean Corpuscular Volume 93.4 fL (80-94); Monocyte# 0.58 X10^3/uL; Monocyte% 17.1 % (0-10); NRBC Flagged by Analyzer 0 % (0-5); Neutrophil # 1.93 X10^3/uL (2.7-7.7); Neutrophil % 56.7 % (47-70); Platelet Count 170 K/mm3 (150-450); RBC Distribution Width CV 18.4 % (11.6-14.6); RBC Distribution Width SD 63.2 fl (35.1-43.9); Red Blood Count 3.47 M/mm3 (4.6-6.2); White Blood Count 3.4 K/mm3 (4.4-11.0)
[2023-06-15] MEDS: Sucralfate 1 GM Tablet PO ×2 (06:07→16:15)
[2023-06-15 06:42] LABS: Anion Gap 5 (5-15); BUN 33 mg/dL (7-18); BUN/Creat Ratio 27.7 RATIO (10-20); Calcium,Total 9.2 mg/dL (8.5-10.1); Chloride 109 mmol/L (98-107); Creatinine, Serum 1.19 mg/dL (0.70-1.30); EST Glomerular Filtration Rate 61 mL/min (>60); Est Glom Filt Rate - Afr Amer 74 mL/min (>60); Estimated Creatinine Clearance 40.72 ml/min; Glucose 82 mg/dL (74-106); Sodium Level 139 mmol/L (136-145)
[2023-06-15 10:01] VITALS: BP 100/54; PULSE 66; RESP 16; TEMP 36.8; O2SAT 97
[2023-06-15] MEDS: Multivitamin (Healthy Eyes) Capsule 1 CAP PO (10:03)
[2023-06-15] MEDS: Amiodarone 200 MG Tablet 100 MG PO (10:03)
[2023-06-15] MEDS: APIXABAN 5 MG TABLET PO ×2 (10:03→20:45)
[2023-06-15] MEDS: Lidocaine 5% Patch 1 PATCH TOPICAL (10:03)
[2023-06-15] MEDS: Losartan Potassium 100 MG Tablet PO (10:03)
[2023-06-15 10:04] VITALS: PULSE 66
[2023-06-15] MEDS: Nystatin Powder 15gm Bottle 1 APPLIC TOPICAL ×2 (10:04→20:41)
[2023-06-15] MEDS: Metoprolol Tartrate 25 MG Tablet PO ×2 (10:04→20:47)
[2023-06-15] MEDS: amLODIPine 5 MG Tablet PO (10:05)
[2023-06-15] MEDS: Calcium Carb/Vitamin D 1 TABLET Tablet PO (10:05)
--- NOTE | 2023-06-15 14:04 | CASEMGMT ---
Social Work SW met with patient per patient request. Patient reports being concerned about verifying payment for 21 days starting 06/16. Patient informed SW that he has been unable to get in contact with his . SW inquired about last contact. Patient informed SW that his last visit 06/14/2023. Patient requested for SW to confirm payment status. SW inquired about welfare check of . Patient informed SW that his daughter is out of town and he does not have access to his mobile device to contact neighbors. SW informed patient that if is not onsite in 1hr, welfare check can be completed by police. Patient is agreeable. SW contacted Admission CoordinatorDorene to assist with verification of payment. 1639- Dorene confirmed payment for 21 days starting 06/16. SW went to room to notify patient, but was at bedside confirming. Patient was thankful for support. RENETTA Torres
[2023-06-15] MEDS: Atorvastatin Calcium 10 MG Tablet 5 MG PO (20:46)
[2023-06-15 20:47] VITALS: BP 114/50; PULSE 62
[2023-06-15 21:00] VITALS: BP 114/50; PULSE 62; PULSE 64; O2SAT 94
[2023-06-16] MEDS: Levothyroxine 75 MCG Tablet PO (05:35)
[2023-06-16] MEDS: Acetaminophen 500 MG Tablet 1000 MG PO ×3 (05:35→22:27)
[2023-06-16] MEDS: Pantoprazole Sodium 40 MG Tablet PO ×2 (05:35→13:28)
[2023-06-16 05:42] VITALS: PULSE 62; O2SAT 91
[2023-06-16] MEDS: Sucralfate 1 GM Tablet PO ×2 (06:09→16:04)
[2023-06-16] MEDS: Lidocaine 5% Patch 1 PATCH TOPICAL (10:05)
[2023-06-16] MEDS: Amiodarone 200 MG Tablet 100 MG PO (10:07)
[2023-06-16] MEDS: Calcium Carb/Vitamin D 1 TABLET Tablet PO (10:07)
[2023-06-16] MEDS: Multivitamins,Therapeutic Tablet 1 TABLET PO (10:08)
[2023-06-16] MEDS: APIXABAN 5 MG TABLET PO ×2 (10:08→22:26)
[2023-06-16] MEDS: Multivitamin (Healthy Eyes) Capsule 1 CAP PO (10:09)
[2023-06-16] MEDS: Nystatin Powder 15gm Bottle 1 APPLIC TOPICAL ×2 (10:09→22:29)
[2023-06-16 10:18] VITALS: PULSE 62
[2023-06-16] MEDS: Metoprolol Tartrate 25 MG Tablet PO ×2 (10:18→22:26)
[2023-06-16] MEDS: Losartan Potassium 100 MG Tablet PO (10:18)
[2023-06-16] MEDS: amLODIPine 5 MG Tablet PO (10:18)
[2023-06-16 15:21] VITALS: BP 120/50; PULSE 74; RESP 12; TEMP 36.6; O2SAT 96
[2023-06-16 22:26] VITALS: BP 127/60; PULSE 59
[2023-06-16] MEDS: Atorvastatin Calcium 10 MG Tablet 5 MG PO (22:28)
[2023-06-17] MEDS: Sucralfate 1 GM Tablet PO ×2 (05:58→16:36)
[2023-06-17] MEDS: Levothyroxine 75 MCG Tablet PO (05:59)
[2023-06-17] MEDS: Pantoprazole Sodium 40 MG Tablet PO ×2 (05:59→14:06)
[2023-06-17] MEDS: Acetaminophen 500 MG Tablet 1000 MG PO ×3 (05:59→22:28)
[2023-06-17 09:58] VITALS: BP 99/48; PULSE 65; RESP 17; TEMP 36.3; O2SAT 94
[2023-06-17 10:02] VITALS: BP 100/48
[2023-06-17] MEDS: Losartan Potassium 100 MG Tablet PO (10:07)
[2023-06-17] MEDS: Multivitamins,Therapeutic Tablet 1 TABLET PO (10:07)
[2023-06-17] MEDS: Amiodarone 200 MG Tablet 100 MG PO (10:07)
[2023-06-17 10:08] VITALS: PULSE 65
[2023-06-17] MEDS: Nystatin Powder 15gm Bottle 1 APPLIC TOPICAL ×2 (10:08→22:29)
[2023-06-17] MEDS: Multivitamin (Healthy Eyes) Capsule 1 CAP PO (10:08)
[2023-06-17] MEDS: APIXABAN 5 MG TABLET PO ×2 (10:08→22:27)
[2023-06-17] MEDS: Metoprolol Tartrate 25 MG Tablet PO ×2 (10:08→22:29)
[2023-06-17] MEDS: amLODIPine 5 MG Tablet PO (10:09)
[2023-06-17] MEDS: Calcium Carb/Vitamin D 1 TABLET Tablet PO (10:09)
--- NOTE | 2023-06-17 21:20 | NURSING ---
Spoke w/ Dr. Garzon via phone to update resident has been refusing Miralax and requesting order be changed to PRN. New order received and read back to change Miralax 17 gm to daily PRN constipation.
[2023-06-17 22:00] VITALS: O2SAT 97
[2023-06-17] MEDS: Atorvastatin Calcium 10 MG Tablet 5 MG PO (22:26)
[2023-06-17 22:29] VITALS: BP 124/53; PULSE 60
[2023-06-18] MEDS: Pantoprazole Sodium 40 MG Tablet PO ×2 (06:07→14:21)
[2023-06-18] MEDS: Sucralfate 1 GM Tablet PO ×2 (06:07→17:15)
[2023-06-18] MEDS: Levothyroxine 75 MCG Tablet PO (06:08)
[2023-06-18] MEDS: Acetaminophen 500 MG Tablet 1000 MG PO ×3 (06:08→21:19)
[2023-06-18 09:53] VITALS: BP 105/60; PULSE 64
[2023-06-18] MEDS: Losartan Potassium 100 MG Tablet PO (09:53)
[2023-06-18] MEDS: Metoprolol Tartrate 25 MG Tablet PO ×2 (09:53→21:18)
[2023-06-18] MEDS: Multivitamin (Healthy Eyes) Capsule 1 CAP PO (09:53)
[2023-06-18] MEDS: Calcium Carb/Vitamin D 1 TABLET Tablet PO (09:53)
[2023-06-18] MEDS: amLODIPine 5 MG Tablet PO (09:53)
[2023-06-18] MEDS: Amiodarone 200 MG Tablet 100 MG PO (09:53)
[2023-06-18] MEDS: APIXABAN 5 MG TABLET PO ×2 (09:53→21:19)
[2023-06-18] MEDS: Nystatin Powder 15gm Bottle 1 APPLIC TOPICAL ×2 (09:54→21:19)
[2023-06-18] MEDS: Multivitamins,Therapeutic Tablet 1 TABLET PO (12:14)
[2023-06-18 15:28] VITALS: BP 113/55; PULSE 64; RESP 16; TEMP 35.8; O2SAT 96
[2023-06-18 21:18] VITALS: BP 120/55; PULSE 60
[2023-06-18] MEDS: Atorvastatin Calcium 10 MG Tablet 5 MG PO (21:18)
[2023-06-19] MEDS: Acetaminophen 500 MG Tablet 1000 MG PO ×3 (05:32→20:39)
[2023-06-19] MEDS: Sucralfate 1 GM Tablet PO ×2 (05:32→17:37)
[2023-06-19] MEDS: Levothyroxine 75 MCG Tablet PO (05:32)
[2023-06-19] MEDS: Pantoprazole Sodium 40 MG Tablet PO ×2 (05:33→12:47)
[2023-06-19 08:13] VITALS: BP 126/64; PULSE 85
[2023-06-19 08:14] VITALS: PULSE 85
[2023-06-19] MEDS: Multivitamins,Therapeutic Tablet 1 TABLET PO (08:14)
[2023-06-19] MEDS: Metoprolol Tartrate 25 MG Tablet PO ×2 (08:14→20:39)
[2023-06-19] MEDS: Losartan Potassium 100 MG Tablet PO (08:15)
[2023-06-19] MEDS: Amiodarone 200 MG Tablet 100 MG PO (08:15)
[2023-06-19] MEDS: amLODIPine 5 MG Tablet PO (08:16)
[2023-06-19] MEDS: Calcium Carb/Vitamin D 1 TABLET Tablet PO (08:16)
[2023-06-19] MEDS: APIXABAN 5 MG TABLET PO ×2 (08:16→20:39)
[2023-06-19] MEDS: Multivitamin (Healthy Eyes) Capsule 1 CAP PO (08:16)
[2023-06-19] MEDS: Nystatin Powder 15gm Bottle 1 APPLIC TOPICAL ×2 (08:17→20:40)
[2023-06-19 10:42] VITALS: BMI 22.6
[2023-06-19 13:06] VITALS: BP 92/44; PULSE 60; RESP 16; TEMP 36.3; O2SAT 95
--- NOTE | 2023-06-19 14:26 | NURSING ---
Patient ambulated hallway with walker. Tolerated well.
--- NOTE | 2023-06-19 17:31 | CASEMGMT ---
Addendum entered by Singh Sifuentes 06/20/23 08:58: Correction Patient would like to discharge 06/21/2023 Original Note: Social Work SW met with patient at bedside to discuss discharge. Patient informed therapy that he would like to discharge on 07/09/2023. Patient confirmed with SW that he would like to discharge home with [facility] for therapy services PT/OT. Patient informed SW that he will arrange transportation to home with between 11-1PM. SW submitted referral to [facility] for therapy services. Discharge: Home with [facility] PT/OT RENETTA Torres
--- NOTE | 2023-06-19 19:25 | PN.TCU_ITS ---
Subjective Subjective Resident seen, examined for regulatory visit. He cleaned his plate for supper. He denies pain, chest pain, shortness of breath. He is progressing with therapy, goal of going home. Objective Data Objective Data Vital Signs: Vital Signs Temp Pulse Resp BP Pulse Ox O2 Del Method 97.3 F L 60 16 92/44 L 95 Room Air 06/19/23 13:06 06/19/23 13:06 06/19/23 13:06 06/19/23 13:06 06/19/23 13:06 06/19/23 13:06 Oxygen Delivery Method Room Air Weight: 71.35 kg Body Mass Index (BMI) 22.6 Intake & Output: Intake and Output for Last 24 Hours 06/17/23 06/18/23 06/19/23 23:59 23:59 23:59 Intake Total 1320 / 1320 1560 / 1560 600 / 600 Balance 1320 / 1320 1560 / 1560 600 / 600 Lab / Micro Data 06/15/23 05:12 06/15/23 05:12 Physical Exam Const alert General Appearance: cooperative HEENT normocephalic Eyes PERRL and EOMs intact bilaterally Neck supple, no JVD and no carotid bruits Resp normal respiratory effort, normal air movement and clear to auscultation bilaterally Cardio regular rate and regular rhythm GI normal to inspection, nondistended, normoactive bowel sounds, non-tender and non-distended Extremity normal capillary refill Extremity Narrative: Rigtht forearm splint. General Extremity: Negative for edema Skin no rashes or lesions noted General Skin Exam: no breakdown Psych affect normal Appearance: appropriate Assessment & Plan Assessment/Plan (1) Debility: (2) Acute respiratory failure with hypoxia: (3) Pneumonia: (4) Gastric ulcer: (5) Dysphagia: (6) Closed right radial fracture: (7) Left rotator cuff tear: (8) Left carpal tunnel syndrome: (9) Compression fracture of L1 lumbar vertebra: (10) Atrial fibrillation: (11) Hypertension: (12) Coronary artery disease: (13) Hyperlipidemia: (14) Hypothyroidism: (15) Macular degeneration: PLAN: Plan 87 year old male with below past medical history hospitalized for acute respiratory failure with hypoxia 2/2 aspiration pneumonia (Group G strep, H. Flu), complicated by gastric ulcers, dysphagia, admitted to TCU with debility, here for rehabilitation, strengthening, prior to discharge home with . * Debility - PT/OT. * Dysphagia - ST. * Pain - Tylenol 1000mg q8, Tramadol 50mg q6 prn pain (1-10), Lidoderm 1 patch td daily. * Bowel - Miralax 17gm daily prn, senna/colace 2 tablets bid prn, Magnesium citrate 300ml daily prn * Adult immunization - Administer pneumonia vaccine, covid vaccine, flu vaccine. * DVT prophylaxis - on Eliquis. * Aspiration pneumonia (Group g strep, H. Flu), Finished antibiotics, Albuterol 2.5mg neb q2 prn. * Atrial fibrillation - Metoprolol 25mg bid, Amiodarone 100mg daily, Eliquis 5mg bid. * Hypertension - Metoprolol 25mg bid, Losartan 100mg daily, Amlodipine 5mg daily. * Hyperlipidemia - Atorvastatin 5mg qhs. * Calcium deficiency - Calcium D 1 tablet daily. * Cough - Robitussin 10ml bid prn. * Hypothyroidism - Levothyroxine 75mcg daily. * Macular degeneration - Healthy eyes 1 tablet daily. * Nutrition - MVI 1 tablet daily. * Coronary artery disease - Metoprolol 25mg bid, Losartan 100mg daily, Eliquis 5mg bid, NTG 0.4mg q5m prn. * Gastric ulcer - Pantoprazole 40mg bid thru 07/13/2023, then 40mg daily, Sucralfate 1gm bid thru 06/01/2023. * Right distal radius fracture - Dr. Vaughan, right wrist brace. * Tinea Corporis - Nystatin powder topical bid.
[2023-06-19 20:39] VITALS: BP 146/69; PULSE 62
[2023-06-19] MEDS: Atorvastatin Calcium 10 MG Tablet 5 MG PO (20:39)
[2023-06-20] MEDS: Levothyroxine 75 MCG Tablet PO (06:01)
[2023-06-20] MEDS: Sucralfate 1 GM Tablet PO ×2 (06:01→16:50)
[2023-06-20] MEDS: Pantoprazole Sodium 40 MG Tablet PO ×2 (06:01→13:48)
[2023-06-20] MEDS: Acetaminophen 500 MG Tablet 1000 MG PO ×3 (06:01→20:35)
--- NOTE | 2023-06-20 07:41 | DS.PCM_ITS ---
Providers Date of Admission: 05/24/23 Primary Care Physician: Dr. Stacy Carson MD Reason For Visit: PNEUMONIA,FALLS,RIB FRACTURES Diagnosis Discharge Diagnosis (1) Debility: Status: Acute Code(s): R53.81 - Other malaise (2) Acute respiratory failure with hypoxia: Status: Resolved Code(s): J96.01 - Acute respiratory failure with hypoxia (3) Pneumonia: Status: Resolved Code(s): J18.9 - Pneumonia, unspecified organism (4) Gastric ulcer: Status: Acute Code(s): K25.9 - Gastric ulcer, unspecified as acute or chronic, without hemorrhage or perforation (5) Dysphagia: Status: Acute Code(s): R13.10 - Dysphagia, unspecified (6) Closed right radial fracture: Status: Acute Code(s): S52.91XA - Unspecified fracture of right forearm, initial encounter for closed fracture (7) Left rotator cuff tear: Status: Acute Code(s): M75.102 - Unspecified rotator cuff tear or rupture of left shoulder, not specified as traumatic (8) Left carpal tunnel syndrome: Status: Acute Code(s): G56.02 - Carpal tunnel syndrome, left upper limb (9) Compression fracture of L1 lumbar vertebra: Status: Acute Code(s): S32.010A - Wedge compression fracture of first lumbar vertebra, initial encounter for closed fracture (10) Atrial fibrillation: Status: Acute Code(s): I48.91 - Unspecified atrial fibrillation (11) Hypertension: Status: Chronic Code(s): I10 - Essential (primary) hypertension (12) Coronary artery disease: Status: Acute Code(s): I25.10 - Atherosclerotic heart disease of [place] coronary artery without angina pectoris (13) Hyperlipidemia: Status: Acute Code(s): E78.5 - Hyperlipidemia, unspecified (14) Hypothyroidism: Status: Acute Code(s): E03.9 - Hypothyroidism, unspecified (15) Macular degeneration: Status: Acute Code(s): H35.30 - Unspecified macular degeneration Plan 87 year old male with below past medical history hospitalized for acute respiratory failure with hypoxia 2/2 aspiration pneumonia (Group G strep, H. Flu), complicated by gastric ulcers, dysphagia, admitted to TCU with debility, here for rehabilitation, strengthening, prior to discharge home with . * Debility - PT/OT. * Dysphagia - ST. * Pain - Tylenol 1000mg q8, Tramadol 50mg q6 prn pain (1-10), Lidoderm 1 patch td daily. * Bowel - Miralax 17gm daily prn, senna/colace 2 tablets bid prn, Magnesium citrate 300ml daily prn * Adult immunization - Administer pneumonia vaccine, covid vaccine, flu vaccine. * DVT prophylaxis - on Eliquis. * Aspiration pneumonia (Group g strep, H. Flu), Finished antibiotics, Albuterol 2.5mg neb q2 prn. * Atrial fibrillation - Metoprolol 25mg bid, Amiodarone 100mg daily, Eliquis 5mg bid. * Hypertension - Metoprolol 25mg bid, Losartan 100mg daily, Amlodipine 5mg daily. * Hyperlipidemia - Atorvastatin 5mg qhs. * Calcium deficiency - Calcium D 1 tablet daily. * Cough - Robitussin 10ml bid prn. * Hypothyroidism - Levothyroxine 75mcg daily. * Macular degeneration - Healthy eyes 1 tablet daily. * Nutrition - MVI 1 tablet daily. * Coronary artery disease - Metoprolol 25mg bid, Losartan 100mg daily, Eliquis 5mg bid, NTG 0.4mg q5m prn. * Gastric ulcer - Pantoprazole 40mg bid thru 07/13/2023, then 40mg daily, Sucralfate 1gm bid thru 06/01/2023. * Right distal radius fracture - Dr. Vaughan, right wrist brace. * Tinea Corporis - Nystatin powder topical bid. Medications at Discharge Home Medications calcium carbonate 600 mg-vitamin D3 20 mcg (800 unit) tablet 1 tab PO DAILY BONE HEALTH 03/13/14 multivitamin 1 ea PO DAILY GENERAL HEALTH 12/23/19 vit C 250 mg-vit E 90 mg-zinc 40 mg-copper 1 [id number] capsule 2 ea PO DAILY eye health 12/23/19 levothyroxine 75 mcg tablet 75 mcg PO DAILY thyroid 04/22/21 amiodarone 200 mg tablet 100 mg (1/2 x 200 mg) PO DAILY heart #90 tabs 08/08/22 atorvastatin 10 mg tablet 5 mg (1/2 x 10 mg) PO QHS cholesterol #45 tabs losartan 100 mg tablet 100 mg PO DAILY blood pressure #90 tabs 10/04/22 amlodipine 5 mg tablet 5 mg PO DAILY this is a dose increase #90 tabs 12/11/22 apixaban 5 mg tablet (Eliquis) See Rx Instructions .Route .COMPLEX blood thinner #180 TABLETS 03/06/23 metoprolol tartrate 25 mg tablet 25 mg PO BID blood pressure 05/14/23 nitroglycerin 0.4 mg sublingual tablet 0.4 mg sublingual Q5M chest pain 05/14/23 acetaminophen 500 mg tablet 1,000 mg (2 x 500 mg) PO Q8 pain #0 tabs 05/24/23 pantoprazole 40 mg tablet,delayed release 40 mg PO BIDLX 30 days #60 tabs 06/20/23 sucralfate 1 gram tablet 1 g PO BID@0700,1600 30 days #60 tabs 06/20/23 Hospital Course Operations None Procedures EGD Summary of Care Provided Minutes Spent on Discharge: 35 Hospital Course: 87 year old male with below past medical history hospitalized for acute respiratory failure with hypoxia 2/2 aspiration pneumonia (Group G strep, H. Flu), complicated by gastric ulcers, dysphagia, admitted to TCU with debility, here for rehabilitation, strengthening, prior to discharge home with . 05/18/2023 Dr. Moran EGD: Impressions : - Normal esophagus. - Non-bleeding gastric ulcers with no stigmata of bleeding. Biopsied. Treated with a heater probe. - Bile gastritis. Biopsied. - No gross lesions in the first portion of the duodenum. Recommendations : - [facility] to [facility]. - Use Protonix (pantoprazole) 40 mg PO BID for 8 weeks. - Use sucralfate tablets 1 gram PO BID for 2 weeks. Discharge home with 06/21/2023, [facility] PT/OT. Physical Exam Const alert General Appearance: cooperative HEENT normocephalic Eyes PERRL and EOMs intact bilaterally Neck supple, no JVD and no carotid bruits Resp normal respiratory effort, normal air movement and clear to auscultation bilaterally Cardio regular rate and regular rhythm GI normal to inspection, nondistended, normoactive bowel sounds, non-tender and non-distended Extremity normal capillary refill Extremity Narrative: Right forearm brace. General Extremity: Negative for edema Skin no rashes or lesions noted General Skin Exam: no breakdown Psych affect normal Appearance: appropriate Weight / BMI Weight Weight: 71.35 kg Body Mass Index (BMI) 22.6 ABG / Lab / Microbiology Data 06/15/23 05:12 06/15/23 05:12 D/C Instructions Discharge Diet: No restrictions Discharge Activity: Return to Normal Activity, May Shower and Use Walker Weight Bearing Status: Weight bearing as tolerated Call your doctor if you observe: Fever of 101 or Higher, Inability to urinate, Inability to have a bowel movement, Shortness of breath, Dizziness, Fainting s pells, Swelling in the ankles, Chest pain and Uncontrolled pain Additional Instructions: Discharge home with 06/21/2023, [facility] PT/OT. Please Follow Up With: Parish Vaughan MD When: 07/16/2023. Meaningful Use Info Meaningful Use Meaningful Use Diagnoses (Choose all that apply): None applicable Ischemic Stroke Statin Dosing Therapy Reference: STATIN DOSE THERAPY REFERENCE: * Patients > 75 years receive moderate or high dose statin therapy. * Patients 75 years or YOUNGER should receive HIGH intensity statin dose unless contraindicated. You will be required to document reason for non-treatment if statin daily dose does not meet guidelines. HIGH DOSE STATIN THERAPY DAILY Atorvastatin > than or = to 40 mg Rosuvastatin > than or = to 20 mg Amlodipine + Atorvastatin > than or = to 2.5/40 mg Ezetimibe + Simvastatin 10/80 mg Simvastatin 80mg Discharge Plan Admission Admit Date/Time: 05/24/23 15:57 Primary Reason for Your Visit: Debility. Attending Provider: Bryson Garzon Chi Primary Care Provider: Stacy Carson Instructions Additional Instructions / Restrictions: [facility] PT/OT Discharge home with 06/21/2023, [facility] PT/OT. Discharge Orders/Prescriptions Prescriptions: New sucralfate 1 gram Tablet 1 g PO BID@0700,1600 30 Days Qty: 60 0RF pantoprazole 40 mg Tablet,Delayed Release (Dr/Ec) 40 mg PO BIDLX 30 Days Qty: 60 0RF Continued levothyroxine 75 mcg tablet 75 mcg PO DAILY Patient Comments: TAKE 1 TABLET BY MOUTH EVERY DAY IN THE MORNING ON AN EMPTY STOMACH amiodarone 200 mg tablet 100 mg PO DAILY Qty: 90 4RF atorvastatin 10 mg tablet 5 mg PO QHS Qty: 45 3RF calcium carbonate-vitamin D3 1 TAB tablet 1 tab PO DAILY multivitamin 1 EACH tablet 1 ea PO DAILY vit C,U-Be-rhsne-lutein-zeaxan 1 EACH capsule 2 ea PO DAILY nitroglycerin 0.4 mg tablet, sublingual 0.4 mg sublingual Q5M Rx Instructions: do not exceed 3 doses per episode metoprolol tartrate 25 mg tablet 25 mg PO BID acetaminophen 500 mg Tablet 1,000 mg PO Q8 Qty: 0 0RF losartan 100 mg tablet 100 mg PO DAILY Qty: 90 3RF amlodipine 5 mg tablet 5 mg PO DAILY Qty: 90 3RF Eliquis 5 mg tablet See Rx Instructions .ROUTE .COMPLEX Qty: 180 3RF Dose Instruction: TAKE 1 TABLET TWICE A DAY Rx Instructions: TAKE 1 TABLET TWICE A DAY Discontinued tramadol 50 mg tablet 50 mg PO Q6H PRN (Reason: pain) magnesium hydroxide [Milk Of Magnesia Concentrated] 2,400 mg/10 mL suspension 30 ml PO DAILY PRN (Reason: constipation) lidocaine 4 % adhesive patch,medicated 1 patch topical DAILY Rx Instructions: may leave on for up to 12 hrs albuterol sulfate 2.5 mg /3 mL (0.083 %) Solution For Nebulization 2.5 mg inhalation Q2H PRN PRN (Reason: Shortness Of Breath) Qty: 0 0RF sucralfate 1 gram Tablet 1 g PO 1HR_ACHS Qty: 0 0RF pantoprazole 40 mg Tablet,Delayed Release (Dr/Ec) 40 mg PO BIDLX Qty: 0 0RF cefdinir 300 mg Capsule 300 mg PO BID Qty: 10 0RF docusate sodium 100 mg Capsule 200 mg PO BID Qty: 0 0RF polyethylene glycol 3350 [Miralax] 17 gram/dose powder 17 g PO DAILY Qty: 119 0RF Referrals / Follow Up: Stacy Carson MD [Primary Care Provider] - Parish Vaughan MD [Med Staff - Active Staff] - 07/17/23 11:15 am Disposition Disposition (needs filled in before D/C Order can be placed): Home Health Service
[2023-06-20 08:38] VITALS: BP 102/50; PULSE 77; RESP 16; TEMP 36.6; O2SAT 94
[2023-06-20] MEDS: Multivitamin (Healthy Eyes) Capsule 1 CAP PO (08:42)
[2023-06-20] MEDS: amLODIPine 5 MG Tablet PO (08:42)
[2023-06-20] MEDS: APIXABAN 5 MG TABLET PO ×2 (08:42→20:34)
[2023-06-20 08:43] VITALS: PULSE 77
[2023-06-20] MEDS: Amiodarone 200 MG Tablet 100 MG PO (08:43)
[2023-06-20] MEDS: Metoprolol Tartrate 25 MG Tablet PO ×2 (08:43→20:35)
[2023-06-20] MEDS: Losartan Potassium 100 MG Tablet PO (08:43)
[2023-06-20] MEDS: Multivitamins,Therapeutic Tablet 1 TABLET PO (08:43)
[2023-06-20] MEDS: Calcium Carb/Vitamin D 1 TABLET Tablet PO (08:44)
[2023-06-20] MEDS: Nystatin Powder 15gm Bottle 1 APPLIC TOPICAL ×2 (08:44→20:39)
--- NOTE | 2023-06-20 14:34 | CASEMGMT ---
Social Work Patient informed SW that he would like to discharge home on 06/21/2023 at 1130. [facility] is able to accept patient for home health care services. Per admission, Shakira would like nursing added to referral to initiate home health care on Sunday. SW discussed recommendation for alf with patient. Patient is agreeable to alf being added to referral. Discharge: [facility] PT/OT/SN; SOC 06/21 RENETTA Torres
[2023-06-20 17:07] VITALS: RESP 16; O2SAT 94
[2023-06-20] MEDS: Atorvastatin Calcium 10 MG Tablet 5 MG PO (20:34)
[2023-06-20 20:35] VITALS: BP 110/52; PULSE 61
[2023-06-21] MEDS: Levothyroxine 75 MCG Tablet PO (05:01)
[2023-06-21] MEDS: Acetaminophen 500 MG Tablet 1000 MG PO (05:01)
[2023-06-21] MEDS: Pantoprazole Sodium 40 MG Tablet PO (05:02)
[2023-06-21] MEDS: Sucralfate 1 GM Tablet PO (06:50)
[2023-06-21 09:13] VITALS: BP 103/56; PULSE 63
[2023-06-21] MEDS: Multivitamins,Therapeutic Tablet 1 TABLET PO (09:13)
[2023-06-21] MEDS: Amiodarone 200 MG Tablet 100 MG PO (09:13)
[2023-06-21] MEDS: APIXABAN 5 MG TABLET PO (09:13)
[2023-06-21] MEDS: Multivitamin (Healthy Eyes) Capsule 1 CAP PO (09:13)
[2023-06-21] MEDS: Metoprolol Tartrate 25 MG Tablet PO (09:13)
[2023-06-21] MEDS: Losartan Potassium 100 MG Tablet PO (09:13)
[2023-06-21] MEDS: amLODIPine 5 MG Tablet PO (09:13)
[2023-06-21] MEDS: Calcium Carb/Vitamin D 1 TABLET Tablet PO (09:13)
[2023-06-21] MEDS: Nystatin Powder 15gm Bottle 1 APPLIC TOPICAL (09:14)
--- NOTE | 2023-06-21 11:05 | CASEMGMT ---
Social Work SW met with patient at bedside to review discharge disposition. Patient is expected to discharge home with home health care services PT/OT/SN. Patient informed SW that his will provide transportation at discharge 1130. Patient discharge MDS completed. BIM () and PhQ-2 () Discharge: [facility] PT/OT/SN - SOC 06/21 RENETTA Torres
== END 2023-06-21 12:25 | disposition home health service (06) | DRG 179 ==
PROVIDERS: Admitting Provider Family Medicine Geriatric Medicine; PCP Family Medicine; Visit Provider Family Medicine Geriatric Medicine
DX: J69.0 Pneumonitis due to inhalation of food and vomit (principal); I11.0 Hypertensive heart disease with heart failure; B95.4 Other streptococcus as the cause of diseases classified elsewhere; B96.3 Hemophilus influenzae [H. influenzae] as the cause of diseases classified elsewhere; B35.4 Tinea corporis; G56.02 Carpal tunnel syndrome, left upper limb; I50.9 Heart failure, unspecified; I48.0 Paroxysmal atrial fibrillation; E03.9 Hypothyroidism, unspecified; M75.102 Unspecified rotator cuff tear or rupture of left shoulder, not specified as traumatic; I25.10 Atherosclerotic heart disease of native coronary artery without angina pectoris; H35.30 Unspecified macular degeneration; E78.5 Hyperlipidemia, unspecified; K21.9 Gastro-esophageal reflux disease without esophagitis; K29.70 Gastritis, unspecified, without bleeding; K25.9 Gastric ulcer, unspecified as acute or chronic, without hemorrhage or perforation; S32.010D Wedge compression fracture of first lumbar vertebra, subsequent encounter for fracture with routine healing; S52.501D Unspecified fracture of the lower end of right radius, subsequent encounter for closed fracture with routine healing; Z87.891 Personal history of nicotine dependence; R13.10 Dysphagia, unspecified; X58.XXXD Exposure to other specified factors, subsequent encounter; Z79.899 Other long term (current) drug therapy; Z79.01 Long term (current) use of anticoagulants; Z79.890 Hormone replacement therapy; N40.0 Benign prostatic hyperplasia without lower urinary tract symptoms
CPT/HCPCS: 36415; 73090; 80048; 85025; 92526; 92610; 97110; 97116; 97162; 97166; 97530; 97535; 97802; A4216

== ENCOUNTER → 2023-06-28 | Outpatient (CLI) | payer MEDICARE, SELFPAY ==
[2023-06-28 17:49] LABS: Absolute Lymphocyte Count 0.73 X10^3/uL (0.83-4.51); Absolute Neutrophil Count 3.9 X10^3/uL (2.0-7.7); Basophil# 0.02 X10^3/uL; Basophil% 0.4 % (0-1); Eosinophil# 0.09 X10^3/uL; Eosinophils% 1.7 % (0-5); Hematocrit 32.4 % (40-54); Hemoglobin 10.4 g/dL (13.0-16.5); Lymphocyte # 0.73 X10^3/ul (0.83-4.51); Lymphocyte % 13.7 % (19-41); Mean Corp Hgb Conc 32.1 g/dL (32-36); Mean Corpuscular Hgb 30.7 pg (27.0-32.0); Mean Corpuscular Volume 95.6 fL (80-94); Mean Platelet Vol. 10.7 fl (6.2-12.0); Monocyte# 0.59 X10^3/uL; Monocyte% 11.1 % (0-10); NRBC Flagged by Analyzer 0 % (0-5); Neutrophil # 3.88 X10^3/uL (2.7-7.7); Neutrophil % 72.9 % (47-70); POSITIVE MORPHOLOGY YES; Platelet Count 157 K/mm3 (150-450); RBC Distribution Width SD 67.6 fl (35.1-43.9); Red Blood Count 3.39 M/mm3 (4.6-6.2); White Blood Count 5.3 K/mm3 (4.4-11.0)
[2023-06-28 18:12] LABS: Differential Indicated SCAN CRITERIA MET
[2023-06-28 18:43] LABS: AST(SGOT) 28 U/L (15-37); Alanine Aminotransfer ALT/SGPT 18 U/L (16-61); Albumin, Serum 3.6 g/dL (3.2-5.0); Alkaline Phosphatase 100 U/L (45-117); Anion Gap 6 (5-15); BUN 41 mg/dL (7-18); BUN/Creat Ratio 28.1 RATIO (10-20); Calcium,Total 9.4 mg/dL (8.5-10.1); Chloride 105 mmol/L (98-107); Creatinine, Serum 1.46 mg/dL (0.70-1.30); EST Glomerular Filtration Rate 48 mL/min (>60); Est Glom Filt Rate - Afr Amer 58 mL/min (>60); Ferritin 93 ng/mL (26-388); Globulin 3.6 g/dL (2.2-4.2); Glucose 104 mg/dL (74-106); Potassium 4.7 mmol/L (3.5-5.1); Protein, Total 7.2 g/dL (6.4-8.2); Sodium Level 135 mmol/L (136-145); T4 Total, Thyroxin 9.7 ug/dL (4.5-12.1); Thyroid Stim Hormone (TSH) 6.92 uIU/mL (0.358-3.74)
[2023-06-28 19:01] LABS: Differential Comment SCANNED
== END | disposition home or self-care (01) ==
LOC: BFHLAB 15:50
PROVIDERS: PCP Family Medicine; Referring Provider Family Medicine; Visit Provider Family Medicine
DX: T46.2X1A Poisoning by other antidysrhythmic drugs, accidental (unintentional), initial encounter (principal); E03.2 Hypothyroidism due to medicaments and other exogenous substances; K25.9 Gastric ulcer, unspecified as acute or chronic, without hemorrhage or perforation; J18.9 Pneumonia, unspecified organism
CPT/HCPCS: 36415; 80053; 82728; 84436; 84443; 85025

== ENCOUNTER → 2023-09-19 | Outpatient (CLI) | payer MEDICARE, SELFPAY ==
--- NOTE | 2023-09-19 12:23 | NEURO ---
NCS and/or EMG Patient Report Ordering Doctor: Parish Vaughan DATE OF SERVICE: 09/19/23 Trell presents for electrodiagnostic testing of the left upper limb. He reports numbness and tingling in the left hand. Electrodiagnostic findings: Left median motor nerve demonstrates prolonged distal latency with reduced amplitude. Proximal response could not be obtained. Left ulnar motor nerve demonstrates normal distal latency and amplitude. There is no significant drop in conduction across the elbow. Prolonged left ulnar F?wave. Absent left median F?wave. Absent left median sensory latency at the wrist. Normal ulnar and radial sensory responses. Needle EMG testing was performed in the left upper limb. 1+ fibrillations are noted in the abductor pollicis brevis. Electrodiagnostic impression: This is an abnormal study in the left upper limb 1. 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 This is consistent with a severe left carpal tunnel syndrome. Multi Select Codes Neurology Neurology Interp Codes: 65218-76 Musc test done w/n test comp (interp) and 82683-61 Nrv cndj tst 5-6 studies (interp)
== END | disposition home or self-care (01) ==
LOC: PSN 10:07
PROVIDERS: PCP Family Medicine; Referring Provider Orthopaedic Surgery Sports Medicine; Visit Provider Orthopaedic Surgery Sports Medicine
DX: G56.02 Carpal tunnel syndrome, left upper limb (principal)
CPT/HCPCS: 95886; 95909

== ENCOUNTER → 2023-10-01 | Outpatient (CLI) | payer MEDICARE, SELFPAY ==
[2023-10-01 14:59] LABS: Hematocrit 34.1 % (40-54); Hemoglobin 10.8 g/dL (13.0-16.5); Mean Corp Hgb Conc 31.7 g/dL (32-36); Mean Corpuscular Hgb 30.9 pg (27.0-32.0); Mean Corpuscular Volume 97.7 fL (80-94); Mean Platelet Vol. 9.8 fl (6.2-12.0); Platelet Count 159 K/mm3 (150-450); RBC Distribution Width CV 16.1 % (11.6-14.6); RBC Distribution Width SD 57.2 fl (35.1-43.9); Red Blood Count 3.49 M/mm3 (4.6-6.2); White Blood Count 4.7 K/mm3 (4.4-11.0)
[2023-10-01 16:26] LABS: AST(SGOT) 29 U/L (15-37); Alanine Aminotransfer ALT/SGPT 19 U/L (16-61); Albumin, Serum 3.6 g/dL (3.2-5.0); Alkaline Phosphatase 107 U/L (45-117); Anion Gap 8 (5-15); BUN 36 mg/dL (7-18); BUN/Creat Ratio 24.2 RATIO (10-20); Calcium,Total 9.2 mg/dL (8.5-10.1); Chloride 103 mmol/L (98-107); Creatinine, Serum 1.49 mg/dL (0.70-1.30); EST Glomerular Filtration Rate 47 mL/min (>60); Est Glom Filt Rate - Afr Amer 57 mL/min (>60); Globulin 3.7 g/dL (2.2-4.2); Glucose 84 mg/dL (74-106); Potassium 4.9 mmol/L (3.5-5.1); Protein, Total 7.3 g/dL (6.4-8.2); Sodium Level 134 mmol/L (136-145)
== END | disposition home or self-care (01) ==
LOC: LAB 14:36
PROVIDERS: PCP Family Medicine; Referring Provider Family Medicine; Visit Provider Family Medicine
DX: I25.10 Atherosclerotic heart disease of native coronary artery without angina pectoris (principal); I10 Essential (primary) hypertension; T46.2X1A Poisoning by other antidysrhythmic drugs, accidental (unintentional), initial encounter; E03.2 Hypothyroidism due to medicaments and other exogenous substances
CPT/HCPCS: 36415; 80053; 84439; 84443; 85027

== ENCOUNTER → 2023-10-04 | Outpatient (CLI) | payer MEDICARE, SELFPAY ==
[2023-10-04 09:27] LABS: AST(SGOT) 30 U/L (15-37); Alanine Aminotransfer ALT/SGPT 19 U/L (16-61); Albumin, Serum 3.5 g/dL (3.2-5.0); Alkaline Phosphatase 110 U/L (45-117); Anion Gap 7 (5-15); BUN 37 mg/dL (7-18); BUN/Creat Ratio 23.3 RATIO (10-20); Calcium,Total 9.1 mg/dL (8.5-10.1); Chloride 104 mmol/L (98-107); Cholesterol 143 mg/dL (200); Creatinine, Serum 1.59 mg/dL (0.70-1.30); EST Glomerular Filtration Rate 44 mL/min (>60); Est Glom Filt Rate - Afr Amer 53 mL/min (>60); Globulin 3.7 g/dL (2.2-4.2); Glucose 91 mg/dL (74-106); High Density Lipoprotein 61 mg/dL; Potassium 4.7 mmol/L (3.5-5.1); Protein, Total 7.2 g/dL (6.4-8.2); Sodium Level 137 mmol/L (136-145); Triglycerides 77 mg/dL; Very Low Density Lipoprotein 15 mg/dL (5-40)
== END | disposition home or self-care (01) ==
PROVIDERS: PCP Family Medicine; Referring Provider Nurse Practitioner Family; Visit Provider Nurse Practitioner Family
DX: E78.5 Hyperlipidemia, unspecified (principal); I48.0 Paroxysmal atrial fibrillation
CPT/HCPCS: 36415; 80048; 80061; 80076

== ENCOUNTER 2023-10-18 12:30 | Outpatient (RCR) | payer MEDICARE, SELFPAY ==
--- NOTE | 2023-07-30 15:07 | HP.PTEVAL ---
Patient's Visit Information Visit Information Visit Information: JAROD SEGOVIA is a 87 year old M referred to Physical Therapy by Dr. Parish Vaughan MD with a diagnosis of Left Shoulder. Date of Evaluation: 07/30/23 Physical Therapist: Patience Hewitt DPT Visit Plan Frequency: 2x /Week Duration: 4 Weeks Plan: Focus on scapular strength/stabilization, postural correction and functional mobility (can mix in gently balance exercises with Subjective Subjective: Patient reports that he fell and was holding onto a bar in the garage and next thing he knew he was in the kitchen bleeding- and he is unsure of what happened to his left shoulder- he thinks that since he couldn't use his right arm due to the casts he twisted it. He had a big bruise on the left side so they know that's where he fell- x-rays were negative and he could not move it for several days but the movement came back. The insurance has denied an MRI on the left shoulder. He has good range of motion in the shoulder but he is missing strength. He has little to no pain in the shoulder. Worst: 3-4/10 Agg/Eases: nothing he can think of. Thinks that are harder to do is stacking dishes. He had some moderate N/T prior to the fall- but it got worse after the fall. Dr. Vaughan seems to think its carpal tunnel- he gave him an injection- no more than 10% better- but his reports he is not complaining as much. The N/T is not position dependent. Right hand dominate. 50% back to normal from the fall. Sleep: not disturbed. PMHx/Meds: see list in chart from ortho Objective Objective: Posture: forward head, rounded shoulders- can correct with tactile cues but does not maintain Palpation: tender along infraspinatus and medial border of the scapula- moderate winging of the scapula ROM: Cervical: limited in all directions moderate. Shoulder: Flexion: 150 degrees, Abd: 90 degrees with pain, IR: to belt line, ER: 40 degrees Elbow/Wrist/Hand: WNL Strength: Scap: poor, Shoulder: flexion 16, Extn: 13, Abd: 3 with pain, Add: 12, IR: 4.4, ER: 5.0, Elbow: flexion: 9 extn: 13 Special Tests L Shoulder Drop Sign - IS Test: Positive L Shoulder Empty Can - SS: Positive L Shoulder Belly Press - SupScap: Positive L Shoulder Neer - Impingement: Positive L Shoulder Oliveira Kayden - Impingement: Positive Balance/Special Test Scores Quick DASH Score: 47.7250 Goals Goal 1:: Patient will be I with HEP and progression Goal Time Frame: 4-6 Weeks Goal 2:: Patient will maintain proper posture t/o tx session to demo increased scap s/s Goal Time Frame: 4-6 Weeks Goal 3:: Patient will report no pain for 1 week in the left shoulder Goal Time Frame: 4-6 Weeks Goal 4:: Patient will stack 4 cones over head for 2 min without pain Goal Time Frame: 4-6 Weeks Goal 5:: Patient will report 80% improvement Goal Time Frame: 4-6 Weeks Rehabilitation Potential Physical Therapy Diagnosis: Patient presents with hypomobility of the left shoulder- he has decreased ROM, scapular strength/stabilization, UE strength and muscular endurance leading to increased pain with ADL's Rehabilitation Potential: Good Anticipated Interventions Patient/Client Instruction: Educate patient on: Benefits of Fitness Program Therapeutic Exercise to Include: Strength training, Endurance training, Agility training, Body mechanics, Postural training, Flexibilty training, Neuromotor development, Passive ROM, Active ROM, Dynamic Lumbar Stabilization and Scapular Strength/Stabilization For the Purpose of:: To improve muscle performance and motor function Cryotherapy (ice pack, ice massage): Yes Thermo therapy (hot pack): Yes Text: Thank you for the opportunity to evaluate your patient. For Medicare and Medicare HMO plans, please review the plan of care and approve it. It will need to be FAXED BACK to us at [phone] for Medicare purposes. For Medicare only, by signing this I certify the plan of care. Please let me know if there are questions or concerns regarding this plan of care. Physician Signature: Date:
--- NOTE | 2023-07-31 07:17 | HP.OTEVAL ---
Patient's Visit Information Visit Information Visit Information: JAROD SEGOVIA is a 87 year old M, referred to Occupational Therapy by Dr. Parish Vaughan MD, with a diagnosis of right distal radius fx.. Date of Evaluation: 07/30/23 Occupational Therapist: Nancie Marquez, OTR/Lin, CHT Subjective Subjective: This 87 year old male was seen for OT eval with dx of a closed right radial fx. with left RCT. pt states he ad a fall and he could not recall what happened. Date of fall was May 07. pt had stay at [facility] to [facility] May 13 to TCU and was having difficulty tsf to ER with pneumonia and pt needed PCU and then was sent back to TCU. pt was casted and cast was removed possibly 4 weeks ago pt has used brace. arrives today without brace ambulating with ww. pt states he was going to Dr. Mendoza for a shot of cortisone in his wrist prior to the fall. pt suffered a right radial fx. pt is right handed pt reports right wrist pain. Hx complex and pt and pts spouse not sure dates Pain right wrist: Current Pain Intensity: 1 Pain Intensity Range: 4 ROM Forearm: supination right 40 left 70 Wrist: right 35/45 left 60/55 ROM Comments: pt demo with decrease right forearm and wrist ROM Strength Tombstone Erector Helper: right 30# left 35# Lateral Pinch: right 4# left 10# Tripod Pinch: right 4# left 6# Strength Comments: pt demo with weakness of bilateral grasp and pinch Sensation Thumb: right 3.22 inter: dimin/light touch left 4.74 loss of protective sensation Index: right 3.22 left 3.22 interpretation diminished light touch Middle: right 3.22 interp:dimin/light touch left 4.56 loss of protective sensation Ring: right 3.22interp:dimin/light touch left 4.56 loss of protective sensation Little: right 4.08 interp:dimin/protec/sen left 4.31 loss of protective sensation Sensation Comments: Based on semmes-Haris monofiliment sensation testing pt is at loss of protective sensation of left thumb, Middle finger, Ring finer and Littler finger pt is at Diminished light touch right thumb Middle finger, Ring finger Diminished protective sensation of right LF right and left index finger testing at Diminished light touch Nine Hole Peg Right: 40.34 sec. Left: 101.02 sec. Comments: left increase difficulty with task Quick DASH-Disab of Arm,Shoulder& Hand Quick DASH Score: 40.9075 Goals Goal:: pt will demo a increase in bilateral purchasing officer strength by 15# or greater to return pt to a PLOF by d.c pt will demo increase in lateral and tripod pinch by 4 # to increase pts ind with opening containers by d/c Goal:: pt will demo a increase in right forearm supination by 15* to increase pts ind. with ADLs and IADLs by d.c pt will demo a increase in right wrist flex/ext by 15* to increase pts ind. with ADLs by d/c Goal:: pt will report no pain greater than 2/10 with use of right UE with ADLs and IADLs by d/c Goal:: pt will demo a increase in FMS by IND picking up 10 coins manipulating in hand and translation one at a time to table by d/c to simulate money manipulation by d/c pt will demo a reduction in 9-hole peg time by 30 sec. indication of increase FMS by d.c Goal:: pt will demo understanding of nerve glides by end of 3rd visit. pt will demo understanding of visual compensatory candis. with small objects, hot cold or sharp to increase IND with self care and avoid of injury by d./c Rehabilitation General Assessment: pt demo with limited use of right UE with ALDs and IADLs as well as sensation loss of left hand limiting pts ind. with ADLs and IADLs. pt would benefit from skilled OT services 2x week for 4-6 weeks to increase pts functional strength for ADLs and IADLs. Today therapist ed. pt on visual compensation when using sharp, hot or cold objects as well as buttoning due to sensation loss. therapist ed. pt on cont. with AROM ex he was give from Home Health therapy- ( pt to bring in handouts so this facility can add ex) pt and pts demo understanding and agree to POC. Rehabilitation Potential: Good Anticipated Interventions Anticipated Interventions: A/AAROM/PROM, Strengthening, Sensory Retraining, Modalities, Orthoses, Joint Protection/Energy Conservation, Ergonomic Education, Fine Motor Coord/Juan Carlos, Sensory Stimulation, Education re assistive Equipment, Education re Diagnosis, Caregiver Training and Home Program Visit Plan Frequency: 2x /Week Duration: 4-6 Weeks TEXT: Thank you for the opportunity to evaluate your patient. For Medicare and Medicare HMO plans, please review the plan of care and approve it. It will need to be FAXED BACK to us at [phone] for Medicare purposes. Please let me know if there are questions or concerns regarding this plan of care. Physician Signature: Date:
--- NOTE | 2023-07-31 11:49 | HP.OTEVAL ---
Patient's Visit Information Visit Information Visit Information: JAROD SEGOVIA is a 87 year old M, referred to Occupational Therapy by Dr. Parish Vaughan MD, with a diagnosis of right distal radius fx.. Date of Evaluation: 07/30/23 Occupational Therapist: Nancie Marquez, OTR/Lin, CHT Subjective Subjective: This 87 year old male was seen for OT eval with dx of a closed right radial fx. with left RCT. pt states he ad a fall and he could not recall what happened. Date of fall was May 07. pt had stay at [facility] to [facility] May 13 to TCU and was having difficulty tsf to ER with pneumonia and pt needed PCU and then was sent back to TCU. pt was casted and cast was removed possibly 4 weeks ago pt has used brace. arrives today without brace ambulating with ww. pt states he was going to Dr. Mendoza for a shot of cortisone in his wrist prior to the fall. pt suffered a right radial fx. pt is right handed pt reports right wrist pain. Hx complex and pt and pts spouse not sure dates Pain right wrist: Current Pain Intensity: 1 Pain Intensity Range: 4 ROM Forearm: supination right 40 left 70 Wrist: right 35/45 left 60/55 ROM Comments: pt demo with decrease right forearm and wrist ROM Strength Biztalk Administrator: right 30# left 35# Lateral Pinch: right 4# left 10# Tripod Pinch: right 4# left 6# Strength Comments: pt demo with weakness of bilateral grasp and pinch Sensation Thumb: right 3.22 inter: dimin/light touch left 4.74 loss of protective sensation Index: right 3.22 left 3.22 interpretation diminished light touch Middle: right 3.22 interp:dimin/light touch left 4.56 loss of protective sensation Ring: right 3.22interp:dimin/light touch left 4.56 loss of protective sensation Little: right 4.08 interp:dimin/protec/sen left 4.31 loss of protective sensation Sensation Comments: Based on semmes-Haris monofiliment sensation testing pt is at loss of protective sensation of left thumb, Middle finger, Ring finer and Littler finger pt is at Diminished light touch right thumb Middle finger, Ring finger Diminished protective sensation of right LF right and left index finger testing at Diminished light touch Nine Hole Peg Right: 40.34 sec. Left: 101.02 sec. Comments: left increase difficulty with task Quick DASH-Disab of Arm,Shoulder& Hand Quick DASH Score: 40.9075 Goals Goal:: pt will demo a increase in bilateral plant supervisor strength by 15# or greater to return pt to a PLOF by d.c pt will demo increase in lateral and tripod pinch by 4 # to increase pts ind with opening containers by d/c Goal:: pt will demo a increase in right forearm supination by 15* to increase pts ind. with ADLs and IADLs by d.c pt will demo a increase in right wrist flex/ext by 15* to increase pts ind. with ADLs by d/c Goal:: pt will report no pain greater than 2/10 with use of right UE with ADLs and IADLs by d/c Goal:: pt will demo a increase in FMS by IND picking up 10 coins manipulating in hand and translation one at a time to table by d/c to simulate money manipulation by d/c pt will demo a reduction in 9-hole peg time by 30 sec. indication of increase FMS by d.c Goal:: pt will demo understanding of nerve glides by end of 3rd visit. pt will demo understanding of visual compensatory candis. with small objects, hot cold or sharp to increase IND with self care and avoid of injury by d./c Rehabilitation General Assessment: pt demo with limited use of right UE with ALDs and IADLs as well as sensation loss of left hand limiting pts ind. with ADLs and IADLs. pt would benefit from skilled OT services 2x week for 4-6 weeks to increase pts functional strength for ADLs and IADLs. Today therapist ed. pt on visual compensation when using sharp, hot or cold objects as well as buttoning due to sensation loss. therapist ed. pt on cont. with AROM ex he was give from Home Health therapy- ( pt to bring in handouts so this facility can add ex) pt and pts demo understanding and agree to POC. Rehabilitation Potential: Good Anticipated Interventions Anticipated Interventions: A/AAROM/PROM, Strengthening, Sensory Retraining, Modalities, Orthoses, Joint Protection/Energy Conservation, Ergonomic Education, Fine Motor Coord/Juan Carlos, Sensory Stimulation, Education re assistive Equipment, Education re Diagnosis, Caregiver Training and Home Program Visit Plan Frequency: 2x /Week Duration: 4-6 Weeks TEXT: Thank you for the opportunity to evaluate your patient. For Medicare and Medicare HMO plans, please review the plan of care and approve it. It will need to be FAXED BACK to us at [phone] for Medicare purposes. Please let me know if there are questions or concerns regarding this plan of care. Physician Signature: Date:
--- NOTE | 2023-08-30 11:57 | HP.PTDCSUM ---
Discharge Summary D/C summary: It has been my pleasure to treat JAROD SEGOVIA referred by Dr. Parish Vaughan MD, with the diagnosis of Left Shoulder for a total of 10 visit(s). Discharge Date: Please see the following information for a summary of their discharge status. Subjective Subjective: Patient reports that his left shoulder is a lot better- he really just has issues with his left n/t first three fingers- he plants to go to OT for this Pain L SH: Pain Intensity (Out of 10): 0 Overall Improvement % Improvement: 100 Objective Objective/Function: Posture: forward head, rounded shoulders- can correct with tactile cues but does not maintain Palpation: not tender ROM: Cervical: limited in all directions moderate. Shoulder: Flexion: 150 degrees, Abd: 120 degrees, IR: L3, ER: 40 degrees Elbow/Wrist/Hand: WNL Strength: Scap: fair Shoulder: 4+/5 throughout at neutral Special Tests L Shoulder Drop Sign - IS Test: Positive L Shoulder Empty Can - SS: Positive L Shoulder Belly Press - SupScap: Positive L Shoulder Neer - Impingement: Positive L Shoulder Oliveira Kayden - Impingement: Positive Goals Goal 1:: Patient will be I with HEP and progression Goal Progress: Goal Met Goal 2:: Patient will maintain proper posture t/o tx session to demo increased scap s/s Goal Progress: Progressing Goal 3:: Patient will report no pain for 1 week in the left shoulder Goal Progress: Goal Met Goal 4:: Patient will stack 4 cones over head for 2 min without pain Goal Progress: Progressing Goal 5:: Patient will report 80% improvement Goal Progress: Goal Met Plan Plan: Discharge to I HEP D/C Information d/c sentence: If there are questions or concerns regarding this patient's physical therapy, please feel free to call me at [phone]. Thank you for the referral of this patient. Sincerely, Patience Hewitt, DPT Balance/Gait/Functional tests Balance/Special Test Scores Quick DASH Score: 4.5450 Improvement % Improvement: 100
--- NOTE | 2023-09-06 15:04 | OTREVAL_ITS ---
Re-Evaluation Intro: Dr. Parish Vaughan MD, It has been my pleasure to treat JAROD SEGOVIA over the last 12 visits for right distal radius fx.. Please see the progress note below for an update on the occupational therapy plan of care! Subjective Subjective: Pt stated no changes. Objective Objective/Function: Equipment Mechanic: L 65# R 40# Tripod L 7# R 8# Lateral L 10# R 6# L wrist AROM WFL L 9HPT 43 seconds quickDASH 29.5 Plan Plan Frequency: 2x /Week Duration: 4-6 Weeks Visits in this POC: (Insurance- No Limit- Med Lori) 4-6 weeks - 2 x week Plan: Continue POC: 4-6 weeks - 2 x week Goals Goals Patient Goals: Regain Strength, Decrease Pain, Use Hand/Wrist/Arm Normally Again and Be More Independent in ADLS Goal:: pt will demo a increase in bilateral food order expediter strength by 15# or greater to return pt to a PLOF by d.c pt will demo increase in lateral and tripod pinch by 4 # to increase pts ind with opening containers by d/c Goal:: pt will demo a increase in right forearm supination by 15* to increase pts ind. with ADLs and IADLs by d.c pt will demo a increase in right wrist flex/ext by 15* to increase pts ind. with ADLs by d/c Goal:: pt will report no pain greater than 2/10 with use of right UE with ADLs and IADLs by d/c Goal:: pt will demo a increase in FMS by IND picking up 10 coins manipulating in hand and translation one at a time to table by d/c to simulate money manipulation by d/c pt will demo a reduction in 9-hole peg time by 30 sec. indication of increase FMS by d.c Goal:: pt will demo understanding of nerve glides by end of 3rd visit. pt will demo understanding of visual compensatory candis. with small objects, hot cold or sharp to increase IND with self care and avoid of injury by d./c Goal:: pt will demo good compliance of median nerve glides to LUE to reduce intensity and frequency of numbness in tingling in L digits by d/c. Anticipated Interventions Anticipated Interventions Anticipated Interventions: A/AAROM/PROM, Strengthening, Sensory Retraining, Modalities, Orthoses, Joint Protection/Energy Conservation, Ergonomic Education, Fine Motor Coord/Juan Carlos, Sensory Stimulation, Education re assistive Equipment, Education re Diagnosis, Caregiver Training and Home Program Re-Evaluation Ending Re-evaluation ending: Please do not hesitate to contact me at [phone] by phone or if you have questions or concerns regarding this new plan of care! Sincerely, Cecelia Wisdom
--- NOTE | 2023-10-05 09:36 | OTREVAL_ITS ---
Re-Evaluation Intro: Dr. Parish Vaughan MD, It has been my pleasure to treat JAROD SEGOVIA over the last 20 visits for right distal radius fx.. Please see the progress note below for an update on the occupational therapy plan of care! Subjective Subjective: pt arrives states wrist is feeling sore from mowing. Objective Objective/Function: Government Affairs Fellow: L 65# R 40# Tripod L 7# R 8# Lateral L 10# R 6# L wrist AROM WFL L 9HPT 43 seconds quickDASH 29.5 pt making gains towards goals and demo need for continued skilled OT services Plan Plan Frequency: 2x /Week Duration: 4-6 Weeks Visits in this POC: (Insurance- No Limit- Med Lori) 4-6 weeks - 2 x week Plan: Continue POC: 3 weeks - 2x a week Goals Goals Patient Goals: Regain Strength, Decrease Pain, Use Hand/Wrist/Arm Normally Again and Be More Independent in ADLS Goal:: pt will demo a increase in bilateral retail cosmetics sales counter manager strength by 15# or greater to return pt to a PLOF by d.c pt will demo increase in lateral and tripod pinch by 4 # to increase pts ind with opening containers by d/c Goal:: pt will demo a increase in right forearm supination by 15* to increase pts ind. with ADLs and IADLs by d.c pt will demo a increase in right wrist flex/ext by 15* to increase pts ind. with ADLs by d/c Goal:: pt will report no pain greater than 2/10 with use of right UE with ADLs and IADLs by d/c Goal:: pt will demo a increase in FMS by IND picking up 10 coins manipulating in hand and translation one at a time to table by d/c to simulate money manipulation by d/c pt will demo a reduction in 9-hole peg time by 30 sec. indication of increase FMS by d.c Goal:: pt will demo understanding of nerve glides by end of 3rd visit. pt will demo understanding of visual compensatory candis. with small objects, hot cold or sharp to increase IND with self care and avoid of injury by d./c Goal:: pt will demo good compliance of median nerve glides to LUE to reduce intensity and frequency of numbness in tingling in L digits by d/c. Anticipated Interventions Anticipated Interventions Anticipated Interventions: A/RADHAOM/PROM, Strengthening, Sensory Retraining, Modalities, Orthoses, Joint Protection/Energy Conservation, Ergonomic Education, Fine Motor Coord/Juan Carlos, Sensory Stimulation, Education re assistive Equipment, Education re Diagnosis, Caregiver Training and Home Program Re-Evaluation Ending Re-evaluation ending: Please do not hesitate to contact me at [phone] by phone or if you have questions or concerns regarding this new plan of care! Sincerely, Nancie Marquez, OTR/L, CHT
--- NOTE | 2023-10-19 08:52 | HP.OTDCSUM_ITS ---
Discharge Summary D/C Summary: It has been my pleasure to treat JAROD SEGOVIA under orders from Dr. Parish Vaughan MD, for the diagnosis of right distal radius fx. for a total of 24 visit(s). Please see the following information for a summary of their discharge status. Overall Improvement % Improvement: 50 Objective Objective/Function: [employer] Developer: right 43# (increase from 30# originally) left 65# (increased from 35# originally) Lateral Pinch: 9# (was 4#) left 8# (was originally 10#) Tripod Pinch: 6# (increase from right 4#) left 6# (same) ROM of wrist not preventing him from doing anything at home. Pt said he is currently experiencing more stiffness than pain. QuickDASH 14 Goals Patient Goals: Regain Strength, Decrease Pain, Use Hand/Wrist/Arm Normally Again and Be More Independent in ADLS Goal:: pt will demo a increase in bilateral tank cleaner strength by 15# or greater to return pt to a PLOF by d.c (progressing) pt will demo increase in lateral and tripod pinch by 4 # to increase pts ind with opening containers by d/c (goal met) Goal:: pt will demo a increase in right forearm supination by 15* to increase pts ind. with ADLs and IADLs by d.c (goal met) pt will demo a increase in right wrist flex/ext by 15* to increase pts ind. with ADLs by d/c (goal met) Goal:: pt will report no pain greater than 2/10 with use of right UE with ADLs and IADLs by d/c ( progressing) Goal:: pt will demo a increase in FMS by IND picking up 10 coins manipulating in hand and translation one at a time to table by d/c to simulate money manipulation by d/c (goal met) pt will demo a reduction in 9-hole peg time by 30 sec. indication of increase FMS by d.c (progressing) Goal:: pt will demo understanding of nerve glides by end of 3rd visit. (goal met) pt will demo understanding of visual compensatory candis. with small objects, hot cold or sharp to increase IND with self care and avoid of injury by d./c (goal met) Goal:: pt will demo good compliance of median nerve glides to LUE to reduce intensity and frequency of numbness in tingling in L digits by d/c. (goal met) Plan Plan: Pt to be D/[facility]. D/C Information Discharge Comments: pt and pts agree to D/C with cont. his HEP and health and wellness program. Therapist advised to watch pt while getting on and off machines in the gym as he continues to feel his balance is limiting him. Pt may benefit from PT order for balance to improve pts confidence and safety with ambulation . pt and pts demo understanding and agree to D/C. d/c sentence: If there are questions or concerns regarding this patient's occupational therapy, please fell free to call me at [phone]. Thank you for the referral of this patient. Sincerely, Nancie Marquez, OTR/L, CHT
== END 2023-10-18 19:00 | disposition home or self-care (01) ==
LOC: OT 12:30
PROVIDERS: PCP Family Medicine; Referring Provider Orthopaedic Surgery Sports Medicine; Visit Provider Orthopaedic Surgery Sports Medicine
DX: S52.91XD Unspecified fracture of right forearm, subsequent encounter for closed fracture with routine healing (principal); M75.102 Unspecified rotator cuff tear or rupture of left shoulder, not specified as traumatic
CPT/HCPCS: 97110; 97112; 97162; 97166; 97530